=== PATIENT | female | born 1965 | race African-American/Black ===

== ENCOUNTER 2016-09-02 12:38 | Emergency (ER) | payer OTHER ==
--- NOTE | 2016-09-02 13:01 | PDOC ---
History of Present Illness - General Chief Complaint: Pain, Acute Stated Complaint: DIFFICULTY BREATHING Time Seen by Provider: 09/02/16 12:50 History Source: Patient Exam Limitations: No Limitations - History of Present Illness Initial Comments: 09/02/16 13:56 51y F hx of pulmonary fibrosis (on 4L of NC at rest and 6L when moving), lupus, PE on eliquis, kidney stones, presents with complaint of back pain. Pt states thtat she has been having intermittent episodes of hematuria and R sided flank pain. Pt states the pain feels like contractions, and occasionally radiates to her groin. Pt denies any fever, vomiting, cp. Pt reports seen bloody urine during her last hospitalization as well as during her rehab. She has been having worsening R flank pain so came today for evalution. THe pt also endorses feeling slightly increased sob, coughing whitish sputum, nasal congestion w/o fevers, increase leg swelling. Pt is complianet with her meds. pt endorses having diarrhea a few days ago but that has since resolved. Past History - Past Medical History Allergies/Adverse Reactions: Allergies Allergy/AdvReac Type Severity Reaction Status Date / Time No Known Allergies Allergy Verified 09/02/16 12:58 Home Medications: Ambulatory Orders Valsartan [Diovan] 240 mg PO DAILY 10/03/15 Acetaminophen [Tylenol .Regular Strength -] 650 mg PO Q4H PRN #0 tablet Albuterol 2.5/Ipratropium 0.5 [Duoneb -] 1 amp NEB QIDR amp 10/11/15 Ergocalciferol (Vitamin D2) [Vitamin D] 50,000 unit PO WEEKLY #8 10/11/15 Guaifenesin Dm [Mucinex Dm -] 1 tablet PO BID tab.er.12h 10/11/15 Loratadine [Claritin -] 10 mg PO DAILY tablet 10/11/15 Mag Hydrox/Al Hydrox/Simeth [Mylanta Oral Suspension -] 30 ml PO Q8H PRN #0 cup 10/11/15 Simethicone [Mylicon -] 80 mg PO Q4H PRN #0 tab.chew 10/11/15 Sodium Chloride Nasal [place] [[place] Nasal [place] -] 2 spray NS BID PRN #0 bottle 10/11/15 Sulfamethoxazole/Trimethoprim [Bactrim DS -] 1 each PO MoWeFr@1000 tablet 10/10 Tramadol HCl [Ultram -] 50 mg PO Q6H PRN #0 tablet 10/11/15 Acetaminophen W/ Codeine #3 [Tylenol # 3 -] 1 tab PO Q6H PRN #14 tablet MDD 4 Acetaminophen W/ Codeine #3 [Tylenol # 3] 1 combo PO Q4H PRN #14 tablet MDD 4 TABS 09/02/16 Apixaban [Eliquis] 5 mg PO BID 09/02/16 Ibuprofen 800 mg PO TID #15 tablet 09/02/16 Ibuprofen [Motrin -] 800 mg PO TID PRN #9 tablet 09/02/16 Pantoprazole Sodium [Protonix] 40 mg PO DAILY 09/02/16 Potassium Chloride [K-Dur -] 20 meq PO TID 09/02/16 Prednisone [Deltasone -] 40 mg PO DAILY 09/02/16 Torsemide [Demadex -] 20 mg PO DAILY 09/02/16 Cardiac Disorders: Yes (PULMONARY HYPERTENSION pulmonary fibrosis scarcodisos) HTN: Yes - Surgical History Cholecystectomy: Yes - Psycho/Social/Smoking Cessation Hx Anxiety: Yes Suicidal Ideation: No Smoking History: Former smoker Have you smoked in the past 12 months: No Hx Alcohol Use: No Drug/Substance Use Hx: No Substance Use Type: None Hx Substance Use Treatment: No Review of Systems - Review of Systems Able to Perform ROS?: Yes Comments:: 09/02/16 13:58 Constitutional - no reported Fever, Chills, weakness, HEENT: no reported vision changes, sore throat Respiratory: + cough, sob, no reported hemoptysis Cardiac: no reported chest pain, palpitations, light headedness, leg swelling Abd/GI: + abd pain, no reported nausea, vomiting, blood per rectum, melena, diarrhea : no reported dysuria, frequency, discharge Musculskelatal - no reported back pain, joint swelling skin - no reported bruising, erythema, rash neurological: no reported headache, numbness, focal weakness, tingling, ataxia, weakness hematologic: no reported anemia, easy bruising, easy bleeding *Physical Exam - Physical Exam Comments: 09/02/16 13:58 GENERAL: The patient is awake, alert, and fully oriented, Nontoxic - in no acute distress, morbidly obese HEAD: Normocephalic, atraumatic. EYES: extraocular movements intact, sclera anicteric, conjunctiva clear. ENT: Normal voice, Moist mucous membranes. NECK: Normal range of motion, supple LUNGS: Breath sounds equal, clear to auscultation bilaterally. No wheezes, no rhonchi, no rales. HEART: Regular rate and rhythm, normal S1 and S2 without murmur, rub or gallop. ABDOMEN: Soft, nontender, normoactive bowel sounds. No guarding, no rebound. + r CVA tenderness EXTREMITIES: Normal range of motion, no edema. No clubbing or cyanosis. No cords, erythema, or tenderness. NEUROLOGICAL: No facial assymetry, Normal speech, moving all 4 extremities spontaneously and symmetrically PSYCH: Normal mood, normal affect. SKIN: Warm, Dry, normal turgor, Heart Score/ECG Review - ECG Impressions Comment:: 09/02/16 15:57 Twelve-lead EKG was performed and reviewed by me. There is normal sinus rhythm with a normal rate. Rate of 93 The axis is normal. The intervals are normal. There are no ST or T wave abnormalities. Impression: Normal twelve-lead EKG ED Treatment Course - LABORATORY CBC & Chemistry Diagram: 09/02/16 14:10 09/02/16 14:10 Medical Decision Making - Medical Decision Making 09/02/16 13:59 will ck UA to r/o hematuria if + will obtain ct abdomen ?msk pain will ck labs to r/o anemia, metabolic dernagement will obtain xray to r/o pna, influenza will reassess A portion of this note was documented by scribe services under my direction. I have reviewed the details of the note, within reason, and agree with the documentation with the following case summary and management plan written by me 09/02/16 18:55 pts labs reviewed pain improved after morphine +hematuria awaiting CT results will sign out to dr. wills to fu with CT results and reassess the patient. *DC/Admit/Observation/Transfer Diagnosis at time of Disposition: Flank pain - Discharge Dispostion Disposition: HOME Condition at time of disposition: Improved - Prescriptions Prescriptions: Ibuprofen 800 mg PO TID #15 tablet Ibuprofen [Motrin -] 800 mg PO TID PRN #9 tablet PRN Reason: Pain Acetaminophen W/ Codeine #3 [Tylenol # 3] 1 combo PO Q4H PRN #14 tablet MDD 4 TABS PRN Reason: Pain Acetaminophen W/ Codeine #3 [Tylenol # 3 -] 1 tab PO Q6H PRN #14 tablet MDD 4 PRN Reason: Severe Pain - Referrals Referrals: Malcom Waddell MD [Primary Care Provider] - Call tomorrow - Patient Instructions Additional Instructions: PLENTY OF FLUIDS MOTRIN 800 MG 3 TIMES A DAY FOR 3 DAYS TYLENOL #3 AT FIRST SIGN OF PAIN RETURN IF FEVER, VOMITING, SEVERE PAIN SEE YOUR DOCTOR THIS WEEK
[2016-09-02 13:05] VITALS: BMI 47.0
[2016-09-02] MEDS ORDERED: morphine CARPU-JECT 4 MG/1 ML DISP.SYRIN IVPUSH ONE (14:01)
[2016-09-02 14:34] LABS: BASOPHIL 1.2 % (0-2.0); EOSINOPHIL 1.8 % (0-4.5); MCH 28.8 pg (25.7-33.7); MCHC 31.7 g/dl (32.0-36.0); MEAN CELL VOLUME 91.1 fl (80-96); MEAN PLT VOLUME 8.8 fl (7.5-11.1); NEUTROPHILS 61.2 % (42.8-82.8); PLATELET COUNT 207 K/MM3 (134-434); RDW 17.3 % (11.6-15.6); WHITE BLOOD COUNT 7.9 K/mm3 (4.0-10.0)
[2016-09-02 14:41] LABS: URINE APPEARANCE CLOUDY; URINE BILIRUBIN NEGATIVE (NEGATIVE); URINE COLOR DKYELLOW; URINE GLUCOSE (UA) NEGATIVE (NEGATIVE); URINE KETONE NEGATIVE (NEGATIVE); URINE NITRITE NEGATIVE (NEGATIVE); URINE UROBILINOGEN NEGATIVE E.U./dl (0.2-1.0)
[2016-09-02 14:42] LABS: URINE BLOOD 3+ (NEGATIVE); URINE LEUK ESTERASE TRACE (NEGATIVE); URINE PROTEIN 1+ (NEGATIVE)
[2016-09-02 14:46] LABS: URINE HYALINE CAST 14 /lpf; URINE MUCUS MANY; URINE RBC 167 /hpf (0-3); URINE WBC 11 /hpf (3-5)
[2016-09-02] MEDS ORDERED: morphine CARPU-JECT 4 MG/1 ML DISP.SYRIN ONE (14:49)
[2016-09-02 15:06] LABS: ALBUMIN 3.2 g/dl (3.4-5.0); ALK PHOS 58 U/L (45-117); ANION GAP 10 (8-16); BILIRUBIN,TOTAL 0.4 mg/dL (0.2-1.0); CALCIUM 9.5 mg/dL (8.5-10.1); CO2 27 mmol/L (21-32); CREATININE 0.9 mg/dL (0.55-1.02); GLUCOSE,RANDOM 77 mg/dL (74-106); SGOT/AST 17 U/L (15-37); SGPT/ALT 31 U/L (12-78); TOT PROT 6.7 g/dl (6.4-8.2)
--- NOTE | 2016-09-02 15:45 | EKG ---
Test Reason : Blood Pressure : / mmHG Vent. Rate : 093 BPM Atrial Rate : 093 BPM P-R Int : 140 ms QRS Dur : 102 ms QT Int : 356 ms P-R-T Axes : 056 015 049 degrees QTc Int : 442 ms NORMAL SINUS RHYTHM NORMAL ECG WHEN COMPARED WITH ECG OF 04-OCT-2015 08:34, NO SIGNIFICANT CHANGE WAS FOUND Confirmed by FAHAD ALEMAN MD ([id number]) on 09/02/2016 3:44:41 PM Referred By: Confirmed By:FAHAD ALEMAN MD
[2016-09-02 17:25] LABS: INR 1.28 (0.82-1.09); PROTHROMBIN TIME (PATIENT) 14.1 SEC (9.98-11.88)
[2016-09-02 19:44] VITALS: BP 128/76; PULSE 79; TEMP 98
[2016-09-02] MEDS ORDERED: KETOROLAC TROMETHAMINE 30 MG/1 ML VIAL IM ONE (20:19)
[2016-09-02] MEDS ORDERED: KETOROLAC TROMETHAMINE 30 MG/1 ML VIAL ONE (20:20)
--- NOTE | 2016-09-02 21:16 | PDOC ---
*Physical Exam - Vital Signs Last Vital Signs Temp Pulse Resp BP Pulse Ox 98.0 F 79 17 128/76 100 09/02/16 19:43 09/02/16 19:43 09/02/16 19:43 09/02/16 19:43 09/02/16 19:43 - Physical Exam Comments: 09/02/16 21:14 no obvious reason on ct forpain bit bif renal pelvic stone could be involved even though it is non obstructing and there's no hydro nsaid's f/u pmd ED Treatment Course - LABORATORY CBC & Chemistry Diagram: 09/02/16 14:10 09/02/16 14:10 - ADDITIONAL ORDERS Additional order review: Laboratory Results 09/02/16 09/02/16 09/02/16 14:10 14:10 14:10 INR 1.28 H Sodium 142 Potassium 4.3 D Chloride 105 Carbon Dioxide 27 Anion Gap 10 BUN 10 Creatinine 0.9 Creat Clearance w eGFR > 60 Random Glucose 77 Calcium 9.5 Total Bilirubin 0.4 AST 17 D ALT 31 D Alkaline Phosphatase 58 Total Protein 6.7 Albumin 3.2 L Urine Color Dkyellow Urine Appearance Cloudy Urine pH 5.0 Ur Specific [place] 1.026 Urine Protein 1+ H Urine Glucose (UA) Negative Urine Ketones Negative Urine Blood 3+ H Urine Nitrite Negative Urine Bilirubin Negative Urine Urobilinogen Negative Ur Leukocyte Esterase Trace H Urine RBC 167 Urine WBC 11 Ur Epithelial Cells Many Hyaline Casts 14 Urine Mucus Many 09/02/16 14:32 Influenza Types A,B Antigen (STAR) - Final Nasopharyngeal Swab - Final 09/02/16 14:10 RBC 4.70 MCV 91.1 MCHC 31.7 L RDW 17.3 H MPV 8.8 Neutrophils % 61.2 Lymphocytes % 28.1 Monocytes % 7.7 Eosinophils % 1.8 D Basophils % 1.2 - Medications Given in the ED: ED Medications Discontinued Medications Generic Name Dose Route Start Last Admin Trade Name Freq PRN Reason Stop Dose Admin Ketorolac Tromethamine 30 mg 09/02/16 20:19 09/02/16 20:26 Toradol Injection - IM 09/02/16 20:20 30 mg ONCE ONE Administration Morphine Sulfate 4 mg 09/02/16 14:01 09/02/16 14:53 Morphine Injection - IVPUSH 09/02/16 14:02 4 mg ONCE ONE Administration *DC/Admit/Observation/Transfer Diagnosis at time of Disposition: Flank pain - Discharge Dispostion Disposition: HOME Condition at time of disposition: Improved - Referrals Referrals: Malcom Waddell MD [Primary Care Provider] - Call tomorrow - Patient Instructions Additional Instructions: PLENTY OF FLUIDS MOTRIN 800 MG 3 TIMES A DAY FOR 3 DAYS TYLENOL #3 AT FIRST SIGN OF PAIN RETURN IF FEVER, VOMITING, SEVERE PAIN SEE YOUR DOCTOR THIS WEEK
--- NOTE | 2016-09-02 21:38 | PDOC ---
History of Present Illness - General Chief Complaint: Pain, Acute Stated Complaint: DIFFICULTY BREATHING Time Seen by Provider: 09/02/16 12:50 Past History - Past Medical History Allergies/Adverse Reactions: Allergies Allergy/AdvReac Type Severity Reaction Status Date / Time No Known Allergies Allergy Verified 09/02/16 12:58 Home Medications: Ambulatory Orders Valsartan [Diovan] 240 mg PO DAILY 10/03/15 Acetaminophen [Tylenol .Regular Strength -] 650 mg PO Q4H PRN #0 tablet Albuterol 2.5/Ipratropium 0.5 [Duoneb -] 1 amp NEB QIDR amp 10/11/15 Ergocalciferol (Vitamin D2) [Vitamin D] 50,000 unit PO WEEKLY #8 10/11/15 Guaifenesin Dm [Mucinex Dm -] 1 tablet PO BID tab.er.12h 10/11/15 Loratadine [Claritin -] 10 mg PO DAILY tablet 10/11/15 Mag Hydrox/Al Hydrox/Simeth [Mylanta Oral Suspension -] 30 ml PO Q8H PRN #0 cup 10/11/15 Simethicone [Mylicon -] 80 mg PO Q4H PRN #0 tab.chew 10/11/15 Sodium Chloride Nasal [place] [[place] Nasal [place] -] 2 spray NS BID PRN #0 bottle 10/11/15 Sulfamethoxazole/Trimethoprim [Bactrim DS -] 1 each PO MoWeFr@1000 tablet 10/10 Tramadol HCl [Ultram -] 50 mg PO Q6H PRN #0 tablet 10/11/15 Acetaminophen W/ Codeine #3 [Tylenol # 3] 1 combo PO Q4H PRN #14 tablet MDD 4 TABS 09/02/16 Apixaban [Eliquis] 5 mg PO BID 09/02/16 Ibuprofen 800 mg PO TID #15 tablet 09/02/16 Pantoprazole Sodium [Protonix] 40 mg PO DAILY 09/02/16 Potassium Chloride [K-Dur -] 20 meq PO TID 09/02/16 Prednisone [Deltasone -] 40 mg PO DAILY 09/02/16 Torsemide [Demadex -] 20 mg PO DAILY 09/02/16 Cardiac Disorders: Yes (PULMONARY HYPERTENSION pulmonary fibrosis scarcodisos) HTN: Yes Other medical history: LUPUS,P.EMBOLISM - Surgical History Cholecystectomy: Yes - Reproductive History Cervical CA: No Dysfunctional Uterine Bleeding: No Ectopic : No Endometrial CA: No Polycystic Ovaries: No - Psycho/Social/Smoking Cessation Hx Anxiety: Yes Suicidal Ideation: No Smoking History: Former smoker Have you smoked in the past 12 months: No Information on smoking cessation initiated: No Hx Alcohol Use: No Drug/Substance Use Hx: No Substance Use Type: None Hx Substance Use Treatment: No *Physical Exam - Vital Signs Last Vital Signs Temp Pulse Resp BP Pulse Ox 98.0 F 79 17 128/76 100 09/02/16 19:43 09/02/16 19:43 09/02/16 19:43 09/02/16 19:43 09/02/16 19:43 ED Treatment Course - LABORATORY CBC & Chemistry Diagram: 09/02/16 14:10 09/02/16 14:10 - ADDITIONAL ORDERS Additional order review: Laboratory Results 09/02/16 09/02/16 09/02/16 14:10 14:10 14:10 INR 1.28 H Sodium 142 Potassium 4.3 D Chloride 105 Carbon Dioxide 27 Anion Gap 10 BUN 10 Creatinine 0.9 Creat Clearance w eGFR > 60 Random Glucose 77 Calcium 9.5 Total Bilirubin 0.4 AST 17 D ALT 31 D Alkaline Phosphatase 58 Total Protein 6.7 Albumin 3.2 L Urine Color Dkyellow Urine Appearance Cloudy Urine pH 5.0 Ur Specific [place] 1.026 Urine Protein 1+ H Urine Glucose (UA) Negative Urine Ketones Negative Urine Blood 3+ H Urine Nitrite Negative Urine Bilirubin Negative Urine Urobilinogen Negative Ur Leukocyte Esterase Trace H Urine RBC 167 Urine WBC 11 Ur Epithelial Cells Many Hyaline Casts 14 Urine Mucus Many 09/02/16 14:32 Influenza Types A,B Antigen (STAR) - Final Nasopharyngeal Swab - Final 09/02/16 14:10 RBC 4.70 MCV 91.1 MCHC 31.7 L RDW 17.3 H MPV 8.8 Neutrophils % 61.2 Lymphocytes % 28.1 Monocytes % 7.7 Eosinophils % 1.8 D Basophils % 1.2 - Medications Given in the ED: ED Medications Discontinued Medications Generic Name Dose Route Start Last Admin Trade Name Freq PRN Reason Stop Dose Admin Ketorolac Tromethamine 30 mg 09/02/16 20:19 09/02/16 20:26 Toradol Injection - IM 09/02/16 20:20 30 mg ONCE ONE Administration Morphine Sulfate 4 mg 09/02/16 14:01 09/02/16 14:53 Morphine Injection - IVPUSH 09/02/16 14:02 4 mg ONCE ONE Administration *DC/Admit/Observation/Transfer Diagnosis at time of Disposition: Flank pain - Discharge Dispostion Disposition: HOME Condition at time of disposition: Improved - Prescriptions Prescriptions: Ibuprofen 800 mg PO TID #15 tablet Acetaminophen W/ Codeine #3 [Tylenol # 3] 1 combo PO Q4H PRN #14 tablet MDD 4 TABS PRN Reason: Pain - Referrals Referrals: Malcom Waddell MD [Primary Care Provider] - Call tomorrow - Patient Instructions Additional Instructions: PLENTY OF FLUIDS MOTRIN 800 MG 3 TIMES A DAY FOR 3 DAYS TYLENOL #3 AT FIRST SIGN OF PAIN RETURN IF FEVER, VOMITING, SEVERE PAIN SEE YOUR DOCTOR THIS WEEK - Post Discharge Activity
== END 2016-09-02 23:52 | disposition home or self-care (01) ==
LOC: JER 12:38
PROC: 3E0233Z Introduction of Anti-inflammatory into Muscle, Percutaneous Approach (ICD-10-PCS; principal; 2016-09-02)
PROC: 3E033NZ Introduction of Analgesics, Hypnotics, Sedatives into Peripheral Vein, Percutaneous Approach (ICD-10-PCS; 2016-09-02)
DX: R10.31 Right lower quadrant pain (principal); I27.2 Other secondary pulmonary hypertension; I10 Essential (primary) hypertension; J84.10 Pulmonary fibrosis, unspecified; Z87.891 Personal history of nicotine dependence; Z86.711 Personal history of pulmonary embolism; Z79.01 Long term (current) use of anticoagulants; Z99.81 Dependence on supplemental oxygen
CPT/HCPCS: 36415; 71010-TC; 74176-TC; 80053; 81003; 81015; 85025; 85610; 87804; 93005; 93010; 96372; 96374; 99285-25

== ENCOUNTER 2016-12-15 21:16 | Inpatient (IN) | payer OTHER ==
--- NOTE | 2016-12-15 21:31 | PDOC ---
History of Present Illness - General History Source: Patient Exam Limitations: No Limitations - History of Present Illness Initial Comments: 12/15/16 21:51 Patient is a 51 year old female with a significant past medical history of pulmonary fibrosis (patient requires lung transplant), lupus, hypertension, kidney stones, who presents to the ED with complaint of abdominal pain, SOB and vomiting. Patient reports 1 episode of vomiting at home and 1 episode while in the ED. Patient denies any diarrhea or constipation. Patient reports bilateral feet swelling with left foot bruising. Social History: Former Smoker (quit in 1997) PCP: Dr. Malcom Waddell Pulmonary: Dr. Richard Hopkins Cardiac: Dr. Pradip Rebollar <Mayuri Suarez - Last Filed: 12/16/16 00:26> <Rachel Naqvi - Last Filed: 12/16/16 04:28> - General Stated Complaint: ABDOMINAL PAIN Time Seen by Provider: 12/15/16 21:24 Past History <Mayuri Suarez - Last Filed: 12/16/16 00:26> - Past Medical History Cardiac Disorders: Yes (PULMONARY HYPERTENSION pulmonary fibrosis scarcodisos) HTN: Yes - Surgical History Cholecystectomy: Yes - Reproductive History Cervical CA: No Dysfunctional Uterine Bleeding: No Ectopic : No Endometrial CA: No Polycystic Ovaries: No - Psycho/Social/Smoking Cessation Hx Anxiety: Yes Suicidal Ideation: No Smoking History: Former smoker Have you smoked in the past 12 months: No Hx Alcohol Use: No Drug/Substance Use Hx: No Substance Use Type: None Hx Substance Use Treatment: No <Rachel Naqvi - Last Filed: 12/16/16 04:28> - Past Medical History Allergies/Adverse Reactions: Allergies Allergy/AdvReac Type Severity Reaction Status Date / Time No Known Allergies Allergy Verified 12/15/16 21:49 Home Medications: Ambulatory Orders Valsartan [Diovan] 240 mg PO DAILY 10/03/15 Acetaminophen [Tylenol .Regular Strength -] 650 mg PO Q4H PRN #0 tablet Albuterol 2.5/Ipratropium 0.5 [Duoneb -] 1 amp NEB QIDR amp 10/11/15 Ergocalciferol (Vitamin D2) [Vitamin D] 50,000 unit PO WEEKLY #8 10/11/15 Guaifenesin Dm [Mucinex Dm -] 1 tablet PO BID tab.er.12h 10/11/15 Loratadine [Claritin -] 10 mg PO DAILY tablet 10/11/15 Mag Hydrox/Al Hydrox/Simeth [Mylanta Oral Suspension -] 30 ml PO Q8H PRN #0 cup 10/11/15 Simethicone [Mylicon -] 80 mg PO Q4H PRN #0 tab.chew 10/11/15 Sodium Chloride Nasal [place] [[place] Nasal [place] -] 2 spray NS BID PRN #0 bottle 10/11/15 Sulfamethoxazole/Trimethoprim [Bactrim DS -] 1 each PO MoWeFr@1000 tablet 10/10 Tramadol HCl [Ultram -] 50 mg PO Q6H PRN #0 tablet 10/11/15 Apixaban [Eliquis] 5 mg PO BID 09/02/16 Pantoprazole Sodium [Protonix] 40 mg PO DAILY 09/02/16 Potassium Chloride [K-Dur -] 20 meq PO TID 09/02/16 Prednisone [Deltasone -] 40 mg PO DAILY 09/02/16 Torsemide [Demadex -] 20 mg PO DAILY 09/02/16 Review of Systems - Review of Systems Able to Perform ROS?: Yes Comments:: 12/15/16 21:50 GENERAL/CONSTITUTIONAL: No fever or chills. No weakness. HEAD, EYES, EARS, NOSE AND THROAT: No change in vision. No ear pain or discharge. No sore throat. CARDIOVASCULAR: (+) SOB. No chest pain. RESPIRATORY: (+) on NC. No cough, wheezing, or hemoptysis. GASTROINTESTINAL: (+)nausea, vomiting. No diarrhea or constipation. GENITOURINARY: No dysuria, frequency, or change in urination. MUSCULOSKELETAL: No joint or muscle swelling or pain. No neck or back pain. SKIN: No rash NEUROLOGIC: No headache, vertigo, loss of consciousness, or change in strength/ sensation. ENDOCRINE: No increased thirst. No abnormal weight change. HEMATOLOGIC/LYMPHATIC: No anemia, easy bleeding, or history of blood clots. ALLERGIC/IMMUNOLOGIC: No hives or skin allergy. <Mayuri Suarez - Last Filed: 12/16/16 00:26> *Physical Exam - Physical Exam Comments: 12/15/16 21:50 GENERAL: (+) vomiting while in the ED, non bilious non bloody. Awake, alert, and fully oriented, in no acute distress HEAD: No signs of trauma EYES: PERRLA, EOMI, sclera anicteric, conjunctiva clear ENT: Auricles normal inspection, hearing grossly normal, nares patent, oropharynx clear without exudates. Moist mucosa NECK: Normal ROM, supple, no lymphadenopathy, JVD, or masses LUNGS: Breath sounds equal, clear to auscultation bilaterally. No wheezes, and no crackles HEART: (+)Tachycardia. Normal S1 and S2, no murmurs, rubs or gallops ABDOMEN: (+)Obese. Soft, nontender, normoactive bowel sounds. No guarding, no rebound. No masses EXTREMITIES: (+) pitting edema bilaterally. Normal range of motion. No clubbing or cyanosis. No cords, erythema. NEUROLOGICAL: Cranial nerves II through XII grossly intact. Normal speech. SKIN: (+)left foot ecchymosis. Warm, Dry, normal turgor, no rashes or lesions noted. <Mayuri Suarez - Last Filed: 12/16/16 00:26> ED Treatment Course - LABORATORY CBC & Chemistry Diagram: 12/15/16 21:50 12/15/16 23:04 <Mayuri Suarez - Last Filed: 12/16/16 00:26> - LABORATORY CBC & Chemistry Diagram: 12/15/16 21:50 12/15/16 23:04 <Rachel Naqvi - Last Filed: 12/16/16 04:28> Medical Decision Making - Medical Decision Making 12/16/16 00:26 A call was placed to Dr Waddell at his [facility]. Awaiting a call back. <Mayuri Suarez - Last Filed: 12/16/16 00:26> - Medical Decision Making 12/16/16 03:18 Patient Name: Rowan Mason THIS IS A PRELIMINARY REPORT FROM [facility] [employer] [facility] IMAGES: [id number] EXAM DATE AND TIME: 2016-12-16 02:13:41.0 EXAM: CT ABDOMEN AND PELVIS WITHOUT CONTRAST 10 x 9 x 8 mm stone proximal right ureter versus large phlebolith abutting ureter. No hydronephrosis bilaterally. Small stone right kidney. Unremarkable pancreas. Cholecystectomy. No bowel obstruction, colitis, free fluid or free air. Appendix not seen. Fluid in colon. Diverticulosis colon without acute diverticulitis. Diastasis recti and small superimposed umbilical hernia containing fat. Hysterectomy. Coronary artery disease. Emphysematous changes and scattered interstitial thickening and ground glass densities mid and lower lungs. Thickened lateral portion right major fissure. THIS DOCUMENT HAS BEEN ELECTRONICALLY SIGNED 12/16/16 04:25 Pt comes with abdominal pain and vomiting. She has multiple comorbidities. She has an elevated WBC count with left shift 91%. She will be admitted to her PMD [facility]. Ct demonstrates a Right ureteral stone that is chronic and pt is supposed to have a procedure with Dr. Servin. 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 Dr. Waddell is aware of the patient <Rachel Naqvi - Last Filed: 12/16/16 04:28> *DC/Admit/Observation/Transfer - Attestations Scribe Attestion: 12/15/16 21:51 Documentation prepared by SUYAPA Park, acting as medical record retrieval specialist for Rachel Naqvi MD. <Mayrui Suarez - Last Filed: 12/16/16 00:26> - Discharge Dispostion Admit: Yes <Rachel Naqvi - Last Filed: 12/16/16 04:28> Diagnosis at time of Disposition: Lupus (systemic lupus erythematosus), Morbid obesity, Sarcoidosis, Vomiting, Gastroenteritis - Discharge Dispostion Condition at time of disposition: Guarded - Referrals
[2016-12-15] MEDS ORDERED: FAMOTIDINE 20 MG/50 ML IVPB 50 ML IVPB ONE ×2 (21:33→21:55)
[2016-12-15] MEDS ORDERED: ONDANSETRON 4 MG/2 ML VIAL IVPB ONE (21:33)
[2016-12-15] MEDS ORDERED: SODIUM CHLORIDE 0.9% 500 ML INFUS.BAG IV ONE (21:33)
[2016-12-15 21:50] VITALS: BMI 48.4
[2016-12-15] MEDS ORDERED: morphine CARPU-JECT 2 MG/1 ML DISP.SYRIN IVPUSH ONE (21:54)
[2016-12-15] MEDS ORDERED: ONDANSETRON 4 MG/2 ML VIAL ONE (21:55)
[2016-12-15] MEDS ORDERED: morphine CARPU-JECT 2 MG/1 ML DISP.SYRIN ONE (21:55)
[2016-12-15 22:02] LABS: BASOPHIL 0.6 % (0-2.0); MCH 28.5 pg (25.7-33.7); MCHC 32.1 g/dl (32.0-36.0); MEAN CELL VOLUME 88.5 fl (80-96); MEAN PLT VOLUME 8.2 fl (7.5-11.1); NEUTROPHILS 91.8 % (42.8-82.8); PLATELET COUNT 186 K/MM3 (134-434); RDW 20.5 % (11.6-15.6); WHITE BLOOD COUNT 14.1 K/mm3 (4.0-10.0)
[2016-12-15] MEDS ORDERED: HYDROmorphone HCL CARPU-JECT 2 MG/1 ML DISP.SYRIN IVPUSH ONE (23:49)
[2016-12-16 00:01] LABS: ALBUMIN 3.5 g/dl (3.4-5.0); BILIRUBIN,TOTAL 0.4 mg/dL (0.2-1.0); CALCIUM 8.8 mg/dL (8.5-10.1); COCKROFT - GAULT 102.119; CREATININE 1.4 mg/dL (0.55-1.02); TOT PROT 6.7 g/dl (6.4-8.2)
[2016-12-16] MEDS ORDERED: HYDROmorphone HCL CARPU-JECT 2 MG/1 ML DISP.SYRIN ONE (00:12)
[2016-12-16] MEDS ORDERED: METOCLOPRAMIDE HCL INJECTION 10 MG/2 ML VIAL IVPB ONE (00:16)
[2016-12-16] MEDS ORDERED: METOCLOPRAMIDE HCL INJECTION 10 MG/2 ML VIAL ONE (00:16)
[2016-12-16] MEDS ORDERED: traMADol HCL 50 MG TABLET PO PRN (00:44)
[2016-12-16] MEDS ORDERED: ALBUTEROL SO4 2.5/IPRATROPIUM 0.5 INH SOL 3 ML VIAL.NEB. NEB PRN ×2 (00:44→15:34)
[2016-12-16] MEDS ORDERED: ACETAMINOPHEN 325 MG TABLET (FP) PO PRN (00:44)
[2016-12-16] MEDS ORDERED: methylPREDNISolone NA SUCC 40 MG/1 ML VIAL ONE ×2 (02:21→12:55)
[2016-12-16] MEDS: methylPREDNISolone NA SUCC 40 MG/1 ML VIAL IVPB SCH ×3 (02:41→18:21)
[2016-12-16] MEDS ORDERED: HYDROmorphone HCL CARPU-JECT 2 MG/1 ML DISP.SYRIN IVPUSH ONE (06:14)
[2016-12-16] MEDS ORDERED: HYDROmorphone HCL CARPU-JECT 1 MG/1 ML DISP.SYRIN ONE (06:16)
[2016-12-16] MEDS: POTASSIUM CHLORIDE TABS 20 MEQ TABLET.ER (FP) PO SCH ×3 (06:27→23:37)
[2016-12-16 06:32] LABS: MCH 28.7 pg (25.7-33.7); MEAN CELL VOLUME 89.6 fl (80-96); MEAN PLT VOLUME 8.3 fl (7.5-11.1); PLATELET COUNT 180 K/MM3 (134-434); RDW 20.5 % (11.6-15.6); WHITE BLOOD COUNT 15.3 K/mm3 (4.0-10.0)
[2016-12-16] MEDS ORDERED: POTASSIUM CHLORIDE TABS 20 MEQ TABLET.ER (FP) PO ONE (06:46)
[2016-12-16 06:47] LABS: URINE APPEARANCE CLEAR; URINE BILIRUBIN NEGATIVE (NEGATIVE); URINE COLOR LTYELLOW; URINE GLUCOSE (UA) NEGATIVE (NEGATIVE); URINE KETONE NEGATIVE (NEGATIVE); URINE LEUK ESTERASE NEGATIVE (NEGATIVE); URINE NITRITE NEGATIVE (NEGATIVE); URINE PROTEIN NEGATIVE (NEGATIVE); URINE UROBILINOGEN NEGATIVE E.U./dl (0.2-1.0)
[2016-12-16 06:50] LABS: URINE BLOOD 1+ (NEGATIVE)
[2016-12-16 06:52] LABS: URINE BACTERIA RARE /hpf (NONE SEEN); URINE HYALINE CAST 11 /lpf; URINE MUCUS RARE; URINE RBC 1 /hpf (0-3); URINE WBC 1 /hpf (3-5)
[2016-12-16 07:26] LABS: ALBUMIN 3.6 g/dl (3.4-5.0); BILIRUBIN,TOTAL 0.5 mg/dL (0.2-1.0); CREATININE 2.1 mg/dL (0.55-1.02); TOT PROT 6.7 g/dl (6.4-8.2)
[2016-12-16 07:32] LABS: CHOLESTEROL 210 mg/dL (50-200); LDL CHOLESTEROL (ONLY SJRH) 111 mg/dL (5-100)
--- NOTE | 2016-12-16 09:56 | CON.CARD ---
Consult Consult Specialty:: cardio Referred by:: evelin Reason for Consultation:: chf - History of Present Illness Chief Complaint: abd pain/vomiting History of Present Illness: 51 yo female with complicated history of interstitial lung dz. previously dx's ILD ? etiology (? rheum dz process) when living in [place]. moved to [place] and transferred care to dr vines in 2015. here with ILDz exacerbation 10/17 with component of acute diast chf at that time , responded to diuresis. saw me 08/20 in office after long hiatus, having had interval hospital stays at multiple outside facilities: approx 7 interim admits at [facility] and [facility]--treated with cellcept for ILDz at one point, continued on snf steroids. also dx'd multiple PEs on 06/19 at [facility] and Rx'd eliquis at that time. treated with IV lasix as well during that stay, per pt report. has not seen me again since 08/20, called recently to report her leg swelling had significantly worsened despite torsemide 20 qd, so she increased it to 100mg qd. had good response as far as the swelling, and home labs i sent on her were stable (lytes/creat), though creat trending up to 1.3 at that time (last week). wt was 300 lbs at 08/20 visit, no wt info since. she says she recently developed abp pain and vomiting at home on DOA. she says her sob had worsened recently but improved, along with the improved pedal edema, when torsemide incr'd to 100 qd. she states she recently f/u'd with dr vines and claudio (rheum) and decision was made to put her back on methotrexate to try to get her off prednisone. she recently banged her foot and mmebreno (L leg) into walker and sustained bruises no cp, palpit PMH: ILDz COPD morbid obesity diast chf HTN venous ins'y MGUS - Past Medical History Cardio/Vascular: Yes: HTN Pulmonary: Yes: COPD, O2 Dependent, Pulmonary Fibrosis Gastrointestinal: Yes: GERD ...: No Rheumatology: Yes: Lupus - Alcohol/Substance Use Hx Alcohol Use: No - Smoking History Smoking history: Former smoker Have you smoked in the past 12 months: No Home Medications - Allergies Allergies/Adverse Reactions: Allergies Allergy/AdvReac Type Severity Reaction Status Date / Time No Known Allergies Allergy Verified 05/14/17 21:49 - Home Medications Home Medications: Ambulatory Orders Valsartan [Diovan] 240 mg PO DAILY 10/03/15 Acetaminophen [Tylenol .Regular Strength -] 650 mg PO Q4H PRN #0 tablet Albuterol 2.5/Ipratropium 0.5 [Duoneb -] 1 amp NEB QIDR amp 10/11/15 Ergocalciferol (Vitamin D2) [Vitamin D] 50,000 unit PO WEEKLY #8 10/11/15 Guaifenesin Dm [Mucinex Dm -] 1 tablet PO BID tab.er.12h 10/11/15 Loratadine [Claritin -] 10 mg PO DAILY tablet 10/11/15 Mag Hydrox/Al Hydrox/Simeth [Mylanta Oral Suspension -] 30 ml PO Q8H PRN #0 cup 10/11/15 Simethicone [Mylicon -] 80 mg PO Q4H PRN #0 tab.chew 10/11/15 Sodium Chloride Nasal [place] [[place] Holden Nasal Holden -] 2 spray NS BID PRN #0 bottle 10/11/15 Sulfamethoxazole/Trimethoprim [Bactrim DS -] 1 each PO MoWeFr@1000 tablet 10/10 Tramadol HCl [Ultram -] 50 mg PO Q6H PRN #0 tablet 10/11/15 Apixaban [Eliquis] 5 mg PO BID 09/02/16 Pantoprazole Sodium [Protonix] 40 mg PO DAILY 09/02/16 Potassium Chloride [K-Dur -] 20 meq PO TID 09/02/16 Prednisone [Deltasone -] 40 mg PO DAILY 09/02/16 Torsemide [Demadex -] 20 mg PO DAILY 09/02/16 Family Disease History - Family Disease History Family History: Denies (no known CMP) Review of Systems - Review of Systems Constitutional: denies: Chills, Fever Eyes: denies: Eye Pain HENT: denies: Nasal Congestion Neck: denies: Stiffness Cardiovascular: denies: Palpitations Respiratory: denies: Orthopnea, PND Gastrointestinal: denies: Diarrhea, Rectal Bleeding Genitourinary: denies: Burning, Hematuria Musculoskeletal: denies: Muscle Pain Integumentary: denies: Rash Neurological: denies: Numbness, Seizure, Syncope Endocrine: denies: Excessive Sweating Hematology/Lymphatic: denies: Excessive Bleeding Vital Signs: Vital Signs Temperature 98.2 F 12/15/16 21:49 Pulse Rate 97 H 12/15/16 21:49 Respiratory Rate 24 12/15/16 21:49 Blood Pressure 153/107 12/15/16 21:49 O2 Sat by Pulse Oximetry (%) 97 12/15/16 21:49 Constitutional: Yes: No Distress, Obese Eyes: No: Sclera Icterus HENT: No: Nasal Congestion Neck: No: Decreased ROM Respiratory: Yes: CTA Bilaterally, Rales (fine rales bases). No: Accessory Muscle Use, Wheezes Gastrointestinal: Yes: Normal Bowel Sounds. No: Distention, Hepatomegaly, Palpable Mass (tds habitus), Tenderness Cardiovascular: Yes: Regular Rate and Rhythm JVD: No Carotid Bruit: No PMI: Non-Displaced Heart Sounds: Yes: S1, S2. No: Gallop Murmur: No: Systolic Murmur, Diastolic Murmur Musculoskeletal: Yes: Other (No kyphosis) Extremities: No: Cold, Cyanosis Edema: No Peripheral Pulses: 2+ Left Carotid, 2+ Right Carotid, 2+ Left Doralis Pedis, 2+ Right Dorsalis Pedis Integumentary: No: Jaundice Neurological: Yes: Alert, Oriented (x3) Psychiatric: No: Agitated - Other Data Labs, Other Data: CBC, BMP 12/16/16 06:20 12/16/16 06:20 Laboratory Tests 12/15/16 12/16/16 12/16/16 23:04 06:20 06:20 WBC 15.3 H Hgb 12.4 Plt Count 180 Sodium 143 Potassium 4.5 Carbon Dioxide 34 H BUN 27 H D 41 H D Creatinine 1.4 H D 2.1 H D Hemoglobin A1c % AST 31 ALT 32 Triglycerides Cholesterol Total LDL Cholesterol HDL Cholesterol 12/16/16 12/16/16 06:20 06:20 WBC Hgb Plt Count Sodium Potassium Carbon Dioxide BUN Creatinine Hemoglobin A1c % 6.6 H AST ALT Triglycerides 87 Cholesterol 210 H Total LDL Cholesterol 111 H HDL Cholesterol 96 H ekg 12/15: NSR, normal axis/intervals; no path q's; nonsp TWA (flat) avf; no ST segment shift Imaging - Results Chest X-ray: Report Reviewed Assessment/Plan L/RHC 07/18: wedge 20-->down to 10 with nitroprusside; PA 48/22-->34/8; CI 2.1; normal cors echo 06/2015: tds, nl lvef, mild/mod dec rv fcn, mild/mod dilated rv, no sig valve path, mild phtn echo 10/2015: nl lv/rv, mild tr, rvsp 50-60 ecg 10/04/15: sr, nl intervals, no ischemic changes CXR: no effusion seen, chronic interstitial lung dz findings sob, diast CHF, ILD, pulm HTN: -mult admits with acute exacerbation of ILDz (incl outside hospitals) treated with steroids plus other immunosuppresant trials -prior RHC documenting that she has WHO 2 pulm HTN (all proportional to her elevated wedge, not likely a component from CTEPH or ILDz) -Echo 06/2015: tds, nl lvef, mild/mod dec rv fcn, mild/mod dilated rv, no sig valve path, mild phtn--at risk for cor pulmonale, will rpt echo here -previously treated with lasix 80 iv bid here as inpatient (10/17) with wt down 338 to 331, subsequently on torsemide 20-100mg qd (tolerated the higher dose at times, at least temporarily) -wt 300 lbs in office 08/20, off torsemide since prior hosp discharge--started 20mg qd then and this was incr'd to 100mg qd about 2-3 wks ago due to signif incr leg swelling -sob and leg swelling improved with incr diuretic at home -hold diuretics and hydrate gently given CONCEPCION today -cont nitrates (given marked response of wedge and right heart pressures 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 due to R kidney stone--per -? due to decr po (admitted with abd pain, naus and vomiting) plus diuretics -hold torsemide for now, gentle fluids (NS at 75 cc/hr--note: pt never with signif pulm edema or severe resp dysfunction due to chf, tolerates fluid reaccumulation well) h/o PEs: -dx'd in outside hosp ([facility]) 06/19--on Eliquis since atyp cp syndrome (chronic): -pleuritic cp, likely related to lung dz, coughing in past -cath 07/2015 showed normal cors HTN -cont home meds, observe bp ternd morbid obesity: -stable preop CV eval: -RCRI = 1, decr'd functional status -chf currently well-compensated -if pt needs cysto or lithotripsy to manage renal stone, she is at acceptable risk of periop CV complications -defer mgmt of AC periop to pulm and/or heme (PE dx'd at outside hosp 06/19, ? provoked (very sedentary pt with mult admits around that time))--? need bridging UFH
[2016-12-16] MEDS ORDERED: PANTOPRAZOLE 40 MG TABLET (FP) PO SCH (10:00)
[2016-12-16] MEDS ORDERED: TORSEMIDE 20 MG TABLET (FP) PO SCH (10:00)
[2016-12-16] MEDS ORDERED: HEPARIN NA (PORCINE) 5,000 UNITS/ML 1ML VIAL SQ SCH (10:00)
--- NOTE | 2016-12-16 10:30 | EKG ---
Test Reason : Blood Pressure : / mmHG Vent. Rate : 095 BPM Atrial Rate : 095 BPM P-R Int : 142 ms QRS Dur : 100 ms QT Int : 340 ms P-R-T Axes : 060 023 029 degrees QTc Int : 427 ms NORMAL SINUS RHYTHM NORMAL ECG WHEN COMPARED WITH ECG OF 02-SEP-2016 14:02, NO SIGNIFICANT CHANGE WAS FOUND Confirmed by FAHAD ALEMAN MD ([id number]) on 12/16/2016 10:29:39 AM Referred By: Confirmed By:FAHAD ALEMAN MD
--- NOTE | 2016-12-16 10:31 | CONSULT ---
Consultation: REQUESTING PROVIDER: CONSULT REQUEST: We have been asked to medically evaluate this patient for ( pulmonology ). HISTORY OF PRESENT ILLNESS: Patient is a 51 year old female with a significant past medical history of pulmonary fibrosis, lupus, hypertension, kidney stones, who presents to the ED with complaint of abdominal pain, SOB and vomiting. Patient states that she started feeling nauseated on and at same time she felt her breathing is little below base level. Her nausea kept on increasing and yesterday she had pain in her abdomen in epigastric area, right flank, 10/10 in intensity, radiating to groin, intermittent, burning and sharp in quality, pain didn't decreased with po meds. Patient reports 1 episode of vomiting at home and 1 episode while in the ED. Patient denies any diarrhea or constipation. Patient passes flatus and stool, last bowel movement yesterday. Patient states that she has chronic sob and is little below her base line since , she uses 4-6 L of oxygen in home while resting and 6-8 L while walking , denies cough, chest pain, fever, orthopnea. Patient also states that she has b /l swelling in legs she called her cardiology office and they had increased her torsemide from 20 to 100 qd. at that time cr was 1.3. Patient states that she hit her foot with walker and developed a bruse Patient is on prednisone 50 mg daily. PMH: ILDz COPD morbid obesity diast chf HTN PE stopped smoking in 1997, smoked for 13 years, 1/2 pack a day, REVIEW OF SYSTEMS: CONSTITUTIONAL: Absent: fever, chills, diaphoresis, generalized weakness, HEENT: Absent: rhinorrhea, nasal congestion, CARDIOVASCULAR: Absent: chest pain, , palpitations, lightheadedness, peripharal edema RESPIRATORY: Absent: cough, shortness of breath, dyspnea with exertion, orthopnea, wheezing, stridor, hemoptysis GASTROINTESTINAL: Absent: abdominal pain, abdominal distension, nausea, vomiting, diarrhea, constipation, melena, hematochezia GENITOURINARY: Absent: dysuria, frequency, urgency, hesitancy, hematuria, flank pain, genital pain MUSCULOSKELETAL: Absent: myalgia, arthralgia, back pain, neck pain SKIN: Absent: rash, itching, pallor, bruse PHYSICAL EXAMINATION GENERAL: Awake, alert, and fully oriented, HEAD: Normal with no signs of trauma. EYES: Pupils equal, round and reactive to light, EARS, NOSE, THROAT: , oropharynx clear without exudates. Moist mucous membranes. NECK: no lymphadenopathy, JVD, LUNGS: Breath sounds equal, b/l diffuse ronchi. HEART:s1s2 normal ABDOMEN: Soft, tender, bs + UPPER EXTREMITIES: 2+ pulses, warm, well-perfused. No peripheral edema. LOWER EXTREMITIES: 2+ pulses, warm, well-perfused. No calf tenderness. No peripheral edema. SKIN: Warm, dry, ecchymosis on left foot Laboratory Results - last 24 hr 12/16/16 12/16/16 12/16/16 05: 06:20 06:20 WBC 15.3 H RBC 4.32 Hgb 12.4 Hct 38.7 MCV 89.6 MCHC 32.0 RDW 20.5 H Plt Count 180 MPV 8.3 Sodium 143 Potassium 4.5 Chloride 101 Carbon Dioxide 34 H Anion Gap 8 BUN 41 H D Creatinine 2.1 H D Creat Clearance w eGFR 24.83 Random Glucose 174 H D Hemoglobin A1c % Calcium 9.0 Total Bilirubin 0.5 D AST 31 ALT 32 Alkaline Phosphatase 83 Total Protein 6.7 Albumin 3.6 Triglycerides Cholesterol Total LDL Cholesterol HDL Cholesterol Urine Color Ltyellow Urine Appearance Clear Urine pH 5.0 Urine Protein Negative Urine Glucose (UA) Negative Urine Ketones Negative Urine Blood 1+ H Urine Nitrite Negative Urine Bilirubin Negative Urine Urobilinogen Negative Ur Leukocyte Esterase Negative Urine RBC 1 Urine WBC 1 Ur Epithelial Cells Rare Urine Bacteria Rare Hyaline Casts 11 Urine Mucus Rare 12/16/16 12/16/16 06:20 06:20 WBC RBC Hgb Hct MCV MCHC RDW Plt Count MPV Sodium Potassium Chloride Carbon Dioxide Anion Gap BUN Creatinine Creat Clearance w eGFR Random Glucose Hemoglobin A1c % 6.6 H Calcium Total Bilirubin AST ALT Alkaline Phosphatase Total Protein Albumin Triglycerides 87 Cholesterol 210 H Total LDL Cholesterol 111 H HDL Cholesterol 96 H Urine Color Urine Appearance Urine pH Urine Protein Urine Glucose (UA) Urine Ketones Urine Blood Urine Nitrite Urine Bilirubin Urine Urobilinogen Ur Leukocyte Esterase Urine RBC Urine WBC Ur Epithelial Cells Urine Bacteria Hyaline Casts Urine Mucus Active Medications Generic Name Dose Route Start Last Admin Trade Name Freq PRN Reason Stop Dose Admin Acetaminophen 650 mg 12/16/16 00:44 Tylenol - PO Q6H PRN FEVER OR PAIN Albuterol/Ipratropium 1 amp 12/16/16 00:44 Duoneb - NEB Q6H PRN SHORTNESS OF BREATH Apixaban 5 mg 12/16/16 10:00 Eliquis - PO BID IKER Guaifenesin 2 tablet 12/16/16 10:00 Mucinex Dm - PO BID IKER Methylprednisolone Sodium Succinate 40 mg 12/16/16 02:00 12/16/16 02:41 Solu-Medrol - IVPB 40 mg Q8H-IV IKER Administration Pantoprazole Sodium 40 mg 12/16/16 10:00 Protonix - PO DAILY IKER Potassium Chloride 20 meq 12/16/16 06:00 12/16/16 06:27 K-Dur - PO 20 meq TID IKER Administration Torsemide 20 mg 12/16/16 10:00 Demadex - PO DAILY IKER Tramadol HCl 50 mg 12/16/16 00:44 Ultram - PO Q8H PRN PAIN Valsartan 160 mg 12/16/16 10:00 Diovan - PO DAILY IKER ASSESSMENT/PLAN: A/ acute or chronic hypoxic respiratory failure ILDz/ pulmonary fibrosis/ sarcoidosis COPD morbid obesity diast chf HTN h/o PE, dvt Lupus ramon could be from pre renal, decrease po intake, vs stone, hyperlipidemia renal stone with renal colic Plan on Iv solumedrol 40 q8h oxygen, keep spo2> 90, continue with nebulizer continue with anti coagulent eliquis monitor vitals monitor intake/ output daily weight. weight reduction Dispo: We will continue to follow the patient. Thank you for this consultative opportunity. Visit type - Emergency Visit Emergency Visit: Yes ED Registration Date: 12/16/16 Care time: The patient presented to the Emergency Department on the above date and was hospitalized for further evaluation of their emergent condition. - New Patient This patient is new to me today: Yes Date on this admission: 12/16/16 - Critical Care Critical Care patient: No
--- NOTE | 2016-12-16 12:13 | PN ---
Progress Note, Physician Chief Complaint: ID Full note dictated Admitted with abd pain and vomiting no diarrhea fever. - Current Medication List Current Medications: Active Medications Acetaminophen (Tylenol -) 650 mg PO Q6H PRN PRN Reason: FEVER OR PAIN Albuterol/Ipratropium (Duoneb -) 1 amp NEB Q6H PRN PRN Reason: SHORTNESS OF BREATH Apixaban (Eliquis -) 5 mg PO BID [facility] Guaifenesin (Mucinex Dm -) 2 tablet PO BID [facility] Sodium Chloride (Normal Saline -) 1,000 mls @ 75 mls/hr IV ASDIR IKER Methylprednisolone Sodium Succinate (Solu-Medrol -) 40 mg IVPB Q8H-IV IKER Last Admin: 12/16/16 02:41 Dose: 40 mg Nitroglycerin (Nitro-Dur Patch -) 0.3 mg TD DAILY IKER Pantoprazole Sodium (Protonix -) 40 mg PO DAILY IKER Potassium Chloride (K-Dur -) 20 meq PO TID IKER Last Admin: 12/16/16 06:27 Dose: 20 meq Tramadol HCl (Ultram -) 50 mg PO Q8H PRN PRN Reason: PAIN Valsartan (Diovan -) 160 mg PO DAILY [facility] - Objective Vital Signs: Vital Signs Temperature 98.2 F 12/15/16 21:49 Pulse Rate 97 H 12/15/16 21:49 Respiratory Rate 24 12/15/16 21:49 Blood Pressure 153/107 12/15/16 21:49 O2 Sat by Pulse Oximetry (%) 97 12/15/16 21:49 Neck: Yes: WNL, Supple Cardiovascular: Yes: Regular Rate and Rhythm, S1, S2 Respiratory: Yes: WNL, Regular, CTA Bilaterally, Diminished Gastrointestinal: Yes: WNL, Normal Bowel Sounds, Soft, Tenderness (Tenderness right sided) Labs: CBC, BMP 12/16/16 06:20 12/16/16 06:20 Problem List - Problems (1) Morbid obesity Code(s): E66.01 - MORBID (SEVERE) OBESITY DUE TO EXCESS CALORIES (2) Pulmonary fibrosis Code(s): J84.10 - PULMONARY FIBROSIS, UNSPECIFIED (3) Abdominal pain Code(s): R10.9 - UNSPECIFIED ABDOMINAL PAIN Assessment/Plan Laboratory Tests 12/16/16 12/16/16 06:20 06:20 WBC 15.3 H Hgb 12.4 Plt Count 180 BUN 41 H D Creat Clearance w eGFR 24.83 Total Bilirubin 0.5 D AST 31 ALT 32 Alkaline Phosphatase 83 Abdominal pain of unclear etiology CT with kidney stones and distended loops bowel air fluid level Elevated WBC but on steroids 50mg. ? steroids masking symptoms signs Plan NO antibiotics at this time Would get GI to see her ON Bactrim tiw I assume PCP prophylaxis Urine and blood cultures Jennifer DUMONT
[2016-12-16] MEDS: VALSARTAN 160 MG TABLET (UD) PO SCH (12:40)
[2016-12-16] MEDS: APIXABAN 5 MG TABLET PO SCH ×3 (12:40→23:52)
[2016-12-16] MEDS ORDERED: PANTOPRAZOLE 40 MG TABLET (FP) ONE (12:55)
[2016-12-16] MEDS ORDERED: VALSARTAN 80 MG TABLET (UD) ONE (12:55)
--- NOTE | 2016-12-16 13:01 | CONS ---
DATE OF CONSULTATION: HISTORY: This is a 51-year-old female who presents to the emergency room with chief complaint of abdominal pain, vomiting with some chills for approximately 3-4 days. She denies any diarrhea, blood per rectum, or hematemesis. The abdominal pain is predominantly in the epigastric area, and she states that she has had chronic pain in the abdomen, which she relates to known history of recurrent kidney stones. She denied any fever, chills, or hematuria. A CAT scan of the abdomen was obtained, which showed distended loops of colon with an air-fluid level. She has never had her appendix out but has had a prior cholecystectomy. Her other comorbid conditions include interstitial lung disease, obesity, COPD, diastolic congestive heart failure, hypertension, and pulmonary embolus. She was a former smoker who gave this up several years ago. FAMILY HISTORY: Noncontributory. SOCIAL HISTORY: Former smoker. No history of alcohol use. 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 Single. HIV status is negative. REVIEW OF SYSTEMS: Respiratory: Chronic shortness of breath, dyspnea with exertion. Cardiac: No chest pain, palpitations, syncope. Gastrointestinal: Abdominal pain. Positive nausea, positive vomiting. Genitourinary: No dysuria, hematuria, frequency. PHYSICAL EXAMINATION: General: She is an alert, pleasant female in no acute distress. Vital Signs: Her temperature is 98.2, pulse 97, blood pressure 153/107, respirations 24, weight 300 pounds. Neck: Supple. Lungs: Clear to percussion with diminished breath sounds. Heart: S1, S2. Regular rhythm without audible murmur. Abdomen: Positive bowel sounds. No distention. Tenderness noted in the epigastric, right upper and right lower quadrant without rebound or guarding. Extremities: Without edema. LABORATORY DATA: White count 14.1, hemoglobin 12.5, platelets 186, BUN 41, creatinine 2.1. Liver enzymes within normal limits. Chest x-ray reviewed shows chronic interstitial lung disease. ASSESSMENT: A 61-year-old female with a history of interstitial lung disease on high doses of prednisone 50 mg daily along with prophylactic Bactrim. The patient presents now with a 3- to 4-day history of abdominal pain with episodes of vomiting, and a CAT scan showing distended loops of large bowel with air-fluid level. The will be reviewed. She has a history of chronic constipation. Clinically she does not appear toxic in the sense of "sepsis"; however, given 50 mg of prednisone, her symptomatology may be potentially masked by the steroids. For right now, I would get blood and urine cultures on her but elect not to treat her with any antibiotics as the etiology of the abdominal pain remains unclear. I would suggest getting GI to further evaluate her abdominal pain as the next step in her management.. AKASH ZAVALA M.D. [id number] MTDD
[2016-12-16] MEDS: SODIUM CHLORIDE 1,000 ML IV SCH ×2 (13:03→23:52)
--- NOTE | 2016-12-16 15:36 | PN ---
Teaching Attending Note Name of Resident: Ralph August ATTENDING PHYSICIAN STATEMENT I saw and evaluated the patient. I reviewed the resident's note and discussed the case with the resident. I agree with the resident's findings and plan as documented. PULMONARY IMP ACUTE ON CHRONIC HYPOXEMIC RESPIRATORY FAILURE ADVANCED SARCOIDOSIS WITH PULMONARY FIBROSIS SLE H/O DVT/PE MORBID OBESITY RENAL COLIC ACUTE RENAL FAILURE LIKELY OSAS PLAN IVF ANALGESICS STEROIDS INHALED BRONCHODILATORS SUPPLEMENTAL O2 MONITOR LYTES/RENAL FUNCTION WT REDUCTION SLEEP STUDIES OUTPATIENT DR MEDINA Problem List - Problems (1) Abdominal pain Code(s): R10.9 - UNSPECIFIED ABDOMINAL PAIN (2) Dyspnea Code(s): R06.00 - DYSPNEA, UNSPECIFIED Qualifiers: Dyspnea type: shortness of breath Qualified Code(s): R06.02 - Shortness of breath (3) Hypertension Code(s): I10 - ESSENTIAL (PRIMARY) HYPERTENSION Qualifiers: Hypertension type: essential hypertension Qualified Code(s): I10 - Essential (primary) hypertension (4) Lupus (systemic lupus erythematosus) Code(s): M32.9 - SYSTEMIC LUPUS ERYTHEMATOSUS, UNSPECIFIED (5) Morbid obesity Code(s): E66.01 - MORBID (SEVERE) OBESITY DUE TO EXCESS CALORIES (6) Pulmonary fibrosis Code(s): J84.10 - PULMONARY FIBROSIS, UNSPECIFIED (7) Sarcoidosis Code(s): D86.9 - SARCOIDOSIS, UNSPECIFIED (8) Vomiting Code(s): R11.10 - VOMITING, UNSPECIFIED (9) Flank pain Code(s): R10.9 - UNSPECIFIED ABDOMINAL PAIN (10) Renal colic Code(s): N23 - UNSPECIFIED RENAL COLIC (11) Acute renal failure Code(s): N17.9 - ACUTE KIDNEY FAILURE, UNSPECIFIED (12) Acute and chronic respiratory failure with hypoxia Code(s): J96.21 - ACUTE AND CHRONIC RESPIRATORY FAILURE WITH HYPOXIA
[2016-12-16] MEDS: guaiFENesin/D-METHORPHAN HB 1 EACH TAB.ER.12H PO SCH ×2 (15:58→23:51)
[2016-12-16] MEDS: HYDROmorphone HCL CARPU-JECT 2 MG/1 ML DISP.SYRIN IVPB PRN ×2 (16:00→23:33)
[2016-12-16] MEDS ORDERED: SODIUM CHLORIDE NASAL SPRAY 44 ML BOTTLE NS PRN (16:46)
[2016-12-16] MEDS: METOCLOPRAMIDE HCL INJECTION 10 MG/2 ML VIAL IVPB PRN (16:52)
--- NOTE | 2016-12-16 16:52 | HP ---
Admitting History and Physical - Primary Care Physician PCP: Malcom Waddell - Admission Chief Complaint: ABD PAIN/DYSPNEA/PAIN History of Present Illness: 51 Y/O FEMALE WELL KNOWN TO MY SERVICE WITH HISTORY OF SEVERE PULMONARY FIBROSIS , HTN, DM, OBESITY, FORMER [employer] HERE WITH ABD PAIN LEFT SIDE WITH DYSPNEA AND CHRONIC PAIN History Source: Patient - Past Medical History Cardiovascular: Yes: HTN Pulmonary: Yes: COPD, O2 Dependent, Pulmonary Fibrosis Gastrointestinal: Yes: GERD ...: No Rheumatology: Yes: Lupus - Smoking History Smoking history: Former smoker Have you smoked in the past 12 months: No - Alcohol/Substance Use Hx Alcohol Use: No Home Medications - Allergies Allergies/Adverse Reactions: Allergies Allergy/AdvReac Type Severity Reaction Status Date / Time No Known Allergies Allergy Verified 12/15/16 21:49 - Home Medications Home Medications: Ambulatory Orders Albuterol 2.5/Ipratropium 0.5 [Duoneb -] 1 neb IH QID 12/16/16 Apixaban [Eliquis -] 10 mg PO DAILY 12/16/16 Fluconazole 200 mg PO DAILY 12/16/16 Hydroxychloroquine So4 [Plaquenil -] 400 mg PO DAILY 12/16/16 Pantoprazole Sodium [Protonix] 40 mg PO DAILY 12/16/16 Potassium Chloride [K-Dur -] 60 meq PO DAILY 12/16/16 Prednisone [Deltasone -] 50 mg PO DAILY 12/16/16 Sulfamethoxazole/Trimethoprim [Bactrim Ds -] 1 tab PO DAILY 12/16/16 Torsemide [Demadex] 100 mg PO DAILY 12/16/16 Tramadol HCl [Ultram] 100 mg PO PRN 12/16/16 Valsartan [Diovan] 240 mg PO DAILY 12/16/16 Review of Systems - Review of Systems Constitutional: reports: Weakness Eyes: reports: No Symptoms HENT: reports: No Symptoms Neck: reports: No Symptoms Cardiovascular: reports: Shortness of Breath Respiratory: reports: Cough, SOB Gastrointestinal: reports: No Symptoms Genitourinary: reports: No Symptoms Musculoskeletal: reports: Back Pain, Joint Pain, Muscle Cramps, Muscle Weakness Integumentary: reports: Other Neurological: reports: Pre-Existing Deficit, Weakness, Other Endocrine: reports: No Symptoms Hematology/Lymphatic: reports: No Symptoms Physical Examination Vital Signs: Vital Signs Temperature 98.2 F 12/16/16 14:27 Pulse Rate 105 H 12/16/16 14:27 Respiratory Rate 20 12/16/16 14:27 Blood Pressure 142/88 12/16/16 14:27 O2 Sat by Pulse Oximetry (%) 96 12/16/16 14:27 Constitutional: Yes: Moderate Distress Eyes: Yes: WNL HENT: Yes: WNL Neck: Yes: WNL Cardiovascular: Yes: WNL Respiratory: Yes: Diminished, On Nasal O2, Poor Air Entry Gastrointestinal: Yes: WNL Renal/: Yes: Other Musculoskeletal: Yes: Back Pain, Muscle Weakness Edema: Yes Peripheral Pulses WNL: Yes Integumentary: Yes: WNL Wound/Incision: Yes: Clean/Dry Neurological: Yes: Other ...Motor Strength: LLE, RLE Psychiatric: Yes: Other Labs: CBC, BMP 12/16/16 06:20 12/16/16 06:20 Problem List - Problems (1) Abdominal pain Code(s): R10.9 - UNSPECIFIED ABDOMINAL PAIN Qualifiers: Abdominal location: left lower quadrant Qualified Code(s): R10.32 - Left lower quadrant pain (2) Acute and chronic respiratory failure with hypoxia Code(s): J96.21 - ACUTE AND CHRONIC RESPIRATORY FAILURE WITH HYPOXIA (3) Acute renal failure Code(s): N17.9 - ACUTE KIDNEY FAILURE, UNSPECIFIED Qualifiers: Acute renal failure type: unspecified Qualified Code(s): N17.9 - Acute kidney failure, unspecified (4) Dyspnea Code(s): R06.00 - DYSPNEA, UNSPECIFIED Qualifiers: Dyspnea type: shortness of breath Qualified Code(s): R06.02 - Shortness of breath (5) Gastroenteritis Code(s): K52.9 - NONINFECTIVE GASTROENTERITIS AND COLITIS, UNSPECIFIED (6) Hypertension Code(s): I10 - ESSENTIAL (PRIMARY) HYPERTENSION Qualifiers: Hypertension type: essential hypertension Qualified Code(s): I10 - Essential (primary) hypertension (7) Lupus (systemic lupus erythematosus) Code(s): M32.9 - SYSTEMIC LUPUS ERYTHEMATOSUS, UNSPECIFIED (8) Morbid obesity Code(s): E66.01 - MORBID (SEVERE) OBESITY DUE TO EXCESS CALORIES Qualifiers: Obesity type: due to excess calories Qualified Code(s): E66.01 - Morbid (severe) obesity due to excess calories (9) Pulmonary fibrosis Code(s): J84.10 - PULMONARY FIBROSIS, UNSPECIFIED (10) Sarcoidosis Code(s): D86.9 - SARCOIDOSIS, UNSPECIFIED Assessment/Plan SOLUMEDROL IV GI EVAL PAIN CONTROL PULM EVAL RENAL EVAL SNF
[2016-12-16] MEDS ORDERED: METHOTREXATE 2.5 MG TABLET PO SCH (17:00)
--- NOTE | 2016-12-16 17:03 | CONSULT ---
Consult Consult Specialty:: Nephrology Reason for Consultation:: CONCEPCION - History of Present Illness Chief Complaint: shortness of breath and vomiting History of Present Illness: Pt is a 51 year old female with pmhx of SLE, pulmonary fibrosis, HTN, nephrolithiasis and obesity who presents to the ER with shortness of breath. She also complains of abdominal pain and vomiting. She did vomit at home and then again in the ER. I was called to evaluate her for acute renal failure. She denies history of CKD. She says she has had kidney stones in the past. She denies kidney involvement from the SLE. She does complain of lower extremity edema however she does not feel that is it much worse. She is on diuretics at home. - History Source History Provided By: Patient, Medical Record - Past Medical History Cardio/Vascular: Yes: HTN Pulmonary: Yes: COPD, O2 Dependent, Pulmonary Fibrosis Gastrointestinal: Yes: GERD Renal/: Yes: Renal Calculi ...: No Rheumatology: Yes: Lupus - Past Surgical History Past Surgical History: Yes: Cholecystectomy, Hysterectomy - Alcohol/Substance Use Hx Alcohol Use: No - Smoking History Smoking history: Former smoker Have you smoked in the past 12 months: No Home Medications - Allergies Allergies/Adverse Reactions: Allergies Allergy/AdvReac Type Severity Reaction Status Date / Time No Known Allergies Allergy Verified 12/15/16 21:49 - Home Medications Home Medications: Ambulatory Orders Albuterol 2.5/Ipratropium 0.5 [Duoneb -] 1 neb IH QID 12/16/16 Apixaban [Eliquis -] 10 mg PO DAILY 12/16/16 Fluconazole 200 mg PO DAILY 12/16/16 Hydroxychloroquine So4 [Plaquenil -] 400 mg PO DAILY 12/16/16 Pantoprazole Sodium [Protonix] 40 mg PO DAILY 12/16/16 Potassium Chloride [K-Dur -] 60 meq PO DAILY 12/16/16 Prednisone [Deltasone -] 50 mg PO DAILY 12/16/16 Sulfamethoxazole/Trimethoprim [Bactrim Ds -] 1 tab PO DAILY 12/16/16 Torsemide [Demadex] 100 mg PO DAILY 12/16/16 Tramadol HCl [Ultram] 100 mg PO PRN 12/16/16 Valsartan [Diovan] 240 mg PO DAILY 12/16/16 Family Disease History - Family Disease History Family History: Denies Review of Systems - Review of Systems Constitutional: reports: Malaise Eyes: reports: No Symptoms HENT: reports: No Symptoms Neck: reports: No Symptoms Cardiovascular: reports: Edema, Shortness of Breath Respiratory: reports: Cough, SOB, SOB on Exertion Gastrointestinal: reports: Abdominal Pain, Vomiting Genitourinary: reports: No Symptoms Musculoskeletal: reports: No Symptoms Integumentary: reports: No Symptoms Neurological: reports: No Symptoms Endocrine: reports: No Symptoms Hematology/Lymphatic: reports: No Symptoms Psychiatric: reports: No Symptoms Physical Exam Vital Signs: Vital Signs Temperature 98.2 F 12/16/16 14:27 Pulse Rate 105 H 12/16/16 14:27 Respiratory Rate 20 12/16/16 14:27 Blood Pressure 142/88 12/16/16 14:27 O2 Sat by Pulse Oximetry (%) 96 12/16/16 14:27 Constitutional: Yes: Calm Eyes: Yes: Conjunctiva Clear HENT: Yes: Atraumatic Cardiovascular: Yes: S1, S2 Respiratory: Yes: Diminished, On Nasal O2 Gastrointestinal: Yes: Soft, Abdomen, Obese Renal/: Yes: WNL Edema: Yes Edema: LLE: 1+, RLE: 1+ Neurological: Yes: Oriented Psychiatric: Yes: Oriented Labs: CBC, BMP 12/16/16 06:20 12/16/16 06:20 Laboratory Tests 10/09/15 10/10/15 08/14/16 07:15 07:30 11:24 WBC Hgb Plt Count Sodium Potassium Chloride Carbon Dioxide Anion Gap BUN Creatinine 1.0 1.2 H 1.1 H Urine Color Urine Appearance Urine pH Ur Specific [place] Urine Protein Urine Glucose (UA) Urine Ketones Urine Blood Urine Nitrite Urine Bilirubin Urine Urobilinogen Ur Leukocyte Esterase 09/27/16 12/15/16 12/15/16 11:00 21:50 23:04 WBC 14.1 H D Hgb 12.5 Plt Count 186 Sodium 145 Potassium 3.9 Chloride 100 Carbon Dioxide 32 Anion Gap 13 BUN 27 H D Creatinine 1.0 1.4 H D Urine Color Urine Appearance Urine pH Ur Specific [place] Urine Protein Urine Glucose (UA) Urine Ketones Urine Blood Urine Nitrite Urine Bilirubin Urine Urobilinogen Ur Leukocyte Esterase 12/16/16 12/16/16 12/16/16 05: 06:20 06:20 WBC 15.3 H Hgb 12.4 Plt Count 180 Sodium 143 Potassium 4.5 Chloride 101 Carbon Dioxide 34 H Anion Gap 8 BUN 41 H D Creatinine 2.1 H D Urine Color Ltyellow Urine Appearance Clear Urine pH 5.0 Ur Specific [place] 1.010 Urine Protein Negative Urine Glucose (UA) Negative Urine Ketones Negative Urine Blood 1+ H Urine Nitrite Negative Urine Bilirubin Negative Urine Urobilinogen Negative Ur Leukocyte Esterase Negative Imaging - Results Chest X-ray: Report Reviewed Cat Scan: Report Reviewed Problem List - Problems (1) Abdominal pain Code(s): R10.9 - UNSPECIFIED ABDOMINAL PAIN Qualifiers: Abdominal location: left lower quadrant Qualified Code(s): R10.32 - Left lower quadrant pain (2) Acute renal failure Code(s): N17.9 - ACUTE KIDNEY FAILURE, UNSPECIFIED Qualifiers: Acute renal failure type: unspecified Qualified Code(s): N17.9 - Acute kidney failure, unspecified (3) Dyspnea Code(s): R06.00 - DYSPNEA, UNSPECIFIED Qualifiers: Dyspnea type: shortness of breath Qualified Code(s): R06.02 - Shortness of breath (4) Hypertension Code(s): I10 - ESSENTIAL (PRIMARY) HYPERTENSION Qualifiers: Hypertension type: essential hypertension Qualified Code(s): I10 - Essential (primary) hypertension (5) Lupus (systemic lupus erythematosus) Code(s): M32.9 - SYSTEMIC LUPUS ERYTHEMATOSUS, UNSPECIFIED (6) Morbid obesity Code(s): E66.01 - MORBID (SEVERE) OBESITY DUE TO EXCESS CALORIES Qualifiers: Obesity type: due to excess calories Qualified Code(s): E66.01 - Morbid (severe) obesity due to excess calories (7) Pulmonary fibrosis Code(s): J84.10 - PULMONARY FIBROSIS, UNSPECIFIED (8) Sarcoidosis Code(s): D86.9 - SARCOIDOSIS, UNSPECIFIED Assessment/Plan Current Medications Generic Name Dose Route Start Last Admin Trade Name Freq PRN Reason Stop Dose Admin Acetaminophen 650 mg 12/16/16 00:44 Tylenol - PO Q6H PRN FEVER OR PAIN Albuterol/Ipratropium 1 amp 12/16/16 18:00 Duoneb - NEB QIDR IKER Apixaban 5 mg 12/16/16 10:00 12/16/16 13:21 Eliquis - PO Not Given BID IKER Bacitracin 1 applic 05/15/17 22:00 Bacitracin - TP BID IKER Guaifenesin 2 tablet 12/16/16 10:00 12/16/16 15:58 Mucinex Dm - PO Not Given BID IKER Hydromorphone HCl 2 mg 12/16/16 15:41 12/16/16 16:00 Dilaudid Injection - IVPB 2 mg Q6H PRN Administration PAIN Sodium Chloride 1,000 mls @ 75 mls/hr 12/16/16 11:00 12/16/16 13:03 Normal Saline - IV 75 mls/hr ASDIR IKER Administration Methotrexate 7.5 mg 12/16/16 17:00 Mexate - PO Q7D IKER Methylprednisolone Sodium Succinate 40 mg 12/16/16 02:00 12/16/16 12:50 Solu-Medrol - IVPB 40 mg Q8H-IV IKER Administration Metoclopramide HCl 10 mg 12/16/16 15:40 12/16/16 16:52 Reglan Injection - IVPB 10 mg Q8H PRN Administration NAUSEA Nitroglycerin 0.3 mg 12/17/16 10:00 Nitro-Dur Patch - TD DAILY IKER Pantoprazole Sodium 40 mg 12/16/16 10:00 12/16/16 12:40 Protonix - PO 40 mg DAILY IKER Administration Potassium Chloride 20 meq 12/16/16 06:00 12/16/16 16:01 K-Dur - PO 20 meq TID IKER Administration Sodium Chloride 2 spray 12/16/16 16:46 [place] Nasal [place] - NS Q2H PRN NASAL CONGESTION Tramadol HCl 50 mg 12/16/16 00:44 Ultram - PO Q8H PRN PAIN Valsartan 160 mg 12/16/16 10:00 12/16/16 12:40 Diovan - PO 160 mg DAILY IKER Administration Impression 1. CONCEPCION 2. SLE 3. pulmonary fibrosis 4. sarcoidosis 5. obesity 6. HTN 7. COPD 8. gerd 9. nephrolithiasis Plan - hold diuretics - gently hydration - repeat labs in am - will send urine lytes - repeat ua - check renal ultrasound - kidney stones can explaine the microscopic hematuria - follow UAs closely as she has SLE - will stop valsartan if renal function worsens - cardiology input appreciated - will follow Dr Sharpe
[2016-12-16] MEDS: ALBUTEROL SO4 2.5/IPRATROPIUM 0.5 INH SOL 3 ML VIAL.NEB. NEB SCH (17:45)
[2016-12-16] MEDS: ARTIFICIAL TEARS (POLYVINYL ALCOHOL 1.4%) OPTH DROPS OU SCH ×2 (18:21→23:38)
[2016-12-16] MEDS: BACITRACIN 15 GM TUBE TOPICAL OINTMENT TP SCH (23:38)
[2016-12-17] MEDS: METOCLOPRAMIDE HCL INJECTION 10 MG/2 ML VIAL IVPB PRN (01:49)
[2016-12-17] MEDS: methylPREDNISolone NA SUCC 40 MG/1 ML VIAL IVPB SCH ×3 (01:49→22:06)
[2016-12-17] MEDS: POTASSIUM CHLORIDE TABS 20 MEQ TABLET.ER (FP) PO SCH ×3 (05:54→22:10)
[2016-12-17] MEDS: HYDROmorphone HCL CARPU-JECT 2 MG/1 ML DISP.SYRIN IVPB PRN ×3 (06:21→22:30)
[2016-12-17] MEDS: ALBUTEROL SO4 2.5/IPRATROPIUM 0.5 INH SOL 3 ML VIAL.NEB. NEB SCH ×4 (06:40→16:05)
[2016-12-17] MEDS: PANTOPRAZOLE 40 MG TABLET (FP) PO SCH (06:46)
[2016-12-17 07:52] LABS: ALBUMIN 2.8 g/dl (3.4-5.0); CALCIUM 9.2 mg/dL (8.5-10.1)
[2016-12-17 07:56] LABS: BILIRUBIN,TOTAL 0.8 mg/dL (0.2-1.0); COCKROFT - GAULT 82.484; CREATININE 1.8 mg/dL (0.55-1.02)
[2016-12-17] MEDS ORDERED: FLUCONAZOLE 100 MG TABLET (UD) PO SCH (10:00)
[2016-12-17 10:08] LABS: URINE APPEARANCE CLEAR; URINE BILIRUBIN NEGATIVE (NEGATIVE); URINE BLOOD NEGATIVE (NEGATIVE); URINE COLOR YELLOW; URINE GLUCOSE (UA) NEGATIVE (NEGATIVE); URINE KETONE NEGATIVE (NEGATIVE); URINE LEUK ESTERASE NEGATIVE (NEGATIVE); URINE NITRITE NEGATIVE (NEGATIVE); URINE PROTEIN NEGATIVE (NEGATIVE); URINE UROBILINOGEN NEGATIVE E.U./dl (0.2-1.0)
--- NOTE | 2016-12-17 10:14 | PN ---
Physical Exam: SUBJECTIVE: Patient seen and examined Patient feels better. states pain has improved but still their, pointed towards epigastric area. Patient has h/o heart burn. Patient Ct scan shows diverticula and moderate stool. avoid constipation. States breathing has improved. rales has improved. denies chest pain, cough, palpitations. on 5L nasal canula OBJECTIVE: Vital Signs Period Temp Pulse Resp BP Sys/Steen Pulse Ox Last 24 Hr 98.2 F-98.4 F 98-109 20-20 123-142/75-88 96-96 GENERAL: Awake, alert, and fully oriented, HEAD: Normal with no signs of trauma. EYES: Pupils equal, round and reactive to light, EARS, NOSE, THROAT: , oropharynx clear without exudates. Moist mucous membranes. NECK: no lymphadenopathy, JVD, LUNGS: Breath sounds equal, b/l no rales, no ronhci HEART:s1s2 normal ABDOMEN: Soft, tender, bs + UPPER EXTREMITIES: 2+ pulses, warm, well-perfused. No peripheral edema. LOWER EXTREMITIES: 2+ pulses, warm, well-perfused. No calf tenderness. No peripheral edema. SKIN: Warm, dry, ecchymosis on left foot Laboratory Results - last 24 hr 12/16/16 12/17/16 05:17 06:25 Sodium 145 Potassium 5.1 Chloride 104 Carbon Dioxide 30 Anion Gap 11 BUN 49 H Creatinine 1.8 H Creat Clearance w eGFR 29.66 Random Glucose 131 H D Calcium 9.2 Total Bilirubin 0.8 D AST 21 D ALT 27 Alkaline Phosphatase 77 Total Protein 6.0 L Albumin 2.8 L D Ur Specific [place] 1.010 Active Medications Generic Name Dose Route Start Last Admin Trade Name Freq PRN Reason Stop Dose Admin Acetaminophen 650 mg 12/16/16 00:44 Tylenol - PO Q6H PRN FEVER OR PAIN Albuterol/Ipratropium 1 amp 12/16/16 18:00 12/17/16 06:40 Duoneb - NEB 1 amp QIDR IKER Administration Apixaban 5 mg 12/16/16 10:00 12/16/16 23:52 Eliquis - PO 5 mg BID IKER Administration Artificial Tears 1 drop 12/16/16 18:00 12/16/16 23:38 Artificial Tears OU 1 drop QID IKER Administration Bacitracin 1 applic 12/16/16 22:00 12/16/16 23:38 Bacitracin - TP 1 applic BID IKER Administration Docusate Sodium 100 mg 12/17/16 10:15 Colace - PO BID IKER Guaifenesin 2 tablet 12/16/16 10:00 12/16/16 23:51 Mucinex Dm - PO 2 tablet BID IKER Administration Hydromorphone HCl 2 mg 12/16/16 15:41 12/17/16 06:21 Dilaudid Injection - IVPB 2 mg Q6H PRN Administration PAIN Sodium Chloride 1,000 mls @ 75 mls/hr 12/16/16 11:00 12/16/16 23:52 Normal Saline - IV 75 mls/hr ASDIR IKER Administration Methotrexate 7.5 mg 12/16/16 17:00 12/16/16 18:23 Mexate - PO 7.5 mg Q7D@1000 IKER Administration Methylprednisolone Sodium Succinate 40 mg 12/16/16 02:00 12/17/16 01:49 Solu-Medrol - IVPB 40 mg Q8H-IV IKER Administration Metoclopramide HCl 10 mg 12/16/16 15:40 12/17/16 01:49 Reglan Injection - IVPB 10 mg Q8H PRN Administration NAUSEA Nitroglycerin 0.3 mg 12/17/16 10:00 Nitro-Dur Patch - TD DAILY IKER Pantoprazole Sodium 40 mg 12/17/16 07:00 12/17/16 06:46 Protonix - PO 40 mg DAILY@0700 IKER Administration Polyethylene Glycol 17 gm 12/18/16 10:00 Miralax (For Daily Use) - PO DAILY IKER Potassium Chloride 20 meq 12/16/16 06:00 12/17/16 05:54 K-Dur - PO 20 meq TID IKER Administration Sodium Chloride 2 spray 12/16/16 16:46 12/16/16 23:38 [place] Nasal [place] - NS 2 spray Q2H PRN Administration NASAL CONGESTION Tramadol HCl 50 mg 12/16/16 00:44 Ultram - PO Q8H PRN PAIN Valsartan 160 mg 12/16/16 10:00 12/16/16 12:40 Diovan - PO 160 mg DAILY IKER Administration ASSESSMENT/PLAN: acute or chronic hypoxic respiratory failure ILDz/ pulmonary fibrosis/ sarcoidosis COPD morbid obesity diast chf HTN h/o PE, dvt Lupus ramon could be from pre renal, decrease po intake, vs stone, hyperlipidemia renal stone with renal colic constipation Plan taper steroid Iv solumedrol 40 bid oxygen, keep spo2> 90, on 5L [place] continue with nebulizer duoneb qidr continue with anti coagulent on methotrexate monitor electrolyte/ renal function. monitor vitals monitor intake/ output daily weight. weight reduction pain control avoid constipation, on ,miralex and colace Visit type - Emergency Visit Emergency Visit: Yes ED Registration Date: 12/16/16 Care time: The patient presented to the Emergency Department on the above date and was hospitalized for further evaluation of their emergent condition. - New Patient This patient is new to me today: No - Critical Care Critical Care patient: No
[2016-12-17] MEDS ORDERED: PT OWN MED DRAWER 7, Y5N ONE ×2 (10:26→22:01)
[2016-12-17] MEDS: ARTIFICIAL TEARS (POLYVINYL ALCOHOL 1.4%) OPTH DROPS OU SCH ×4 (10:31→22:07)
[2016-12-17] MEDS: guaiFENesin/D-METHORPHAN HB 1 EACH TAB.ER.12H PO SCH ×2 (10:32→22:05)
[2016-12-17] MEDS: APIXABAN 5 MG TABLET PO SCH ×2 (10:32→22:04)
[2016-12-17] MEDS: VALSARTAN 160 MG TABLET (UD) PO SCH (10:32)
[2016-12-17] MEDS: BACITRACIN 15 GM TUBE TOPICAL OINTMENT TP SCH ×2 (10:32→22:12)
[2016-12-17] MEDS: DOCUSATE SODIUM 100 MG CAPSULE (FP) PO SCH ×2 (10:33→22:04)
[2016-12-17] MEDS: SODIUM CHLORIDE 1,000 ML IV SCH (10:33)
[2016-12-17] MEDS: NITROGLYCERIN 0.3 MG/HOUR TD PATCH TD SCH (11:03)
[2016-12-17 11:37] LABS: SODIUM,RANDOM URINE 36 MMOL/L
--- NOTE | 2016-12-17 11:39 | PN ---
Progress Note (short form) - Note Progress Note: some lessening of abdominal pain awake and alert Vital Signs Period Temp Pulse Resp BP Sys/Steen Pulse Ox Last 24 Hr 98.2 F-98.4 F 98-109 20-20 123-142/75-88 96-96 cor-rrr lungs decreased bs at bases abd soft, +midepigastric tenderness to palpation, no rebound, no guarding, no distention ext no edema CBC, BMP 12/16/16 06:20 12/17/16 06:25 cultures pending ua negative a/p abdominal pain improved pulmonary fibrosis on steroids CONCEPCION/nephrolithiasis- urology consult pending leukocytosis felt secondary to steroids- f/u cultures
--- NOTE | 2016-12-17 12:30 | PN ---
Teaching Attending Note Name of Resident: Ralph August ATTENDING PHYSICIAN STATEMENT I saw and evaluated the patient. I reviewed the resident's note and discussed the case with the resident. I agree with the resident's findings and plan as documented. SUBJECTIVE: Feels that breathing is better today. Less SOB and cough. Some oral discomfort due to thrush. Intake & Output 12/14/16 12/15/16 12/16/16 12/17/16 23:59 23:59 23:59 23:59 Intake Total 400 850 Output Total 400 Balance 0 850 Weight 300 lb 300 lb 311 lb 9 oz Last Vital Signs Temp Pulse Resp BP Pulse Ox 98.1 F 108 H 20 153/83 98 12/17/16 08:00 12/17/16 10:40 12/17/16 08:00 12/17/16 08:00 12/17/16 10:40 Active Medications Acetaminophen (Tylenol -) 650 mg PO Q6H PRN PRN Reason: FEVER OR PAIN Albuterol/Ipratropium (Duoneb -) 1 amp NEB QIDR [facility] Last Admin: 12/17/16 10:50 Dose: 1 amp Apixaban (Eliquis -) 5 mg PO BID [facility] Last Admin: 12/17/16 10:32 Dose: 5 mg Artificial Tears (Artificial Tears) 1 drop OU QID [facility] Last Admin: 12/17/16 10:31 Dose: 1 drop Bacitracin (Bacitracin -) 1 applic TP BID [facility] Last Admin: 12/17/16 10:32 Dose: 1 applic Docusate Sodium (Colace -) 100 mg PO BID [facility] Last Admin: 12/17/16 10:33 Dose: 100 mg Guaifenesin (Mucinex Dm -) 2 tablet PO BID [facility] Last Admin: 12/17/16 10:32 Dose: 2 tablet Hydromorphone HCl (Dilaudid Injection -) 2 mg IVPB Q6H PRN PRN Reason: PAIN Last Admin: 12/17/16 06:21 Dose: 2 mg Sodium Chloride (Normal Saline -) 1,000 mls @ 75 mls/hr IV ASDIR [facility] Last Admin: 12/17/16 10:33 Dose: Not Given Methotrexate (Mexate -) 7.5 mg PO Q7D@1000 [facility] Last Admin: 12/16/16 18:23 Dose: 7.5 mg Methylprednisolone Sodium Succinate (Solu-Medrol -) 40 mg IVPB Q8H-IV [facility] Last Admin: 12/17/16 10:33 Dose: 40 mg Metoclopramide HCl (Reglan Injection -) 10 mg IVPB Q8H PRN PRN Reason: NAUSEA Last Admin: 12/17/16 01:49 Dose: 10 mg Nitroglycerin (Nitro-Dur Patch -) 0.3 mg TD DAILY [facility] Last Admin: 12/17/16 11:03 Dose: 0.3 mg Pantoprazole Sodium (Protonix -) 40 mg PO DAILY@0700 [facility] Last Admin: 12/17/16 06:46 Dose: 40 mg Polyethylene Glycol (Miralax (For Daily Use) -) 17 gm PO DAILY [facility] Last Admin: 12/17/16 10:38 Dose: 17 gm Potassium Chloride (K-Dur -) 20 meq PO TID [facility] Last Admin: 12/17/16 05:54 Dose: 20 meq Sodium Chloride ([place] Nasal [place] -) 2 spray NS Q2H PRN PRN Reason: NASAL CONGESTION Last Admin: 12/16/16 23:38 Dose: 2 spray Tramadol HCl (Ultram -) 50 mg PO Q8H PRN PRN Reason: PAIN Valsartan (Diovan -) 160 mg PO DAILY [facility] Last Admin: 12/17/16 10:32 Dose: 160 mg GENERAL: Awake, alert, oriented, NAD HEAD: Normal with no signs of trauma. EYES: Pupils equal, round and reactive to light, EARS, NOSE, THROAT: , oropharynx clear without exudates. Moist mucous membranes. NECK: no lymphadenopathy, JVD, LUNGS: Few scattered rhonchi, no wheeze HEART:s1s2 normal ABDOMEN: Soft, tender, bs + UPPER EXTREMITIES: 2+ pulses, warm, well-perfused. No peripheral edema. LOWER EXTREMITIES: 2+ pulses, warm, well-perfused. No calf tenderness. No peripheral edema. SKIN: Warm, dry, ecchymosis on left foot Laboratory Results - last 24 hr 12/16/16 12/17/16 12/17/16 05: 06:10 06:10 Sodium Potassium Chloride Carbon Dioxide Anion Gap BUN Creatinine Creat Clearance w eGFR Random Glucose Calcium Total Bilirubin AST ALT Alkaline Phosphatase Total Protein Albumin Urine Color Yellow Urine Appearance Clear Urine pH 5.0 Ur Specific [place] 1.010 Urine Protein Negative Urine Glucose (UA) Negative Urine Ketones Negative Urine Blood Negative Urine Nitrite Negative Urine Bilirubin Negative Urine Urobilinogen Negative Ur Leukocyte Esterase Negative Ur Random Sodium 36 Ur Random Potassium 53.4 Ur Random Chloride < 10 12/17/16 06:25 Sodium 145 Potassium 5.1 Chloride 104 Carbon Dioxide 30 Anion Gap 11 BUN 49 H Creatinine 1.8 H Creat Clearance w eGFR 29.66 Random Glucose 131 H D Calcium 9.2 Total Bilirubin 0.8 D AST 21 D ALT 27 Alkaline Phosphatase 77 Total Protein 6.0 L Albumin 2.8 L D Urine Color Urine Appearance Urine pH Ur Specific [place] Urine Protein Urine Glucose (UA) Urine Ketones Urine Blood Urine Nitrite Urine Bilirubin Urine Urobilinogen Ur Leukocyte Esterase Ur Random Sodium Ur Random Potassium Ur Random Chloride ASSESSMENT/PLAN: Acute on chronic hypoxic respiratory failure ILD/ pulmonary fibrosis/ sarcoidosis COPD morbid obesity diast chf HTN h/o PE, dvt Lupus ramon could be from pre renal, decrease po intake, vs stone, hyperlipidemia renal stone with renal colic constipation Plan Decrease Medrol to BID oxygen, keep spo2> 90, on 5L [place] continue with nebulizer duoneb qid AC on methotrexate monitor electrolyte/ renal function. Diflucan Add miralax/colace Dr Gunn
--- NOTE | 2016-12-17 15:23 | PN ---
Progress Note, Physician Chief Complaint: AWAKE ALERT STILL SOB ORAL THRUSH - Current Medication List Current Medications: Active Medications Acetaminophen (Tylenol -) 650 mg PO Q6H PRN PRN Reason: FEVER OR PAIN Albuterol/Ipratropium (Duoneb -) [address] [facility] Last Admin: 12/17/16 10:50 Dose: 1 amp Apixaban (Eliquis -) [address] [facility] Last Admin: 12/17/16 10:32 Dose: 5 mg Artificial Tears (Artificial Tears) [address] [facility] Last Admin: 12/17/16 10:31 Dose: 1 drop Bacitracin (Bacitracin -) [address] [facility] Last Admin: 12/17/16 10:32 Dose: 1 applic Docusate Sodium (Colace -) [address] [facility] Last Admin: 12/17/16 10:33 Dose: 100 mg Fluconazole (Diflucan -) [address] [facility] Guaifenesin (Mucinex Dm -) [address] [facility] Last Admin: 12/17/16 10:32 Dose: 2 tablet Hydromorphone HCl (Dilaudid Injection -) 2 mg IVPB Q6H PRN PRN Reason: PAIN Last Admin: 12/17/16 06:21 Dose: 2 mg Sodium Chloride (Normal Saline -) 1,000 mls @ 75 mls/hr IV ASDIR [facility] Last Admin: 12/17/16 10:33 Dose: Not Given Lactobacillus Acidophilus (Bacid -) [address] [facility] Methotrexate (Mexate -) 7.5 mg PO Q7D@1000 [facility] Last Admin: 12/16/16 18:23 Dose: 7.5 mg Methylprednisolone Sodium Succinate (Solu-Medrol -) [address] [facility] Metoclopramide HCl (Reglan Injection -) 10 mg IVPB Q8H PRN PRN Reason: NAUSEA Last Admin: 12/17/16 01:49 Dose: 10 mg Nitroglycerin (Nitro-Dur Patch -) 0.[address] [facility] Last Admin: 12/17/16 11:03 Dose: 0.3 mg Pantoprazole Sodium (Protonix -) 40 mg PO DAILY@0700 [facility] Last Admin: 12/17/16 06:46 Dose: 40 mg Polyethylene Glycol (Miralax (For Daily Use) -) [address] [facility] Last Admin: 12/17/16 10:38 Dose: 17 gm Polyethylene Glycol (Miralax (For Daily Use) -) [address] [facility] Potassium Chloride (K-Dur -) [address] [facility] Last Admin: 12/17/16 05:54 Dose: 20 meq Sodium Chloride ([place]al [place] -) 2 spray NS Q2H PRN PRN Reason: NASAL CONGESTION Last Admin: 12/16/16 23:38 Dose: 2 spray Tramadol HCl (Ultram -) 50 mg PO Q8H PRN PRN Reason: PAIN Valsartan (Diovan -) [address] [facility] Last Admin: 12/17/16 10:32 Dose: 160 mg - Objective Vital Signs: Vital Signs Temperature 98.2 F 12/17/16 15:14 Pulse Rate 91 H 12/17/16 15:14 Respiratory Rate 20 12/17/16 08:00 Blood Pressure 154/86 12/17/16 15:14 O2 Sat by Pulse Oximetry (%) 98 12/17/16 10:40 Constitutional: Yes: Mild Distress Eyes: Yes: WNL HENT: Yes: WNL Neck: Yes: WNL Cardiovascular: Yes: WNL Respiratory: Yes: On Nasal O2, Poor Air Entry, Rhonchi, SOB Gastrointestinal: Yes: WNL Musculoskeletal: Yes: Muscle Weakness Extremities: Yes: Other Edema: Yes Peripheral Pulses WNL: Yes Integumentary: Yes: WNL Wound/Incision: Yes: Clean/Dry Neurological: Yes: Pre-Existing Deficit, Unsteady Gait, Weakness ...Motor Strength: LLE, RLE Psychiatric: Yes: Other Labs: CBC, BMP 12/16/16 06:20 12/17/16 06:25 Problem List - Problems (1) Abdominal pain Code(s): R10.9 - UNSPECIFIED ABDOMINAL PAIN Qualifiers: Abdominal location: left lower quadrant Qualified Code(s): R10.32 - Left lower quadrant pain (2) Acute and chronic respiratory failure with hypoxia Code(s): J96.21 - ACUTE AND CHRONIC RESPIRATORY FAILURE WITH HYPOXIA (3) Acute renal failure Code(s): N17.9 - ACUTE KIDNEY FAILURE, UNSPECIFIED Qualifiers: Acute renal failure type: unspecified Qualified Code(s): N17.9 - Acute kidney failure, unspecified (4) Dyspnea Code(s): R06.00 - DYSPNEA, UNSPECIFIED Qualifiers: Dyspnea type: shortness of breath Qualified Code(s): R06.02 - Shortness of breath (5) Gastroenteritis Code(s): K52.9 - NONINFECTIVE GASTROENTERITIS AND COLITIS, UNSPECIFIED (6) Hypertension Code(s): I10 - ESSENTIAL (PRIMARY) HYPERTENSION Qualifiers: Hypertension type: essential hypertension Qualified Code(s): I10 - Essential (primary) hypertension (7) Lupus (systemic lupus erythematosus) Code(s): M32.9 - SYSTEMIC LUPUS ERYTHEMATOSUS, UNSPECIFIED (8) Morbid obesity Code(s): E66.01 - MORBID (SEVERE) OBESITY DUE TO EXCESS CALORIES Qualifiers: Obesity type: due to excess calories Qualified Code(s): E66.01 - Morbid (severe) obesity due to excess calories (9) Pulmonary fibrosis Code(s): J84.10 - PULMONARY FIBROSIS, UNSPECIFIED (10) Sarcoidosis Code(s): D86.9 - SARCOIDOSIS, UNSPECIFIED Assessment/Plan SOLUMEDROL IV GI EVAL PAIN CONTROL MIRALAX BID [facility] SWISH/SWALLOW PULM EVAL RENAL EVAL SNF
--- NOTE | 2016-12-17 16:44 | PN ---
Progress Note, Physician History of Present Illness: Pt seen and examined at bedside. She is awake and alert. She denies any worsening of her shortness of breath. - Current Medication List Current Medications: Active Medications Acetaminophen (Tylenol -) 650 mg PO Q6H PRN PRN Reason: FEVER OR PAIN Albuterol/Ipratropium (Duoneb -) 1 amp NEB QIDR [facility] Last Admin: 12/17/16 10:50 Dose: 1 amp Apixaban (Eliquis -) 5 mg PO BID [facility] Last Admin: 12/17/16 10:32 Dose: 5 mg Artificial Tears (Artificial Tears) 1 drop OU QID [facility] Last Admin: 12/17/16 15:50 Dose: 1 drop Bacitracin (Bacitracin -) 1 applic TP BID [facility] Last Admin: 12/17/16 10:32 Dose: 1 applic Docusate Sodium (Colace -) 100 mg PO BID [facility] Last Admin: 12/17/16 10:33 Dose: 100 mg Fluconazole (Diflucan -) 100 mg PO DAILY [facility] Guaifenesin (Mucinex Dm -) 2 tablet PO BID [facility] Last Admin: 12/17/16 10:32 Dose: 2 tablet Hydromorphone HCl (Dilaudid Injection -) 2 mg IVPB Q6H PRN PRN Reason: PAIN Last Admin: 12/17/16 16:32 Dose: 2 mg Sodium Chloride (Normal Saline -) 1,000 mls @ 75 mls/hr IV ASDIR [facility] Last Admin: 12/17/16 10:33 Dose: Not Given Lactobacillus Acidophilus (Bacid -) 1 tab PO DAILY [facility] Methotrexate (Mexate -) 7.5 mg PO Q7D@1000 [facility] Last Admin: 12/16/16 18:23 Dose: 7.5 mg Methylprednisolone Sodium Succinate (Solu-Medrol -) 40 mg IVPB BID [facility] Metoclopramide HCl (Reglan Injection -) 10 mg IVPB Q8H PRN PRN Reason: NAUSEA Last Admin: 12/17/16 01:49 Dose: 10 mg Nitroglycerin (Nitro-Dur Patch -) 0.3 mg TD DAILY [facility] Last Admin: 12/17/16 11:03 Dose: 0.3 mg Nystatin (Nystatin Oral Suspension -) 500,000 units PO Q6HPO [facility] Pantoprazole Sodium (Protonix -) 40 mg PO DAILY@0700 [facility] Last Admin: 12/17/16 06:46 Dose: 40 mg Polyethylene Glycol (Miralax (For Daily Use) -) 17 gm PO BID [facility] Potassium Chloride (K-Dur -) 20 meq PO TID [facility] Last Admin: 12/17/16 15:50 Dose: 20 meq Sodium Chloride ([place]al [place] -) 2 spray NS Q2H PRN PRN Reason: NASAL CONGESTION Last Admin: 12/16/16 23:38 Dose: 2 spray Tramadol HCl (Ultram -) 50 mg PO Q8H PRN PRN Reason: PAIN Valsartan (Diovan -) 160 mg PO DAILY [facility] Last Admin: 12/17/16 10:32 Dose: 160 mg - Objective Vital Signs: Vital Signs Temperature 98.2 F 12/17/16 15:14 Pulse Rate 91 H 12/17/16 15:14 Respiratory Rate 20 12/17/16 08:00 Blood Pressure 154/86 12/17/16 15:14 O2 Sat by Pulse Oximetry (%) 98 12/17/16 10:40 Constitutional: Yes: Calm Eyes: Yes: Conjunctiva Clear HENT: Yes: Atraumatic Neck: Yes: Supple Cardiovascular: Yes: S1, S2 Respiratory: Yes: On Nasal O2 Gastrointestinal: Yes: Soft, Abdomen, Obese Genitourinary: Yes: WNL Musculoskeletal: Yes: WNL Edema: Yes Edema: LLE: 1+, RLE: 1+ Neurological: Yes: Oriented Psychiatric: Yes: Oriented Labs: CBC, BMP 12/16/16 06:20 12/17/16 06:25 Problem List - Problems (1) Abdominal pain Code(s): R10.9 - UNSPECIFIED ABDOMINAL PAIN Qualifiers: Abdominal location: left lower quadrant Qualified Code(s): R10.32 - Left lower quadrant pain (2) Acute renal failure Code(s): N17.9 - ACUTE KIDNEY FAILURE, UNSPECIFIED Qualifiers: Acute renal failure type: unspecified Qualified Code(s): N17.9 - Acute kidney failure, unspecified (3) Dyspnea Code(s): R06.00 - DYSPNEA, UNSPECIFIED Qualifiers: Dyspnea type: shortness of breath Qualified Code(s): R06.02 - Shortness of breath (4) Hypertension Code(s): I10 - ESSENTIAL (PRIMARY) HYPERTENSION Qualifiers: Hypertension type: essential hypertension Qualified Code(s): I10 - Essential (primary) hypertension (5) Lupus (systemic lupus erythematosus) Code(s): M32.9 - SYSTEMIC LUPUS ERYTHEMATOSUS, UNSPECIFIED (6) Morbid obesity Code(s): E66.01 - MORBID (SEVERE) OBESITY DUE TO EXCESS CALORIES Qualifiers: Obesity type: due to excess calories Qualified Code(s): E66.01 - Morbid (severe) obesity due to excess calories (7) Pulmonary fibrosis Code(s): J84.10 - PULMONARY FIBROSIS, UNSPECIFIED (8) Sarcoidosis Code(s): D86.9 - SARCOIDOSIS, UNSPECIFIED Assessment/Plan Current Medications Generic Name Dose Route Start Last Admin Trade Name Freq PRN Reason Stop Dose Admin Acetaminophen 650 mg 12/16/16 00:44 Tylenol - PO Q6H PRN FEVER OR PAIN Albuterol/Ipratropium 1 amp 12/16/16 18:00 12/17/16 10:50 Duoneb - NEB 1 amp QIDR [facility] Administration Apixaban 5 mg 12/16/16 10:00 12/17/16 10:32 Eliquis - PO 5 mg BID [facility] Administration Artificial Tears 1 drop 12/16/16 18:00 12/17/16 15:50 Artificial Tears OU 1 drop QID [facility] Administration Bacitracin 1 applic 12/16/16 22:00 12/17/16 10:32 Bacitracin - TP 1 applic BID [facility] Administration Docusate Sodium 100 mg 12/17/16 10:15 12/17/16 10:33 Colace - PO 100 mg BID [facility] Administration Fluconazole 100 mg 12/18/16 10:00 Diflucan - PO DAILY [facility] Guaifenesin 2 tablet 12/16/16 10:00 12/17/16 10:32 Mucinex Dm - PO 2 tablet BID [facility] Administration Hydromorphone HCl 2 mg 12/16/16 15:41 12/17/16 16:32 Dilaudid Injection - IVPB 2 mg Q6H PRN Administration PAIN Sodium Chloride 1,000 mls @ 75 mls/hr 12/16/16 11:00 12/17/16 10:33 Normal Saline - IV Not Given ASDIR [facility] Lactobacillus Acidophilus 1 tab 12/18/16 10:00 Bacid - PO DAILY [facility] Methotrexate 7.5 mg 12/16/16 17:00 12/16/16 18:23 Mexate - PO 7.5 mg Q7D@1000 [facility] Administration Methylprednisolone Sodium Succinate 40 mg 12/17/16 22:00 Solu-Medrol - IVPB BID [facility] Metoclopramide HCl 10 mg 12/16/16 15:40 12/17/16 01:49 Reglan Injection - IVPB 10 mg Q8H PRN Administration NAUSEA Nitroglycerin 0.3 mg 12/17/16 10:00 12/17/16 11:03 Nitro-Dur Patch - TD 0.3 mg DAILY [facility] Administration Nystatin 500,000 units 12/17/16 18:00 Nystatin Oral Suspension - PO Q6HPO [facility] Pantoprazole Sodium 40 mg 12/17/16 07:00 12/17/16 06:46 Protonix - PO 40 mg DAILY@0700 [facility] Administration Polyethylene Glycol 17 gm 12/17/16 22:00 Miralax (For Daily Use) - PO BID [facility] Potassium Chloride 20 meq 12/16/16 06:00 12/17/16 15:50 K-Dur - PO 20 meq TID [facility] Administration Sodium Chloride 2 spray 12/16/16 16:46 12/16/16 23:38 [place] Nasal [place] - NS 2 spray Q2H PRN Administration NASAL CONGESTION Tramadol HCl 50 mg 12/16/16 00:44 Ultram - PO Q8H PRN PAIN Valsartan 160 mg 12/16/16 10:00 12/17/16 10:32 Diovan - PO 160 mg DAILY [facility] Administration Laboratory Tests 12/17/16 06:10 Urine Color Yellow Urine Appearance Clear Urine pH 5.0 Ur Specific [place] 1.020 Urine Protein Negative Urine Glucose (UA) Negative Urine Ketones Negative Urine Blood Negative Urine Nitrite Negative Urine Bilirubin Negative Urine Urobilinogen Negative Ur Leukocyte Esterase Negative Impression 1. CONCEPCION 2. SLE 3. pulmonary fibrosis 4. sarcoidosis 5. obesity 6. HTN 7. COPD 8. gerd 9. nephrolithiasis Plan - cont with fluids for now - repeat labs in am - repeat ua is negative for blood or protein - renal function is improving - check renal ultrasound - kidney stones can explaine the microscopic hematuria - will follow Dr Sharpe
[2016-12-17] MEDS: NYSTATIN 500,000 UNITS/5 ML SUSPENSION PO SCH ×2 (18:01→23:22)
[2016-12-17] MEDS: SIMETHICONE 80 MG TAB.CHEW (FP) PO SCH ×2 (18:01→22:06)
--- NOTE | 2016-12-17 19:02 | CON.GI ---
Consult Consult Specialty:: GASTROENTEROLOGY Referred by:: REZA BROWNE MD - History of Present Illness Chief Complaint: ABDOMINAL PAIN History of Present Illness: 51 YEAR OLD FEMALE WITH SLE, RA AND ILD WHO I SAW IN OFFICE IN OCTOBER FOR ABDOMINAL PAIN AND REFLX. AN UPPER GI SERIES AND ESOPHAGRAM WERE NORMAL. CT SCAN SHOWED A OBSTRUCTING KIDNEY STONE. SHE NOW IS IN THE HOSPITAL WITH ABDOMINAL PAIN. SHE DESCRIBES THE PAIN LOCATED IN THE EPIGASTRIC AREA AND TRAVELS DOWN TO THE LLQ PAIN. HER BOWEL PATTERN IS IRREGULAR AND SHE IS USUALLY CONSTIPATED. SHE VOMITED AT HOME AND IN THE ED. THE CT SCAN ON ADMISSION SHOWS NON OBSTRUCTION KIDNEY STONES AND A DILATED COLON WITH AIR FLUID LEVELS AND STOOL. SHE IS STILL ON STEROIDS - History Source History Provided By: Patient Limitations to Obtaining History: No Limitations - Past Medical History Cardio/Vascular: Yes: HTN Pulmonary: Yes: COPD, O2 Dependent, Pulmonary Fibrosis Gastrointestinal: Yes: Constipation, GERD Renal/: Yes: Renal Calculi ...: No Rheumatology: Yes: Lupus - Past Surgical History Past Surgical History: Yes: Cholecystectomy, Hysterectomy - Alcohol/Substance Use Hx Alcohol Use: No - Smoking History Smoking history: Former smoker Have you smoked in the past 12 months: No Home Medications - Allergies Allergies/Adverse Reactions: Allergies Allergy/AdvReac Type Severity Reaction Status Date / Time No Known Allergies Allergy Verified 12/15/16 21:49 - Home Medications Home Medications: Ambulatory Orders Albuterol 2.5/Ipratropium 0.5 [Duoneb -] 1 neb [facility] QID 12/16/16 Apixaban [Eliquis -] 10 mg PO DAILY 12/16/16 Fluconazole 200 mg PO DAILY 12/16/16 Hydroxychloroquine So4 [Plaquenil -] 400 mg PO DAILY 12/16/16 Pantoprazole Sodium [Protonix] 40 mg PO DAILY 12/16/16 Potassium Chloride [K-Dur -] 60 meq PO DAILY 12/16/16 Prednisone [Deltasone -] 50 mg PO DAILY 12/16/16 Sulfamethoxazole/Trimethoprim [Bactrim Ds -] 1 tab PO DAILY 12/16/16 Torsemide [Demadex] 100 mg PO DAILY 12/16/16 Tramadol HCl [Ultram] 100 mg PO PRN 12/16/16 Valsartan [Diovan] 240 mg PO DAILY 12/16/16 Family Disease History - Family Disease History Family History: Unremarkable Review of Systems - Review of Systems Eyes: reports: No Symptoms HENT: reports: No Symptoms Neck: reports: No Symptoms Cardiovascular: reports: No Symptoms Respiratory: reports: Cough, SOB, SOB on Exertion Gastrointestinal: reports: Abdominal Pain, Constipation Genitourinary: reports: No Symptoms Neurological: reports: No Symptoms Hematology/Lymphatic: reports: No Symptoms Psychiatric: reports: No Symptoms Physical Exam-GI Vital Signs: Vital Signs Temperature 98.2 F 12/17/16 15:14 Pulse Rate 91 H 12/17/16 15:14 Respiratory Rate 12/17/16 08:00 Blood Pressure 154/86 12/17/16 15:14 O2 Sat by Pulse Oximetry (%) 98 12/17/16 10:40 Constitutional: Yes: Obese Eyes: Yes: Conjunctiva Clear HENT: Yes: Normocephalic Neck: Yes: Supple Cardiovascular: Yes: Regular Rate and Rhythm Respiratory: Yes: Rhonchi Gastrointestinal Inspection: Yes: Hernia ...Auscultate: Yes: Normoactive Bowel Sounds ...Palpate: Yes: Soft, Other (TENDERNESS IN THE SITTED POSITION WITH MIDLINE HERNIA , NO TENDERNESS WHEN LAYING FLAT) Extremities: Yes: WNL Edema: Yes Edema: LLE: 4+, RLE: 4+ Labs: CBC, BMP 12/16/16 06:20 12/17/16 06:25 Imaging - Results Cat Scan: Image Reviewed Problem List - Problems (1) Abdominal pain Assessment/Plan: CHRONIC PAIN FROM BOWEL DYSFUNCTION, STARTED ON MIRALAX AND i WOULD CONTINUENTHIS AND ADD METAMUCIL Code(s): R10.9 - UNSPECIFIED ABDOMINAL PAIN Qualifiers: Abdominal location: left lower quadrant Qualified Code(s): R10.32 - Left lower quadrant pain (2) Ileus Assessment/Plan: CK FALT AND UPRIGHT OF THE ABDOMEN TOMORROW Code(s): K56.7 - ILEUS, UNSPECIFIED (3) Acute and chronic respiratory failure with hypoxia Code(s): J96.21 - ACUTE AND CHRONIC RESPIRATORY FAILURE WITH HYPOXIA (4) Acute renal failure Code(s): N17.9 - ACUTE KIDNEY FAILURE, UNSPECIFIED Qualifiers: Acute renal failure type: unspecified Qualified Code(s): N17.9 - Acute kidney failure, unspecified (5) Lupus (systemic lupus erythematosus) Code(s): M32.9 - SYSTEMIC LUPUS ERYTHEMATOSUS, UNSPECIFIED (6) Morbid obesity Code(s): E66.01 - MORBID (SEVERE) OBESITY DUE TO EXCESS CALORIES Qualifiers: Obesity type: due to excess calories Qualified Code(s): E66.01 - Morbid (severe) obesity due to excess calories (7) Pulmonary fibrosis Code(s): J84.10 - PULMONARY FIBROSIS, UNSPECIFIED (8) ILD (interstitial lung disease) Code(s): J84.9 - INTERSTITIAL PULMONARY DISEASE, UNSPECIFIED
[2016-12-17] MEDS: PSYLLIUM 5.85 GM PACKET PO SCH (22:05)
[2016-12-17] MEDS: POLYETHYLENE GLYCOL 3350 119 GM BTL PO SCH (22:05)
[2016-12-18] MEDS: NYSTATIN 500,000 UNITS/5 ML SUSPENSION PO SCH ×4 (05:57→23:05)
[2016-12-18] MEDS: SIMETHICONE 80 MG TAB.CHEW (FP) PO SCH ×3 (05:57→21:21)
[2016-12-18] MEDS: POTASSIUM CHLORIDE TABS 20 MEQ TABLET.ER (FP) PO SCH (05:57)
[2016-12-18] MEDS: SODIUM CHLORIDE 1,000 ML IV SCH (06:24)
[2016-12-18] MEDS: PANTOPRAZOLE 40 MG TABLET (FP) PO SCH (06:24)
[2016-12-18] MEDS: METOCLOPRAMIDE HCL INJECTION 10 MG/2 ML VIAL IVPB PRN (06:31)
[2016-12-18] MEDS: ALBUTEROL SO4 2.5/IPRATROPIUM 0.5 INH SOL 3 ML VIAL.NEB. NEB SCH ×4 (06:40→17:25)
[2016-12-18 08:44] LABS: CALCIUM 8.2 mg/dL (8.5-10.1)
[2016-12-18 08:45] LABS: COCKROFT - GAULT 124.457; CREATININE 1.2 mg/dL (0.55-1.02)
[2016-12-18] MEDS: ARTIFICIAL TEARS (POLYVINYL ALCOHOL 1.4%) OPTH DROPS OU SCH ×4 (10:00→21:25)
[2016-12-18] MEDS ORDERED: FLUCONAZOLE 100 MG TABLET (UD) PO SCH (10:00)
[2016-12-18] MEDS ORDERED: LACTOBACILLUS ACIDOPHILUS 1 EACH TAB (FP) PO SCH (10:00)
[2016-12-18] MEDS ORDERED: POLYETHYLENE GLYCOL 3350 119 GM BTL PO SCH (10:00)
[2016-12-18] MEDS ORDERED: PT OWN MED DRAWER 7, Y5N ONE ×4 (10:58→20:35)
[2016-12-18] MEDS: methylPREDNISolone NA SUCC 40 MG/1 ML VIAL IVPB SCH (11:03)
[2016-12-18] MEDS: DOCUSATE SODIUM 100 MG CAPSULE (FP) PO SCH ×2 (11:05→21:21)
[2016-12-18] MEDS: FLUCONAZOLE 100 MG TABLET (UD) PO SCH ×2 (11:05→11:21)
[2016-12-18] MEDS: LACTOBACILLUS ACIDOPHILUS 1 EACH TAB (FP) PO SCH ×2 (11:06→11:31)
[2016-12-18] MEDS: APIXABAN 5 MG TABLET PO SCH ×2 (11:06→21:21)
[2016-12-18] MEDS: guaiFENesin/D-METHORPHAN HB 1 EACH TAB.ER.12H PO SCH ×2 (11:09→22:55)
[2016-12-18] MEDS: POLYETHYLENE GLYCOL 3350 119 GM BTL PO SCH ×2 (11:10→21:31)
[2016-12-18] MEDS: VALSARTAN 160 MG TABLET (UD) PO SCH (11:21)
[2016-12-18] MEDS: PSYLLIUM 5.85 GM PACKET PO SCH ×2 (11:22→21:25)
[2016-12-18] MEDS: NITROGLYCERIN 0.3 MG/HOUR TD PATCH TD SCH (11:28)
--- NOTE | 2016-12-18 11:38 | PN ---
Physical Exam: SUBJECTIVE: Patient seen and examined complaining of sob and chest congestion. on 5 L NC with spo2 85, Patient also states that she is coughing and has started producing yellow color sputum Patient is afebrile OBJECTIVE: Vital Signs Period Temp Pulse Resp BP Sys/Steen Pulse Ox Last 24 Hr 98.2 F-98.6 F 91-116 20-20 107-154/61-86 98 GENERAL: Awake, alert, and fully oriented, HEAD: Normal with no signs of trauma. EYES: Pupils equal, round and reactive to light, EARS, NOSE, THROAT: , oropharynx clear without exudates. Moist mucous membranes. NECK: no lymphadenopathy, JVD, LUNGS: Breath sounds equal, good air entry, b/l wheez present in expiration. HEART:s1s2 normal ABDOMEN: Soft, non tender, bs + UPPER EXTREMITIES: 2+ pulses, warm, well-perfused. No peripheral edema. LOWER EXTREMITIES: , warm, well-perfused. No calf tenderness. No peripheral edema. SKIN: Warm, dry, ecchymosis on left foot Laboratory Results - last 24 hr 12/17/16 12/17/16 12/17/16 06:10 06:10 06:10 Sodium Potassium Chloride Carbon Dioxide Anion Gap BUN Creatinine Random Glucose Calcium Ur Specific [place] 1.020 Ur Random Sodium 36 Ur Random Potassium 53.4 Ur Random Chloride < 10 Ur Random Urea Nitrogn 1062 Urine Creatinine 12/17/16 12/18/16 06:10 06:30 Sodium 145 Potassium 5.6 H Chloride 109 H Carbon Dioxide 26 Anion Gap 10 BUN 40 H Creatinine 1.2 H D Random Glucose 123 H Calcium 8.2 L Ur Specific [place] Ur Random Sodium Ur Random Potassium Ur Random Chloride Ur Random Urea Nitrogn Urine Creatinine 118.0 Active Medications Generic Name Dose Route Start Last Admin Trade Name Freq PRN Reason Stop Dose Admin Acetaminophen 650 mg 12/16/16 00:44 Tylenol - PO Q6H PRN FEVER OR PAIN Albuterol/Ipratropium 1 amp 12/16/16 18:00 12/18/16 06:40 Duoneb - NEB 1 amp QIDR [facility] Administration Apixaban 5 mg 12/16/16 10:00 12/18/16 11:06 Eliquis - PO 5 mg BID [facility] Administration Artificial Tears 1 drop 12/16/16 18:00 12/17/16 22:07 Artificial Tears OU 1 drop QID [facility] Administration Bacitracin 1 applic 12/16/16 22:00 12/17/16 22:12 Bacitracin - TP 1 applic BID [facility] Administration Docusate Sodium 100 mg 12/17/16 10:15 12/18/16 11:05 Colace - PO 100 mg BID [facility] Administration Fluconazole 100 mg 12/17/16 18:00 12/18/16 11:21 Diflucan - PO 100 mg DAILY [facility] Administration Guaifenesin 2 tablet 12/16/16 10:00 12/18/16 11:09 Mucinex Dm - PO 2 tablet BID [facility] Administration Hydromorphone HCl 4 mg 12/18/16 11:35 Dilaudid - PO Q6H PRN PAIN Lactobacillus Acidophilus 1 tab 12/17/16 18:00 12/18/16 11:31 Bacid - PO 1 tab DAILY [facility] Administration Methotrexate 7.5 mg 12/16/16 17:00 12/16/16 18:23 Mexate - PO 7.5 mg Q7D@1000 [facility] Administration Nitroglycerin 0.3 mg 12/17/16 10:00 12/18/16 11:28 Nitro-Dur Patch - TD 0.3 mg DAILY [facility] Administration Nystatin 500,000 units 12/17/16 18:00 12/18/16 05:57 Nystatin Oral Suspension - PO 500,000 units Q6HPO [facility] Administration Ondansetron HCl 8 mg 12/18/16 11:34 Zofran Odt - SL Q6H PRN NAUSEA AND/OR VOMITING Pantoprazole Sodium 40 mg 12/17/16 07:00 12/18/16 06:24 Protonix - PO 40 mg DAILY@0700 [facility] Administration Polyethylene Glycol 17 gm 12/17/16 22:00 12/18/16 11:10 Miralax (For Daily Use) - PO 17 gm BID [facility] Administration Potassium Chloride 20 meq 12/16/16 06:00 12/18/16 05:57 K-Dur - PO 20 meq TID [facility] Administration Prednisone 40 mg 12/18/16 11:45 Deltasone - PO BID [facility] Psyllium Hydrophilic Mucilloid 5.85 gm 12/17/16 22:00 12/18/16 11:22 Metamucil (Sugar-Free) - PO 5.85 gm BID [facility] Administration Simethicone 80 mg 12/17/16 17:30 12/18/16 05:57 Mylicon - PO 80 mg TID [facility] Administration Sodium Chloride 2 spray 12/16/16 16:46 12/16/16 23:38 [place] Nasal [place] - NS 2 spray Q2H PRN Administration NASAL CONGESTION Tramadol HCl 50 mg 12/16/16 00:44 Ultram - PO Q8H PRN PAIN Valsartan 160 mg 12/16/16 10:00 12/18/16 11:21 Diovan - PO 160 mg DAILY [facility] Administration ASSESSMENT/PLAN: acute or chronic hypoxic respiratory failure ILDz/ pulmonary fibrosis/ sarcoidosis COPD morbid obesity diast chf HTN h/o PE, dvt Lupus ramon could be from pre renal, decrease po intake, vs stone, hyperlipidemia renal stone with renal colic constipation Plan taper steroid oxygen, keep spo2> 90, on 5L NC continue with nebulizer continue with anti coagulent on methotrexate monitor electrolyte/ renal function. monitor vitals monitor intake/ output daily weight. weight reduction pain control avoid constipation, Visit type - Emergency Visit Emergency Visit: Yes ED Registration Date: 12/16/16 Care time: The patient presented to the Emergency Department on the above date and was hospitalized for further evaluation of their emergent condition. - New Patient This patient is new to me today: No - Critical Care Critical Care patient: No
[2016-12-18] MEDS ORDERED: HYDROmorphone HCL 2 MG TABLET ONE ×2 (11:57→19:39)
[2016-12-18] MEDS: predniSONE 20 MG TABLET (UD) PO SCH ×2 (12:01→21:21)
--- NOTE | 2016-12-18 12:21 | PN ---
Progress Note (short form) - Note Progress Note: patient is known to me as an outpatient. She has bilateral nephrolithiasis but no evidence of hydronephrosis or specific symptoms related. She has serious comorbidities which make anesthesia dangerous Recommend observation at this time.
--- NOTE | 2016-12-18 13:07 | PN ---
Progress Note, Physician History of Present Illness: Pt seen and examined at bedside. She is awake and alert. - Current Medication List Current Medications: Active Medications Acetaminophen (Tylenol -) 650 mg PO Q6H PRN PRN Reason: FEVER OR PAIN Albuterol/Ipratropium (Duoneb -) 1 amp NEB QIDR [facility] Last Admin: 12/18/16 06:40 Dose: 1 amp Apixaban (Eliquis -) 5 mg PO BID [facility] Last Admin: 12/18/16 11:06 Dose: 5 mg Artificial Tears (Artificial Tears) 1 drop OU QID [facility] Last Admin: 12/17/16 22:07 Dose: 1 drop Bacitracin (Bacitracin -) 1 applic TP BID [facility] Last Admin: 12/17/16 22:12 Dose: 1 applic Docusate Sodium (Colace -) 100 mg PO BID [facility] Last Admin: 12/18/16 11:05 Dose: 100 mg Fluconazole (Diflucan -) 100 mg PO DAILY [facility] Guaifenesin (Mucinex Dm -) 2 tablet PO BID [facility] Last Admin: 12/18/16 11:09 Dose: 2 tablet Hydromorphone HCl (Dilaudid -) 4 mg PO Q6H PRN PRN Reason: PAIN Last Admin: 12/18/16 12:03 Dose: 4 mg Lactobacillus Acidophilus (Bacid -) 1 tab PO DAILY [facility] Last Admin: 12/18/16 11:31 Dose: 1 tab Methotrexate (Mexate -) 7.5 mg PO Q7D@1000 [facility] Last Admin: 12/16/16 18:23 Dose: 7.5 mg Nitroglycerin (Nitro-Dur Patch -) 0.3 mg TD DAILY [facility] Last Admin: 12/18/16 11:28 Dose: 0.3 mg Nystatin (Nystatin Oral Suspension -) 500,000 units PO Q6HPO [facility] Last Admin: 12/18/16 12:02 Dose: 500,000 units Ondansetron HCl (Zofran Odt -) 8 mg SL Q6H PRN PRN Reason: NAUSEA AND/OR VOMITING Pantoprazole Sodium (Protonix -) 40 mg PO DAILY@0700 [facility] Last Admin: 12/18/16 06:24 Dose: 40 mg Polyethylene Glycol (Miralax (For Daily Use) -) 17 gm PO BID [facility] Last Admin: 12/18/16 11:10 Dose: 17 gm Potassium Chloride (K-Dur -) 20 meq PO TID [facility] Last Admin: 12/18/16 05:57 Dose: 20 meq Prednisone (Deltasone -) 40 mg PO BID [facility] Last Admin: 12/18/16 12:01 Dose: 40 mg Psyllium Hydrophilic Mucilloid (Metamucil (Sugar-Free) -) 5.85 gm PO BID [facility] Last Admin: 12/18/16 11:22 Dose: 5.85 gm Simethicone (Mylicon -) 80 mg PO TID [facility] Last Admin: 12/18/16 05:57 Dose: 80 mg Sodium Chloride ([place] Nasal [place] -) 2 spray NS Q2H PRN PRN Reason: NASAL CONGESTION Last Admin: 12/16/16 23:38 Dose: 2 spray Tramadol HCl (Ultram -) 50 mg PO Q8H PRN PRN Reason: PAIN Valsartan (Diovan -) 160 mg PO DAILY [facility] Last Admin: 12/18/16 11:21 Dose: 160 mg - Objective Vital Signs: Vital Signs Temperature 98.2 F 12/18/16 06:00 Pulse Rate 101 H 12/18/16 06:00 Respiratory Rate 20 12/18/16 06:00 Blood Pressure 107/61 12/18/16 06:00 O2 Sat by Pulse Oximetry (%) 98 12/17/16 21:00 Constitutional: Yes: Calm Eyes: Yes: Conjunctiva Clear HENT: Yes: Atraumatic Neck: Yes: Supple Cardiovascular: Yes: S1, S2 Respiratory: Yes: On Nasal O2, Wheezes Gastrointestinal: Yes: Soft, Abdomen, Obese Genitourinary: Yes: WNL Musculoskeletal: Yes: WNL Edema: Yes Edema: LLE: 1+, RLE: 1+ Neurological: Yes: Oriented Psychiatric: Yes: Oriented Labs: CBC, BMP 12/16/16 06:20 12/18/16 06:30 - ....Imaging Ultrasound: Report Reviewed Problem List - Problems (1) Abdominal pain Code(s): R10.9 - UNSPECIFIED ABDOMINAL PAIN Qualifiers: Abdominal location: left lower quadrant Qualified Code(s): R10.32 - Left lower quadrant pain (2) Acute renal failure Code(s): N17.9 - ACUTE KIDNEY FAILURE, UNSPECIFIED Qualifiers: Acute renal failure type: unspecified Qualified Code(s): N17.9 - Acute kidney failure, unspecified (3) Dyspnea Code(s): R06.00 - DYSPNEA, UNSPECIFIED Qualifiers: Dyspnea type: shortness of breath Qualified Code(s): R06.02 - Shortness of breath (4) Hypertension Code(s): I10 - ESSENTIAL (PRIMARY) HYPERTENSION Qualifiers: Hypertension type: essential hypertension Qualified Code(s): I10 - Essential (primary) hypertension (5) Lupus (systemic lupus erythematosus) Code(s): M32.9 - SYSTEMIC LUPUS ERYTHEMATOSUS, UNSPECIFIED (6) Morbid obesity Code(s): E66.01 - MORBID (SEVERE) OBESITY DUE TO EXCESS CALORIES Qualifiers: Obesity type: due to excess calories Qualified Code(s): E66.01 - Morbid (severe) obesity due to excess calories (7) Pulmonary fibrosis Code(s): J84.10 - PULMONARY FIBROSIS, UNSPECIFIED (8) Sarcoidosis Code(s): D86.9 - SARCOIDOSIS, UNSPECIFIED Assessment/Plan Current Medications Generic Name Dose Route Start Last Admin Trade Name Freq PRN Reason Stop Dose Admin Acetaminophen 650 mg 12/16/16 00:44 Tylenol - PO Q6H PRN FEVER OR PAIN Albuterol/Ipratropium 1 amp 12/16/16 18:00 12/18/16 06:40 Duoneb - NEB 1 amp QIDR [facility] Administration Apixaban 5 mg 12/16/16 10:00 12/18/16 11:06 Eliquis - PO 5 mg BID [facility] Administration Artificial Tears 1 drop 12/16/16 18:00 12/17/16 22:07 Artificial Tears OU 1 drop QID [facility] Administration Bacitracin 1 applic 12/16/16 22:00 12/17/16 22:12 Bacitracin - TP 1 applic BID [facility] Administration Docusate Sodium 100 mg 12/17/16 10:15 12/18/16 11:05 Colace - PO 100 mg BID [facility] Administration Fluconazole 100 mg 12/19/16 10:00 Diflucan - PO DAILY [facility] Guaifenesin 2 tablet 12/16/16 10:00 12/18/16 11:09 Mucinex Dm - PO 2 tablet BID [facility] Administration Hydromorphone HCl 4 mg 12/18/16 11:35 12/18/16 12:03 Dilaudid - PO 4 mg Q6H PRN Administration PAIN Lactobacillus Acidophilus 1 tab 12/17/16 18:00 12/18/16 11:31 Bacid - PO 1 tab DAILY [facility] Administration Methotrexate 7.5 mg 12/16/16 17:00 12/16/16 18:23 Mexate - PO 7.5 mg Q7D@1000 [facility] Administration Nitroglycerin 0.3 mg 12/17/16 10:00 12/18/16 11:28 Nitro-Dur Patch - TD 0.3 mg DAILY [facility] Administration Nystatin 500,000 units 12/17/16 18:00 12/18/16 12:02 Nystatin Oral Suspension - PO 500,000 units Q6HPO [facility] Administration Ondansetron HCl 8 mg 12/18/16 11:34 Zofran Odt - SL Q6H PRN NAUSEA AND/OR VOMITING Pantoprazole Sodium 40 mg 12/17/16 07:00 12/18/16 06:24 Protonix - PO 40 mg DAILY@0700 [facility] Administration Polyethylene Glycol 17 gm 12/17/16 22:00 12/18/16 11:10 Miralax (For Daily Use) - PO 17 gm BID [facility] Administration Potassium Chloride 20 meq 12/16/16 06:00 12/18/16 05:57 K-Dur - PO 20 meq TID [facility] Administration Prednisone 40 mg 12/18/16 11:45 12/18/16 12:01 Deltasone - PO 40 mg BID [facility] Administration Psyllium Hydrophilic Mucilloid 5.85 gm 12/17/16 22:00 12/18/16 11:22 Metamucil (Sugar-Free) - PO 5.85 gm BID [facility] Administration Simethicone 80 mg 12/17/16 17:30 12/18/16 05:57 Mylicon - PO 80 mg TID [facility] Administration Sodium Chloride 2 spray 12/16/16 16:46 12/16/16 23:38 [place] Nasal [place] - NS 2 spray Q2H PRN Administration NASAL CONGESTION Tramadol HCl 50 mg 12/16/16 00:44 Ultram - PO Q8H PRN PAIN Valsartan 160 mg 12/16/16 10:00 12/18/16 11:21 Diovan - PO 160 mg DAILY [facility] Administration Impression 1. CONCEPCION 2. SLE 3. pulmonary fibrosis 4. sarcoidosis 5. obesity 6. HTN 7. COPD 8. gerd 9. nephrolithiasis 10/ hyperkalemia Plan - stop potassium supplements - will keep on fluids for hyperkalemia - repeat labs in am - will ask to hold diovan tomorrow until labs are reviewed - urology input appreciated - repeat ua is negative for blood or protein - low potassium diet - will follow Dr Sharpe
[2016-12-18] MEDS ORDERED: SODIUM CHLORIDE 0.45% 1,000 ML IV SCH (13:15)
[2016-12-18] MEDS: ONDANSETRON *ODT* 4 MG TABLET SL PRN (13:44)
[2016-12-18] MEDS: BACITRACIN 15 GM TUBE TOPICAL OINTMENT TP SCH ×2 (13:46→21:25)
--- NOTE | 2016-12-18 14:54 | PN ---
Progress Note (short form) - Note Progress Note: Chief Complaint: abd pain/vomiting History of Present Illness: Breathing unchanged today. LE edema persists but not worsened. no cp, palps, dizziness. Current Medications Acetaminophen (Tylenol -) 650 mg PO Q6H PRN PRN Reason: FEVER OR PAIN Albuterol/Ipratropium (Duoneb -) 1 amp NEB QIDR [facility] Last Admin: 12/18/16 12:20 Dose: 1 amp Apixaban (Eliquis -) 5 mg PO BID [facility] Last Admin: 12/18/16 11:06 Dose: 5 mg Artificial Tears (Artificial Tears) 1 drop OU QID [facility] Last Admin: 12/18/16 13:45 Dose: 1 drop Bacitracin (Bacitracin -) 1 applic TP BID [facility] Last Admin: 12/18/16 13:46 Dose: 1 applic Docusate Sodium (Colace -) 100 mg PO BID [facility] Last Admin: 12/18/16 11:05 Dose: 100 mg Fluconazole (Diflucan -) 100 mg PO DAILY [facility] Guaifenesin (Mucinex Dm -) 2 tablet PO BID [facility] Last Admin: 12/18/16 11:09 Dose: 2 tablet Hydromorphone HCl (Dilaudid -) 4 mg PO Q6H PRN PRN Reason: PAIN Last Admin: 12/18/16 12:03 Dose: 4 mg Sodium Chloride (1/2 Normal Saline) 1,000 mls @ 40 mls/hr IV ASDIR [facility] Stop: 12/19/16 13:14 Last Admin: 12/18/16 13:51 Dose: 40 mls/hr Lactobacillus Acidophilus (Bacid -) 1 tab PO DAILY [facility] Last Admin: 12/18/16 11:31 Dose: 1 tab Methotrexate (Mexate -) 7.5 mg PO Q7D@1000 [facility] Last Admin: 12/16/16 18:23 Dose: 7.5 mg Nitroglycerin (Nitro-Dur Patch -) 0.3 mg TD DAILY [facility] Last Admin: 12/18/16 11:28 Dose: 0.3 mg Nystatin (Nystatin Oral Suspension -) 500,000 units PO Q6HPO [facility] Last Admin: 12/18/16 12:02 Dose: 500,000 units Ondansetron HCl (Zofran Odt -) 8 mg SL Q6H PRN PRN Reason: NAUSEA AND/OR VOMITING Last Admin: 12/18/16 13:44 Dose: 8 mg Pantoprazole Sodium (Protonix -) 40 mg PO DAILY@0700 [facility] Last Admin: 12/18/16 06:24 Dose: 40 mg Polyethylene Glycol (Miralax (For Daily Use) -) 17 gm PO BID [facility] Last Admin: 12/18/16 11:10 Dose: 17 gm Prednisone (Deltasone -) 40 mg PO BID [facility] Last Admin: 12/18/16 12:01 Dose: 40 mg Psyllium Hydrophilic Mucilloid (Metamucil (Sugar-Free) -) 5.85 gm PO BID [facility] Last Admin: 12/18/16 11:22 Dose: 5.85 gm Simethicone (Mylicon -) 80 mg PO TID [facility] Last Admin: 12/18/16 13:43 Dose: 80 mg Sodium Chloride ([place] Nasal [place] -) 2 spray NS Q2H PRN PRN Reason: NASAL CONGESTION Last Admin: 12/16/16 23:38 Dose: 2 spray Tramadol HCl (Ultram -) 50 mg PO Q8H PRN PRN Reason: PAIN Valsartan (Diovan -) 160 mg PO DAILY [facility] Last Admin: 12/18/16 11:21 Dose: 160 mg Vital Signs - 24 hr 12/17/16 12/17/16 12/17/16 15:14 18:00 21:00 Temperature 98.2 F 98.6 F Pulse Rate 91 H 116 H Respiratory 20 20 Rate Blood Pressure 154/86 127/75 O2 Sat by Pulse 98 Oximetry (%) 12/18/16 12/18/16 06:00 12:20 Temperature 98.2 F Pulse Rate 101 H 98 H Respiratory 20 Rate Blood Pressure 107/61 O2 Sat by Pulse 93 L Oximetry (%) Intake & Output 12/16/16 12/17/16 12/18/16 12/19/16 07:59 07:59 07:59 07:59 Intake Total 1250 2125 600 Output Total 400 Balance 850 2125 600 Weight 300 lb 311 lb 9 oz 313 lb 6 oz Constitutional: Yes: No Distress, Obese Eyes: No: Sclera Icterus HENT: No: Nasal Congestion Neck: No: Decreased ROM Respiratory: Yes: Rales (fine rales ). No: Accessory Muscle Use, Wheezes Gastrointestinal: Yes: Normal Bowel Sounds. No: Distention, Hepatomegaly, Palpable Mass (tds habitus), Tenderness Cardiovascular: Yes: Regular Rate and Rhythm JVD: No Carotid Bruit: No PMI: Non-Displaced Heart Sounds: Yes: S1, S2. No: Gallop Murmur: No: Systolic Murmur, Diastolic Murmur Musculoskeletal: Yes: Other (No kyphosis) Extremities: No: Cold, Cyanosis Edema: No Peripheral Pulses: 2+ Left Carotid, 2+ Right Carotid, 2+ Left Doralis Pedis, 2+ Right Dorsalis Pedis Integumentary: No: Jaundice Neurological: Yes: Alert, Oriented (x3) Psychiatric: No: Agitated - Other Data Labs, Other Data: BMP 12/18/16 06:30 ekg 12/15: NSR, normal axis/intervals; no path q's; nonsp TWA (flat) avf; no ST segment shift Imaging - Results Chest X-ray: Report Reviewed abd ct report and images reviewed. Extensive copd/bulla, interstitial changes, ground glass opacities. Assessment/Plan L/RHC 07/18: wedge 20-->down to 10 with nitroprusside; PA 48/22-->34/8; CI 2.1; normal cors echo 06/2015: tds, nl lvef, mild/mod dec rv fcn, mild/mod dilated rv, no sig valve path, mild phtn echo 10/2015: nl lv/rv, mild tr, rvsp 50-60 ecg 10/04/15: sr, nl intervals, no ischemic changes CXR: no effusion seen, chronic interstitial lung dz findings 51 yo with h/o diast CHF, ILD, COPD, O2 dependent, pulm HTN, morbid obesity, HTN, MGUS, Lupus, venous insufficiency, GERD, PE's on eliquis, non-obstructing kidney stones, here with abd pain/vomiting and noted to have CONCEPCION. sob, diast CHF, ILD, pulm HTN: -mult admits with acute exacerbation of ILDz (incl outside hospitals) treated with steroids plus other immunosuppresant trials -prior RHC documenting that she has WHO 2 pulm HTN (all proportional to her elevated wedge, not likely a component from CTEPH or ILDz) -Echo 06/2015: tds, nl lvef, mild/mod dec rv fcn, mild/mod dilated rv, no sig valve path, mild phtn--at risk for cor pulmonale, will rpt echo here -previously treated with lasix 80 iv bid here as inpatient (10/17) with wt down 338 to 331, subsequently on torsemide 20-100mg qd (tolerated the higher dose at times, at least temporarily) -wt 300 lbs in office 08/20, off torsemide since prior hosp discharge--started 20mg qd then and this was incr'd to 100mg qd about 2-3 wks ago due to signif incr leg swelling -sob and leg swelling improved with incr diuretic at home -hold diuretics and hydrate gently given CONCEPCION -cont nitrates (given marked response of wedge and right heart pressures to 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 due to R kidney stone--per -? due to decr po (admitted with abd pain, naus and vomiting) plus diuretics -holding torsemide for now, gentle fluids (NS at 75 cc/hr and now 1/2 NS at 40 cc/hr--note: pt never with signif pulm edema or severe resp dysfunction due to chf, tolerates fluid reaccumulation well) - Cr improving with IVF. Renal following. h/o PEs: -dx'd in outside hosp ([facility]) 06/19--on Eliquis since atyp cp syndrome (chronic): -pleuritic cp, likely related to lung dz, coughing in past -cath 07/2015 showed normal cors HTN -cont home meds, added NTG patch here. - bp running low today, may need to decrease valsartan dose. morbid obesity: -stable preop CV eval: -RCRI = 1, decr'd functional status -chf currently well-compensated -if pt needs cysto or lithotripsy to manage renal stone, she is at acceptable risk of periop CV complications -defer mgmt of AC periop to pulm and/or heme (PE dx'd at outside hosp 06/19, ? provoked (very sedentary pt with mult admits around that time))--? need bridging UFH - 12/18: currently no plans for interventions.
--- NOTE | 2016-12-18 15:11 | PN ---
Teaching Attending Note Name of Resident: Ralph August ATTENDING PHYSICIAN STATEMENT I saw and evaluated the patient. I reviewed the resident's note and discussed the case with the resident. I agree with the resident's findings and plan as documented. PULMONARY PT FEELING BETTER,LESS DYSPNEIC,-CP,MIN COUGH IMP ACUTE ON CHRONIC HYPOXEMIC RESPIRATORY FAILURE IMPROVING ADVANCED SARCOIDOSIS WITH PULMONARY FIBROSIS SLE H/O DVT/PE MORBID OBESITY RENAL COLIC ACUTE RENAL FAILURE IMPROVING LIKELY OSAS PLAN IVF ANALGESICS STEROID TAPER INHALED BRONCHODILATORS SUPPLEMENTAL O2 MONITOR LYTES/RENAL FUNCTION WT REDUCTION SLEEP STUDIES OUTPATIENT DR MEDINA Problem List - Problems (1) Abdominal pain Code(s): R10.9 - UNSPECIFIED ABDOMINAL PAIN (2) Dyspnea Code(s): R06.00 - DYSPNEA, UNSPECIFIED Qualifiers: Dyspnea type: shortness of breath Qualified Code(s): R06.02 - Shortness of breath (3) Hypertension Code(s): I10 - ESSENTIAL (PRIMARY) HYPERTENSION Qualifiers: Hypertension type: essential hypertension Qualified Code(s): I10 - Essential (primary) hypertension (4) Lupus (systemic lupus erythematosus) Code(s): M32.9 - SYSTEMIC LUPUS ERYTHEMATOSUS, UNSPECIFIED (5) Morbid obesity Code(s): E66.01 - MORBID (SEVERE) OBESITY DUE TO EXCESS CALORIES (6) Pulmonary fibrosis Code(s): J84.10 - PULMONARY FIBROSIS, UNSPECIFIED (7) Sarcoidosis Code(s): D86.9 - SARCOIDOSIS, UNSPECIFIED (8) Vomiting Code(s): R11.10 - VOMITING, UNSPECIFIED (9) Flank pain Code(s): R10.9 - UNSPECIFIED ABDOMINAL PAIN (10) Renal colic Code(s): N23 - UNSPECIFIED RENAL COLIC (11) Acute renal failure Code(s): N17.9 - ACUTE KIDNEY FAILURE, UNSPECIFIED (12) Acute and chronic respiratory failure with hypoxia Code(s): J96.21 - ACUTE AND CHRONIC RESPIRATORY FAILURE WITH HYPOXIA Problem List - Problems (1) Abdominal pain Code(s): R10.9 - UNSPECIFIED ABDOMINAL PAIN Qualifiers: Abdominal location: left lower quadrant Qualified Code(s): R10.32 - Left lower quadrant pain (2) Dyspnea Code(s): R06.00 - DYSPNEA, UNSPECIFIED Qualifiers: Dyspnea type: shortness of breath Qualified Code(s): R06.02 - Shortness of breath (3) Hypertension Code(s): I10 - ESSENTIAL (PRIMARY) HYPERTENSION Qualifiers: Hypertension type: essential hypertension Qualified Code(s): I10 - Essential (primary) hypertension (4) Lupus (systemic lupus erythematosus) Code(s): M32.9 - SYSTEMIC LUPUS ERYTHEMATOSUS, UNSPECIFIED (5) Morbid obesity Code(s): E66.01 - MORBID (SEVERE) OBESITY DUE TO EXCESS CALORIES Qualifiers: Obesity type: due to excess calories Qualified Code(s): E66.01 - Morbid (severe) obesity due to excess calories (6) Pulmonary fibrosis Code(s): J84.10 - PULMONARY FIBROSIS, UNSPECIFIED (7) Sarcoidosis Code(s): D86.9 - SARCOIDOSIS, UNSPECIFIED (8) Vomiting Code(s): R11.10 - VOMITING, UNSPECIFIED (9) Flank pain Code(s): R10.9 - UNSPECIFIED ABDOMINAL PAIN (10) Renal colic Code(s): N23 - UNSPECIFIED RENAL COLIC (11) Acute renal failure Code(s): N17.9 - ACUTE KIDNEY FAILURE, UNSPECIFIED Qualifiers: Acute renal failure type: unspecified Qualified Code(s): N17.9 - Acute kidney failure, unspecified (12) Acute and chronic respiratory failure with hypoxia Code(s): J96.21 - ACUTE AND CHRONIC RESPIRATORY FAILURE WITH HYPOXIA
--- NOTE | 2016-12-18 19:21 | PN ---
Progress Note, Physician Chief Complaint: AWAKE ALERT FEELING BETTER - Current Medication List Current Medications: Active Medications Acetaminophen (Tylenol -) 650 mg PO Q6H PRN PRN Reason: FEVER OR PAIN Albuterol/Ipratropium (Duoneb -) 1 amp NEB QIDR [facility] Last Admin: 12/18/16 17:25 Dose: 1 amp Apixaban (Eliquis -) 5 mg PO BID [facility] Last Admin: 12/18/16 11:06 Dose: 5 mg Artificial Tears (Artificial Tears) 1 drop OU QID [facility] Last Admin: 12/18/16 17:50 Dose: 1 drop Bacitracin (Bacitracin -) 1 applic TP BID [facility] Last Admin: 12/18/16 13:46 Dose: 1 applic Docusate Sodium (Colace -) 100 mg PO BID [facility] Last Admin: 12/18/16 11:05 Dose: 100 mg Fluconazole (Diflucan -) 100 mg PO DAILY [facility] Guaifenesin (Mucinex Dm -) 2 tablet PO BID [facility] Last Admin: 12/18/16 11:09 Dose: 2 tablet Hydromorphone HCl (Dilaudid -) 4 mg PO Q6H PRN PRN Reason: PAIN Last Admin: 12/18/16 12:03 Dose: 4 mg Sodium Chloride (1/2 Normal Saline) 1,000 mls @ 40 mls/hr IV ASDIR [facility] Stop: 12/19/16 13:14 Last Admin: 12/18/16 13:51 Dose: 40 mls/hr Lactobacillus Acidophilus (Bacid -) 1 tab PO DAILY [facility] Last Admin: 12/18/16 11:31 Dose: 1 tab Methotrexate (Mexate -) 7.5 mg PO Q7D@1000 [facility] Last Admin: 12/16/16 18:23 Dose: 7.5 mg Nitroglycerin (Nitro-Dur Patch -) 0.3 mg TD DAILY [facility] Last Admin: 12/18/16 11:28 Dose: 0.3 mg Nystatin (Nystatin Oral Suspension -) 500,000 units PO Q6HPO [facility] Last Admin: 12/18/16 17:50 Dose: 500,000 units Ondansetron HCl (Zofran Odt -) 8 mg SL Q6H PRN PRN Reason: NAUSEA AND/OR VOMITING Last Admin: 12/18/16 13:44 Dose: 8 mg Pantoprazole Sodium (Protonix -) 40 mg PO DAILY@0700 [facility] Last Admin: 12/18/16 06:24 Dose: 40 mg Polyethylene Glycol (Miralax (For Daily Use) -) 17 gm PO BID [facility] Last Admin: 12/18/16 11:10 Dose: 17 gm Prednisone (Deltasone -) 40 mg PO BID [facility] Last Admin: 12/18/16 12:01 Dose: 40 mg Psyllium Hydrophilic Mucilloid (Metamucil (Sugar-Free) -) 5.85 gm PO BID [facility] Last Admin: 12/18/16 11:22 Dose: 5.85 gm Simethicone (Mylicon -) 80 mg PO TID [facility] Last Admin: 12/18/16 13:43 Dose: 80 mg Sodium Chloride ([place] Nasal [place] -) 2 spray NS Q2H PRN PRN Reason: NASAL CONGESTION Last Admin: 12/16/16 23:38 Dose: 2 spray Tramadol HCl (Ultram -) 50 mg PO Q8H PRN PRN Reason: PAIN Valsartan (Diovan -) 160 mg PO DAILY [facility] Last Admin: 12/18/16 11:21 Dose: 160 mg - Objective Vital Signs: Vital Signs Temperature 98.3 F 12/18/16 15:14 Pulse Rate 108 H 12/18/16 15:14 Respiratory Rate 20 12/18/16 06:00 Blood Pressure 132/71 12/18/16 15:14 O2 Sat by Pulse Oximetry (%) 93 L 12/18/16 12:20 Constitutional: Yes: Mild Distress Eyes: Yes: WNL HENT: Yes: WNL Neck: Yes: WNL Cardiovascular: Yes: WNL Respiratory: Yes: On Nasal O2, SOB Gastrointestinal: Yes: WNL Genitourinary: Yes: WNL Musculoskeletal: Yes: Muscle Weakness Extremities: Yes: WNL Edema: Yes Peripheral Pulses WNL: Yes Integumentary: Yes: WNL Wound/Incision: Yes: Clean/Dry Neurological: Yes: Unsteady Gait ...Motor Strength: LLE, RLE Psychiatric: Yes: Agitated Labs: CBC, BMP 12/16/16 06:20 12/18/16 06:30 Problem List - Problems (1) Abdominal pain Code(s): R10.9 - UNSPECIFIED ABDOMINAL PAIN Qualifiers: Abdominal location: left lower quadrant Qualified Code(s): R10.32 - Left lower quadrant pain (2) Acute and chronic respiratory failure with hypoxia Code(s): J96.21 - ACUTE AND CHRONIC RESPIRATORY FAILURE WITH HYPOXIA (3) Acute renal failure Code(s): N17.9 - ACUTE KIDNEY FAILURE, UNSPECIFIED Qualifiers: Acute renal failure type: unspecified Qualified Code(s): N17.9 - Acute kidney failure, unspecified (4) Dyspnea Code(s): R06.00 - DYSPNEA, UNSPECIFIED Qualifiers: Dyspnea type: shortness of breath Qualified Code(s): R06.02 - Shortness of breath (5) Gastroenteritis Code(s): K52.9 - NONINFECTIVE GASTROENTERITIS AND COLITIS, UNSPECIFIED (6) Hypertension Code(s): I10 - ESSENTIAL (PRIMARY) HYPERTENSION Qualifiers: Hypertension type: essential hypertension Qualified Code(s): I10 - Essential (primary) hypertension (7) Lupus (systemic lupus erythematosus) Code(s): M32.9 - SYSTEMIC LUPUS ERYTHEMATOSUS, UNSPECIFIED (8) Morbid obesity Code(s): E66.01 - MORBID (SEVERE) OBESITY DUE TO EXCESS CALORIES Qualifiers: Obesity type: due to excess calories Qualified Code(s): E66.01 - Morbid (severe) obesity due to excess calories (9) Pulmonary fibrosis Code(s): J84.10 - PULMONARY FIBROSIS, UNSPECIFIED (10) Sarcoidosis Code(s): D86.9 - SARCOIDOSIS, UNSPECIFIED Assessment/Plan SOLUMEDROL IV STOPPED PREDNISONE STARTED GI EVAL APPRECIATED PAIN CONTROL MIRALAX BID NYSTATIN SWISH/SWALLOW PULM EVAL RENAL EVAL [facility]
[2016-12-18] MEDS: HYDROmorphone HCL 2 MG TABLET PO PRN (19:42)
[2016-12-19] MEDS: NYSTATIN 500,000 UNITS/5 ML SUSPENSION PO SCH ×2 (06:05→14:34)
[2016-12-19] MEDS: SIMETHICONE 80 MG TAB.CHEW (FP) PO SCH ×2 (06:05→14:41)
[2016-12-19] MEDS: PANTOPRAZOLE 40 MG TABLET (FP) PO SCH (06:05)
[2016-12-19] MEDS: HYDROmorphone HCL 2 MG TABLET PO PRN ×2 (06:09→14:37)
[2016-12-19] MEDS: ALBUTEROL SO4 2.5/IPRATROPIUM 0.5 INH SOL 3 ML VIAL.NEB. NEB SCH ×3 (06:28→11:48)
[2016-12-19 08:14] LABS: CALCIUM 9.7 mg/dL (8.5-10.1); COCKROFT - GAULT 166.4045; CREATININE 0.9 mg/dL (0.55-1.02)
[2016-12-19] MEDS ORDERED: FLUCONAZOLE 100 MG TABLET (UD) PO SCH (10:00)
[2016-12-19] MEDS: ARTIFICIAL TEARS (POLYVINYL ALCOHOL 1.4%) OPTH DROPS OU SCH ×3 (11:00→17:53)
--- NOTE | 2016-12-19 11:05 | PN ---
Progress Note (short form) - Note Progress Note: Feels that breathing is better today. Less SOB and cough. Some oral discomfort due to thrush. Intake & Output 12/16/16 12/17/16 12/18/16 12/19/16 23:59 23:59 23:59 23:59 Intake Total 400 2125 2650 480 Output Total 400 Balance 0 2125 2650 480 Weight 300 lb 311 lb 9 oz 313 lb 6 oz 314 lb 4 oz Last Vital Signs Temp Pulse Resp BP Pulse Ox 98.2 F 110 H 20 120/99 97 12/19/16 08:00 12/19/16 08:00 12/19/16 08:00 12/19/16 08:00 12/19/16 09:00 Active Medications Acetaminophen (Tylenol -) 650 mg PO Q6H PRN PRN Reason: FEVER OR PAIN Albuterol/Ipratropium (Duoneb -) 1 amp NEB QIDR [facility] Last Admin: 12/19/16 06:28 Dose: 1 amp Apixaban (Eliquis -) 5 mg PO BID [facility] Last Admin: 12/18/16 21:21 Dose: 5 mg Artificial Tears (Artificial Tears) 1 drop OU QID [facility] Last Admin: 12/18/16 21:25 Dose: 1 drop Bacitracin (Bacitracin -) 1 applic TP BID [facility] Last Admin: 12/18/16 21:25 Dose: 1 applic Docusate Sodium (Colace -) 100 mg PO BID [facility] Last Admin: 12/18/16 21:21 Dose: 100 mg Fluconazole (Diflucan -) 100 mg PO DAILY [facility] Guaifenesin (Mucinex Dm -) 2 tablet PO BID [facility] Last Admin: 12/18/16 22:55 Dose: Not Given Hydromorphone HCl (Dilaudid -) 4 mg PO Q6H PRN PRN Reason: PAIN Last Admin: 12/19/16 06:09 Dose: 4 mg Sodium Chloride (1/2 Normal Saline) 1,000 mls @ 40 mls/hr IV ASDIR [facility] Stop: 12/19/16 13:14 Last Admin: 12/18/16 13:51 Dose: 40 mls/hr Lactobacillus Acidophilus (Bacid -) 1 tab PO DAILY [facility] Last Admin: 12/18/16 11:31 Dose: 1 tab Methotrexate (Mexate -) 7.5 mg PO Q7D@1000 [facility] Last Admin: 12/16/16 18:23 Dose: 7.5 mg Nitroglycerin (Nitro-Dur Patch -) 0.3 mg TD DAILY [facility] Last Admin: 12/18/16 11:28 Dose: 0.3 mg Nystatin (Nystatin Oral Suspension -) 500,000 units PO Q6HPO [facility] Last Admin: 12/19/16 06:05 Dose: 500,000 units Ondansetron HCl (Zofran Odt -) 8 mg SL Q6H PRN PRN Reason: NAUSEA AND/OR VOMITING Last Admin: 12/18/16 13:44 Dose: 8 mg Pantoprazole Sodium (Protonix -) 40 mg PO DAILY@0700 [facility] Last Admin: 12/19/16 06:05 Dose: 40 mg Polyethylene Glycol (Miralax (For Daily Use) -) 17 gm PO BID [facility] Last Admin: 12/18/16 21:31 Dose: 17 gm Prednisone (Deltasone -) 40 mg PO BID [facility] Last Admin: 12/18/16 21:21 Dose: 40 mg Psyllium Hydrophilic Mucilloid (Metamucil (Sugar-Free) -) 5.85 gm PO BID [facility] Last Admin: 12/18/16 21:25 Dose: 5.85 gm Simethicone (Mylicon -) 80 mg PO TID [facility] Last Admin: 12/19/16 06:05 Dose: 80 mg Sodium Chloride ([place] Nasal [place] -) 2 spray NS Q2H PRN PRN Reason: NASAL CONGESTION Last Admin: 12/16/16 23:38 Dose: 2 spray Tramadol HCl (Ultram -) 50 mg PO Q8H PRN PRN Reason: PAIN Valsartan (Diovan -) 160 mg PO DAILY [facility] Last Admin: 12/18/16 11:21 Dose: 160 mg GENERAL: Awake, alert, oriented, NAD HEAD: Normal with no signs of trauma. EYES: Pupils equal, round and reactive to light, EARS, NOSE, THROAT: , oropharynx clear without exudates. Moist mucous membranes. NECK: no lymphadenopathy, JVD, LUNGS: Few scattered rhonchi, no wheeze HEART:s1s2 normal ABDOMEN: Soft, tender, bs + UPPER EXTREMITIES: 2+ pulses, warm, well-perfused. No peripheral edema. LOWER EXTREMITIES: 2+ pulses, warm, well-perfused. No calf tenderness. (+) peripheral edema. SKIN: Warm, dry, ecchymosis on left foot Laboratory Results - last 24 hr 12/19/16 06:10 Sodium 135 L Potassium 5.5 H Chloride 98 D Carbon Dioxide 29 Anion Gap 8 BUN 33 H Creatinine 0.9 D Random Glucose 118 H Calcium 9.7 ASSESSMENT/PLAN: Acute on chronic hypoxic respiratory failure ILD/ pulmonary fibrosis/ sarcoidosis COPD morbid obesity diast chf HTN h/o PE, dvt Lupus ramon could be from pre renal, decrease po intake, vs stone, hyperlipidemia renal stone with renal colic constipation Plan Change to Prednisone oxygen, keep spo2 88% to 92% continue with nebulizer duoneb qid AC on methotrexate monitor electrolyte/ renal function. Diflucan Add miralax/colace No Pulmonary contraindication for D/C to Rehab Dr Gunn
[2016-12-19] MEDS: ONDANSETRON *ODT* 4 MG TABLET SL PRN (11:32)
[2016-12-19] MEDS: PSYLLIUM 5.85 GM PACKET PO SCH (11:32)
[2016-12-19] MEDS: LACTOBACILLUS ACIDOPHILUS 1 EACH TAB (FP) PO SCH (11:34)
[2016-12-19] MEDS: DOCUSATE SODIUM 100 MG CAPSULE (FP) PO SCH (11:34)
[2016-12-19] MEDS: predniSONE 20 MG TABLET (UD) PO SCH (11:34)
[2016-12-19] MEDS: APIXABAN 5 MG TABLET PO SCH (11:35)
[2016-12-19] MEDS: NITROGLYCERIN 0.3 MG/HOUR TD PATCH TD SCH (11:35)
--- NOTE | 2016-12-19 12:49 | DS ---
Physical Examination Vital Signs: Vital Signs Temperature 98.2 F 12/19/16 08:00 Pulse Rate 110 H 12/19/16 08:00 Respiratory Rate 20 12/19/16 08:00 Blood Pressure 120/99 12/19/16 08:00 O2 Sat by Pulse Oximetry (%) 97 12/19/16 09:00 Findings/Remarks: ALERT/ANXIOUS Constitutional: Yes: Mild Distress Eyes: Yes: WNL Neck: Yes: WNL Cardiovascular: Yes: WNL Respiratory: Yes: On Nasal O2, SOB Gastrointestinal: Yes: WNL Musculoskeletal: Yes: Muscle Weakness Extremities: Yes: WNL Edema: Yes Edema: LLE: 2+, RLE: 2+ Peripheral Pulses WNL: Yes Integumentary: Yes: Bruising Wound/Incision: Yes: Clean/Dry Neurological: Yes: Weakness ...Motor Strength: LLE, RLE Psychiatric: Yes: Other Labs: CBC, BMP 12/16/16 06:20 12/19/16 06:10 Discharge Summary Reason For Visit: SYSTEMIC LUPUS ERYTHEMATOSUS,MORBID OBESITY, Current Active Problems Abdominal pain (Acute) Acute and chronic respiratory failure with hypoxia (Acute) Acute renal failure (Acute) Chest pain (Acute) Dyspnea (Acute) Gastroenteritis (Acute) Hypertension (Acute) ILD (interstitial lung disease) (Acute) Ileus (Acute) Lupus (systemic lupus erythematosus) (Acute) Morbid obesity (Acute) Pulmonary fibrosis (Acute) Renal colic (Acute) Sarcoidosis (Acute) Vomiting (Acute) Procedures: Principal: LABS/XRAYS Other Procedures: CULTURES Hospital Course: ADMITTED ACUTE RESP DISTRESS/WEAKNESS IV ABX AND IV STEROIDS GIVEN, RESP CARE, CHANGED TO PO MEDS NOW READY FOR CARDIOPULMONARY REHAB. Condition: Guarded - Instructions Diet, Activity, Other Instructions: LOW FAT/SODIUM ADA Referrals: Malcom Waddell MD [Primary Care Provider] - Disposition: [facility] - Home Medications Comprehensive Discharge Medication List: Ambulatory Orders Albuterol 2.5/Ipratropium 0.5 [Duoneb -] 1 neb IH QID 12/16/16 Apixaban [Eliquis -] 10 mg PO DAILY 12/16/16 Fluconazole 200 mg PO DAILY 12/16/16 Hydroxychloroquine So4 [Plaquenil -] 400 mg PO DAILY 12/16/16 Pantoprazole Sodium [Protonix] 40 mg PO DAILY 12/16/16 Potassium Chloride [K-Dur -] 60 meq PO DAILY 12/16/16 Torsemide [Demadex -] 100 mg PO DAILY 12/16/16 Tramadol HCl [Ultram] 100 mg PO PRN 12/16/16 Valsartan [Diovan] 240 mg PO DAILY 12/16/16 Acetaminophen [Tylenol .Regular Strength -] 650 mg PO Q6H PRN #0 tablet Albuterol 2.5/Ipratropium 0.5 [Duoneb -] 1 amp NEB QIDR amp 12/19/16 Apixaban [Eliquis -] 5 mg PO BID tablet 12/19/16 Bacitracin - [Bacitracin Topical Ointment -] 1 applic TP BID tube 12/19/16 Methotrexate [Mexate -] 7.5 mg PO Q7D@1000 tablet 12/19/16 Prednisone [Deltasone -] 40 mg PO BID tablet 12/19/16 Simethicone [Mylicon -] 80 mg PO TID tab.chew 12/19/16 Valsartan [Diovan] 160 mg PO DAILY tablet 12/19/16
[2016-12-19] MEDS: BACITRACIN 15 GM TUBE TOPICAL OINTMENT TP SCH (14:39)
[2016-12-19] MEDS: POLYETHYLENE GLYCOL 3350 119 GM BTL PO SCH (14:39)
[2016-12-19] MEDS: guaiFENesin/D-METHORPHAN HB 1 EACH TAB.ER.12H PO SCH ×2 (14:40→16:25)
[2016-12-19] MEDS ORDERED: LEVOFLOXACIN 500 MG TABLET (FP) PO SCH (16:45)
[2016-12-19 17:10] VITALS: BP 140/80; PULSE 109; TEMP 98.8
--- NOTE | 2016-12-19 17:23 | PN ---
Progress Note, Physician History of Present Illness: Pt seen and examined at bedside. She is awake and alert. She denies chest pain or palpitations. - Current Medication List Current Medications: Active Medications Acetaminophen (Tylenol -) 650 mg PO Q6H PRN PRN Reason: FEVER OR PAIN Albuterol/Ipratropium (Duoneb -) 1 amp NEB QIDR [facility] Last Admin: 12/19/16 11:48 Dose: 1 amp Apixaban (Eliquis -) 5 mg PO BID [facility] Last Admin: 12/19/16 11:35 Dose: 5 mg Artificial Tears (Artificial Tears) 1 drop OU QID [facility] Last Admin: 12/19/16 14:44 Dose: 1 drop Bacitracin (Bacitracin -) 1 applic TP BID [facility] Last Admin: 12/19/16 14:39 Dose: 1 applic Docusate Sodium (Colace -) 100 mg PO BID [facility] Last Admin: 12/19/16 11:34 Dose: 100 mg Fluconazole (Diflucan -) 100 mg PO DAILY [facility] Last Admin: 12/19/16 11:34 Dose: 100 mg Guaifenesin (Mucinex Dm -) 2 tablet PO BID [facility] Last Admin: 12/19/16 16:25 Dose: 2 tablet Hydromorphone HCl (Dilaudid -) 4 mg PO Q6H PRN PRN Reason: PAIN Last Admin: 12/19/16 14:37 Dose: 4 mg Lactobacillus Acidophilus (Bacid -) 1 tab PO DAILY [facility] Last Admin: 12/19/16 11:34 Dose: 1 tab Levofloxacin (Levaquin -) 500 mg PO DAILY@0600 [facility] Last Admin: 12/19/16 16:49 Dose: 500 mg Methotrexate (Mexate -) 7.5 mg PO Q7D@1000 [facility] Last Admin: 12/16/16 18:23 Dose: 7.5 mg Nitroglycerin (Nitro-Dur Patch -) 0.3 mg TD DAILY [facility] Last Admin: 12/19/16 11:35 Dose: 0.3 mg Nystatin (Nystatin Oral Suspension -) 500,000 units PO Q6HPO [facility] Last Admin: 12/19/16 14:34 Dose: 500,000 units Ondansetron HCl (Zofran Odt -) 8 mg SL Q6H PRN PRN Reason: NAUSEA AND/OR VOMITING Last Admin: 12/19/16 11:32 Dose: 8 mg Pantoprazole Sodium (Protonix -) 40 mg PO DAILY@0700 [facility] Last Admin: 12/19/16 06:05 Dose: 40 mg Polyethylene Glycol (Miralax (For Daily Use) -) 17 gm PO BID [facility] Last Admin: 12/19/16 14:39 Dose: 17 gm Prednisone (Deltasone -) 40 mg PO BID [facility] Last Admin: 12/19/16 11:34 Dose: 40 mg Psyllium Hydrophilic Mucilloid (Metamucil (Sugar-Free) -) 5.85 gm PO BID [facility] Last Admin: 12/19/16 11:32 Dose: 5.85 gm Simethicone (Mylicon -) 80 mg PO TID [facility] Last Admin: 12/19/16 14:41 Dose: 80 mg Sodium Chloride ([place] Nasal [place] -) 2 spray NS Q2H PRN PRN Reason: NASAL CONGESTION Last Admin: 12/16/16 23:38 Dose: 2 spray Tramadol HCl (Ultram -) 50 mg PO Q8H PRN PRN Reason: PAIN Valsartan (Diovan -) 160 mg PO DAILY [facility] Last Admin: 12/18/16 11:21 Dose: 160 mg - Objective Vital Signs: Vital Signs Temperature 98.8 F 12/19/16 17:09 Pulse Rate 109 H 12/19/16 17:09 Respiratory Rate 18 12/19/16 17:09 Blood Pressure 140/80 12/19/16 17:09 O2 Sat by Pulse Oximetry (%) 97 12/19/16 09:00 Constitutional: Yes: Calm Eyes: Yes: Conjunctiva Clear HENT: Yes: Atraumatic Cardiovascular: Yes: S1, S2 Respiratory: Yes: On Nasal O2 Gastrointestinal: Yes: Soft, Abdomen, Obese Genitourinary: Yes: WNL Musculoskeletal: Yes: WNL Edema: Yes Edema: LLE: 1+, RLE: 1+ Neurological: Yes: Oriented Psychiatric: Yes: Oriented Labs: CBC, BMP 12/16/16 06:20 12/19/16 06:10 Problem List - Problems (1) Abdominal pain Code(s): R10.9 - UNSPECIFIED ABDOMINAL PAIN Qualifiers: Abdominal location: left lower quadrant Qualified Code(s): R10.32 - Left lower quadrant pain (2) Acute renal failure Code(s): N17.9 - ACUTE KIDNEY FAILURE, UNSPECIFIED Qualifiers: Acute renal failure type: unspecified Qualified Code(s): N17.9 - Acute kidney failure, unspecified (3) Dyspnea Code(s): R06.00 - DYSPNEA, UNSPECIFIED Qualifiers: Dyspnea type: shortness of breath Qualified Code(s): R06.02 - Shortness of breath (4) Hypertension Code(s): I10 - ESSENTIAL (PRIMARY) HYPERTENSION Qualifiers: Hypertension type: essential hypertension Qualified Code(s): I10 - Essential (primary) hypertension (5) Lupus (systemic lupus erythematosus) Code(s): M32.9 - SYSTEMIC LUPUS ERYTHEMATOSUS, UNSPECIFIED (6) Morbid obesity Code(s): E66.01 - MORBID (SEVERE) OBESITY DUE TO EXCESS CALORIES Qualifiers: Obesity type: due to excess calories Qualified Code(s): E66.01 - Morbid (severe) obesity due to excess calories (7) Pulmonary fibrosis Code(s): J84.10 - PULMONARY FIBROSIS, UNSPECIFIED (8) Sarcoidosis Code(s): D86.9 - SARCOIDOSIS, UNSPECIFIED Assessment/Plan Current Medications Generic Name Dose Route Start Last Admin Trade Name Freq PRN Reason Stop Dose Admin Acetaminophen 650 mg 12/16/16 00:44 Tylenol - PO Q6H PRN FEVER OR PAIN Albuterol/Ipratropium 1 amp 12/16/16 18:00 12/19/16 11:48 Duoneb - NEB 1 amp QIDR [facility] Administration Apixaban 5 mg 12/16/16 10:00 12/19/16 11:35 Eliquis - PO 5 mg BID [facility] Administration Artificial Tears 1 drop 12/16/16 18:00 12/19/16 14:44 Artificial Tears OU 1 drop QID [facility] Administration Bacitracin 1 applic 12/16/16 22:00 12/19/16 14:39 Bacitracin - TP 1 applic BID [facility] Administration Docusate Sodium 100 mg 12/17/16 10:15 12/19/16 11:34 Colace - PO 100 mg BID [facility] Administration Fluconazole 100 mg 12/19/16 10:00 12/19/16 11:34 Diflucan - PO 100 mg DAILY [facility] Administration Guaifenesin 2 tablet 12/16/16 10:00 12/19/16 16:25 Mucinex Dm - PO 2 tablet BID [facility] Administration Hydromorphone HCl 4 mg 12/18/16 19:41 12/19/16 14:37 Dilaudid - PO 4 mg Q6H PRN Administration PAIN Lactobacillus Acidophilus 1 tab 12/17/16 18:00 12/19/16 11:34 Bacid - PO 1 tab DAILY [facility] Administration Levofloxacin 500 mg 12/19/16 16:45 12/19/16 16:49 Levaquin - PO 500 mg DAILY@0600 [facility] Administration Methotrexate 7.5 mg 12/16/16 17:00 12/16/16 18:23 Mexate - PO 7.5 mg Q7D@1000 [facility] Administration Nitroglycerin 0.3 mg 12/17/16 10:00 12/19/16 11:35 Nitro-Dur Patch - TD 0.3 mg DAILY [facility] Administration Nystatin 500,000 units 12/19/16 00:00 12/19/16 14:34 Nystatin Oral Suspension - PO 500,000 units Q6HPO [facility] Administration Ondansetron HCl 8 mg 12/18/16 11:34 12/19/16 11:32 Zofran Odt - SL 8 mg Q6H PRN Administration NAUSEA AND/OR VOMITING Pantoprazole Sodium 40 mg 12/17/16 07:00 12/19/16 06:05 Protonix - PO 40 mg DAILY@0700 [facility] Administration Polyethylene Glycol 17 gm 12/17/16 22:00 12/19/16 14:39 Miralax (For Daily Use) - PO 17 gm BID [facility] Administration Prednisone 40 mg 12/18/16 11:45 12/19/16 11:34 Deltasone - PO 40 mg BID [facility] Administration Psyllium Hydrophilic Mucilloid 5.85 gm 12/17/16 22:00 12/19/16 11:32 Metamucil (Sugar-Free) - PO 5.85 gm BID [facility] Administration Simethicone 80 mg 12/17/16 17:30 12/19/16 14:41 Mylicon - PO 80 mg TID [facility] Administration Sodium Chloride 2 spray 12/16/16 16:46 12/16/16 23:38 [place] Nasal [place] - NS 2 spray Q2H PRN Administration NASAL CONGESTION Tramadol HCl 50 mg 12/16/16 00:44 Ultram - PO Q8H PRN PAIN Valsartan 160 mg 12/16/16 10:00 12/18/16 11:21 Diovan - PO 160 mg DAILY [facility] Administration Impression 1. CONCEPCION 2. SLE 3. pulmonary fibrosis 4. sarcoidosis 5. obesity 6. HTN 7. COPD 8. gerd 9. nephrolithiasis 10/ hyperkalemia Plan - hold diovan - monitor bp - change fluids to ns at 35 cc - repeat labs in am - renal function is improving - low potassium diet - potassium supplements stopped - urology input appreciated - repeat ua is negative for blood or protein - will restart diovan when potassium is controlled - will follow Dr Sharpe
[2016-12-19] MEDS ORDERED: SODIUM CHLORIDE 1,000 ML IV SCH (17:30)
== END 2016-12-18 19:00 | DRG 189 ==
LOC: JER 21:16 → JERBED 12-16 00:28 → J6S 12-16 13:37
PROVIDERS: ADMIT Family Medicine; ATTEND Family Medicine
PROC: 3E0F7GC Introduction of Other Therapeutic Substance into Respiratory Tract, Via Natural or Artificial Opening (ICD-10-PCS; principal; 2016-12-16)
DX: J96.21 Acute and chronic respiratory failure with hypoxia (principal); N20.1 Calculus of ureter; Z68.43 Body mass index [BMI] 50.0-59.9, adult; I50.30 Unspecified diastolic (congestive) heart failure; N17.9 Acute kidney failure, unspecified; B37.0 Candidal stomatitis; K52.9 Noninfective gastroenteritis and colitis, unspecified; M32.9 Systemic lupus erythematosus, unspecified; J84.10 Pulmonary fibrosis, unspecified; K59.00 Constipation, unspecified; I27.2 Other secondary pulmonary hypertension; E66.01 Morbid (severe) obesity due to excess calories; D47.2 Monoclonal gammopathy; I87.2 Venous insufficiency (chronic) (peripheral); I11.0 Hypertensive heart disease with heart failure; D86.9 Sarcoidosis, unspecified; J44.9 Chronic obstructive pulmonary disease, unspecified; Z99.81 Dependence on supplemental oxygen
CPT/HCPCS: 36415; 71010-TC; 74020-TC; 74176-TC; 76775-TC; 76856-TC; 80048; 80053; 80061; 81003; 81015; 82436; 82570; 83036; 83721; 84133; 84300; 84540; 85025; 85027; 87040; 87086; 93005; 93010; 94640; 99284-25; J8610

== ENCOUNTER 2017-02-12 15:41 | Inpatient (IN) | payer OTHER ==
[2017-02-12] MEDS ORDERED: morphine CARPU-JECT 4 MG/1 ML DISP.SYRIN IVPUSH ONE (17:13)
--- NOTE | 2017-02-12 17:15 | PDOC ---
History of Present Illness - History of Present Illness Initial Comments: 02/12/17 16:43 Patient is a 52-year-old female with past medical history of lupus, pulmonary sarcoidosis on high-dose steroids, hypertension, back pain, who presents to the emergency department today complaining of low back pain. Patient states that approximately 2 days ago she was moving in [facility] when she felt a large pop in her low back. She said it was the worst pain she ever experienced in her life. She states that now she can't move her leg well and she has numbness and tingling in her pelvic girdle and down her left leg. Her pain a 10 out of 10. She was also found to have a blood pressure of 170/103 in triage. Denies fevers, chills, urinary incontinence, bladder incontinence, chest pain, visual changes, shortness of breath, nausea, vomiting, diarrhea. <Felicia Jiang - Last Filed: 02/12/17 19:30> <Suma Tomlin - Last Filed: 02/12/17 22:26> - General Chief Complaint: Blood Pressure Problem Stated Complaint: Blood Pressure Problem Time Seen by Provider: 02/12/17 16:17 Past History - Travel Traveled outside of the country in the last 30 days: No Close contact w/someone who was outside of country & ill: No - Past Medical History Anemia: No Asthma: No (PULMONARY FIBROSIS/SARCODOSIS) Cancer: No Cardiac Disorders: Yes (PULMONARY HYPERTENSION pulmonary fibrosis scarcodisos) CVA: No COPD: No (PULMONARY FIBROSIS/sarcoidosis) CHF: Yes Dementia: No Diabetes: No GI Disorders: No Disorders: No HTN: Yes Hypercholesterolemia: No Liver Disease: No Seizures: No Thyroid Disease: No - Surgical History Abdominal Surgery: No Appendectomy: No Cardiac Surgery: No Cholecystectomy: Yes Lung Surgery: No Neurologic Surgery: No Orthopedic Surgery: No - Reproductive History Cervical CA: No Dysfunctional Uterine Bleeding: No Ectopic : No Endometrial CA: No Polycystic Ovaries: No - Psycho/Social/Smoking Cessation Hx Anxiety: No Suicidal Ideation: No Smoking History: Unknown if ever smoked Have you smoked in the past 12 months: No Information on smoking cessation initiated: No Hx Alcohol Use: No Drug/Substance Use Hx: No Substance Use Type: None Hx Substance Use Treatment: No <Felicia Jiang - Last Filed: 02/12/17 19:30> <SadaSuma - Last Filed: 02/12/17 22:26> - Past Medical History Allergies/Adverse Reactions: Allergies Allergy/AdvReac Type Severity Reaction Status Date / Time No Known Allergies Allergy Verified 12/15/16 21:49 Home Medications: Ambulatory Orders Fluconazole 200 mg PO DAILY 12/16/16 Hydroxychloroquine So4 [Plaquenil -] 400 mg PO DAILY 12/16/16 Pantoprazole Sodium [Protonix] 40 mg PO DAILY 12/16/16 Potassium Chloride [K-Dur -] 60 meq PO DAILY 12/16/16 Torsemide [Demadex -] 100 mg PO DAILY 12/16/16 Tramadol HCl [Ultram] 100 mg PO DAILY PRN 12/16/16 Methotrexate [Mexate -] 7.5 mg PO Q7D@1000 tablet 12/19/16 Prednisone [Deltasone -] 40 mg PO BID tablet 12/19/16 Simethicone [Mylicon -] 80 mg PO TID tab.chew 12/19/16 Valsartan [Diovan] 240 mg PO DAILY 02/12/17 Review of Systems - Review of Systems Able to Perform ROS?: Yes Is the patient limited Maltese proficient: No Constitutional: Yes: Malaise, Weakness (L leg). No: Chills, Fever Respiratory: Yes: Other (O2 dependent). No: Cough, Shortness of Breath, Wheezing Cardiac (ROS): No: Chest Pain, Lightheadedness, Palpitations ABD/GI: No: Diarrhea, Nausea, Vomiting, Other (Bowel incontenece ) : No: Burning, Dysuria, Frequency, Other (urinary incontence ) Musculoskeletal: Yes: Back Pain, Joint Stiffness (back stiffness) Neurological: Yes: Numbness (saddle ansethesia ), Paresthesia (L leg), Tingling (anesthesia ) All Other Systems: Reviewed and Negative <Felicia Jiang - Last Filed: 02/12/17 19:30> *Physical Exam - Vital Signs Last Vital Signs Temp Pulse Resp BP Pulse Ox 97.8 F 105 H 20 170/110 98 02/12/17 15:45 02/12/17 15:45 02/12/17 15:45 02/12/17 15:45 02/12/17 15:45 - Physical Exam General Appearance: Yes: Appropriately Dressed, Mild Distress (Pt appears uncomfortable in bed. On 02, AAOx3), Obese Neck: positive: Trachea midline, Supple. negative: Tender, Rigid, Decreased range of motion Respiratory/Chest: positive: Lungs Clear, Normal Breath Sounds. negative: Respiratory Distress, Accessory Muscle Use Cardiovascular: positive: Regular Rhythm, Regular Rate, S1, S2 (present). negative: Murmur Gastrointestinal/Abdominal: positive: Normal Bowel Sounds, Soft, Protuberent. negative: Tender, Guarding, Tenderness Extremity: positive: Normal Capillary Refill, Pedal Edema (1+ edema). negative : Normal Range of Motion (pt unable to elevate leg off bed past 10 degrees without pain, or flex quad), Swelling Integumentary: positive: Normal Color, Dry, Warm. negative: Bruising Neurologic: positive: speech language pathology assistant II-XII NML intact, Fully Oriented, Alert, Normal Mood/ Affect, Normal Response, Numbness (saddle anesthesia), Sensory Deficit (b/l pelvis, L leg), Other (gait not observed as pt is bed bound,). negative: Motor Strength 5/5 (R leg 4/5 strength with elevation, L leg 2/5 strength) <Felicia Jiang - Last Filed: 02/12/17 19:30> - Vital Signs Last Vital Signs Temp Pulse Resp BP Pulse Ox 97.8 F 105 H 20 170/110 98 02/12/17 15:45 02/12/17 15:45 02/12/17 15:45 02/12/17 15:45 02/12/17 15:45 <Suma Tomlin - Last Filed: 02/12/17 22:26> ED Treatment Course - LABORATORY CBC & Chemistry Diagram: 02/12/17 17:30 02/12/17 18:35 <Felicia Jiang - Last Filed: 02/12/17 19:30> - LABORATORY CBC & Chemistry Diagram: 02/12/17 17:30 02/12/17 18:35 - ADDITIONAL ORDERS Additional order review: Laboratory Results 02/12/17 02/12/17 02/12/17 18:35 17:30 17:30 INR 1.11 Sodium 140 Potassium 4.6 Chloride 99 Carbon Dioxide 36 H D Anion Gap 5 L BUN 14 D Creatinine 0.7 D Creat Clearance w eGFR > 60 Random Glucose 195 H D Calcium 9.6 Total Bilirubin 0.3 D AST 18 ALT 29 Alkaline Phosphatase 131 H D Creatine Kinase 33 Troponin I 0.03 Total Protein 5.7 L Albumin 2.8 L Urine Color Urine Appearance Urine pH Urine Protein Urine Glucose (UA) Urine Ketones Urine Blood Urine Nitrite Urine Bilirubin Urine Urobilinogen Ur Leukocyte Esterase Urine RBC Urine WBC Urine Mucus 02/12/17 16:20 INR Sodium Potassium Chloride Carbon Dioxide Anion Gap BUN Creatinine Creat Clearance w eGFR Random Glucose Calcium Total Bilirubin AST ALT Alkaline Phosphatase Creatine Kinase Troponin I Total Protein Albumin Urine Color Natalia Urine Appearance Clear Urine pH 7.0 D Urine Protein Negative Urine Glucose (UA) 1+ H Urine Ketones Negative Urine Blood Negative Urine Nitrite Positive Urine Bilirubin Negative Urine Urobilinogen 4.0 e.u/dl H Ur Leukocyte Esterase Negative Urine RBC <1 Urine WBC 1 Urine Mucus Rare 02/12/17 17:30 RBC 3.32 L D MCV 95.8 MCHC 31.5 L RDW 20.0 H MPV 8.0 Neutrophils % 82.0 Lymphocytes % 9.0 D Monocytes % 3.0 L - RADIOLOGY Radiology Studies Ordered: Category Date Time Status LUMBAR SPINE CT W/O CONTRAST [CT] Stat CT Scan 02/12/17 19:53 Completed - Medications Given in the ED: ED Medications Discontinued Medications Generic Name Dose Route Start Last Admin Trade Name Marcoq PRN Reason Stop Dose Admin Diazepam 10 mg 02/12/17 18:50 02/12/17 19:22 Valium - PO 02/12/17 18:51 10 mg ONCE ONE Administration Morphine Sulfate 4 mg 02/12/17 17:13 02/12/17 17:26 Morphine Injection - IVPUSH 02/12/17 17:14 4 mg ONCE ONE Administration <Suma Tomlin - Last Filed: 02/12/17 22:26> Medical Decision Making - Medical Decision Making 02/12/17 17:24 Patient is a 52-year-old female with past medical history of lupus, pulmonary sarcoidosis on high-dose steroids, hypertension, back pain, who presents to the emergency department today complaining of low back pain. Given physical exam patient's symptoms are concerning for cauda equina syndrome. We'll obtain stat MRI of the lumbar spine. Pt given 4 mg morphine with relief. Also order basic labs to rule out hypertensive emergency. 1. CBC, CMP, Cardiac profile, UA, UC 2. IV Morphine 3. EKG 4. Neuro consult 5.Re-evaluate 02/12/17 18:09 Lab work shows a mild anemia, but is otherwise unremarkable. Spoke with Dr. Anderson neurology. Agrees with treatment plan and will follow the patient. Recommend adding sedimentation rate. He states her pain is relatively well controlled. She is nervous about going in the MRI machine due to her large body habitus. We'll give the patient Valium to help with her anxiety. Explained the importance of this test and the ability to obtain it. If we cannot get the MRI we'll switch to CAT scan. 02/12/17 19:00 Sign out given to Wilda Tomlin nurse practitioner. She is aware about the patient' s condition and will follow up with the MRI. <Felicia Jiang - Last Filed: 02/12/17 19:30> *DC/Admit/Observation/Transfer <Felicia Jiang - Last Filed: 02/12/17 19:30> - Discharge Dispostion Admit: Yes <Suma Tomlin - Last Filed: 02/12/17 22:26> Diagnosis at time of Disposition: Sarcoidosis, Morbid obesity Lupus (systemic lupus erythematosus) Qualifiers: Systemic lupus erythematosus type: unspecified Systemic lupus erythematosus organ involvement: unspecified Qualified Code(s): M32.9 - Systemic lupus erythematosus, unspecified Back pain Qualifiers: Back pain location: low back pain Chronicity: chronic Back pain laterality: left Sciatica presence: with sciatica Sciatica laterality: sciatica of left side Qualified Code(s): M54.42 - Lumbago with sciatica, left side; G89.29 - Other chronic pain - Referrals Referrals: Malcom Waddell MD [Primary Care Provider] -
[2017-02-12] MEDS ORDERED: morphine CARPU-JECT 4 MG/1 ML DISP.SYRIN ONE ×2 (17:17→23:32)
[2017-02-12 17:46] LABS: MCH 30.2 pg (25.7-33.7); MCHC 31.5 g/dl (32.0-36.0); MEAN CELL VOLUME 95.8 fl (80-96); PLATELET COUNT 176 K/MM3 (134-434); WHITE BLOOD COUNT 9.5 K/mm3 (4.0-10.0)
[2017-02-12 18:04] LABS: INR 1.11 (0.82-1.09); PROTHROMBIN TIME (PATIENT) 12.2 SEC (9.98-11.88)
--- NOTE | 2017-02-12 18:21 | PDOC ---
*Physical Exam - Vital Signs Last Vital Signs Temp Pulse Resp BP Pulse Ox 97.8 F 105 H 20 170/110 98 02/12/17 15:45 02/12/17 15:45 02/12/17 15:45 02/12/17 15:45 02/12/17 15:45 <QuitanallelyIwld - Last Filed: 02/12/17 22:17> - Vital Signs Last Vital Signs Temp Pulse Resp BP Pulse Ox 97.8 F 105 H 20 170/110 98 02/12/17 15:45 02/12/17 15:45 02/12/17 15:45 02/12/17 15:45 02/12/17 15:45 - Physical Exam Comments: 02/12/17 18:21 The patient was examined by PEYMAN Avery under my direct supervision. I personally evaluated the patient. I concur with the above findings and the plan of care. <Juan J Campbell - Last Filed: 02/13/17 01:55> ED Treatment Course - LABORATORY CBC & Chemistry Diagram: 02/12/17 17:30 02/12/17 18:35 - ADDITIONAL ORDERS Additional order review: Laboratory Results 02/12/17 02/12/17 02/12/17 18:35 17:30 17:30 INR 1.11 Sodium 140 Potassium 4.6 Chloride 99 Carbon Dioxide 36 H D Anion Gap 5 L BUN 14 D Creatinine 0.7 D Creat Clearance w eGFR > 60 Random Glucose 195 H D Calcium 9.6 Total Bilirubin 0.3 D AST 18 ALT 29 Alkaline Phosphatase 131 H D Creatine Kinase 33 Troponin I 0.03 Total Protein 5.7 L Albumin 2.8 L Urine Color Urine Appearance Urine pH Urine Protein Urine Glucose (UA) Urine Ketones Urine Blood Urine Nitrite Urine Bilirubin Urine Urobilinogen Ur Leukocyte Esterase Urine RBC Urine WBC Urine Mucus 02/12/17 16:20 INR Sodium Potassium Chloride Carbon Dioxide Anion Gap BUN Creatinine Creat Clearance w eGFR Random Glucose Calcium Total Bilirubin AST ALT Alkaline Phosphatase Creatine Kinase Troponin I Total Protein Albumin Urine Color Natalia Urine Appearance Clear Urine pH 7.0 D Urine Protein Negative Urine Glucose (UA) 1+ H Urine Ketones Negative Urine Blood Negative Urine Nitrite Positive Urine Bilirubin Negative Urine Urobilinogen 4.0 e.u/dl H Ur Leukocyte Esterase Negative Urine RBC <1 Urine WBC 1 Urine Mucus Rare 02/12/17 17:30 RBC 3.32 L D MCV 95.8 MCHC 31.5 L RDW 20.0 H MPV 8.0 Neutrophils % 82.0 Lymphocytes % 9.0 D Monocytes % 3.0 L - Medications Given in the ED: ED Medications Discontinued Medications Generic Name Dose Route Start Last Admin Trade Name Freq PRN Reason Stop Dose Admin Diazepam 10 mg 02/12/17 18:50 02/12/17 19:22 Valium - PO 02/12/17 18:51 10 mg ONCE ONE Administration Morphine Sulfate 4 mg 02/12/17 17:13 02/12/17 17:26 Morphine Injection - IVPUSH 02/12/17 17:14 4 mg ONCE ONE Administration <Wild Ellis - Last Filed: 02/12/17 22:17> - LABORATORY CBC & Chemistry Diagram: 02/12/17 17:30 02/12/17 18:35 - ADDITIONAL ORDERS Additional order review: Laboratory Results 02/12/17 17:30 INR 1.11 02/12/17 17:30 RBC 3.32 L D MCV 95.8 MCHC 31.5 L RDW 20.0 H MPV 8.0 Neutrophils % Y Lymphocytes % Y - Medications Given in the ED: ED Medications Discontinued Medications Generic Name Dose Route Start Last Admin Trade Name Freq PRN Reason Stop Dose Admin Morphine Sulfate 4 mg 02/12/17 17:13 02/12/17 17:26 Morphine Injection - IVPUSH 02/12/17 17:14 4 mg ONCE ONE Administration <Juan J Campbell - Last Filed: 02/13/17 01:55> Medical Decision Making - Medical Decision Making 02/12/17 22:[address] Bairon shine. Dr. Armijo is forensic identification specialist. Awaiting call back. <Wild Ellis - Last Filed: 02/12/17 22:17> *DC/Admit/Observation/Transfer - Attestations Scribe Attestion: 02/12/17 22:17 Documentation prepared by Wild Ellis, acting as medical records coder for Juan J Campbell MD. <Wild Ellis - Last Filed: 02/12/17 22:17> <Juan J Campbell - Last Filed: 02/13/17 01:55> Diagnosis at time of Disposition: Lupus (systemic lupus erythematosus), Sarcoidosis, Morbid obesity, Back pain
[2017-02-12 18:29] LABS: TROPONIN I 0.03 ng/ml (0.00-0.05)
[2017-02-12 18:48] LABS: URINE APPEARANCE CLEAR; URINE BILIRUBIN NEGATIVE (NEGATIVE); URINE BLOOD NEGATIVE (NEGATIVE); URINE COLOR AMBER; URINE GLUCOSE (UA) 1+ (NEGATIVE); URINE KETONE NEGATIVE (NEGATIVE); URINE LEUK ESTERASE NEGATIVE (NEGATIVE); URINE NITRITE POSITIVE (NEGATIVE); URINE PROTEIN NEGATIVE (NEGATIVE); URINE UROBILINOGEN 4.0 E.U/dl mg/dL (0.2-1.0)
[2017-02-12] MEDS ORDERED: diazePAM 5 MG TABLET PO ONE (18:50)
[2017-02-12 18:55] LABS: ALBUMIN 2.8 g/dl (3.4-5.0); ANION GAP 5 (8-16); CALCIUM 9.6 mg/dL (8.5-10.1); CO2 36 mmol/L (21-32); GLUCOSE,RANDOM 195 mg/dL (74-106); SGPT/ALT 29 U/L (12-78)
[2017-02-12 18:58] LABS: ALK PHOS 131 U/L (45-117); BILIRUBIN,TOTAL 0.3 mg/dL (0.2-1.0); CREATININE 0.7 mg/dL (0.55-1.02); SGOT/AST 18 U/L (15-37); TOT PROT 5.7 g/dl (6.4-8.2)
[2017-02-12] MEDS ORDERED: diazePAM 5 MG TABLET ONE (19:00)
[2017-02-12 19:16] LABS: URINE MUCUS RARE; URINE RBC <1 /hpf (0-3); URINE WBC 1 /hpf (3-5)
[2017-02-12 19:41] LABS: ANISOCYTOSIS 1+; PLATELET ESTIMATE ADEQUATE (NORMAL); POLYCHROMASIA 1+
--- NOTE | 2017-02-12 21:10 | PDOC ---
*Physical Exam - Vital Signs Last Vital Signs Temp Pulse Resp BP Pulse Ox 97.8 F 105 H 20 170/110 98 02/12/17 15:45 02/12/17 15:45 02/12/17 15:45 02/12/17 15:45 02/12/17 15:45 - Physical Exam Comments: 02/12/17 21:09 Sign out received from outgoing ER provider Deidre. Patient interviewed and examined. Ancillary studies reviewed. Awaiting lumbar MRI. Patient does not fit in MRI machine, will send for lumbar spine CT. CT results: in comparison to an abdomen/pelvis CT study of 12/16/16, interval development of T10, T12, L2, L3, and L5 vertebral body compression fractures are seen. No body retropulsion is noted. These fractures appear acute/ subacute. Interval development of a subacute vertical fracture is noted within the left sacral ala. The visualized ossesous structures appear diffusely demineralized. Marked b/l L4-L5 and moderate b/l L5-S2 degenerative facet arthopathy is seen. no gross disc herniation is noted. L4-L5 central canal stenosis is seen which is probably mild to moderate allowing for partially obscuring artifact. Moderate b/l L5-S1 foraminal stenoses. 02/13/17 12:52 Discussed case with [employer] Alicia covering for patient's PCP Eliana. Will admit for obs for neurosurgery consult in am. Discussed case with neurology attending on-call Justin. At this time intervention appears unlikely as patient is already on high dose steroids, will consult with neurosurgery in am. ED Treatment Course - LABORATORY CBC & Chemistry Diagram: 02/12/17 17:30 02/12/17 18:35 - ADDITIONAL ORDERS Additional order review: Laboratory Results 02/12/17 02/12/17 02/12/17 18:35 17:30 17:30 INR 1.11 Sodium 140 Potassium 4.6 Chloride 99 Carbon Dioxide 36 H D Anion Gap 5 L BUN 14 D Creatinine 0.7 D Creat Clearance w eGFR > 60 Random Glucose 195 H D Calcium 9.6 Total Bilirubin 0.3 D AST 18 ALT 29 Alkaline Phosphatase 131 H D Creatine Kinase 33 Troponin I 0.03 Total Protein 5.7 L Albumin 2.8 L Urine Color Urine Appearance Urine pH Urine Protein Urine Glucose (UA) Urine Ketones Urine Blood Urine Nitrite Urine Bilirubin Urine Urobilinogen Ur Leukocyte Esterase Urine RBC Urine WBC Urine Mucus 02/12/17 16:20 INR Sodium Potassium Chloride Carbon Dioxide Anion Gap BUN Creatinine Creat Clearance w eGFR Random Glucose Calcium Total Bilirubin AST ALT Alkaline Phosphatase Creatine Kinase Troponin I Total Protein Albumin Urine Color Natalia Urine Appearance Clear Urine pH 7.0 D Urine Protein Negative Urine Glucose (UA) 1+ H Urine Ketones Negative Urine Blood Negative Urine Nitrite Positive Urine Bilirubin Negative Urine Urobilinogen 4.0 e.u/dl H Ur Leukocyte Esterase Negative Urine RBC <1 Urine WBC 1 Urine Mucus Rare 02/12/17 17:30 RBC 3.32 L D MCV 95.8 MCHC 31.5 L RDW 20.0 H MPV 8.0 Neutrophils % 82.0 Lymphocytes % 9.0 D Monocytes % 3.0 L - RADIOLOGY Radiology Studies Ordered: Category Date Time Status LUMBAR SPINE CT W/O CONTRAST [CT] Stat CT Scan 02/12/17 19:53 Taken - Medications Given in the ED: ED Medications Discontinued Medications Generic Name Dose Route Start Last Admin Trade Name Freq PRN Reason Stop Dose Admin Diazepam 10 mg 02/12/17 18:50 02/12/17 19:22 Valium - PO 02/12/17 18:51 10 mg ONCE ONE Administration Morphine Sulfate 4 mg 02/12/17 17:13 02/12/17 17:26 Morphine Injection - IVPUSH 02/12/17 17:14 4 mg ONCE ONE Administration *DC/Admit/Observation/Transfer Diagnosis at time of Disposition: Sarcoidosis, Morbid obesity Lupus (systemic lupus erythematosus) Qualifiers: Qualified Code(s): M32.9 - Systemic lupus erythematosus, unspecified Back pain Qualifiers: Qualified Code(s): M54.42 - Lumbago with sciatica, left side
[2017-02-12] MEDS ORDERED: predniSONE 20 MG TABLET (UD) ONE (23:22)
[2017-02-12] MEDS: predniSONE 20 MG TABLET (UD) PO SCH (23:27)
[2017-02-12] MEDS: morphine CARPU-JECT 4 MG/1 ML DISP.SYRIN IVPUSH PRN (23:38)
[2017-02-13 02:30] VITALS: BMI 48.8
[2017-02-13] MEDS: SIMETHICONE 80 MG TAB.CHEW (FP) PO SCH ×3 (06:28→22:09)
--- NOTE | 2017-02-13 08:52 | CON.NEURO ---
Consult - History of Present Illness History of Present Illness: 52-year-old female with past medical history of lupus (sees Dr Roro Neal/ [facility] ), pulmonary sarcoidosis on high-dose steroids, hypertension, back pain, who presents to the emergency department 02/12/17 complaining of low back pain. Patient states that approximately 2 days ago she was moving in bed at the [facility] when she felt a large pop in her low back. She said it was the worst pain she ever experienced in her life. She states that now she can't move her leg well and she has numbness and tingling in her pelvic girdle and down her left leg. Her pain a 10 out of 10. states feels sx started midmay when she was unable to get hospital bed in [place], then was unable to gte propr toliet seat, last;y a fall in later DECEMBER. no numbness of her legs, though feels weaker L >R legs. using diapers bc unable to make it to bathroom though denies incontinence per say. unable to get MRI ; CT [facility] as below IMPRESSION: in comparison to a abdomen/pelvis CT study of 12/16/2016 interval development of T10, T12, L2, L3 and L5 vertebral body compression fractures are seen as discussed. No bony retropulsion is noted. These fractures appear acute/ subacute. Interval development of a subacute vertical fracture is noted within the left sacral ala. The visualized osseous structures appear diffusely demineralized. Marked bilateral L4-L5 and moderate bilateral L5-S1 degenerative facet arthropathy is seen. No gross disc herniation is noted. L4-L5 central canal stenosis is seen which is probably mild to moderate allowing for partially obscuring artifact. Moderate bilateral L5-S1 foraminal stenoses. As also visualized on abdomen/pelvis CT studies of 12/16/2016 and 10/08/2016 a 9 x 5 mm right ureteropelvic junction calculus is seen with minimal to mild hydronephrosis. Urology consultation is suggested. A 2 mm nonobstructing right renal calculus is also visualized. Interstitial thickening is seen within the partially imaged lower chest bilaterally. - Past Medical History Cardio/Vascular: Yes: HTN Pulmonary: Yes: COPD, O2 Dependent, Pulmonary Fibrosis Gastrointestinal: Yes: Constipation, GERD Renal/: Yes: Renal Calculi ...: No Rheumatology: Yes: Lupus - Past Surgical History Past Surgical History: Yes: Cholecystectomy, Hysterectomy - Alcohol/Substance Use Hx Alcohol Use: No - Smoking History Smoking history: Former smoker Have you smoked in the past 12 months: No Home Medications - Allergies Allergies/Adverse Reactions: Allergies Allergy/AdvReac Type Severity Reaction Status Date / Time No Known Allergies Allergy Verified 12/15/16 21:49 - Home Medications Home Medications: Ambulatory Orders Fluconazole 200 mg PO DAILY 12/16/16 Hydroxychloroquine So4 [Plaquenil -] 400 mg PO DAILY 12/16/16 Pantoprazole Sodium [Protonix] 40 mg PO DAILY 12/16/16 Potassium Chloride [K-Dur -] 60 meq PO DAILY 12/16/16 Torsemide [Demadex -] 100 mg PO DAILY 12/16/16 Tramadol HCl [Ultram] 100 mg PO DAILY PRN 12/16/16 Methotrexate [Mexate -] 7.5 mg PO Q7D@1000 tablet 12/19/16 Prednisone [Deltasone -] 40 mg PO BID tablet 12/19/16 Simethicone [Mylicon -] 80 mg PO TID tab.chew 12/19/16 Valsartan [Diovan] 240 mg PO DAILY 02/12/17 Physical Exam-Neuro Vital Signs: Vital Signs Temperature 97.9 F 02/13/17 02:18 Pulse Rate 84 02/13/17 02:18 Respiratory Rate 22 02/13/17 02:18 Blood Pressure 122/94 02/13/17 02:18 O2 Sat by Pulse Oximetry (%) 98 02/12/17 15:45 Constitutional: Yes: Well Nourished Labs: INR, PTT INR 1.11 (0.82-1.09) 02/12/17 17:30 - Neuro Exam Level Of Consciousness: Yes: Alert, Oriented to Person (EOMi, NO facial, VFF, motor limited UE prox strength--deltoids 4/5, BI 4/5, TR ( effort /pain 4+/5) and LE, IP 2/5, qauds 4/5, TA 3/5 L and 4/5 R--pain limits her exam, 2+ TR, 1+ BI, BR, absent patellar and achilles, no sesnory level, giat unable to test) NIH Stroke Scale - Total Score NIH Stroke Scale Score: 0 Imaging - Results Cat Scan: Report Reviewed, Image Reviewed Problem List - Problems (1) Lupus (systemic lupus erythematosus) Code(s): M32.9 - SYSTEMIC LUPUS ERYTHEMATOSUS, UNSPECIFIED Qualifiers: Systemic lupus erythematosus type: unspecified Systemic lupus erythematosus organ involvement: unspecified Qualified Code(s): M32.9 - Systemic lupus erythematosus, unspecified (2) Morbid obesity Code(s): E66.01 - MORBID (SEVERE) OBESITY DUE TO EXCESS CALORIES (3) Pulmonary fibrosis Code(s): J84.10 - PULMONARY FIBROSIS, UNSPECIFIED (4) Sarcoidosis Code(s): D86.9 - SARCOIDOSIS, UNSPECIFIED (5) Lumbar compression fracture Code(s): S32.000A - WEDGE COMPRESSION FRACTURE OF UNSP LUMBAR VERTEBRA, INIT (6) Lumbar radicular syndrome Code(s): M54.16 - RADICULOPATHY, LUMBAR REGION Assessment/Plan 52-year-old female with past medical history of lupus (sees Dr Roro Neal/ [facility] ), pulmonary sarcoidosis on high-dose steroids, hypertension, back pain, who presents to the emergency department 02/12/17 complaining of low back pain. 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 suspect lumbosacral spinal disease as a factor --+ superimposed compression FX for her pain cauda equina a possibility though she has no clear sensory C.O. call Neurosurgery-Dr HERRING, may need vertebroplasty, +/- myleogram as she wont qualify for MRI given weight call PM --Dr EMERY weakness proximally may also be due to steroid myopathy vs sarcoid myopathy vs inflam myopathy ESR--not sig elevataed check CPK, aldolase [facility] will have to sort out how long can she be on intermediate manager steroids ([facility]HE[facility]) Dr Anderson [phone]
[2017-02-13] MEDS ORDERED: PT OWN MED DRAWER 7, Y5N ONE ×2 (09:29→13:24)
[2017-02-13] MEDS: predniSONE 20 MG TABLET (UD) PO SCH ×2 (09:31→22:09)
[2017-02-13] MEDS: morphine CARPU-JECT 4 MG/1 ML DISP.SYRIN IVPUSH PRN ×2 (09:33→17:34)
[2017-02-13] MEDS: PANTOPRAZOLE 40 MG TABLET (FP) PO SCH (09:33)
[2017-02-13] MEDS: CALCITONIN - SALMON SYNTHETIC 3.7 ML SPRAY.PUMP NS SCH (09:34)
[2017-02-13] MEDS ORDERED: POTASSIUM CHLORIDE TABS 20 MEQ TABLET.ER (FP) PO SCH (10:00)
[2017-02-13] MEDS ORDERED: VALSARTAN 80 MG TABLET (UD) PO SCH (10:00)
[2017-02-13] MEDS ORDERED: ERGOCALCIFEROL (VITAMIN D2) 50,000 UNIT CAPSULE (FP) PO SCH (10:00)
--- NOTE | 2017-02-13 11:04 | CONSULT ---
Consultation: REQUESTING PROVIDER: CONSULT REQUEST: We have been asked to medically evaluate this patient for Chronic Sarcoid ILD. HISTORY OF PRESENT ILLNESS: Pt is 52 yo woman with pmh of sarcoid ILD, lupus, and HTN who is currently admitted for vertebral fracture, now evaluated by our service for chronic ILD. Pt was diagnosed with sarcoid lung a few years prior to admission and is being followed by Dr. Richard Hopkins as an outpatient. At baseline, pt has very limited exercise capacity and chronic productive cough, endorsing SOB on very minimal exertion and states that her "O2 drops" if she gets up and walks. She requires home O2 PRN and is currently on high dose steroids for her chronic sarcoid lung , but endorses many side effects, including easy bruising and fractures. Pt has been hospitalized several times a year for the past few year, often for PNAs. Most recent hospitalized was in 12/2016 for acute on chronic respiratory failure , during which she treated with steroids and abx with symptom resolution and discharged to [facility]. At this time, she endorses a productive cough, inability to ambulate due to respiratory status, BL LE edema and back pain. She denies any fever, chills, chest pain, palpitations, hemotypsis, N/V, addominal pain, dysuria, nasal congestion, diarrhea, dizziness or neurological symptoms. Pt is morbidly obese lives at home and ambulates with a walker. She is currently awaiting transplant but is not currently being considered given her morbid obesity. PMHx Sarcoidosis SLE Pulm HTN secondary to ILD HTN Multiple PNAs w/ hospital admissions Diverticulitis Nerve pain in L arm secondary to NF1? vs. Schwanoma Fibula Fx PSHx Cholescystectomy Allergies Penicillin - Unspecified reaction. 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 Unemployed/disability for over 10 yrs. No alcohol or drug use. Smoker from age [age], 12 ppys. Family Hx Grandaughter with NF1 REVIEW OF SYSTEMS: CONSTITUTIONAL: Generalized weakness, increasing weight. Absent: fever, chills, generalized weakness HEENT: Absent: rhinorrhea, nasal congestion, throat pain, throat swelling ear pain, eye pain, visual changes CARDIOVASCULAR: palpitations, LE edema Absent: chest pain, syncope, lightheadedness RESPIRATORY: productive cough, Absent: dyspnea with exertion, orthopnea, hemoptysis GASTROINTESTINAL: Absent: abdominal pain, nausea, vomiting, diarrhea, constipation, hematochezia GENITOURINARY: Absent: dysuria, frequency, urgency, hesitancy, hematuria, MUSCULOSKELETAL: back pain Absent: myalgia, arthralgia, SKIN: Absent: rash HEMATOLOGIC/IMMUNOLOGIC: Easy bruising Absent: easy bleeding NEUROLOGIC: Absent: headache, focal weakness or paresthesias, dizziness,seizure, mental status changes, PHYSICAL EXAMINATION Vital Signs - 24 hr 02/13/17 02:18 Temperature 97.9 F Pulse Rate 84 Respiratory 22 Rate Blood Pressure 122/94 GENERAL: Awake, alert, and fully oriented, in no acute distress. Morbidly obese on NC HEAD: Normal with no signs of trauma. EYES: Pupils equal, round and reactive to light, extraocular movements intact, sclera anicteric, conjunctiva clear. No lid lag. EARS, NOSE, THROAT: Ears normal, nares patent, oropharynx clear without exudates. Moist mucous membranes. NECK: Normal range of motion, supple without lymphadenopathy, JVD, or masses. Possible thyromegaly LUNGS: Diffuse crackles throughout BL mid and lower lung johnson. Exam limited by pt effort/position. No wheezes. No accessory muscle use. HEART: Regular rate and rhythm, normal S1 and S2 without murmur, rub or gallop. ABDOMEN: Soft, nontender, globular, normoactive bowel sounds, no guarding, no rebound, no masses. No hepatomegaly or splenomegaly. MUSCULOSKELETAL: Normal range of motion at all joints. UPPER EXTREMITIES: 2+ pulses, warm, well-perfused. No cyanosis. No clubbing. Cap refill <2 seconds. No peripheral edema. LOWER EXTREMITIES: 1+ pulses, warm, well-perfused. No calf tenderness. 2+ pitting edema with peripheral scaling. NEUROLOGICAL: Cranial nerves II-XII intact. Normal speech. Gait not evaluated. PSYCHIATRIC: Cooperative. Good eye contact. Appropriate mood and affect. SKIN: Warm, dry. Ecchymosis on L plantar surface of foot. Active Medications Generic Name Dose Route Start Last Admin Trade Name Freq PRN Reason Stop Dose Admin Calcitonin 200 units 02/13/17 10:00 02/13/17 09:34 Miacalcin [place] - NS 200 units DAILY IKER Administration Ergocalciferol 50,000 unit 02/13/17 10:00 02/13/17 09:32 Drisdol - PO 50,000 unit Q7D@1000 IKER Administration Hydroxychloroquine Sulfate 400 mg 02/13/17 10:00 Plaquenil - PO DAILY IKER Methotrexate 7.5 mg 02/14/17 10:00 Mexate - PO Fr@10 IKER Morphine Sulfate 4 mg 02/12/17 22:34 02/13/17 09:33 Morphine Injection - IVPUSH 4 mg Q6H PRN Administration PAIN Pantoprazole Sodium 40 mg 02/13/17 10:00 02/13/17 09:33 Protonix - PO 40 mg DAILY IKER Administration Potassium Chloride 60 meq 02/13/17 10:00 02/13/17 09:33 K-Dur - PO 60 meq DAILY IKER Administration Prednisone 40 mg 02/12/17 22:45 02/13/17 09:31 Deltasone - PO 40 mg BID IKER Administration Simethicone 80 mg 02/13/17 06:00 02/13/17 06:28 Mylicon - PO Not Given TID IKER Torsemide 100 mg 02/13/17 10:00 Demadex - PO DAILY IKER Tramadol HCl 100 mg 02/12/17 22:32 Ultram - PO DAILY PRN PAIN Valsartan 240 mg 02/13/17 10:00 02/13/17 09:32 Diovan - PO 240 mg DAILY IKER Administration ASSESSMENT/PLAN: Assessment: Pt is 52 yo woman with pmh of sarcoid ILD, lupus, and HTN who is currently admitted for vertebral fracture, now evaluated by our service for chronic ILD. Pt currently with multiple vertebral fractures. Respiratory status largely unchanged from baseline w/ chronic non-productive cough and very limited exercise tolerance due to chronic ILD secondary to pulmonary sarcoidosis. Pt well known to service, being managed on high-dose steroids. Currently awaiting transplant, but will require significant weight reduction to qualify. Plan: #ILD - Reduce prednisone to 30mg BID - O2 PRN - Monitor for any change in respiratory status - Incentive spirometry - Pain control as needed - DVT PPX - Smoking abstinence counseling given by attending - Weight reduction program in out-pt setting Sumanth Arrieta MD, PGY1 Will discuss plan with attending, Dr. Gunn Dispo: We will continue to follow the patient. Thank you for this consultative opportunity. Visit type - Emergency Visit Emergency Visit: No - New Patient This patient is new to me today: Yes Date on this admission: 02/13/17 - Critical Care Critical Care patient: No
[2017-02-13] MEDS: TORSEMIDE 100 MG TABLET PO SCH (11:49)
[2017-02-13] MEDS: traMADol HCL 50 MG TABLET PO PRN (12:08)
--- NOTE | 2017-02-13 12:26 | PN ---
Teaching Attending Note Name of Resident: Sumanth Arrieta ATTENDING PHYSICIAN STATEMENT I saw and evaluated the patient. I reviewed the resident's note and discussed the case with the resident. I agree with the resident's findings and plan as documented. SUBJECTIVE: 52 F, with listed medical history. Well known to our service from multiple admissions. Known advanced Pulmonary Sarcoidosis on high dose Prednisone. Patient often resistance to comply with steroid taper as an outpatient. Admitted due to severe back pain and the inability to move her LE. Breathing has been relatively stable. No increase in SOB, cough, etc. No hemoptysis. Imaging revealed multiple vertebral fractures. Intake & Output 02/10/17 02/11/17 02/12/17 02/13/17 23:59 23:59 23:59 23:59 Output Total 1000 Balance -1000 Weight 310 lb 302 lb 6.4 oz Last Vital Signs Temp Pulse Resp BP Pulse Ox 98.6 F 98 H 20 120/90 98 02/13/17 09:20 02/13/17 09:20 02/13/17 09:20 02/13/17 09:20 02/12/17 15:45 Active Medications Calcitonin (Miacalcin [place] -) 200 units NS DAILY [facility] Last Admin: 02/13/17 09:34 Dose: 200 units Ergocalciferol (Drisdol -) 50,000 unit PO Q7D@1000 [facility] Last Admin: 02/13/17 09:32 Dose: 50,000 unit Hydroxychloroquine Sulfate (Plaquenil -) 400 mg PO DAILY [facility] Methotrexate (Mexate -) 7.5 mg PO Fr@10 [facility] Morphine Sulfate (Morphine Injection -) 4 mg IVPUSH Q6H PRN PRN Reason: PAIN Last Admin: 02/13/17 09:33 Dose: 4 mg Pantoprazole Sodium (Protonix -) 40 mg PO DAILY [facility] Last Admin: 02/13/17 09:33 Dose: 40 mg Potassium Chloride (K-Dur -) 60 meq PO DAILY [facility] Last Admin: 02/13/17 09:33 Dose: 60 meq Prednisone (Deltasone -) 40 mg PO BID [facility] Last Admin: 02/13/17 09:31 Dose: 40 mg Simethicone (Mylicon -) 80 mg PO TID [facility] Last Admin: 02/13/17 06:28 Dose: Not Given Torsemide (Demadex -) 100 mg PO DAILY [facility] Last Admin: 02/13/17 11:49 Dose: 100 mg Tramadol HCl (Ultram -) 100 mg PO DAILY PRN PRN Reason: PAIN Last Admin: 02/13/17 12:08 Dose: 100 mg Valsartan (Diovan -) 240 mg PO DAILY [facility] Last Admin: 02/13/17 09:32 Dose: 240 mg GENERAL: Awake, alert, and fully oriented, NAD on NC O2, morbidly obese HEAD: Normal with no signs of trauma. EYES: sclera anicteric, conjunctiva clear EARS, NOSE, THROAT: Ears normal, nares patent, oropharynx clear without exudates. Moist mucous membranes. NECK: (+) thyromegaly LUNGS: Diffuse basilar crackles, No wheezes. HEART: Regular rate and rhythm, normal S1 and S2 without murmur, rub or gallop. ABDOMEN: Soft, nontender, globular, normoactive bowel sounds, no guarding, no rebound, no masses. No hepatomegaly or splenomegaly. MUSCULOSKELETAL: Normal range of motion at all joints. UPPER EXTREMITIES: 2+ pulses, warm, well-perfused. No cyanosis. No clubbing. Cap refill <2 seconds. No peripheral edema. LOWER EXTREMITIES: 1+ pulses, warm, well-perfused. No calf tenderness. 2+ pitting edema with peripheral scaling. NEUROLOGICAL: Non-focal PSYCHIATRIC: Cooperative. Good eye contact. Appropriate mood and affect. SKIN: Warm, dry. Ecchymosis on L plantar surface of foot. Laboratory Results - last 24 hr 02/12/17 02/12/17 02/12/17 16:20 17:30 17:30 WBC 9.5 D RBC 3.32 L D Hgb 10.0 L D Hct 31.8 L D MCV 95.8 MCH 30.2 MCHC 31.5 L RDW 20.0 H Plt Count 176 MPV 8.0 Neutrophils % 82.0 Lymphocytes % 9.0 D Monocytes % 3.0 L Band Neutrophils 2.0 Myelocytes 4 H Nucleated RBCs 1 H Differential Comment Manual diff done Platelet Estimate Adequate Platelet Comment Few giant plts Polychromasia 1+ Basophilic Stippling 1+ Anisocytosis 1+ Macrocytosis 1+ Morphology Comment Slide scanned ESR INR 1.11 Sodium Potassium Chloride Carbon Dioxide Anion Gap BUN Creatinine Creat Clearance w eGFR Random Glucose Hemoglobin A1c % Calcium Ferritin Total Bilirubin AST ALT Alkaline Phosphatase Creatine Kinase Troponin I Total Protein Albumin Urine Color Natalia Urine Appearance Clear Urine pH 7.0 D Ur Specific Stone 1.015 Urine Protein Negative Urine Glucose (UA) 1+ H Urine Ketones Negative Urine Blood Negative Urine Nitrite Positive Urine Bilirubin Negative Urine Urobilinogen 4.0 e.u/dl H Ur Leukocyte Esterase Negative Urine RBC <1 Urine WBC 1 Urine Mucus Rare 02/12/17 02/12/17 02/12/17 17:30 17:30 18:35 WBC RBC Hgb Hct MCV MCH MCHC RDW Plt Count MPV Neutrophils % Lymphocytes % Monocytes % Band Neutrophils Myelocytes Nucleated RBCs Differential Comment Platelet Estimate Platelet Comment Polychromasia Basophilic Stippling Anisocytosis Macrocytosis Morphology Comment ESR 27 INR Sodium 140 Potassium 4.6 Chloride 99 Carbon Dioxide 36 H D Anion Gap 5 L BUN 14 D Creatinine 0.7 D Creat Clearance w eGFR > 60 Random Glucose 195 H D Hemoglobin A1c % Calcium 9.6 Ferritin Total Bilirubin 0.3 D AST 18 ALT 29 Alkaline Phosphatase 131 H D Creatine Kinase 33 Troponin I 0.03 Total Protein 5.7 L Albumin 2.8 L Urine Color Urine Appearance Urine pH Ur Specific Stone Urine Protein Urine Glucose (UA) Urine Ketones Urine Blood Urine Nitrite Urine Bilirubin Urine Urobilinogen Ur Leukocyte Esterase Urine RBC Urine WBC Urine Mucus 02/12/17 02/12/17 18:35 18:35 WBC RBC Hgb Hct MCV MCH MCHC RDW Plt Count MPV Neutrophils % Lymphocytes % Monocytes % Band Neutrophils Myelocytes Nucleated RBCs Differential Comment Platelet Estimate Platelet Comment Polychromasia Basophilic Stippling Anisocytosis Macrocytosis Morphology Comment ESR INR Sodium Potassium Chloride Carbon Dioxide Anion Gap BUN Creatinine Creat Clearance w eGFR Random Glucose Hemoglobin A1c % 8.1 H D Calcium Ferritin 126.586 Total Bilirubin AST ALT Alkaline Phosphatase Creatine Kinase Troponin I Total Protein Albumin Urine Color Urine Appearance Urine pH Ur Specific Stone Urine Protein Urine Glucose (UA) Urine Ketones Urine Blood Urine Nitrite Urine Bilirubin Urine Urobilinogen Ur Leukocyte Esterase Urine RBC Urine WBC Urine Mucus PLAN: D/W patient -> will reduce Prednisone to 30 BID BD TX O2 as needed Pain control Incentive Spirometry VTE prophylaxis No smoking counseled Will follow Thank you. Dr Gunn Problem List - Problems (1) Back pain Code(s): M54.9 - DORSALGIA, UNSPECIFIED Qualifiers: Back pain location: low back pain Chronicity: chronic Back pain laterality: left Sciatica presence: with sciatica Sciatica laterality: sciatica of left side Qualified Code(s): M54.42 - Lumbago with sciatica, left side (2) Hypertension Code(s): I10 - ESSENTIAL (PRIMARY) HYPERTENSION Qualifiers: Hypertension type: essential hypertension Qualified Code(s): I10 - Essential (primary) hypertension (3) Lupus (systemic lupus erythematosus) Code(s): M32.9 - SYSTEMIC LUPUS ERYTHEMATOSUS, UNSPECIFIED Qualifiers: Systemic lupus erythematosus type: unspecified Systemic lupus erythematosus organ involvement: unspecified Qualified Code(s): M32.9 - Systemic lupus erythematosus, unspecified (4) Morbid obesity Code(s): E66.01 - MORBID (SEVERE) OBESITY DUE TO EXCESS CALORIES (5) Pulmonary fibrosis Code(s): J84.10 - PULMONARY FIBROSIS, UNSPECIFIED (6) Sarcoidosis Code(s): D86.9 - SARCOIDOSIS, UNSPECIFIED (7) ILD (interstitial lung disease) Code(s): J84.9 - INTERSTITIAL PULMONARY DISEASE, UNSPECIFIED
--- NOTE | 2017-02-13 13:16 | EKG ---
Test Reason : Blood Pressure : / mmHG Vent. Rate : 095 BPM Atrial Rate : 095 BPM P-R Int : 148 ms QRS Dur : 090 ms QT Int : 328 ms P-R-T Axes : 055 029 068 degrees QTc Int : 412 ms NORMAL SINUS RHYTHM POSSIBLE LEFT ATRIAL ENLARGEMENT BORDERLINE ECG WHEN COMPARED WITH ECG OF 15-DEC-2016 22:37, NONSPECIFIC T WAVE ABNORMALITY NO LONGER EVIDENT IN INFERIOR LEADS Confirmed by KELIN DUMONT, ROBERTO CARLOS ([id number]) on 02/13/2017 1:15:37 PM Referred By: Confirmed By:ROBERTO CARLOS NEVILLE MD
[2017-02-13] MEDS: HYDROXYCHLOROQUINE SO4 200 MG TABLET (FP) PO SCH (15:24)
--- NOTE | 2017-02-13 16:00 | CONSULT ---
Consult - text type - Consultation Consultation Note: S: 52-year-old female with past medical history of lupus, pulmonary sarcoidosis on high-dose steroids, hypertension, back pain admitted for evaluation of back pain. Patient states that after her hospitalization in December 2016 she was discharged to a short term rehab facility. She states that while at the facility she did not have the right size bed. She states she bed was too small for her. One day she was sitting down onto the bed and felt pain in the low back. About a week later after sitting up from the toilet she had increased pain to the low back. She states about 3 weeks ago she was trying to stand up from bed with assistance at the rehab facility and again felt worsened pain to the low back. Since these episodes has been having low back pain, radiating to the lower extremities, left worse than right. Has some LLE paresthesias as well. Denies bladder/bowel dysfunction or saddle anesthesia. Denies trauma/ falls. No previous back issues. O: Vital Signs Temperature 98.2 F 02/13/17 14:58 Pulse Rate 88 02/13/17 14:58 Respiratory Rate 16 02/13/17 14:58 Blood Pressure 115/78 02/13/17 14:58 O2 Sat by Pulse Oximetry (%) 98 02/12/17 15:45 NAD. VSS. Afebrile. Laying comfortably in bed. Thoracolumbar spine exam: Tender T10-12. Tender centrally over lumbar vertebrae. No paraspinal muscle tenderness. Negative straight leg test bilaterally. 5/5 EHL/FHL right leg 4/5 EHL/FHL left leg NVID. Lumbar spine CT scan images and report reviewed by myself and Dr. Ku demonstrating T10, T12, L2, L3 and L5 compression fractures. Moderate L4/5 canal stenosis. A/P: 52-year-old female with past medical history of lupus, pulmonary sarcoidosis on high-dose steroids, hypertension, back pain admitted with multiple compression fractures -Order TLSO brace -Start PT -Pain management consult -Follow up with Dr. Ku out-patient in 1-2 weeks -Case discussed with Dr. Ku who agreed with the above clinical treatment plan
--- NOTE | 2017-02-13 16:32 | CON.CARD ---
Cardiology Consult (text) - Consultation Consultation Note: CC: back pain/htn 52 yo with h/o diast CHF, ILD, COPD, O2 dependent, pulm HTN, morbid obesity, HTN, MGUS, Lupus, venous insufficiency, GERD, PE's on eliquis (stopped one month ago), non-obstructing kidney stones, here with sudden onset back pain, found to have compression fractures and spinal stenosis. On arrival to the ER was in 05/13 pain and hypertensive with sys 170. Since then bp/pain better controlled. States her eliquis was stopped one month ago, had completed tx for PE LE edema stabe. juan orthopnea, pnd, cp, worsened sob, palps, dizziness, bleeding , transient neurologic symptoms. Recently unable to ambulate due to back pain. no f/c/s, n/v/d, cough, congestion, visual disturbance, rashes, pmh: per hpi psh: varicose vein ablation social: ex tob fam: mother PCIs, CVAs, CHF; brother heart problems ros: per hpi; Ambulatory Orders Fluconazole 200 mg PO DAILY 12/16/16 Hydroxychloroquine So4 [Plaquenil -] 400 mg PO DAILY 12/16/16 Pantoprazole Sodium [Protonix] 40 mg PO DAILY 12/16/16 Potassium Chloride [K-Dur -] 60 meq PO DAILY 12/16/16 Torsemide [Demadex -] 100 mg PO DAILY 12/16/16 Tramadol HCl [Ultram] 100 mg PO DAILY [facility] 12/16/16 Methotrexate [Mexate -] 7.5 mg PO Q7D@1000 tablet 12/19/16 Prednisone [Deltasone -] 40 mg PO BID tablet 12/19/16 Simethicone [Mylicon -] 80 mg PO TID tab.chew 12/19/16 Valsartan [Diovan] 240 mg PO DAILY 02/12/17 Current Medications Calcitonin (Miacalcin [place] -) 200 units NS DAILY [facility] Last Admin: 02/13/17 09:34 Dose: 200 units Ergocalciferol (Drisdol -) 50,000 unit PO Q7D@1000 [facility] Last Admin: 02/13/17 09:32 Dose: 50,000 unit Hydroxychloroquine Sulfate (Plaquenil -) 400 mg PO DAILY [facility] Last Admin: 02/13/17 15:24 Dose: 400 mg Methotrexate (Mexate -) 7.5 mg PO Fr@10 [facility] Morphine Sulfate (Morphine Injection -) 4 mg IVPUSH Q6H PRN PRN Reason: PAIN Last Admin: 02/13/17 09:33 Dose: 4 mg Pantoprazole Sodium (Protonix -) 40 mg PO DAILY [facility] Last Admin: 02/13/17 09:33 Dose: 40 mg Potassium Chloride (K-Dur -) 60 meq PO DAILY [facility] Last Admin: 02/13/17 09:33 Dose: 60 meq Prednisone (Deltasone -) 40 mg PO BID [facility] Last Admin: 02/13/17 09:31 Dose: 40 mg Simethicone (Mylicon -) 80 mg PO TID [facility] Last Admin: 02/13/17 13:28 Dose: 80 mg Torsemide (Demadex -) 100 mg PO DAILY [facility] Last Admin: 02/13/17 11:49 Dose: 100 mg Tramadol HCl (Ultram -) 100 mg PO DAILY PRN PRN Reason: PAIN Last Admin: 02/13/17 12:08 Dose: 100 mg Valsartan (Diovan -) 240 mg PO DAILY [facility] Last Admin: 02/13/17 09:32 Dose: 240 mg Vital Signs - 24 hr 02/13/17 02/13/17 02/13/17 02:18 09:20 14:58 Temperature 97.9 F 98.6 F 98.2 F Pulse Rate 84 98 H 88 Respiratory 22 20 16 Rate Blood Pressure 122/94 120/90 115/78 Intake & Output 02/11/17 02/12/17 02/13/17 02/14/17 07:59 07:59 07:59 07:59 Intake Total 800 Output Total 1000 2000 Balance -1000 -1200 Weight 302 lb 6.4 oz Constitutional: Yes: No Distress, Obese Eyes: No: Sclera Icterus HENT: No: Nasal Congestion Neck: No: Decreased ROM Respiratory: Yes: Rales (fine rales ). No: Accessory Muscle Use, Wheezes Gastrointestinal: Yes: Normal Bowel Sounds. No: Distention, Hepatomegaly, Palpable Mass (tds habitus), Tenderness Cardiovascular: Yes: Regular Rate and Rhythm JVD: No Carotid Bruit: No PMI: Non-Displaced Heart Sounds: Yes: S1, S2. No: Gallop Murmur: No: Systolic Murmur, Diastolic Murmur Musculoskeletal: Yes: Other (No kyphosis) Extremities: No: Cold, Cyanosis Edema: trace Peripheral Pulses: 2+ Left Carotid, 2+ Right Carotid, 2+ Left Doralis Pedis, 2+ Right Dorsalis Pedis Integumentary: No: Jaundice Neurological: Yes: Alert, Oriented (x3) Psychiatric: No: Agitated CBC, BMP 02/12/17 17:30 02/12/17 18:35 Laboratory Tests 02/12/17 02/12/17 02/12/17 17:30 17:30 18:35 Band Neutrophils 2.0 Myelocytes 4 H Nucleated RBCs 1 H Hemoglobin A1c % Total Bilirubin 0.3 D AST 18 ALT 29 Alkaline Phosphatase 131 H D Troponin I 0.03 Albumin 2.8 L 02/12/17 18:35 Band Neutrophils Myelocytes Nucleated RBCs Hemoglobin A1c % 8.1 H D Total Bilirubin AST ALT Alkaline Phosphatase Troponin I Albumin EKG : SR, 95 bpm. wnl L/RHC 07/18: wedge 20-->down to 10 with nitroprusside; PA 48/22-->34/8; CI 2.1; normal cors echo 06/2015: tds, nl lvef, mild/mod dec rv fcn, mild/mod dilated rv, no sig valve path, mild phtn echo 10/2015: nl lv/rv, mild tr, rvsp 50-60 ecg 10/04/15: sr, nl intervals, no ischemic changes CXR: no effusion seen, chronic interstitial lung dz findings 52 yo with h/o diast CHF, ILD, COPD, O2 dependent, pulm HTN, morbid obesity, HTN, MGUS, Lupus, venous insufficiency, GERD, PE's on eliquis, non-obstructing kidney stones, here with sudden onset back pain, found to have compression fractures and spinal stenosis. HTN - likely initial episode of hypertension was due to 10 out of 10 pain at the time. Since then has been well controlled. - con't home valsartan , diuretic. Patient requesting her nitro patch be resumed. BP running low, will lower dose valsartan and split up into bid dosing to make bp room ILD, copd, pulm HTN: - stable. ongoing mgm't per pmd h/o PEs: -dx'd in outside hosp ([facility]) 06/19--on Eliquis since. States she completed treatment one month ago diastolic CHF - no acute exacerbation. con't outpatient po torsemide. monitor K on standing repletion. compression fx/spinal stenosis - no plan for surgery. ongoing mgm't per pmd/nsurg/neur
[2017-02-13] MEDS ORDERED: ARTIFICIAL TEARS (POLYVINYL ALCOHOL 1.4%) OPTH DROPS OU PRN (17:07)
--- NOTE | 2017-02-13 19:04 | HP ---
Admitting History and Physical - Primary Care Physician PCP: Malcom Waddell - Admission Chief Complaint: BACK PAIN SEVERE ACUTE COMPRESSION FRACTURE OF VERTEBRAE, HTN, WEAKNESS, UNABLE TO AMBULATE History of Present Illness: 52 Y/O FEMALE SENT FROM [facility] FOR ACUTE VERTEBRAL COMPRESSION FRACTURE, MALIGNANT HTN, RESP DISTRESS, HISTORY OF LUPUS, SARCOIDOSIS, DM, HTN, OBESITY, FORMER HISTORY OF SUBSTANCE ABUSE 02 DEPENDENT. History Source: Patient, Medical Record - Past Medical History Cardiovascular: Yes: HTN Pulmonary: Yes: COPD, O2 Dependent, Pulmonary Fibrosis Gastrointestinal: Yes: Constipation, GERD Renal/: Yes: Renal Calculi ...: No Rheumatology: Yes: Lupus - Past Surgical History Past Surgical History: Yes: Cholecystectomy, Hysterectomy - Smoking History Smoking history: Former smoker Have you smoked in the past 12 months: No - Alcohol/Substance Use Hx Alcohol Use: No Home Medications - Allergies Allergies/Adverse Reactions: Allergies Allergy/AdvReac Type Severity Reaction Status Date / Time No Known Allergies Allergy Verified 12/15/16 21:49 - Home Medications Home Medications: Ambulatory Orders Fluconazole 200 mg PO DAILY 12/16/16 Hydroxychloroquine So4 [Plaquenil -] 400 mg PO DAILY 12/16/16 Pantoprazole Sodium [Protonix] 40 mg PO DAILY 12/16/16 Potassium Chloride [K-Dur -] 60 meq PO DAILY 12/16/16 Torsemide [Demadex -] 100 mg PO DAILY 12/16/16 Tramadol HCl [Ultram] 100 mg PO DAILY PRN 12/16/16 Methotrexate [Mexate -] 7.5 mg PO Q7D@1000 tablet 12/19/16 Prednisone [Deltasone -] 40 mg PO BID tablet 12/19/16 Simethicone [Mylicon -] 80 mg PO TID tab.chew 12/19/16 Valsartan [Diovan] 240 mg PO DAILY 02/12/17 Review of Systems - Review of Systems Constitutional: reports: Weakness Eyes: reports: No Symptoms HENT: reports: No Symptoms Neck: reports: No Symptoms Cardiovascular: reports: Shortness of Breath Respiratory: reports: Exercise Intolerance, SOB Gastrointestinal: reports: No Symptoms Genitourinary: reports: Incontinence Musculoskeletal: reports: Back Pain, Extremity Pain, Joint Pain, Muscle Cramps, Muscle Weakness Integumentary: reports: No Symptoms Neurological: reports: Unsteady Gait, Weakness Physical Examination Vital Signs: Vital Signs Temperature 98.2 F 02/13/17 14:58 Pulse Rate 88 02/13/17 14:58 Respiratory Rate 16 02/13/17 14:58 Blood Pressure 115/78 02/13/17 14:58 O2 Sat by Pulse Oximetry (%) 98 02/12/17 15:45 Constitutional: Yes: Moderate Distress Eyes: Yes: WNL HENT: Yes: WNL Neck: Yes: WNL Cardiovascular: Yes: WNL Respiratory: Yes: On Nasal O2, Poor Air Entry, SOB Gastrointestinal: Yes: WNL Renal/: Yes: Incontinence Musculoskeletal: Yes: Back Pain, Joint Stiffness, Joint Swelling, Muscle Pain, Muscle Weakness Extremities: Yes: Other Edema: Yes Peripheral Pulses WNL: Yes Integumentary: Yes: WNL Wound/Incision: Yes: Clean/Dry Neurological: Yes: Pre-Existing Deficit ...Motor Strength: LLE, RLE Psychiatric: Yes: Other Imaging - Results Cat Scan: Report Reviewed Problem List - Problems (1) Back pain Code(s): M54.9 - DORSALGIA, UNSPECIFIED Qualifiers: Back pain location: low back pain Chronicity: chronic Back pain laterality: left Sciatica presence: with sciatica Sciatica laterality: sciatica of left side Qualified Code(s): M54.42 - Lumbago with sciatica, left side (2) Dyspnea Code(s): R06.00 - DYSPNEA, UNSPECIFIED Qualifiers: Dyspnea type: shortness of breath Qualified Code(s): R06.02 - Shortness of breath (3) Hypertension Code(s): I10 - ESSENTIAL (PRIMARY) HYPERTENSION Qualifiers: Hypertension type: essential hypertension Qualified Code(s): I10 - Essential (primary) hypertension (4) Lumbar compression fracture Code(s): S32.000A - WEDGE COMPRESSION FRACTURE OF UNSP LUMBAR VERTEBRA, INIT (5) Lumbar radicular syndrome Code(s): M54.16 - RADICULOPATHY, LUMBAR REGION (6) Lupus (systemic lupus erythematosus) Code(s): M32.9 - SYSTEMIC LUPUS ERYTHEMATOSUS, UNSPECIFIED Qualifiers: Systemic lupus erythematosus type: unspecified Systemic lupus erythematosus organ involvement: unspecified Qualified Code(s): M32.9 - Systemic lupus erythematosus, unspecified (7) Morbid obesity Code(s): E66.01 - MORBID (SEVERE) OBESITY DUE TO EXCESS CALORIES (8) Pulmonary fibrosis Code(s): J84.10 - PULMONARY FIBROSIS, UNSPECIFIED (9) Sarcoidosis Code(s): D86.9 - SARCOIDOSIS, UNSPECIFIED (10) Abdominal pain Code(s): R10.9 - UNSPECIFIED ABDOMINAL PAIN Qualifiers: Abdominal location: left lower quadrant Qualified Code(s): R10.32 - Left lower quadrant pain (11) Acute and chronic respiratory failure with hypoxia Code(s): J96.21 - ACUTE AND CHRONIC RESPIRATORY FAILURE WITH HYPOXIA (12) Acute renal failure Code(s): N17.9 - ACUTE KIDNEY FAILURE, UNSPECIFIED Qualifiers: Acute renal failure type: unspecified Qualified Code(s): N17.9 - Acute kidney failure, unspecified (13) Flank pain Code(s): R10.9 - UNSPECIFIED ABDOMINAL PAIN (14) Osteoporosis Code(s): M81.0 - AGE-RELATED OSTEOPOROSIS W/O CURRENT PATHOLOGICAL FRACTURE Qualifiers: Osteoporosis type: other Presence of current pathological fracture: with current pathological fracture Encounter type: initial encounter Qualified Code(s): M80.80XA - Other osteoporosis with current pathological fracture, unspecified site, initial encounter for fracture Assessment/Plan CALCITONIN INTRANASAL ADD RECLAST IV OTHOPEDICS DR MORFIN FOR VERTEBROPLASTY MEDICATIONS RESTARTED PT PAIN CONTROL DVT PROPHYLAXIS
[2017-02-13] MEDS: ALBUTEROL SO4 2.5/IPRATROPIUM 0.5 INH SOL 3 ML VIAL.NEB. NEB PRN (20:14)
[2017-02-13] MEDS: DOCUSATE SODIUM 100 MG CAPSULE (FP) PO SCH (22:09)
[2017-02-13] MEDS: LACTOBACILLUS ACIDOPHILUS 1 EACH TAB (FP) PO SCH (22:09)
[2017-02-13] MEDS: diazePAM 5 MG TABLET PO PRN (22:09)
[2017-02-13] MEDS: guaiFENesin 600 MG TABLET.ER (FP) PO SCH (22:09)
[2017-02-14 06:06] LABS: SERUM IRON 54 ug/dL (27-159); TOTAL IRON BINDING CAPACITY 217 ug/dL (250-450); UIBC 163 ug/dL (131-425)
[2017-02-14] MEDS: DOCUSATE SODIUM 100 MG CAPSULE (FP) PO SCH ×3 (06:50→21:46)
[2017-02-14] MEDS: SIMETHICONE 80 MG TAB.CHEW (FP) PO SCH ×3 (06:50→21:47)
[2017-02-14] MEDS: morphine CARPU-JECT 4 MG/1 ML DISP.SYRIN IVPUSH PRN (06:54)
[2017-02-14] MEDS ORDERED: PANTOPRAZOLE 40 MG TABLET (FP) PO ONE (07:00)
[2017-02-14] MEDS: PANTOPRAZOLE 40 MG TABLET (FP) PO SCH (07:12)
[2017-02-14 07:33] LABS: MCH 30.6 pg (25.7-33.7); MCHC 32.2 g/dl (32.0-36.0); MEAN CELL VOLUME 94.8 fl (80-96); MEAN PLT VOLUME 8.1 fl (7.5-11.1); PLATELET COUNT 192 K/MM3 (134-434); RDW 19.5 % (11.6-15.6)
[2017-02-14 07:54] LABS: ANION GAP 4 (8-16); CALCIUM 9.5 mg/dL (8.5-10.1); CO2 41 mmol/L (21-32); GLUCOSE,RANDOM 232 mg/dL (74-106)
[2017-02-14 07:58] LABS: CREATININE 0.8 mg/dL (0.55-1.02)
[2017-02-14] MEDS ORDERED: SODIUM CHLORIDE NASAL SPRAY 44 ML BOTTLE NS PRN (09:11)
[2017-02-14] MEDS ORDERED: PT OWN MED DRAWER 7, Y5N ONE ×3 (09:12→17:17)
[2017-02-14] MEDS ORDERED: METHOTREXATE 2.5 MG TABLET PO SCH (10:00)
[2017-02-14] MEDS ORDERED: PHENYLEPH/MINERAL OIL/PETROLAT 28 GM OINTMENT RC PRN (10:00)
[2017-02-14] MEDS: LACTOBACILLUS ACIDOPHILUS 1 EACH TAB (FP) PO SCH ×2 (10:19→21:46)
[2017-02-14] MEDS: predniSONE 20 MG TABLET (UD) PO SCH ×2 (10:19→21:46)
[2017-02-14] MEDS: LORATADINE 10 MG TABLET PO SCH (10:19)
[2017-02-14] MEDS: guaiFENesin 600 MG TABLET.ER (FP) PO SCH ×2 (10:20→21:47)
[2017-02-14] MEDS: TORSEMIDE 100 MG TABLET PO SCH (10:20)
[2017-02-14] MEDS: VALSARTAN 80 MG TABLET (UD) PO SCH ×2 (10:20→21:47)
[2017-02-14] MEDS: PSYLLIUM 5.85 GM PACKET PO SCH (10:21)
[2017-02-14] MEDS: NITROGLYCERIN 0.3 MG/HOUR TD PATCH TD SCH (10:21)
[2017-02-14] MEDS: CALCITONIN - SALMON SYNTHETIC 3.7 ML SPRAY.PUMP NS SCH (10:22)
[2017-02-14] MEDS: POTASSIUM CHLORIDE TABS 20 MEQ TABLET.ER (FP) PO SCH (10:22)
[2017-02-14] MEDS: SENNOSIDES 8.6MG TABLET (FP) PO SCH (10:23)
[2017-02-14] MEDS: BACITRACIN 15 GM TUBE TOPICAL OINTMENT TP PRN (10:23)
[2017-02-14] MEDS: HYDROXYCHLOROQUINE SO4 200 MG TABLET (FP) PO SCH (10:23)
[2017-02-14] MEDS: ALBUTEROL SO4 2.5/IPRATROPIUM 0.5 INH SOL 3 ML VIAL.NEB. NEB PRN ×3 (11:33→23:30)
[2017-02-14] MEDS: diazePAM 5 MG TABLET PO PRN ×2 (13:02→21:48)
[2017-02-14] MEDS: ONDANSETRON *ODT* 4 MG TABLET SL PRN ×2 (15:21→23:12)
--- NOTE | 2017-02-14 17:03 | PN ---
Progress Note, Physician Chief Complaint: IN BED, FEELING BETTER, REPORTS VALIUM HAS HELPED HER - Current Medication List Current Medications: Active Medications Albuterol/Ipratropium (Duoneb -) 1 amp NEB QIDR PRN Last Admin: 02/14/17 11:33 Dose: 1 amp Artificial Tears (Artificial Tears) 2 drop OU HS PRN PRN Reason: DRY EYES Bacitracin (Bacitracin -) 1 applic TP DAILY PRN PRN Reason: FOR ITCHING Last Admin: 02/14/17 10:23 Dose: 1 applic Calcitonin (Miacalcin [place] -) 200 units NS DAILY [facility] Last Admin: 02/14/17 10:22 Dose: 200 units Diazepam (Valium -) 5 mg PO BID PRN Last Admin: 02/14/17 13:02 Dose: 5 mg Docusate Sodium (Colace -) 100 mg PO TID [facility] Last Admin: 02/14/17 15:25 Dose: 100 mg Ergocalciferol (Drisdol -) 50,000 unit PO Q7D@1000 [facility] Last Admin: 02/13/17 09:32 Dose: 50,000 unit Guaifenesin (Mucinex -) 600 mg PO BID [facility] Last Admin: 02/14/17 10:20 Dose: 600 mg Hydrocortisone (Anusol 2.5% Hc Cream -) 1 applic [place] DAILY [facility] Hydroxychloroquine Sulfate (Plaquenil -) 400 mg PO DAILY [facility] Last Admin: 02/14/17 10:23 Dose: 400 mg Lactobacillus Acidophilus (Bacid -) 2 tab PO BID [facility] Last Admin: 02/14/17 10:19 Dose: 2 tab Loratadine (Claritin -) 10 mg PO DAILY [facility] Last Admin: 02/14/17 10:19 Dose: 10 mg Methotrexate (Mexate -) 7.5 mg PO Fr@10 [facility] Last Admin: 02/14/17 10:22 Dose: 7.5 mg Morphine Sulfate (Morphine Injection -) 4 mg IVPUSH Q6H PRN PRN Reason: PAIN Last Admin: 02/14/17 06:54 Dose: 4 mg Nitroglycerin (Nitro-Dur Patch -) 0.3 mg TD DAILY [facility] Last Admin: 02/14/17 10:21 Dose: 0.3 mg Ondansetron HCl (Zofran Odt -) 8 mg SL Q6H PRN PRN Reason: NAUSEA AND/OR VOMITING Last Admin: 02/14/17 15:21 Dose: 8 mg Pantoprazole Sodium (Protonix -) 40 mg PO ACBK [facility] Potassium Chloride (K-Dur -) 20 meq PO DAILY [facility] Last Admin: 02/14/17 10:22 Dose: 20 meq Prednisone (Deltasone -) 40 mg PO BID [facility] Last Admin: 02/14/17 10:19 Dose: 40 mg Psyllium Hydrophilic Mucilloid (Metamucil (Sugar-Free) -) 5.85 gm PO DAILY [facility] Last Admin: 02/14/17 10:21 Dose: 5.85 gm Senna (Senna -) 2 tab PO DAILY [facility] Last Admin: 02/14/17 10:23 Dose: 2 tab Simethicone (Mylicon -) 80 mg PO TID [facility] Last Admin: 02/14/17 15:25 Dose: 80 mg Sodium Chloride ([place] Nasal [place] -) 2 spray NS TID PRN PRN Reason: NASAL CONGESTION Last Admin: 02/14/17 10:24 Dose: 2 sprays Torsemide (Demadex -) 100 mg PO DAILY [facility] Last Admin: 02/14/17 10:20 Dose: 100 mg Tramadol HCl (Ultram -) 100 mg PO DAILY PRN PRN Reason: PAIN Last Admin: 02/13/17 12:08 Dose: 100 mg Valsartan (Diovan -) 80 mg PO BID [facility] Last Admin: 02/14/17 10:20 Dose: 80 mg - Objective Vital Signs: Vital Signs Temperature 98.4 F 02/14/17 15:26 Pulse Rate 78 02/14/17 15:26 Respiratory Rate 16 02/14/17 15:26 Blood Pressure 146/82 02/14/17 15:26 O2 Sat by Pulse Oximetry (%) 98 02/14/17 11:31 Constitutional: Yes: Mild Distress Eyes: Yes: WNL HENT: Yes: WNL Neck: Yes: WNL Cardiovascular: Yes: WNL Respiratory: Yes: On Nasal O2, SOB Gastrointestinal: Yes: WNL Genitourinary: Yes: Incontinence Musculoskeletal: Yes: Back Pain, Muscle Weakness Peripheral Pulses WNL: Yes Integumentary: Yes: WNL Wound/Incision: Yes: Clean/Dry Neurological: Yes: Pre-Existing Deficit Psychiatric: Yes: Other Labs: CBC, BMP 02/14/17 06:30 02/14/17 06:30 INR, PTT INR 1.11 (0.82-1.09) 02/12/17 17:30 Problem List - Problems (1) Back pain Code(s): M54.9 - DORSALGIA, UNSPECIFIED Qualifiers: Back pain location: low back pain Chronicity: chronic Back pain laterality: left Sciatica presence: with sciatica Sciatica laterality: sciatica of left side Qualified Code(s): M54.42 - Lumbago with sciatica, left side (2) Dyspnea Code(s): R06.00 - DYSPNEA, UNSPECIFIED Qualifiers: Dyspnea type: shortness of breath Qualified Code(s): R06.02 - Shortness of breath (3) Hypertension Code(s): I10 - ESSENTIAL (PRIMARY) HYPERTENSION Qualifiers: Hypertension type: essential hypertension Qualified Code(s): I10 - Essential (primary) hypertension (4) Lumbar compression fracture Code(s): S32.000A - WEDGE COMPRESSION FRACTURE OF UNSP LUMBAR VERTEBRA, INIT (5) Lumbar radicular syndrome Code(s): M54.16 - RADICULOPATHY, LUMBAR REGION (6) Lupus (systemic lupus erythematosus) Code(s): M32.9 - SYSTEMIC LUPUS ERYTHEMATOSUS, UNSPECIFIED Qualifiers: Systemic lupus erythematosus type: unspecified Systemic lupus erythematosus organ involvement: unspecified Qualified Code(s): M32.9 - Systemic lupus erythematosus, unspecified (7) Morbid obesity Code(s): E66.01 - MORBID (SEVERE) OBESITY DUE TO EXCESS CALORIES (8) Pulmonary fibrosis Code(s): J84.10 - PULMONARY FIBROSIS, UNSPECIFIED (9) Sarcoidosis Code(s): D86.9 - SARCOIDOSIS, UNSPECIFIED (10) Abdominal pain Code(s): R10.9 - UNSPECIFIED ABDOMINAL PAIN Qualifiers: Abdominal location: left lower quadrant Qualified Code(s): R10.32 - Left lower quadrant pain (11) Acute and chronic respiratory failure with hypoxia Code(s): J96.21 - ACUTE AND CHRONIC RESPIRATORY FAILURE WITH HYPOXIA (12) Acute renal failure Code(s): N17.9 - ACUTE KIDNEY FAILURE, UNSPECIFIED Qualifiers: Acute renal failure type: unspecified Qualified Code(s): N17.9 - Acute kidney failure, unspecified (13) Flank pain Code(s): R10.9 - UNSPECIFIED ABDOMINAL PAIN (14) Osteoporosis Code(s): M81.0 - AGE-RELATED OSTEOPOROSIS W/O CURRENT PATHOLOGICAL FRACTURE Qualifiers: Osteoporosis type: other Presence of current pathological fracture: with current pathological fracture Encounter type: initial encounter Qualified Code(s): M80.80XA - Other osteoporosis with current pathological fracture, unspecified site, initial encounter for fracture Assessment/Plan PAIN CONTROL ORTHOPEDIC F/U LABS REVIEWED CALCITONIN AND VITAMIN D PT 02 SUPPORT
[2017-02-14] MEDS: HYDROCORTISONE 2.5% TOPICAL CREAM 30 GM TUBE PR SCH (18:01)
--- NOTE | 2017-02-14 22:02 | PN ---
Progress Note, Physician Chief Complaint: Back pain and difficulty moving legs History of Present Illness: 52-year-old female with past medical history of lupus (sees Dr Roro Neal/ [facility] ), pulmonary sarcoidosis on high-dose steroids, hypertension, back pain, who presents to the emergency department 02/12/17 complaining of low back pain. Patient states that approximately 2 days ago she was [facility] when she felt a large pop in her low back. She said it was the worst pain she ever experienced in her life. She states that now she can't move her leg well and she has numbness and tingling in her pelvic girdle and down her left leg. Her pain a 10 out of 10. states feels sx started midmay when she was unable to get hospital bed in [place], then was unable to gte propr toliet seat, last;y a fall in later DECEMBER. no numbness of her legs, though feels weaker L >R legs. using diapers bc unable to make it to bathroom though denies incontinence per say. unable to get MRI ; CT [facility] [place] as below IMPRESSION: in comparison to a abdomen/pelvis CT study of 12/16/2016 interval development of T10, T12, L2, L3 and L5 vertebral body compression fractures are seen as discussed. No bony retropulsion is noted. These fractures appear acute/ subacute. Interval development of a subacute vertical fracture is noted within the left sacral ala. The visualized osseous structures appear diffusely demineralized. Marked bilateral L4-L5 and moderate bilateral L5-S1 degenerative facet arthropathy is seen. No gross disc herniation is noted. L4-L5 central canal stenosis is seen which is probably mild to moderate allowing for partially obscuring artifact. Moderate bilateral L5-S1 foraminal stenoses. As also visualized on abdomen/pelvis CT studies of 12/16/2016 and 10/08/2016 a 9 x 5 mm right ureteropelvic junction calculus is seen with minimal to mild hydronephrosis. Urology consultation is suggested. A 2 mm nonobstructing right renal calculus is also visualized. Interstitial thickening is seen within the partially imaged lower chest bilaterally. - Current Medication List Current Medications: Active Medications Albuterol/Ipratropium (Duoneb -) 1 amp NEB QIDR PRN Last Admin: 02/14/17 17:26 Dose: 1 amp Artificial Tears (Artificial Tears) 2 drop OU HS PRN PRN Reason: DRY EYES Bacitracin (Bacitracin -) 1 applic TP DAILY PRN PRN Reason: FOR ITCHING Last Admin: 02/14/17 10:23 Dose: 1 applic Calcitonin (Miacalcin [place] -) 200 units NS DAILY [facility] Last Admin: 02/14/17 10:22 Dose: 200 units Diazepam (Valium -) 5 mg PO BID PRN Last Admin: 02/14/17 21:48 Dose: 5 mg Docusate Sodium (Colace -) 100 mg PO TID [facility] Last Admin: 02/14/17 21:46 Dose: 100 mg Ergocalciferol (Drisdol -) 50,000 unit PO Q7D@1000 [facility] Last Admin: 02/13/17 09:32 Dose: 50,000 unit Guaifenesin (Mucinex -) 600 mg PO BID [facility] Last Admin: 02/14/17 21:47 Dose: 600 mg Hydrocortisone (Anusol 2.5% Hc Cream -) 1 applic [place] DAILY [facility] Last Admin: 02/14/17 18:01 Dose: 1 applic Hydroxychloroquine Sulfate (Plaquenil -) 400 mg PO DAILY [facility] Last Admin: 02/14/17 10:23 Dose: 400 mg Lactobacillus Acidophilus (Bacid -) 2 tab PO BID [facility] Last Admin: 02/14/17 21:46 Dose: 2 tab Loratadine (Claritin -) 10 mg PO DAILY [facility] Last Admin: 02/14/17 10:19 Dose: 10 mg Methotrexate (Mexate -) 7.5 mg PO Fr@10 [facility] Last Admin: 02/14/17 10:22 Dose: 7.5 mg Morphine Sulfate (Morphine Injection -) 4 mg IVPUSH Q6H PRN PRN Reason: PAIN Last Admin: 02/14/17 06:54 Dose: 4 mg Nitroglycerin (Nitro-Dur Patch -) 0.3 mg TD DAILY [facility] Last Admin: 02/14/17 10:21 Dose: 0.3 mg Ondansetron HCl (Zofran Odt -) 8 mg SL Q6H PRN PRN Reason: NAUSEA AND/OR VOMITING Last Admin: 02/14/17 15:21 Dose: 8 mg Pantoprazole Sodium (Protonix -) 40 mg PO ACBK [facility] Potassium Chloride (K-Dur -) 20 meq PO DAILY [facility] Last Admin: 02/14/17 10:22 Dose: 20 meq Prednisone (Deltasone -) 40 mg PO BID [facility] Last Admin: 02/14/17 21:46 Dose: 40 mg Psyllium Hydrophilic Mucilloid (Metamucil (Sugar-Free) -) 5.85 gm PO DAILY [facility] Last Admin: 02/14/17 10:21 Dose: 5.85 gm Senna (Senna -) 2 tab PO DAILY [facility] Last Admin: 02/14/17 10:23 Dose: 2 tab Simethicone (Mylicon -) 80 mg PO TID [facility] Last Admin: 02/14/17 21:47 Dose: 80 mg Sodium Chloride ([place] Nasal [place] -) 2 spray NS TID PRN PRN Reason: NASAL CONGESTION Last Admin: 02/14/17 10:24 Dose: 2 sprays Torsemide (Demadex -) 100 mg PO DAILY [facility] Last Admin: 02/14/17 10:20 Dose: 100 mg Tramadol HCl (Ultram -) 100 mg PO DAILY PRN PRN Reason: PAIN Last Admin: 02/13/17 12:08 Dose: 100 mg Valsartan (Diovan -) 80 mg PO BID [facility] Last Admin: 02/14/17 21:47 Dose: 80 mg - Objective Vital Signs: Vital Signs Temperature 98.2 F 02/14/17 20:00 Pulse Rate 86 02/14/17 20:00 Respiratory Rate 18 02/14/17 20:00 Blood Pressure 124/58 02/14/17 20:00 O2 Sat by Pulse Oximetry (%) 98 02/14/17 20:00 Neurological: Yes: Other (Awake, alert and oriented. CN intact. motor 5/5 ue' s 4/5 prox legs, 3/5 distal no sensory level. plantars flexor. Gait not tested.) Labs: CBC, BMP 02/14/17 06:30 02/14/17 06:30 INR, PTT INR 1.11 (0.82-1.09) 02/12/17 17:30 - ....Imaging Cat Scan: Report Reviewed (multiple compression fractures) Problem List - Problems (1) Lumbar compression fracture Assessment/Plan: For vertebroplasty, pain control. Justin covering Friday. Thanks Code(s): S32.000A - WEDGE COMPRESSION FRACTURE OF UNSP LUMBAR VERTEBRA, INIT
[2017-02-15] MEDS: SIMETHICONE 80 MG TAB.CHEW (FP) PO SCH ×3 (06:41→21:49)
[2017-02-15] MEDS: DOCUSATE SODIUM 100 MG CAPSULE (FP) PO SCH ×3 (06:41→21:49)
[2017-02-15] MEDS: PANTOPRAZOLE 40 MG TABLET (FP) PO SCH (06:42)
[2017-02-15] MEDS: morphine CARPU-JECT 4 MG/1 ML DISP.SYRIN IVPUSH PRN ×2 (06:52→17:58)
[2017-02-15] MEDS: ALBUTEROL SO4 2.5/IPRATROPIUM 0.5 INH SOL 3 ML VIAL.NEB. NEB PRN ×2 (06:58→20:11)
[2017-02-15] MEDS: guaiFENesin 600 MG TABLET.ER (FP) PO SCH ×2 (10:00→21:49)
[2017-02-15] MEDS: predniSONE 20 MG TABLET (UD) PO SCH ×2 (10:54→21:48)
[2017-02-15] MEDS: VALSARTAN 80 MG TABLET (UD) PO SCH ×2 (10:54→21:49)
[2017-02-15] MEDS: LORATADINE 10 MG TABLET PO SCH (10:54)
[2017-02-15] MEDS: LACTOBACILLUS ACIDOPHILUS 1 EACH TAB (FP) PO SCH ×2 (10:54→21:49)
[2017-02-15] MEDS: SENNOSIDES 8.6MG TABLET (FP) PO SCH (10:54)
[2017-02-15] MEDS: POTASSIUM CHLORIDE TABS 20 MEQ TABLET.ER (FP) PO SCH (10:55)
[2017-02-15] MEDS: HYDROXYCHLOROQUINE SO4 200 MG TABLET (FP) PO SCH (10:56)
[2017-02-15] MEDS: CALCITONIN - SALMON SYNTHETIC 3.7 ML SPRAY.PUMP NS SCH (10:57)
[2017-02-15] MEDS: PSYLLIUM 5.85 GM PACKET PO SCH (10:57)
[2017-02-15] MEDS: TORSEMIDE 100 MG TABLET PO SCH (10:58)
[2017-02-15] MEDS: BACITRACIN 15 GM TUBE TOPICAL OINTMENT TP PRN (11:19)
[2017-02-15] MEDS: traMADol HCL 50 MG TABLET PO PRN (11:20)
--- NOTE | 2017-02-15 11:53 | PN ---
Progress Note, Physician History of Present Illness: pulmonary alert,nad,-cp,-sob - Current Medication List Current Medications: Active Medications Albuterol/Ipratropium (Duoneb -) 1 amp NEB QIDR PRN Last Admin: 02/15/17 06:58 Dose: 1 amp Artificial Tears (Artificial Tears) 2 drop OU HS PRN PRN Reason: DRY EYES Bacitracin (Bacitracin -) 1 applic TP DAILY PRN PRN Reason: FOR ITCHING Last Admin: 02/15/17 11:19 Dose: 1 applic Calcitonin (Miacalcin [place] -) 200 units NS DAILY [facility] Last Admin: 02/15/17 10:57 Dose: 200 units Diazepam (Valium -) 5 mg PO BID PRN Last Admin: 02/14/17 21:48 Dose: 5 mg Docusate Sodium (Colace -) 100 mg PO TID [facility] Last Admin: 02/15/17 06:41 Dose: 100 mg Ergocalciferol (Drisdol -) 50,000 unit PO Q7D@1000 [facility] Last Admin: 02/13/17 09:32 Dose: 50,000 unit Guaifenesin (Mucinex -) 600 mg PO BID [facility] Last Admin: 02/14/17 21:47 Dose: 600 mg Hydrocortisone (Anusol 2.5% Hc Cream -) 1 applic [place] DAILY [facility] Last Admin: 02/14/17 18:01 Dose: 1 applic Hydroxychloroquine Sulfate (Plaquenil -) 400 mg PO DAILY [facility] Last Admin: 02/15/17 10:56 Dose: 400 mg Lactobacillus Acidophilus (Bacid -) 2 tab PO BID [facility] Last Admin: 02/15/17 10:54 Dose: 2 tab Loratadine (Claritin -) 10 mg PO DAILY [facility] Last Admin: 02/15/17 10:54 Dose: 10 mg Methotrexate (Mexate -) 7.5 mg PO Fr@10 [facility] Last Admin: 02/14/17 10:22 Dose: 7.5 mg Morphine Sulfate (Morphine Injection -) 4 mg IVPUSH Q6H PRN PRN Reason: PAIN Last Admin: 02/15/17 06:52 Dose: 4 mg Nitroglycerin (Nitro-Dur Patch -) 0.3 mg TD DAILY [facility] Last Admin: 02/14/17 10:21 Dose: 0.3 mg Ondansetron HCl (Zofran Odt -) 8 mg SL Q6H PRN PRN Reason: NAUSEA AND/OR VOMITING Last Admin: 02/14/17 23:12 Dose: 8 mg Pantoprazole Sodium (Protonix -) 40 mg PO ACBK [facility] Last Admin: 02/15/17 06:42 Dose: 40 mg Potassium Chloride (K-Dur -) 20 meq PO DAILY [facility] Last Admin: 02/15/17 10:55 Dose: 20 meq Prednisone (Deltasone -) 40 mg PO BID [facility] Last Admin: 02/15/17 10:54 Dose: 40 mg Psyllium Hydrophilic Mucilloid (Metamucil (Sugar-Free) -) 5.85 gm PO DAILY [facility] Last Admin: 02/15/17 10:57 Dose: 5.85 gm Senna (Senna -) 2 tab PO DAILY [facility] Last Admin: 02/15/17 10:54 Dose: 2 tab Simethicone (Mylicon -) 80 mg PO TID [facility] Last Admin: 02/15/17 06:41 Dose: 80 mg Sodium Chloride ([place] Nasal [place] -) 2 spray NS TID PRN PRN Reason: NASAL CONGESTION Last Admin: 02/14/17 10:24 Dose: 2 sprays Torsemide (Demadex -) 100 mg PO DAILY [facility] Last Admin: 02/15/17 10:58 Dose: 100 mg Tramadol HCl (Ultram -) 100 mg PO DAILY PRN PRN Reason: PAIN Last Admin: 02/15/17 11:20 Dose: 100 mg Valsartan (Diovan -) 80 mg PO BID [facility] Last Admin: 02/15/17 10:54 Dose: 80 mg - Objective Vital Signs: Vital Signs Temperature 98.2 F 02/15/17 04:00 Pulse Rate 78 02/15/17 04:00 Respiratory Rate 18 02/15/17 04:00 Blood Pressure 118/57 02/15/17 04:00 O2 Sat by Pulse Oximetry (%) 98 02/14/17 20:00 Constitutional: Yes: Well Nourished, Calm Eyes: Yes: WNL HENT: Yes: Hoarseness Neck: Yes: WNL Cardiovascular: Yes: Regular Rate and Rhythm, S1, S2 Respiratory: Yes: Diminished Gastrointestinal: Yes: Normal Bowel Sounds, Soft Extremities: Yes: WNL Edema: No Labs: CBC, BMP 02/14/17 06:30 Assessment/Plan PLAN: Prednisone to 30 BID BD TX O2 as needed Pain control Incentive Spirometry VTE prophylaxis No smoking counseled DR MEDINA Problem List - Problems (1) Back pain Code(s): M54.9 - DORSALGIA, UNSPECIFIED Qualifiers: Back pain location: low back pain Chronicity: chronic Back pain laterality: left Sciatica presence: with sciatica Sciatica laterality: sciatica of left side Qualified Code(s): M54.42 - Lumbago with sciatica, left side (2) Hypertension Code(s): I10 - ESSENTIAL (PRIMARY) HYPERTENSION Qualifiers: Hypertension type: essential hypertension Qualified Code(s): I10 - Essential (primary) hypertension (3) Lupus (systemic lupus erythematosus) Code(s): M32.9 - SYSTEMIC LUPUS ERYTHEMATOSUS, UNSPECIFIED Qualifiers: Systemic lupus erythematosus type: unspecified Systemic lupus erythematosus organ involvement: unspecified Qualified Code(s): M32.9 - Systemic lupus erythematosus, unspecified (4) Morbid obesity Code(s): E66.01 - MORBID (SEVERE) OBESITY DUE TO EXCESS CALORIES (5) Pulmonary fibrosis Code(s): J84.10 - PULMONARY FIBROSIS, UNSPECIFIED (6) Sarcoidosis Code(s): D86.9 - SARCOIDOSIS, UNSPECIFIED (7) ILD (interstitial lung disease) Code(s): J84.9 - INTERSTITIAL PULMONARY DISEASE, UNSPECIFIED
[2017-02-15] MEDS: ONDANSETRON *ODT* 4 MG TABLET SL PRN ×2 (11:54→22:41)
[2017-02-15] MEDS: NITROGLYCERIN 0.3 MG/HOUR TD PATCH TD SCH (11:54)
[2017-02-15] MEDS: HYDROCORTISONE 2.5% TOPICAL CREAM 30 GM TUBE PR SCH (11:55)
--- NOTE | 2017-02-15 13:00 | PN ---
Progress Note (short form) - Note Progress Note: 52-year-old female with past medical history of lupus (sees Dr Roro Neal/ [facility] ), pulmonary sarcoidosis on high-dose steroids, hypertension, back pain, who presents to the emergency department 02/12/17 complaining of low back pain. Patient states that approximately 2 days ago she was moving in bed at the alf when she felt a large pop in her low back. She said it was the worst pain she ever experienced in her life. She states that now she can't move her leg well and she has numbness and tingling in her pelvic girdle and down her left leg. Her pain a 10 out of 10. states feels sx started midmay when she was unable to get hospital bed in [place], then was unable to gte propr toliet seat, last;y a fall in later DECEMBER. no numbness of her legs, though feels weaker L >R legs. using diapers bc unable to make it to bathroom though denies incontinence per say. FU : pain feels better with morphine and valium though weakness in legs continue (subacute) seen by ORTHO (?) planning for vertbroplasty EMg reviewed-- suggests severe acute denervation L5/S1 musculature , no clear evidence of a myopathy given prox msucle appaered NL on EMG unable to get MRI ; CT LS PINE as below IMPRESSION: in comparison to a abdomen/pelvis CT study of 12/16/2016 interval development of T10, T12, L2, L3 and L5 vertebral body compression fractures are seen as discussed. No bony retropulsion is noted. These fractures appear acute/ subacute. Interval development of a subacute vertical fracture is noted within the left sacral ala. The visualized osseous structures appear diffusely demineralized. Marked bilateral L4-L5 and moderate bilateral L5-S1 degenerative facet arthropathy is seen. No gross disc herniation is noted. L4-L5 central canal stenosis is seen which is probably mild to moderate allowing for partially obscuring artifact. Moderate bilateral L5-S1 foraminal stenoses. As also visualized on abdomen/pelvis CT studies of 12/16/2016 and 10/08/2016 a 9 x 5 mm right ureteropelvic junction calculus is seen with minimal to mild hydronephrosis. Urology consultation is suggested. A 2 mm nonobstructing right renal calculus is also visualized. Interstitial thickening is seen within the partially imaged lower chest bilaterally. - Past Medical History Cardio/Vascular: Yes: HTN Pulmonary: Yes: COPD, O2 Dependent, Pulmonary Fibrosis Gastrointestinal: Yes: Constipation, GERD Renal/: Yes: Renal Calculi ...: No Rheumatology: Yes: Lupus - Past Surgical History Past Surgical History: Yes: Cholecystectomy, Hysterectomy - Alcohol/Substance Use Hx Alcohol Use: No - Smoking History Smoking history: Former smoker Have you smoked in the past 12 months: No Home Medications - Allergies Allergies/Adverse Reactions: Allergies Allergy/AdvReac Type Severity Reaction Status Date / Time No Known Allergies Allergy Verified 12/15/16 21:49 - Home Medications Home Medications: Ambulatory Orders Fluconazole 200 mg PO DAILY 12/16/16 Hydroxychloroquine So4 [Plaquenil -] 400 mg PO DAILY 12/16/16 Pantoprazole Sodium [Protonix] 40 mg PO DAILY 12/16/16 Potassium Chloride [K-Dur -] 60 meq PO DAILY 12/16/16 Torsemide [Demadex -] 100 mg PO DAILY 12/16/16 Tramadol HCl [Ultram] 100 mg PO DAILY PRN 12/16/16 Methotrexate [Mexate -] 7.5 mg PO Q7D@1000 tablet 12/19/16 Prednisone [Deltasone -] 40 mg PO BID tablet 12/19/16 Simethicone [Mylicon -] 80 mg PO TID tab.chew 12/19/16 Valsartan [Diovan] 240 mg PO DAILY 02/12/17 Physical Exam-Neuro Vital Signs: Vital Signs Temperature 98.1 F 02/15/17 09:00 Pulse Rate 74 02/15/17 09:00 Respiratory Rate 18 02/15/17 09:00 Blood Pressure 110/82 02/15/17 09:00 O2 Sat by Pulse Oximetry (%) 98 02/14/17 20:00 Constitutional: Yes: Well Nourished Labs: CBCD WBC 13.0 K/mm3 (4.0-10.0) H D 02/14/17 06:30 RBC 3.78 M/mm3 (3.60-5.2) 02/14/17 06:30 Hgb 11.6 GM/dL (10.7-15.3) D 02/14/17 06:30 Hct 35.9 % (32.4-45.2) 02/14/17 06:30 MCV 94.8 fl (80-96) 02/14/17 06:30 MCHC 32.2 g/dl (32.0-36.0) 02/14/17 06:30 RDW 19.5 % (11.6-15.6) H 02/14/17 06:30 Plt Count 192 K/MM3 (134-434) 02/14/17 06:30 MPV 8.1 fl (7.5-11.1) 02/14/17 06:30 CMP Sodium 138 mmol/L (136-145) 02/14/17 06:30 Potassium 4.2 mmol/L (3.5-5.1) 02/14/17 06:30 Chloride 93 mmol/L (98-107) L 02/14/17 06:30 Carbon Dioxide 41 mmol/L (21-32) H 02/14/17 06:30 Anion Gap 4 (8-16) L 02/14/17 06:30 BUN 23 mg/dL (7-18) H D 02/14/17 06:30 Creatinine 0.8 mg/dL (0.55-1.02) 02/14/17 06:30 Creat Clearance w eGFR > 60 (>60) 02/12/17 18:35 Calcium 9.5 mg/dL (8.5-10.1) 02/14/17 06:30 Total Bilirubin 0.3 mg/dL (0.2-1.0) D 02/12/17 18:35 AST 18 U/L (15-37) 02/12/17 18:35 ALT 29 U/L (12-78) 02/12/17 18:35 Alkaline Phosphatase 131 U/L (45-117) H D 02/12/17 18:35 Total Protein 5.7 g/dl (6.4-8.2) L 02/12/17 18:35 Albumin 2.8 g/dl (3.4-5.0) L 02/12/17 18:35 - Neuro Exam Level Of Consciousness: Yes: Alert, Oriented to Person (EOMi, NO facial, VFF, motor limited UE prox strength--deltoids 4/5, BI 4/5, TR ( effort /pain 4+/5) and LE, IP 2/5, qauds 4/5, TA 3/5 L and 4/5 R--pain limits her exam, 2+ TR, 1+ BI, BR, absent patellar and achilles, no sesnory level, giat unable to test) NIH Stroke Scale - Total Score NIH Stroke Scale Score: 0 Imaging - Results Cat Scan: Report Reviewed, Image Reviewed Problem List - Problems (1) Lupus (systemic lupus erythematosus) Code(s): M32.9 - SYSTEMIC LUPUS ERYTHEMATOSUS, UNSPECIFIED Qualifiers: Systemic lupus erythematosus type: unspecified Systemic lupus erythematosus organ involvement: unspecified Qualified Code(s): M32.9 - Systemic lupus erythematosus, unspecified (2) Morbid obesity Code(s): E66.01 - MORBID (SEVERE) OBESITY DUE TO EXCESS CALORIES (3) Pulmonary fibrosis Code(s): J84.10 - PULMONARY FIBROSIS, UNSPECIFIED (4) Sarcoidosis Code(s): D86.9 - SARCOIDOSIS, UNSPECIFIED (5) Lumbar compression fracture Code(s): S32.000A - WEDGE COMPRESSION FRACTURE OF UNSP LUMBAR VERTEBRA, INIT (6) Lumbar radicular syndrome Code(s): M54.16 - RADICULOPATHY, LUMBAR REGION Assessment/Plan 52-year-old female with past medical history of lupus (sees Dr Roro Neal/ [facility] ), pulmonary sarcoidosis on high-dose steroids, hypertension, back pain, who presents to the emergency department 02/12/17 complaining of low back pain. 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 suspect lumbosacral spinal disease as a factor --+ superimposed compression FX for her pain cauda equina a possibility though she has no clear sensory C.O. ORTHO FU may need vertebroplasty, +/- myleogram as she wont qualify for MRI given weight call PM --Dr EMERY weakness proximally may also be due to steroid myopathy vs sarcoid myopathy vs inflam myopathy- EMG did not show any prox spont activity arguing against an overt inflam / sarcoid myopathy, though a steroid myopathy may still be possible ESR--not sig elevataed , CPK NL prednisone taper as tolerated Dr Anderson [phone] Problem List - Problems (1) Lupus (systemic lupus erythematosus) Code(s): M32.9 - SYSTEMIC LUPUS ERYTHEMATOSUS, UNSPECIFIED Qualifiers: Systemic lupus erythematosus type: unspecified Systemic lupus erythematosus organ involvement: unspecified Qualified Code(s): M32.9 - Systemic lupus erythematosus, unspecified (2) Morbid obesity Code(s): E66.01 - MORBID (SEVERE) OBESITY DUE TO EXCESS CALORIES (3) Pulmonary fibrosis Code(s): J84.10 - PULMONARY FIBROSIS, UNSPECIFIED (4) Sarcoidosis Code(s): D86.9 - SARCOIDOSIS, UNSPECIFIED (5) Lumbar compression fracture Code(s): S32.000A - WEDGE COMPRESSION FRACTURE OF UNSP LUMBAR VERTEBRA, INIT (6) Lumbar radicular syndrome Code(s): M54.16 - RADICULOPATHY, LUMBAR REGION
[2017-02-15] MEDS ORDERED: PT OWN MED DRAWER 7, Y5N ONE ×2 (15:14→18:43)
[2017-02-15] MEDS: diazePAM 5 MG TABLET PO PRN (21:49)
[2017-02-15] MEDS: POLYETHYLENE GLYCOL 3350 119 GM BTL PO PRN (22:33)
[2017-02-16] MEDS: SIMETHICONE 80 MG TAB.CHEW (FP) PO SCH ×3 (06:07→22:21)
[2017-02-16] MEDS: PANTOPRAZOLE 40 MG TABLET (FP) PO SCH (06:07)
[2017-02-16] MEDS: DOCUSATE SODIUM 100 MG CAPSULE (FP) PO SCH ×3 (06:07→22:20)
[2017-02-16] MEDS: ONDANSETRON *ODT* 4 MG TABLET SL PRN ×2 (06:07→15:01)
[2017-02-16] MEDS: morphine CARPU-JECT 4 MG/1 ML DISP.SYRIN IVPUSH PRN ×2 (06:08→13:26)
[2017-02-16] MEDS: ALBUTEROL SO4 2.5/IPRATROPIUM 0.5 INH SOL 3 ML VIAL.NEB. NEB PRN ×2 (07:18→13:55)
[2017-02-16] MEDS: diazePAM 5 MG TABLET PO PRN ×2 (10:24→22:21)
[2017-02-16] MEDS: guaiFENesin 600 MG TABLET.ER (FP) PO SCH ×2 (10:24→22:21)
[2017-02-16] MEDS: predniSONE 20 MG TABLET (UD) PO SCH ×2 (10:24→22:21)
[2017-02-16] MEDS: VALSARTAN 80 MG TABLET (UD) PO SCH ×2 (10:24→22:21)
[2017-02-16] MEDS: LORATADINE 10 MG TABLET PO SCH (10:24)
[2017-02-16] MEDS: CALCITONIN - SALMON SYNTHETIC 3.7 ML SPRAY.PUMP NS SCH (10:25)
[2017-02-16] MEDS: LACTOBACILLUS ACIDOPHILUS 1 EACH TAB (FP) PO SCH ×2 (10:25→22:20)
[2017-02-16] MEDS: POTASSIUM CHLORIDE TABS 20 MEQ TABLET.ER (FP) PO SCH (10:25)
[2017-02-16] MEDS: TORSEMIDE 100 MG TABLET PO SCH (10:26)
[2017-02-16] MEDS: PSYLLIUM 5.85 GM PACKET PO SCH (10:26)
[2017-02-16] MEDS: HYDROXYCHLOROQUINE SO4 200 MG TABLET (FP) PO SCH (10:26)
[2017-02-16] MEDS: HYDROCORTISONE 2.5% TOPICAL CREAM 30 GM TUBE PR SCH (10:26)
[2017-02-16] MEDS: NITROGLYCERIN 0.3 MG/HOUR TD PATCH TD SCH (10:27)
[2017-02-16] MEDS: SENNOSIDES 8.6MG TABLET (FP) PO SCH (10:40)
[2017-02-16] MEDS ORDERED: PT OWN MED DRAWER 7, Y5N ONE (11:54)
--- NOTE | 2017-02-16 16:10 | PN ---
Progress Note (short form) - Note Progress Note: Ongoing pain in back, weakness in legs, left more than right, proximal greater than distal. Unable to tolerate MRI, so myelogram may be necessary. For vertebroplasty next week. Pain control. Problem List - Problems (1) Lumbar compression fracture Code(s): S32.000A - WEDGE COMPRESSION FRACTURE OF UNSP LUMBAR VERTEBRA, INIT
[2017-02-16] MEDS: traMADol HCL 50 MG TABLET PO PRN (18:26)
[2017-02-16] MEDS: POLYETHYLENE GLYCOL 3350 119 GM BTL PO PRN (18:29)
--- NOTE | 2017-02-16 23:09 | CONS ---
PHYSICAL MEDICINE REHABILITATION CONSULTATION DATE OF ADMISSION: 02/12/2017 DATE OF CONSULTATION AND ELECTRODIAGNOSTIC STUDIES: 02/14/2017 REFERRING PHYSICIAN: Johan Anderson DO HISTORY OF PRESENT ILLNESS: The patient is a 52-year-old woman with an extensive past medical history which includes COPD, emphysema, without osteoporosis, sarcoidosis, diabetes, and substance abuse, who was admitted from [facility] with back pain. Per the patient, she had been transferred to [facility] in the middle of December after hospitalization at [facility] and developed back pain. Her mobility over the last 2 months has declined to the point where she is dependent and not able to stand or ambulate. On admission, patient underwent a lumbar spine CAT scan due to the degree of back pain, which showed interval development of [id number] T10 superior endplate, mild T12 inferior endplate, mild L2 superior endplate, cutk-[id number] L3 superior endplate, and mild L5 vertebral body biconcave compression fractures, which are all new compared to prior CAT scan of the abdomen and pelvis on December 16, 2016. Also, patient was noted to have L4-5 central canal stenosis, most likely [id number] degree allowing for artifact. She has multilevel degenerative facet arthropathy as well as moderate bilateral foraminal stenosis at L5-S1. Patient also states she has prior history of schwannomas affecting the left more than right lower extremity, but does not note what degree of nerve impingement or nerve damage she had. Patient was seen in neurologic consultation and is pending neurosurgical evaluation with Dr. Monroe and was referred for electrodiagnostic evaluation. She notes increasing weakness in the left more than right lower extremity but no numbness or tingling, and most of the pain is in the back, although she has sensitivity and pain in her lower extremities along with swelling that may be chronic. PAST MEDICAL AND SURGICAL HISTORY: Pulmonary sarcoidosis, lupus, COPD as mentioned, emphysema as mentioned, hypertension, obesity, history of kidney stones, cholecystectomy, hysterectomy. SOCIAL HISTORY: Per the patient, premorbidly, she was ambulatory but has had severe decline in function over the last few months to the point where she is not able to stand or ambulate and was unable to even come down in a wheelchair sitting due to her back pain. REVIEW OF SYSTEMS: No lightheadedness or dizziness. No headache. No blurry vision, double vision. No chest pain. She does get short of breath if she is not on oxygen and with exertion. No numbness, tingling, or weakness in the upper extremities. Severe swelling and sensitivity of the left more than right lower extremity, as well as weakness in the lower extremities. Severe low back pain with any movement. No inder bowel or bladder incontinence or change. PHYSICAL EXAMINATION: General: Overweight woman seen lying in bed. She is awake and cooperative and in no acute distress at rest. HEENT: She is normocephalic and atraumatic. Her extraocular muscles appear intact. Musculoskeletal: She has no obvious facial weakness, fairly good strength in the upper extremities of at least 4 to 4+/5 in the upper limbs. The lower extremities are harder to examine. She is very sensitive throughout her left more than right lower extremity, and there is pitting edema +2 to +3 in the left compared to the right, which is mainly on the foot. The left goes up into the ankle area, and she is weaker in the left lower extremity which is only 1-2/5 compared to the right lower extremity which she has some proximal weakness only 2/5 in the hip flexors, but the quadriceps are at least 3+ to 4/5, in dorsiflexion at least 4/5. Normal sensation to cold temperature and pinprick. Reflexes are difficult to elicit in both the knee jerk and ankle jerk, partly due to positioning, but also poor relaxation. RESULTS OF EMG NERVE CONDUCTION STUDIES: Please refer to report for details. OVERALL IMPRESSION: 1. Limited study due to edema in the lower extremities, as well as inability to tolerate certain positions. 2. Denervation in the left more than right lower limb, probably due to bilateral L5 and left S1 radiculopathy with underlying canal stenosis at L4-5, but unable to confirm lumbosacral paraspinal denervation as she could not tolerate turning. I cannot entirely rule out peripheral neuropathies, although normal right superficial peroneal sensory study and at least a partial-amplitude left superficial peroneal study probably go against any peroneal neuropathy and difficult to fully eliminate tibial neuropathy, but no sensory level. 3. No polyneuropathy with normal right sural and superficial peroneal sensory where she has less edema. 4. Underlying lumbar canal stenosis. 5. Multiple compression fractures which are new as described above. 6. Deficits in mobility and activities of daily living. 7. History of steroid-dependent pulmonary sarcoidosis, emphysema. 8. History of systemic lupus erythematosus. 9. Morbid obesity. 10. History of substance abuse. 11. History of diabetes. 12. History of hypertension. 13. History of kidney stones. 14. History of anemia. PLAN/SUGGESTION: 1. Neurologic followup. 2. Neurosurgical evaluation. 3. Patient probably is not a candidate for MRI, but this would be helpful in defining the level of lumbar stenosis if she is able to undergo an MRI. 4. Pain management. 5. Will need extensive physical therapy. 6. Dietary consultation. 7. DVT prophylaxis. Suggest subcutaneous heparin until patient is more mobile. 8. Bowel regimen. Monitor for constipation. 9. Wean steroids as able. Thank you for this consultation. TIANA NERI M.D. [id number]
[2017-02-17] MEDS ORDERED: diphenhydrAMINE HCL 25 MG CAPSULE (FP) PO ONE (03:00)
[2017-02-17] MEDS: PANTOPRAZOLE 40 MG TABLET (FP) PO SCH (06:37)
[2017-02-17] MEDS: ONDANSETRON *ODT* 4 MG TABLET SL PRN (06:37)
[2017-02-17] MEDS: DOCUSATE SODIUM 100 MG CAPSULE (FP) PO SCH ×3 (06:37→21:40)
[2017-02-17] MEDS: SIMETHICONE 80 MG TAB.CHEW (FP) PO SCH ×3 (06:37→21:41)
[2017-02-17] MEDS: morphine CARPU-JECT 4 MG/1 ML DISP.SYRIN IVPUSH PRN ×3 (06:46→21:52)
[2017-02-17] MEDS ORDERED: PT OWN MED DRAWER 7, Y5N ONE (09:12)
[2017-02-17] MEDS: LORATADINE 10 MG TABLET PO SCH (09:30)
[2017-02-17] MEDS: predniSONE 20 MG TABLET (UD) PO SCH ×2 (09:30→21:40)
[2017-02-17] MEDS: LACTOBACILLUS ACIDOPHILUS 1 EACH TAB (FP) PO SCH ×2 (09:30→21:40)
[2017-02-17] MEDS: TORSEMIDE 100 MG TABLET PO SCH (09:31)
[2017-02-17] MEDS: VALSARTAN 80 MG TABLET (UD) PO SCH ×2 (09:32→21:41)
[2017-02-17] MEDS: PSYLLIUM 5.85 GM PACKET PO SCH (09:32)
[2017-02-17] MEDS: POTASSIUM CHLORIDE TABS 20 MEQ TABLET.ER (FP) PO SCH (09:32)
[2017-02-17] MEDS: CALCITONIN - SALMON SYNTHETIC 3.7 ML SPRAY.PUMP NS SCH (09:33)
[2017-02-17] MEDS: guaiFENesin 600 MG TABLET.ER (FP) PO SCH ×2 (09:33→21:41)
[2017-02-17] MEDS: SENNOSIDES 8.6MG TABLET (FP) PO SCH (09:34)
[2017-02-17] MEDS: NITROGLYCERIN 0.3 MG/HOUR TD PATCH TD SCH (09:34)
[2017-02-17] MEDS: HYDROXYCHLOROQUINE SO4 200 MG TABLET (FP) PO SCH (09:35)
[2017-02-17] MEDS: HYDROCORTISONE 2.5% TOPICAL CREAM 30 GM TUBE PR SCH (09:36)
[2017-02-17] MEDS: ALBUTEROL SO4 2.5/IPRATROPIUM 0.5 INH SOL 3 ML VIAL.NEB. NEB PRN ×3 (09:45→23:02)
[2017-02-17] MEDS: diazePAM 5 MG TABLET PO PRN (11:13)
--- NOTE | 2017-02-17 11:26 | PN ---
Progress Note (short form) - Note Progress Note: PULMONARY AWAKE/ALERT NO SOB/CP VSS/AFEBRILE ANICTERIC CLEAR S1S2 BS+ OBESE B/L SCD'S LABS/MEDS/NOTES/IMAGING REVIEWED PLAN: Continue prednisone BD TX O2 as needed Pain control Incentive Spirometry VTE prophylaxis No smoking counseled DVT prophylaxsis - Problems (1) Back pain Code(s): M54.9 - DORSALGIA, UNSPECIFIED Qualifiers: Back pain location: low back pain Chronicity: chronic Back pain laterality: left Sciatica presence: with sciatica Sciatica laterality: sciatica of left side Qualified Code(s): M54.42 - Lumbago with sciatica, left side (2) Hypertension Code(s): I10 - ESSENTIAL (PRIMARY) HYPERTENSION Qualifiers: Hypertension type: essential hypertension Qualified Code(s): I10 - Essential (primary) hypertension (3) Lupus (systemic lupus erythematosus) Code(s): M32.9 - SYSTEMIC LUPUS ERYTHEMATOSUS, UNSPECIFIED Qualifiers: Systemic lupus erythematosus type: unspecified Systemic lupus erythematosus organ involvement: unspecified Qualified Code(s): M32.9 - Systemic lupus erythematosus, unspecified (4) Morbid obesity Code(s): E66.01 - MORBID (SEVERE) OBESITY DUE TO EXCESS CALORIES (5) Pulmonary fibrosis Code(s): J84.10 - PULMONARY FIBROSIS, UNSPECIFIED (6) Sarcoidosis Code(s): D86.9 - SARCOIDOSIS, UNSPECIFIED (7) ILD (interstitial lung disease) Code(s): J84.9 - INTERSTITIAL PULMONARY DISEASE, UNSPECIFIED Jamarcus HER MD
[2017-02-17] MEDS ORDERED: SODIUM PHOSPHATE/NA BIPHOS 133 ML ENEMA PR PRN (12:56)
--- NOTE | 2017-02-17 14:31 | PN ---
Progress Note, Physician Chief Complaint: DEYANIRA MANN ORDERED STILL IN PAIN - Current Medication List Current Medications: Active Medications Albuterol/Ipratropium (Duoneb -) 1 amp NEB QIDR PRN Last Admin: 02/17/17 09:45 Dose: 1 amp Artificial Tears (Artificial Tears) 2 drop OU HS PRN PRN Reason: DRY EYES Bacitracin (Bacitracin -) 1 applic TP DAILY PRN PRN Reason: FOR ITCHING Last Admin: 02/15/17 11:19 Dose: 1 applic Calcitonin (Miacalcin [place] -) 200 units NS DAILY [facility] Last Admin: 02/17/17 09:33 Dose: 200 units Diazepam (Valium -) 5 mg PO BID PRN Last Admin: 02/17/17 11:13 Dose: 5 mg Docusate Sodium (Colace -) 100 mg PO TID [facility] Last Admin: 02/17/17 13:47 Dose: 100 mg Ergocalciferol (Drisdol -) 50,000 unit PO Q7D@1000 [facility] Last Admin: 02/13/17 09:32 Dose: 50,000 unit Guaifenesin (Mucinex -) 600 mg PO BID [facility] Last Admin: 02/17/17 09:33 Dose: 600 mg Hydrocortisone (Anusol 2.5% Hc Cream -) 1 applic WI DAILY [facility] Last Admin: 02/17/17 09:36 Dose: 1 applic Hydroxychloroquine Sulfate (Plaquenil -) 400 mg PO DAILY [facility] Last Admin: 02/17/17 09:35 Dose: 400 mg Lactobacillus Acidophilus (Bacid -) 2 tab PO BID [facility] Last Admin: 02/17/17 09:30 Dose: 2 tab Loratadine (Claritin -) 10 mg PO DAILY [facility] Last Admin: 02/17/17 09:30 Dose: 10 mg Methotrexate (Mexate -) 7.5 mg PO Fr@10 [facility] Last Admin: 02/14/17 10:22 Dose: 7.5 mg Morphine Sulfate (Morphine Injection -) 4 mg IVPUSH Q6H PRN PRN Reason: PAIN Last Admin: 02/17/17 06:46 Dose: 4 mg Nitroglycerin (Nitro-Dur Patch -) 0.3 mg TD DAILY [facility] Last Admin: 02/17/17 09:34 Dose: 0.3 mg Ondansetron HCl (Zofran Odt -) 8 mg SL Q6H PRN PRN Reason: NAUSEA AND/OR VOMITING Last Admin: 02/17/17 06:37 Dose: 8 mg Pantoprazole Sodium (Protonix -) 40 mg PO ACBK [facility] Last Admin: 02/17/17 06:37 Dose: 40 mg Polyethylene Glycol (Miralax (For Daily Use) -) 17 gm PO DAILY PRN Last Admin: 02/16/17 18:29 Dose: 17 gm Potassium Chloride (K-Dur -) 20 meq PO DAILY [facility] Last Admin: 02/17/17 09:32 Dose: 20 meq Prednisone (Deltasone -) 30 mg PO BID [facility] Last Admin: 02/17/17 09:30 Dose: 30 mg Psyllium Hydrophilic Mucilloid (Metamucil (Sugar-Free) -) 5.85 gm PO DAILY [facility] Last Admin: 02/17/17 09:32 Dose: Not Given Senna (Senna -) 2 tab PO DAILY [facility] Last Admin: 02/17/17 09:34 Dose: 2 tab Simethicone (Mylicon -) 80 mg PO TID [facility] Last Admin: 02/17/17 13:47 Dose: 80 mg Sodium Chloride ([place] Nasal [place] -) 2 spray NS TID PRN PRN Reason: NASAL CONGESTION Last Admin: 02/14/17 10:24 Dose: 2 sprays Sodium Phosphate (Fleet Adult Rectal Enema -) 133 ml WI DAILY PRN PRN Reason: CONSTIPATION Torsemide (Demadex -) 100 mg PO DAILY [facility] Last Admin: 02/17/17 09:31 Dose: 100 mg Tramadol HCl (Ultram -) 100 mg PO DAILY PRN PRN Reason: PAIN Last Admin: 02/16/17 18:26 Dose: 100 mg Valsartan (Diovan -) 80 mg PO BID [facility] Last Admin: 02/17/17 09:32 Dose: 80 mg - Objective Vital Signs: Vital Signs Temperature 98.4 F 02/17/17 09:39 Pulse Rate 103 H 02/17/17 10:34 Respiratory Rate 20 02/17/17 09:39 Blood Pressure 120/80 02/17/17 09:39 O2 Sat by Pulse Oximetry (%) 95 02/17/17 10:34 Constitutional: Yes: Mild Distress Eyes: Yes: WNL HENT: Yes: WNL Neck: Yes: WNL Cardiovascular: Yes: WNL Respiratory: Yes: On Nasal O2, Poor Air Entry Gastrointestinal: Yes: Other Genitourinary: Yes: Incontinence Musculoskeletal: Yes: Back Pain, Muscle Weakness Extremities: Yes: WNL Edema: Yes Edema: LLE: 1+, RLE: 1+ Peripheral Pulses WNL: Yes Integumentary: Yes: WNL Wound/Incision: Yes: Other Neurological: Yes: Pre-Existing Deficit, Weakness ...Motor Strength: LLE, RLE Psychiatric: Yes: Other Labs: CBC, BMP 02/14/17 06:30 02/14/17 06:30 INR, PTT INR 1.11 (0.82-1.09) 02/12/17 17:30 Problem List - Problems (1) Back pain Code(s): M54.9 - DORSALGIA, UNSPECIFIED Qualifiers: Back pain location: low back pain Chronicity: chronic Back pain laterality: left Sciatica presence: with sciatica Sciatica laterality: sciatica of left side Qualified Code(s): M54.42 - Lumbago with sciatica, left side (2) Dyspnea Code(s): R06.00 - DYSPNEA, UNSPECIFIED Qualifiers: Dyspnea type: shortness of breath Qualified Code(s): R06.02 - Shortness of breath (3) Hypertension Code(s): I10 - ESSENTIAL (PRIMARY) HYPERTENSION Qualifiers: Hypertension type: essential hypertension Qualified Code(s): I10 - Essential (primary) hypertension (4) Lumbar compression fracture Code(s): S32.000A - WEDGE COMPRESSION FRACTURE OF UNSP LUMBAR VERTEBRA, INIT (5) Lumbar radicular syndrome Code(s): M54.16 - RADICULOPATHY, LUMBAR REGION (6) Lupus (systemic lupus erythematosus) Code(s): M32.9 - SYSTEMIC LUPUS ERYTHEMATOSUS, UNSPECIFIED Qualifiers: Systemic lupus erythematosus type: unspecified Systemic lupus erythematosus organ involvement: unspecified Qualified Code(s): M32.9 - Systemic lupus erythematosus, unspecified (7) Morbid obesity Code(s): E66.01 - MORBID (SEVERE) OBESITY DUE TO EXCESS CALORIES (8) Pulmonary fibrosis Code(s): J84.10 - PULMONARY FIBROSIS, UNSPECIFIED (9) Sarcoidosis Code(s): D86.9 - SARCOIDOSIS, UNSPECIFIED (10) Abdominal pain Code(s): R10.9 - UNSPECIFIED ABDOMINAL PAIN Qualifiers: Abdominal location: left lower quadrant Qualified Code(s): R10.32 - Left lower quadrant pain (11) Acute and chronic respiratory failure with hypoxia Code(s): J96.21 - ACUTE AND CHRONIC RESPIRATORY FAILURE WITH HYPOXIA (12) Acute renal failure Code(s): N17.9 - ACUTE KIDNEY FAILURE, UNSPECIFIED Qualifiers: Acute renal failure type: unspecified Qualified Code(s): N17.9 - Acute kidney failure, unspecified (13) Flank pain Code(s): R10.9 - UNSPECIFIED ABDOMINAL PAIN (14) Osteoporosis Code(s): M81.0 - AGE-RELATED OSTEOPOROSIS W/O CURRENT PATHOLOGICAL FRACTURE Qualifiers: Osteoporosis type: other Presence of current pathological fracture: with current pathological fracture Encounter type: initial encounter Qualified Code(s): M80.80XA - Other osteoporosis with current pathological fracture, unspecified site, initial encounter for fracture Assessment/Plan TLSO BRACE ORDERED LABS REVIEWED ORDERED FOR TOMORROW CHECK [facility] FOR F/U PT LAUREN BARLOW DC PLANNING FOR TOMORROW
--- NOTE | 2017-02-17 15:27 | PN ---
Progress Note (short form) - Note Progress Note: s: no cp sob palps dizzy Current Medications Generic Name Dose Route Start Last Admin Trade Name Freq PRN Reason Stop Dose Admin Albuterol/Ipratropium 1 amp 02/13/17 17:13 02/17/17 09:45 Duoneb - NEB 1 amp QIDR PRN Administration Artificial Tears 2 drop 02/13/17 17:07 Artificial Tears OU HS PRN DRY EYES Bacitracin 1 applic 02/13/17 17:08 02/15/17 11:19 Bacitracin - TP 1 applic DAILY PRN Administration FOR ITCHING Calcitonin 200 units 02/13/17 10:00 02/17/17 09:33 Miacalcin [place] - NS 200 units DAILY IKER Administration Diazepam 5 mg 02/13/17 21:46 02/17/17 11:13 Valium - PO 5 mg BID PRN Administration Docusate Sodium 100 mg 02/13/17 22:00 02/17/17 13:47 Colace - PO 100 mg TID IKER Administration Ergocalciferol 50,000 unit 02/13/17 10:00 02/13/17 09:32 Drisdol - PO 50,000 unit Q7D@1000 IKER Administration Guaifenesin 600 mg 02/13/17 22:00 02/17/17 09:33 Mucinex - PO 600 mg BID IKER Administration Hydrocortisone 1 applic 02/14/17 15:15 02/17/17 09:36 Anusol 2.5% Hc Cream - [place] 1 applic DAILY IKER Administration Hydroxychloroquine Sulfate 400 mg 02/13/17 10:00 02/17/17 09:35 Plaquenil - PO 400 mg DAILY IKER Administration Lactobacillus Acidophilus 2 tab 02/13/17 22:00 02/17/17 09:30 Bacid - PO 2 tab BID IKER Administration Loratadine 10 mg 02/14/17 10:00 02/17/17 09:30 Claritin - PO 10 mg DAILY IKER Administration Methotrexate 7.5 mg 02/14/17 10:00 02/14/17 10:22 Mexate - PO 7.5 mg Fr@10 IKER Administration Morphine Sulfate 4 mg 02/12/17 22:34 02/17/17 15:14 Morphine Injection - IVPUSH 4 mg Q6H PRN Administration PAIN Nitroglycerin 0.3 mg 02/14/17 10:00 02/17/17 09:34 Nitro-Dur Patch - TD 0.3 mg DAILY IKER Administration Ondansetron HCl 8 mg 02/14/17 15:08 02/17/17 06:37 Zofran Odt - SL 8 mg Q6H PRN Administration NAUSEA AND/OR VOMITING Pantoprazole Sodium 40 mg 02/15/17 07:00 02/17/17 06:37 Protonix - PO 40 mg ACBK IKER Administration Polyethylene Glycol 17 gm 02/15/17 22:08 02/16/17 18:29 Miralax (For Daily Use) - PO 17 gm DAILY PRN Administration Potassium Chloride 20 meq 02/14/17 10:00 02/17/17 09:32 K-Dur - PO 20 meq DAILY IKER Administration Prednisone 30 mg 02/15/17 11:54 02/17/17 09:30 Deltasone - PO 30 mg BID IKER Administration Psyllium Hydrophilic Mucilloid 5.85 gm 02/14/17 10:00 02/17/17 09:32 Metamucil (Sugar-Free) - PO Not Given DAILY IKER Senna 2 tab 02/14/17 10:00 02/17/17 09:34 Senna - PO 2 tab DAILY IK[facility] Administration Simethicone 80 mg 02/13/17 06:00 02/17/17 13:47 Mylicon - PO 80 mg TID IKER Administration Sodium Chloride 2 spray 02/14/17 09:11 02/14/17 10:24 [place] Nasal [place] - NS 2 sprays TID PRN Administration NASAL CONGESTION Sodium Phosphate 133 ml 02/17/17 12:56 02/17/17 15:16 [place] Adult Rectal Enema - [place] 133 ml DAILY PRN Administration CONSTIPATION Torsemide 100 mg 02/13/17 10:00 02/17/17 09:31 Demadex - PO 100 mg DAILY IKER Administration Tramadol HCl 100 mg 02/12/17 22:32 02/16/17 18:26 Ultram - PO 100 mg DAILY PRN Administration PAIN Valsartan 80 mg 02/14/17 10:00 02/17/17 09:32 Diovan - PO 80 mg BID IKER Administration Vital Signs Period Temp Pulse Resp BP Sys/Steen Pulse Ox Last 24 Hr 98.4 F-98.4 F 88-103 18-20 115-125/70-80 95-97 Constitutional: Yes: No Distress, Obese Eyes: No: Sclera Icterus Respiratory: Yes: cta bl nl eff No: Accessory Muscle Use, Wheezes Gastrointestinal: Yes: Normal Bowel Sounds. No: Distention, Hepatomegaly, Palpable Mass (tds habitus), Tenderness Cardiovascular: Yes: Regular Rate and Rhythm JVD: No Heart Sounds: Yes: S1, S2. No: Gallop Murmur: No: Systolic Murmur, Diastolic Murmur Extremities: No: Cold, Cyanosis Edema: trace Integumentary: No: Jaundice diaphoresis Neurological: Yes: Alert, Oriented (x3) Psychiatric: No: Agitated CBC, BMP 02/14/17 06:30 02/14/17 06:30 EKG : SR, 95 bpm. wnl L/RHC 07/18: wedge 20-->down to 10 with nitroprusside; PA 48/22-->34/8; CI 2.1; normal cors echo 06/2015: tds, nl lvef, mild/mod dec rv fcn, mild/mod dilated rv, no sig valve path, mild phtn echo 10/2015: nl lv/rv, mild tr, rvsp 50-60 ecg 10/04/15: sr, nl intervals, no ischemic changes CXR: no effusion seen, chronic interstitial lung dz findings 52 yo with h/o diast CHF, ILD, COPD, O2 dependent, pulm HTN, morbid obesity, HTN, MGUS, Lupus, venous insufficiency, GERD, PE's on eliquis, non-obstructing kidney stones, here with sudden onset back pain, found to have compression fractures and spinal stenosis. HTN - likely initial episode of hypertension was due to 10 out of 10 pain at the time. Since then has been well controlled. - con't valsartan, diuretic, nitro patch ILD, copd, pulm HTN: - stable. ongoing mgm't per pmd h/o PEs: -dx'd in outside hosp ([facility]) 06/19--on Eliquis since. States she completed treatment one month ago diastolic CHF - no acute exacerbation. con't outpatient po torsemide. compression fx/spinal stenosis - ongoing mgm't per pmd/nsurg/neuro
[2017-02-18] MEDS: traMADol HCL 50 MG TABLET PO PRN ×2 (00:35→14:11)
[2017-02-18] MEDS: ONDANSETRON *ODT* 4 MG TABLET SL PRN ×2 (00:56→10:45)
[2017-02-18] MEDS: SIMETHICONE 80 MG TAB.CHEW (FP) PO SCH ×3 (05:53→21:27)
[2017-02-18] MEDS: DOCUSATE SODIUM 100 MG CAPSULE (FP) PO SCH ×3 (05:53→21:27)
[2017-02-18] MEDS: PANTOPRAZOLE 40 MG TABLET (FP) PO SCH (06:03)
[2017-02-18] MEDS: ALBUTEROL SO4 2.5/IPRATROPIUM 0.5 INH SOL 3 ML VIAL.NEB. NEB PRN ×2 (06:47→23:28)
[2017-02-18 08:13] LABS: BASOPHIL 0.3 % (0-2.0); MCH 30.6 pg (25.7-33.7); MCHC 31.9 g/dl (32.0-36.0); MEAN PLT VOLUME 8.7 fl (7.5-11.1); NEUTROPHILS 84.8 % (42.8-82.8); PLATELET COUNT 175 K/MM3 (134-434); RDW 19.3 % (11.6-15.6); WHITE BLOOD COUNT 11.8 K/mm3 (4.0-10.0)
[2017-02-18 08:17] LABS: ALBUMIN 2.8 g/dl (3.4-5.0); ALK PHOS 132 U/L (45-117); ANION GAP 6 (8-16); BILIRUBIN,TOTAL 0.4 mg/dL (0.2-1.0); CALCIUM 9.7 mg/dL (8.5-10.1); CO2 38 mmol/L (21-32); CREATININE 1.3 mg/dL (0.55-1.02); SGOT/AST 13 U/L (15-37); SGPT/ALT 31 U/L (12-78)
--- NOTE | 2017-02-18 08:18 | PN ---
Progress Note (short form) - Note Progress Note: NEUROSURGERY CONSULT DICTATED 52 [address] [facility] for LBP. H/O Htn, pulmonary fibrosis on O2, SLE, Sarcoidosis, DM, PE (no longer on AC), pneumonia, morbid obesity and substance dependence c/o severe LBP. PE: In bed HEENT- NC/AT; Neck -supple; Cor- RR; Lungs- distant BS; Abd- obese; Ext- no sign of DVT CN- intact II- XII; Motor- UE 4+ B; L IP/Quad 1; L TA/EHL/inv/ev 2-3; R LE 3 proximally 4- distally; Sensation- decreased vibration; DTR- hyporeflexic LS spine CT- osteopenia, compression deformity T10, T12, L2, L3, L4, L5, not significantly changed from December [address] CT. L4-5 mild-moderate stenosis, inf L2 hyperdense bone rest EMG- B L5 and L S1 radiculopathy Multilevel osteoporotic compression fx Multiple pulmonary co-morbidities and DM/Htn/morbid obesity TLSO brace at bedside (has not tried it yet) Open surgical tx is not recommended Already seen by Dr Ku previously and contemplating vertebroplasty (though multilevel fx and may need nuc bone scan to delineate acuity of the fx pattern) F/u with Dr Ku
[2017-02-18] MEDS: morphine CARPU-JECT 4 MG/1 ML DISP.SYRIN IVPUSH PRN ×2 (08:41→17:02)
[2017-02-18 09:10] LABS: GLUCOSE,RANDOM 351 mg/dL (74-106)
--- NOTE | 2017-02-18 09:53 | PN ---
Progress Note (short form) - Note Progress Note: PULMONARY Denies shortness of breath, cough or wheezing. Last Vital Signs Temp Pulse Resp BP Pulse Ox 98.5 F 98 H 18 116/55 96 02/18/17 06:00 02/18/17 06:00 02/18/17 06:00 02/18/17 06:00 02/17/17 21:00 Gen: NAD at rest Heart: RRR Lung: decreased breath sounds at the bases Abd: soft, nontender, obese Ext: no edema CBC, BMP 02/18/17 06:55 02/18/17 06:55 Active Medications Albuterol/Ipratropium (Duoneb -) 1 amp NEB QIDR PRN Last Admin: 02/18/17 06:47 Dose: 1 amp Artificial Tears (Artificial Tears) 2 drop OU HS PRN PRN Reason: DRY EYES Bacitracin (Bacitracin -) 1 applic TP DAILY PRN PRN Reason: FOR ITCHING Last Admin: 02/15/17 11:19 Dose: 1 applic Calcitonin (Miacalcin [place] -) 200 units NS DAILY [facility] Last Admin: 02/17/17 09:33 Dose: 200 units Diazepam (Valium -) 5 mg PO BID PRN Last Admin: 02/17/17 11:13 Dose: 5 mg Docusate Sodium (Colace -) 100 mg PO TID [facility] Last Admin: 02/18/17 05:53 Dose: 100 mg Ergocalciferol (Drisdol -) 50,000 unit PO Q7D@1000 [facility] Last Admin: 02/13/17 09:32 Dose: 50,000 unit Guaifenesin (Mucinex -) 600 mg PO BID [facility] Last Admin: 02/17/17 21:41 Dose: 600 mg Hydrocortisone (Anusol 2.5% Hc Cream -) 1 applic RI DAILY [facility] Last Admin: 02/17/17 09:36 Dose: 1 applic Hydroxychloroquine Sulfate (Plaquenil -) 400 mg PO DAILY [facility] Last Admin: 02/17/17 09:35 Dose: 400 mg Lactobacillus Acidophilus (Bacid -) 2 tab PO BID [facility] Last Admin: 02/17/17 21:40 Dose: 2 tab Loratadine (Claritin -) 10 mg PO DAILY [facility] Last Admin: 02/17/17 09:30 Dose: 10 mg Methotrexate (Mexate -) 7.5 mg PO Fr@10 [facility] Last Admin: 02/14/17 10:22 Dose: 7.5 mg Morphine Sulfate (Morphine Injection -) 4 mg IVPUSH Q6H PRN PRN Reason: PAIN Last Admin: 02/18/17 08:41 Dose: 4 mg Nitroglycerin (Nitro-Dur Patch -) 0.3 mg TD DAILY [facility] Last Admin: 02/17/17 09:34 Dose: 0.3 mg Ondansetron HCl (Zofran Odt -) 8 mg SL Q6H PRN PRN Reason: NAUSEA AND/OR VOMITING Last Admin: 02/18/17 00:56 Dose: 8 mg Pantoprazole Sodium (Protonix -) 40 mg PO ACBK [facility] Last Admin: 02/18/17 06:03 Dose: 40 mg Polyethylene Glycol (Miralax (For Daily Use) -) 17 gm PO DAILY PRN Last Admin: 02/16/17 18:29 Dose: 17 gm Potassium Chloride (K-Dur -) 20 meq PO DAILY [facility] Last Admin: 02/17/17 09:32 Dose: 20 meq Prednisone (Deltasone -) 30 mg PO BID [facility] Last Admin: 02/17/17 21:40 Dose: 30 mg Psyllium Hydrophilic Mucilloid (Metamucil (Sugar-Free) -) 5.85 gm PO DAILY [facility] Last Admin: 02/17/17 09:32 Dose: Not Given Senna (Senna -) 2 tab PO DAILY [facility] Last Admin: 02/17/17 09:34 Dose: 2 tab Simethicone (Mylicon -) 80 mg PO TID [facility] Last Admin: 02/18/17 05:53 Dose: 80 mg Sodium Chloride ([place] Keldron Nasal Keldron -) 2 spray NS TID PRN PRN Reason: NASAL CONGESTION Last Admin: 02/14/17 10:24 Dose: 2 sprays Sodium Phosphate ([place]leet Adult Rectal Enema -) 133 ml RI DAILY PRN PRN Reason: CONSTIPATION Last Admin: 02/17/17 15:16 Dose: 133 ml Torsemide (Demadex -) 100 mg PO DAILY [facility] Last Admin: 02/17/17 09:31 Dose: 100 mg Tramadol HCl (Ultram -) 100 mg PO DAILY PRN PRN Reason: PAIN Last Admin: 02/18/17 00:35 Dose: 100 mg Valsartan (Diovan -) 80 mg PO BID [facility] Last Admin: 02/17/17 21:41 Dose: 80 mg A/P Sarcoidosis Lupus HTN Chronic Hypoxic Respiratory Failure Vertebral Fractures h/o DVT - continue prednisone at current dose - methotrexate weekly - inhaled bronchodilators as needed - O2 to keep SpO2 >90% - physical therapy - DVT prophylaxis
[2017-02-18] MEDS: predniSONE 20 MG TABLET (UD) PO SCH ×2 (10:38→21:28)
[2017-02-18] MEDS: LORATADINE 10 MG TABLET PO SCH (10:38)
[2017-02-18] MEDS: VALSARTAN 80 MG TABLET (UD) PO SCH ×2 (10:38→21:27)
[2017-02-18] MEDS: guaiFENesin 600 MG TABLET.ER (FP) PO SCH ×2 (10:38→21:28)
[2017-02-18] MEDS: LACTOBACILLUS ACIDOPHILUS 1 EACH TAB (FP) PO SCH ×2 (10:40→21:27)
[2017-02-18] MEDS: SENNOSIDES 8.6MG TABLET (FP) PO SCH (10:40)
[2017-02-18] MEDS: PSYLLIUM 5.85 GM PACKET PO SCH (10:41)
[2017-02-18] MEDS: TORSEMIDE 100 MG TABLET PO SCH (10:41)
[2017-02-18] MEDS: POTASSIUM CHLORIDE TABS 20 MEQ TABLET.ER (FP) PO SCH (10:41)
[2017-02-18] MEDS: CALCITONIN - SALMON SYNTHETIC 3.7 ML SPRAY.PUMP NS SCH (10:42)
[2017-02-18] MEDS: HYDROXYCHLOROQUINE SO4 200 MG TABLET (FP) PO SCH (10:43)
[2017-02-18] MEDS: NITROGLYCERIN 0.3 MG/HOUR TD PATCH TD SCH (10:43)
[2017-02-18] MEDS: HYDROCORTISONE 2.5% TOPICAL CREAM 30 GM TUBE PR SCH (10:44)
[2017-02-18] MEDS: INSULIN SLIDING SCALE (NOVOLOG) 1 VIAL SQ SCH ×3 (12:06→21:32)
[2017-02-18] MEDS ORDERED: INSULIN (NOVOLOG) ASPART 100 UNITS/ML 10ML VIAL ONE ×3 (12:09→17:42)
--- NOTE | 2017-02-18 15:02 | PN ---
Progress Note, Physician Chief Complaint: EVENTS AND NOTES REVIEWED BGM ELEVATED WITH PREDNISONE THERAPY - Current Medication List Current Medications: Active Medications Albuterol/Ipratropium (Duoneb -) 1 amp NEB QIDR PRN Last Admin: 02/18/17 06:47 Dose: 1 amp Artificial Tears (Artificial Tears) 2 drop OU HS PRN PRN Reason: DRY EYES Bacitracin (Bacitracin -) 1 applic TP DAILY PRN PRN Reason: FOR ITCHING Last Admin: 02/15/17 11:19 Dose: 1 applic Calcitonin (Miacalcin [place] -) 200 units NS DAILY [facility] Last Admin: 02/18/17 10:42 Dose: 200 units Diazepam (Valium -) 5 mg PO BID PRN Last Admin: 02/17/17 11:13 Dose: 5 mg Docusate Sodium (Colace -) 100 mg PO TID [facility] Last Admin: 02/18/17 14:13 Dose: 100 mg Ergocalciferol (Drisdol -) 50,000 unit PO Q7D@1000 [facility] Last Admin: 02/13/17 09:32 Dose: 50,000 unit Guaifenesin (Mucinex -) 600 mg PO BID [facility] Last Admin: 02/18/17 10:38 Dose: 600 mg Hydrocortisone (Anusol 2.5% Hc Cream -) 1 applic MT DAILY [facility] Last Admin: 02/18/17 10:44 Dose: Not Given Hydroxychloroquine Sulfate (Plaquenil -) 400 mg PO DAILY [facility] Last Admin: 02/18/17 10:43 Dose: 400 mg Insulin Aspart (Novolog Vial Sliding Scale -) 1 vial SQ ACHS [facility] PRN Reason: Protocol Last Admin: 02/18/17 12:06 Dose: Not Given Lactobacillus Acidophilus (Bacid -) 2 tab PO BID [facility] Last Admin: 02/18/17 10:40 Dose: 2 tab Loratadine (Claritin -) 10 mg PO DAILY [facility] Last Admin: 02/18/17 10:38 Dose: 10 mg Methotrexate (Mexate -) 7.5 mg PO Fr@10 [facility] Last Admin: 02/14/17 10:22 Dose: 7.5 mg Morphine Sulfate (Morphine Injection -) 4 mg IVPUSH Q6H PRN PRN Reason: PAIN Last Admin: 02/18/17 08:41 Dose: 4 mg Nitroglycerin (Nitro-Dur Patch -) 0.3 mg TD DAILY [facility] Last Admin: 02/18/17 10:43 Dose: 0.3 mg Ondansetron HCl (Zofran Odt -) 8 mg SL Q6H PRN PRN Reason: NAUSEA AND/OR VOMITING Last Admin: 02/18/17 10:45 Dose: 8 mg Pantoprazole Sodium (Protonix -) 40 mg PO ACBK [facility] Last Admin: 02/18/17 06:03 Dose: 40 mg Polyethylene Glycol (Miralax (For Daily Use) -) 17 gm PO DAILY PRN Last Admin: 02/16/17 18:29 Dose: 17 gm Potassium Chloride (K-Dur -) 20 meq PO DAILY [facility] Last Admin: 02/18/17 10:41 Dose: 20 meq Prednisone (Deltasone -) 30 mg PO BID [facility] Last Admin: 02/18/17 10:38 Dose: 30 mg Psyllium Hydrophilic Mucilloid (Metamucil (Sugar-Free) -) 5.85 gm PO DAILY [facility] Last Admin: 02/18/17 10:41 Dose: 5.85 gm Senna (Senna -) 2 tab PO DAILY [facility] Last Admin: 02/18/17 10:40 Dose: 2 tab Simethicone (Mylicon -) 80 mg PO TID [facility] Last Admin: 02/18/17 14:13 Dose: 80 mg Sodium Chloride ([place] Nasal [place] -) 2 spray NS TID PRN PRN Reason: NASAL CONGESTION Last Admin: 02/14/17 10:24 Dose: 2 sprays Sodium Phosphate (Fleet Adult Rectal Enema -) 133 ml MT DAILY PRN PRN Reason: CONSTIPATION Last Admin: 02/17/17 15:16 Dose: 133 ml Torsemide (Demadex -) 100 mg PO DAILY [facility] Last Admin: 02/18/17 10:41 Dose: 100 mg Tramadol HCl (Ultram -) 100 mg PO DAILY PRN PRN Reason: PAIN Last Admin: 02/18/17 14:11 Dose: 100 mg Valsartan (Diovan -) 80 mg PO BID [facility] Last Admin: 02/18/17 10:38 Dose: 80 mg - Objective Vital Signs: Vital Signs Temperature 98.6 F 02/18/17 10:00 Pulse Rate 104 H 02/18/17 11:15 Respiratory Rate 20 02/18/17 10:00 Blood Pressure 104/70 02/18/17 10:00 O2 Sat by Pulse Oximetry (%) 98 02/18/17 11:15 Constitutional: Yes: Mild Distress Eyes: Yes: WNL HENT: Yes: WNL Neck: Yes: WNL Cardiovascular: Yes: WNL Respiratory: Yes: WNL Gastrointestinal: Yes: WNL Genitourinary: Yes: Garcia Present Musculoskeletal: Yes: Back Pain, Muscle Weakness Extremities: Yes: WNL Edema: Yes Peripheral Pulses WNL: Yes Integumentary: Yes: WNL Wound/Incision: Yes: Clean/Dry, Dressing Dry and Intact Neurological: Yes: Pre-Existing Deficit, Weakness ...Motor Strength: LLE, RLE Psychiatric: Yes: Other Labs: CBC, BMP 02/18/17 06:55 02/18/17 06:55 INR, PTT INR 1.11 (0.82-1.09) 02/12/17 17:30 Problem List - Problems (1) Back pain Code(s): M54.9 - DORSALGIA, UNSPECIFIED Qualifiers: Back pain location: low back pain Chronicity: chronic Back pain laterality: left Sciatica presence: with sciatica Sciatica laterality: sciatica of left side Qualified Code(s): M54.42 - Lumbago with sciatica, left side (2) Dyspnea Code(s): R06.00 - DYSPNEA, UNSPECIFIED Qualifiers: Dyspnea type: shortness of breath Qualified Code(s): R06.02 - Shortness of breath (3) Hypertension Code(s): I10 - ESSENTIAL (PRIMARY) HYPERTENSION Qualifiers: Hypertension type: essential hypertension Qualified Code(s): I10 - Essential (primary) hypertension (4) Lumbar compression fracture Code(s): S32.000A - WEDGE COMPRESSION FRACTURE OF UNSP LUMBAR VERTEBRA, INIT (5) Lumbar radicular syndrome Code(s): M54.16 - RADICULOPATHY, LUMBAR REGION (6) Lupus (systemic lupus erythematosus) Code(s): M32.9 - SYSTEMIC LUPUS ERYTHEMATOSUS, UNSPECIFIED Qualifiers: Systemic lupus erythematosus type: unspecified Systemic lupus erythematosus organ involvement: unspecified Qualified Code(s): M32.9 - Systemic lupus erythematosus, unspecified (7) Morbid obesity Code(s): E66.01 - MORBID (SEVERE) OBESITY DUE TO EXCESS CALORIES (8) Pulmonary fibrosis Code(s): J84.10 - PULMONARY FIBROSIS, UNSPECIFIED (9) Sarcoidosis Code(s): D86.9 - SARCOIDOSIS, UNSPECIFIED (10) Abdominal pain Code(s): R10.9 - UNSPECIFIED ABDOMINAL PAIN Qualifiers: Abdominal location: left lower quadrant Qualified Code(s): R10.32 - Left lower quadrant pain (11) Acute and chronic respiratory failure with hypoxia Code(s): J96.21 - ACUTE AND CHRONIC RESPIRATORY FAILURE WITH HYPOXIA (12) Acute renal failure Code(s): N17.9 - ACUTE KIDNEY FAILURE, UNSPECIFIED Qualifiers: Acute renal failure type: unspecified Qualified Code(s): N17.9 - Acute kidney failure, unspecified (13) Flank pain Code(s): R10.9 - UNSPECIFIED ABDOMINAL PAIN (14) Osteoporosis Code(s): M81.0 - AGE-RELATED OSTEOPOROSIS W/O CURRENT PATHOLOGICAL FRACTURE Qualifiers: Osteoporosis type: other Presence of current pathological fracture: with current pathological fracture Encounter type: initial encounter Qualified Code(s): M80.80XA - Other osteoporosis with current pathological fracture, unspecified site, initial encounter for fracture Assessment/Plan SSI STARTED FOR HYPERGLYCEMIA BGM AC/HS OOB TO CHAIR JOHN GARCIA DC PLANNING FOR TOMORROW TLSO BRACE ORDERED LABS REVIEWED ORDERED FOR TOMORROW CHECK [facility] FOR F/U PT EVAL FLEET ENEMA PRN
--- NOTE | 2017-02-18 17:32 | PN ---
Progress Note (short form) - Note Progress Note: 52-year-old female with past medical history of lupus (sees Dr Roro Neal/ [facility] ), pulmonary sarcoidosis on high-dose steroids, hypertension, back pain, who presents to the emergency department 02/12/17 complaining of low back pain. Patient states that approximately 2 days ago [facility] when she felt a large pop in her low back. She said it was the worst pain she ever experienced in her life. She states that now she can't move her leg well and she has numbness and tingling in her pelvic girdle and down her left leg. Her pain a 10 out of 10. states feels sx started midmay when she was unable to get hospital bed in [place], then was unable to gte propr toliet seat, last;y a fall in later DECEMBER. no numbness of her legs, though feels weaker L >R legs. using diapers bc unable to make it to bathroom though denies incontinence per say. FU : pain feels better with morphine and valium, though unable to ambulate L >R weakness in legs continue (subacute) seen by ORTHO -- ? vertbroplasty (oupt), neurosurgery called EMg reviewed-- suggests severe acute denervation L5/S1 musculature , no clear evidence of a myopathy given prox msucle appaered NL on EMG unable to get MRI ; CT LS PINE as below IMPRESSION: in comparison to a abdomen/pelvis CT study of 12/16/2016 interval development of T10, T12, L2, L3 and L5 vertebral body compression fractures are seen as discussed. No bony retropulsion is noted. These fractures appear acute/ subacute. Interval development of a subacute vertical fracture is noted within the left sacral ala. The visualized osseous structures appear diffusely demineralized. Marked bilateral L4-L5 and moderate bilateral L5-S1 degenerative facet arthropathy is seen. No gross disc herniation is noted. L4-L5 central canal stenosis is seen which is probably mild to moderate allowing for partially obscuring artifact. Moderate bilateral L5-S1 foraminal stenoses. As also visualized on abdomen/pelvis CT studies of 12/16/2016 and 10/08/2016 a 9 x 5 mm right ureteropelvic junction calculus is seen with minimal to mild hydronephrosis. Urology consultation is suggested. A 2 mm nonobstructing right renal calculus is also visualized. Interstitial thickening is seen within the partially imaged lower chest bilaterally. - Past Medical History Cardio/Vascular: Yes: HTN Pulmonary: Yes: COPD, O2 Dependent, Pulmonary Fibrosis Gastrointestinal: Yes: Constipation, GERD Renal/: Yes: Renal Calculi ...: No Rheumatology: Yes: Lupus - Past Surgical History Past Surgical History: Yes: Cholecystectomy, Hysterectomy - Alcohol/Substance Use Hx Alcohol Use: No - Smoking History Smoking history: Former smoker Have you smoked in the past 12 months: No Home Medications - Allergies Allergies/Adverse Reactions: Allergies Allergy/AdvReac Type Severity Reaction Status Date / Time No Known Allergies Allergy Verified 12/15/16 21:49 - Home Medications Home Medications: Ambulatory Orders Fluconazole 200 mg PO DAILY 12/16/16 Hydroxychloroquine So4 [Plaquenil -] 400 mg PO DAILY 12/16/16 Pantoprazole Sodium [Protonix] 40 mg PO DAILY 12/16/16 Potassium Chloride [K-Dur -] 60 meq PO DAILY 12/16/16 Torsemide [Demadex -] 100 mg PO DAILY 12/16/16 Tramadol HCl [Ultram] 100 mg PO DAILY PRN 12/16/16 Methotrexate [Mexate -] 7.5 mg PO Q7D@1000 tablet 12/19/16 Prednisone [Deltasone -] 40 mg PO BID tablet 12/19/16 Simethicone [Mylicon -] 80 mg PO TID tab.chew 12/19/16 Valsartan [Diovan] 240 mg PO DAILY 02/12/17 Physical Exam-Neuro Vital Signs: Vital Signs Temperature 98.6 F 02/18/17 15:05 Pulse Rate 83 02/18/17 15:05 Respiratory Rate 18 02/18/17 15:05 Blood Pressure 104/70 02/18/17 10:00 O2 Sat by Pulse Oximetry (%) 98 02/18/17 11:15 Constitutional: Yes: Well Nourished Labs: CBCD WBC 11.8 K/mm3 (4.0-10.0) H 02/18/17 06:55 RBC 3.79 M/mm3 (3.60-5.2) 02/18/17 06:55 Hgb 11.6 GM/dL (10.7-15.3) 02/18/17 06:55 Hct 36.4 % (32.4-45.2) 02/18/17 06:55 MCV 96.0 fl (80-96) 02/18/17 06:55 MCHC 31.9 g/dl (32.0-36.0) L 02/18/17 06:55 RDW 19.3 % (11.6-15.6) H 02/18/17 06:55 Plt Count 175 K/MM3 (134-434) 02/18/17 06:55 MPV 8.7 fl (7.5-11.1) 02/18/17 06:55 CMP Sodium 136 mmol/L (136-145) 02/18/17 06:55 Potassium 4.4 mmol/L (3.5-5.1) 02/18/17 06:55 Chloride 92 mmol/L (98-107) L 02/18/17 06:55 Carbon Dioxide 38 mmol/L (21-32) H 02/18/17 06:55 Anion Gap 6 (8-16) L 02/18/17 06:55 BUN 43 mg/dL (7-18) H D 02/18/17 06:55 Creatinine 1.3 mg/dL (0.55-1.02) H D 02/18/17 06:55 Creat Clearance w eGFR 43.01 (>60) 02/18/17 06:55 Calcium 9.7 mg/dL (8.5-10.1) 02/18/17 06:55 Total Bilirubin 0.4 mg/dL (0.2-1.0) D 02/18/17 06:55 AST 13 U/L (15-37) L D 02/18/17 06:55 ALT 31 U/L (12-78) 02/18/17 06:55 Alkaline Phosphatase 132 U/L (45-117) H 02/18/17 06:55 Total Protein 6.0 g/dl (6.4-8.2) L 02/18/17 06:55 Albumin 2.8 g/dl (3.4-5.0) L 02/18/17 06:55 - Neuro Exam Level Of Consciousness: Yes: Alert, Oriented to Person (EOMi, NO facial, VFF, motor limited UE prox strength--deltoids 4/5, BI 4/5, TR ( effort /pain 4+/5) and LE, IP 2/5, qauds 4/5, TA 3/5 L and 4/5 R--pain limits her exam, 2+ TR, 1+ BI, BR, absent patellar and achilles, no sesnory level, giat unable to test) NIH Stroke Scale - Total Score NIH Stroke Scale Score: 0 Imaging - Results Cat Scan: Report Reviewed, Image Reviewed Problem List - Problems (1) Lupus (systemic lupus erythematosus) Code(s): M32.9 - SYSTEMIC LUPUS ERYTHEMATOSUS, UNSPECIFIED Qualifiers: Systemic lupus erythematosus type: unspecified Systemic lupus erythematosus organ involvement: unspecified Qualified Code(s): M32.9 - Systemic lupus erythematosus, unspecified (2) Morbid obesity Code(s): E66.01 - MORBID (SEVERE) OBESITY DUE TO EXCESS CALORIES (3) Pulmonary fibrosis Code(s): J84.10 - PULMONARY FIBROSIS, UNSPECIFIED (4) Sarcoidosis Code(s): D86.9 - SARCOIDOSIS, UNSPECIFIED (5) Lumbar compression fracture Code(s): S32.000A - WEDGE COMPRESSION FRACTURE OF UNSP LUMBAR VERTEBRA, INIT (6) Lumbar radicular syndrome Code(s): M54.16 - RADICULOPATHY, LUMBAR REGION Assessment/Plan 52-year-old female with past medical history of lupus (sees Dr Roro Neal/ [facility] ), pulmonary sarcoidosis on high-dose steroids, hypertension, back pain, who presents to the emergency department 02/12/17 complaining of low back pain. 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 suspect lumbosacral spinal disease as a factor --+ superimposed compression FX , seeting of chronic steroids ORTHO /NEUROSURG FU may need vertebroplasty oupt, calcium treatments, aggressive rehab weakness proximally may also be due to steroid myopathy vs sarcoid myopathy vs inflam myopathy- EMG did not show any prox spont activity arguing against an overt inflam / sarcoid myopathy, though a steroid myopathy may still be possible ESR--not sig elevataed , CPK NL prednisone taper as tolerated Dr Anderson [phone] Problem List - Problems (1) Lupus (systemic lupus erythematosus) Code(s): M32.9 - SYSTEMIC LUPUS ERYTHEMATOSUS, UNSPECIFIED Qualifiers: Systemic lupus erythematosus type: unspecified Systemic lupus erythematosus organ involvement: unspecified Qualified Code(s): M32.9 - Systemic lupus erythematosus, unspecified (2) Morbid obesity Code(s): E66.01 - MORBID (SEVERE) OBESITY DUE TO EXCESS CALORIES (3) Pulmonary fibrosis Code(s): J84.10 - PULMONARY FIBROSIS, UNSPECIFIED (4) Sarcoidosis Code(s): D86.9 - SARCOIDOSIS, UNSPECIFIED (5) Lumbar compression fracture Code(s): S32.000A - WEDGE COMPRESSION FRACTURE OF UNSP LUMBAR VERTEBRA, INIT (6) Lumbar radicular syndrome Code(s): M54.16 - RADICULOPATHY, LUMBAR REGION
[2017-02-18 18:51] VITALS: PULSE 105
[2017-02-19] MEDS: DOCUSATE SODIUM 100 MG CAPSULE (FP) PO SCH ×2 (05:45→13:47)
[2017-02-19] MEDS: SIMETHICONE 80 MG TAB.CHEW (FP) PO SCH ×2 (05:45→13:47)
[2017-02-19] MEDS: PANTOPRAZOLE 40 MG TABLET (FP) PO SCH (05:59)
[2017-02-19] MEDS: INSULIN SLIDING SCALE (NOVOLOG) 1 VIAL SQ SCH ×2 (05:59→11:27)
--- NOTE | 2017-02-19 07:44 | CONS ---
DATE OF CONSULTATION: DATE OF DICTATION: 02/18/2017 REQUESTING PHYSICIAN: Malcom Waddell MD CONSULTING PHYSICIAN: Elroy Herring MD, Neurosurgery. CHIEF COMPLAINT: Increasing lower back pain. HISTORY OF PRESENT ILLNESS: The patient is a 52-year-old, right-handed female with history of sarcoidosis; pulmonary fibrosis; a history of PE, no longer on anticoagulation; pneumonia; morbid obesity; hypertension; and substance dependence, who complains of chronic, intermittent lower back pain. Her pain has been worse since December when she felt a pop in her lower back. She also has subsequently felt 2 other pops over the past 2 months. She was initially seen at [facility] and sent to [facility] for rehabilitation. She had been mostly on bedrest because of her pain and previously was not highly mobile because of her pulmonary condition and morbid obesity anyway. She would require a wheel walking device. Her pain occasionally radiated down to her left greater than right lower extremity. She has been weak in her legs. She has no bowel or bladder incontinence by report. She had seen Dr. Ku and was recommended to undergo vertebroplasty by report. She was also ordered a TLSO brace by Dr. Ku. She had a recent EMG, demonstrating bilateral L5 and left S1 radiculopathy. There may also be an element of peripheral neuropathy. PAST MEDICAL HISTORY: Significant for morbid obesity, diabetes, hypertension, osteoporosis, sarcoidosis, pulmonary fibrosis, pneumonia, pulmonary embolism, substance dependence. CURRENT MEDICATIONS: Include Zofran, Anusol, Deltasone, Diovan, bacitracin, acidophilus, Mylicon, Plaquenil, methotrexate, valium, DuoNeb, Colace, senna, Metamucil, MiraLAX, Fleet enema, saline nasal spray, guaifenesin, nitroglycerin patch, morphine, Ultram, calcitonin, Claritin, potassium chloride, Protonix, and vitamin D. ALLERGIES: There is no known drug allergy. FAMILY HISTORY: Noncontributory. SOCIAL HISTORY: She does not smoke or drink. She is mostly mobile and most recently had been in a nursing facility. REVIEW OF SYSTEMS: Otherwise negative for other major cardiovascular, pulmonary , gastrointestinal, genitourinary, endocrinological, neurological, psychological problems except for the above. She does have a history of diverticulitis status post surgery. PHYSICAL EXAMINATION: Vital Signs: Temperature is 98.5, blood pressure is 116/55 with pulse rate 98, O2 saturation is 96% on 4 L. HEENT: Examination shows her to be normocephalic, atraumatic, anicteric. Neck: Supple with no nuchal rigidity. Coronary: Examination demonstrated a regular rhythm. Lungs: Distant breath sounds bilaterally. Abdomen: Obese but benign. Extremities: Examination shows no obvious signs of DVT. Neurologic: Cranial nerve examination is intact 2-12. Motor examination shows 4/5 strength in bilateral upper extremities. Proximal left lower extremity is 1/5 and distally is 2-3/5. Proximal right lower extremity is 3/5 and distally is 4-/5. Sensory exam shows decreased vibratory sensation. Deep tendon reflexes are hyporeflexic throughout. It is difficult to roll her to her side to examine her back fully because of her weight. LABORATORY: Examination shows white blood cell count 11,800, hemoglobin is 11.6 , and platelet count is 175,000. INR is 1.11. Serum sodium is 138, and potassium is 4.2. BUN is 23 and creatinine 0.8. Random glucose is 232. Hemoglobin A1c is 8.1. Urinalysis shows 1+ glucose, and it is positive for urobilirubin. There is less than 1 RBC and [address] scan of the lumbar spine demonstrated multi-level mild compression deformities of T10, T12, L2, L3, L4, and L5. There is moderate L4-5 stenosis. There is moderate L5 stenosis. There is also hypertrophy at L4-5 and L5-S1. This results in lateral recess narrowing. While compared to a CT scan from December, most of the above fractures are noted. There is generalized osteopenia. IMPRESSION: 1. Multi-level lumbar and lower thoracic osteoporotic compression fractures without retropulsion or canal compromise as a result. 2. Moderate degenerative L4-5 stenosis with lumbar radiculopathy. 3. Pulmonary fibrosis, sarcoidosis, and respiratory insufficiency with history of pneumonia. 4. History of pulmonary embolism. 5. Morbid obesity. 6. Diabetes. 7. Hypertension. RECOMMENDATIONS: The patient presents with lower back pain, worse since this past December. She had multi-level osteoporotic compression fractures as noted by CT scan. There has been no significant compression since December, however. The patient has been seen previously by Dr. Ku and was fitted for a TLSO brace. She is also scheduled to undergo planned vertebroplasty. Because of the multilevel compression fractures , locating the most symptomatic level may be difficult. A nuclear bone scan may be needed to better locate the level(s) of acute fractures which are causing her pain in order to aid in the surgical decision making. That is left to the professional discretion of , who had evaluated the patient recently. Because of the patient's multiple medical comorbidities including morbid obesity and pulmonary fibrosis, open surgical intervention for her lumbar condition is not recommended, despite her existing L4-5 spinal stenosis. I discussed the above with the patient at bedside. She also has not tried a TLSO brace and will try it later on today. Followup with Dr. Ku is recommended. ELROY HERRING M.D. [id number] MTDD
[2017-02-19] MEDS: morphine CARPU-JECT 4 MG/1 ML DISP.SYRIN IVPUSH PRN (07:47)
[2017-02-19 08:31] LABS: ANION GAP 9 (8-16); CO2 40 mmol/L (21-32); CREATININE 1.1 mg/dL (0.55-1.02); GLUCOSE,RANDOM 231 mg/dL (74-106)
[2017-02-19] MEDS ORDERED: PT OWN MED DRAWER 7, Y5N ONE (09:11)
[2017-02-19] MEDS: LACTOBACILLUS ACIDOPHILUS 1 EACH TAB (FP) PO SCH (09:33)
[2017-02-19] MEDS: LORATADINE 10 MG TABLET PO SCH (09:34)
[2017-02-19] MEDS: predniSONE 20 MG TABLET (UD) PO SCH (09:34)
[2017-02-19] MEDS: VALSARTAN 80 MG TABLET (UD) PO SCH (09:36)
[2017-02-19] MEDS: TORSEMIDE 100 MG TABLET PO SCH (09:36)
[2017-02-19] MEDS: PSYLLIUM 5.85 GM PACKET PO SCH (09:37)
[2017-02-19] MEDS: POTASSIUM CHLORIDE TABS 20 MEQ TABLET.ER (FP) PO SCH (09:37)
[2017-02-19] MEDS: SENNOSIDES 8.6MG TABLET (FP) PO SCH (09:38)
[2017-02-19] MEDS: HYDROXYCHLOROQUINE SO4 200 MG TABLET (FP) PO SCH (09:38)
[2017-02-19] MEDS: guaiFENesin 600 MG TABLET.ER (FP) PO SCH (09:38)
[2017-02-19] MEDS: CALCITONIN - SALMON SYNTHETIC 3.7 ML SPRAY.PUMP NS SCH (09:39)
[2017-02-19] MEDS: NITROGLYCERIN 0.3 MG/HOUR TD PATCH TD SCH (09:44)
[2017-02-19] MEDS: HYDROCORTISONE 2.5% TOPICAL CREAM 30 GM TUBE PR SCH (09:45)
[2017-02-19] MEDS: ALBUTEROL SO4 2.5/IPRATROPIUM 0.5 INH SOL 3 ML VIAL.NEB. NEB PRN (09:45)
--- NOTE | 2017-02-19 09:56 | PN ---
Progress Note (short form) - Note Progress Note: NEUROSURGERY LBP PE: In bed HEENT- [place]/AT; Neck -supple; Cor- RR; Lungs- distant BS; Abd- obese; Ext- no sign of DVT CN- intact II- XII; Motor- UE 4+ B; L IP/Quad 1; L TA/EHL/inv/ev 2-3; R LE 3 proximally 4- distally LS spine CT- osteopenia, compression deformity T10, T12, L2, L3, L4, L5, not significantly changed from December 2016 CT. 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
[2017-02-19] MEDS: ONDANSETRON *ODT* 4 MG TABLET SL PRN (10:51)
--- NOTE | 2017-02-19 10:57 | DS ---
Physical Examination Vital Signs: Vital Signs Temperature 98 F 02/19/17 06:00 Pulse Rate 105 H 02/19/17 08:45 Respiratory Rate 20 02/19/17 06:00 Blood Pressure 110/62 02/18/17 17:21 O2 Sat by Pulse Oximetry (%) 98 02/19/17 08:45 Constitutional: Yes: Mild Distress Eyes: Yes: WNL HENT: Yes: WNL Neck: Yes: WNL Cardiovascular: Yes: WNL Respiratory: Yes: WNL Gastrointestinal: Yes: WNL Renal/: Yes: WNL Musculoskeletal: Yes: Muscle Weakness Extremities: Yes: Other Edema: Yes Peripheral Pulses WNL: Yes Integumentary: Yes: Pressure Ulcer, Venous Stasis Changes Wound/Incision: Yes: Dressing Dry and Intact Neurological: Yes: Pre-Existing Deficit, Weakness, Other ...Motor Strength: LLE, RLE Psychiatric: Yes: Other Labs: CBC, BMP 02/18/17 06:55 02/19/17 06:30 Discharge Summary Reason For Visit: MORBID OBESITY/BACK PAIN/SARCADOSIS Current Active Problems Back pain (Acute) Chest pain (Acute) Dyspnea (Acute) Hypertension (Acute) Lumbar compression fracture (Acute) Lumbar radicular syndrome (Acute) Lupus (systemic lupus erythematosus) (Acute) Morbid obesity (Acute) Osteoporosis (Acute) Pulmonary fibrosis (Acute) Sarcoidosis (Acute) Procedures: Principal: ct scan Other Procedures: labs Hospital Course: acute compression fractures, pain sarcoid, dyspnea, treated with pain control, iv meds, calcitonin ns, physical therapy Condition: Fair - Instructions Diet, Activity, Other Instructions: low fat/ada/low sodium aggressive physical therapy Dr Ku for orthopedic follow up Referrals: Malcom Waddell MD [Primary Care Provider] - Disposition: RESIDENTIAL FACILITY - Home Medications Comprehensive Discharge Medication List: Ambulatory Orders Fluconazole 200 mg PO DAILY 12/16/16 Hydroxychloroquine So4 [Plaquenil -] 400 mg PO DAILY 12/16/16 Pantoprazole Sodium [Protonix] 40 mg PO DAILY 12/16/16 Potassium Chloride [K-Dur -] 60 meq PO DAILY 12/16/16 Torsemide [Demadex -] 100 mg PO DAILY 12/16/16 Tramadol HCl [Ultram] 100 mg PO DAILY PRN 12/16/16 Methotrexate [Mexate -] 7.5 mg PO Q7D@1000 tablet 12/19/16 Prednisone [Deltasone -] 40 mg PO BID tablet 12/19/16 Simethicone [Mylicon -] 80 mg PO TID tab.chew 12/19/16 Valsartan [Diovan] 240 mg PO DAILY 02/12/17 Albuterol 2.5/Ipratropium 0.5 [Duoneb -] 1 amp NEB QIDR PRN #0 amp MDD 3 Bacitracin - [Bacitracin Topical Ointment -] 1 applic TP DAILY PRN #0 tube 02/19 Calcitonin-[place] [Miacalcin Fertile -] 200 units NS DAILY #1 spray MDD 1 Diazepam [Valium] 5 mg PO BID PRN #0 tablet MDD 2 02/19/17 Ergocalciferol [Drisdol -] 50,000 unit PO Q7D@1000 #4 cap MDD 1 02/19/17 Guaifenesin [Mucinex -] 600 mg PO BID #60 cap.sr 02/19/17 Hydrocortisone 2.5% Topical Cr [Anusol-Hc -] 1 applic DC DAILY tube 02/19/17 Insulin Sliding Scale [Novolog Vial Sliding Scale -] 1 vial SQ ACHS units 02/19 Lactobacillus Acidophilus [Bacid -] 2 tab PO BID tab 02/19/17 Loratadine [Claritin -] 10 mg PO DAILY tablet 02/19/17 Nitroglycerin Patch [Nitro-Dur Patch -] 0.3 mg TD DAILY #30 patch MDD 1 Phenyleph/Mineral Oil/Petrolat [Preparation H Ointment] 1 applic RC DAILY PRN # 1 tube 02/19/17 Polyethylene Glycol 3350 [Miralax 119 gm Btl -] 17 gm PO DAILY PRN #1 bottle Polyvinyl Alcohol [Artificial Tears] 2 drop OU HS PRN #10 bot 02/19/17 Psyllium [Metamucil (Sugar-Free) -] 5.85 gm PO DAILY #28 packet 02/19/17 Sennosides [Senna -] 2 tab PO DAILY tablet 02/19/17 Sodium Chloride Nasal Fertile [[place] Fertile Nasal Fertile -] 2 spray NS TID PRN #0 spray 02/19/17 Sodium Phosphate/Na Biphos [Fleet Adult Rectal Enema -] 133 ml DC DAILY PRN #0 tube 02/19/17
--- NOTE | 2017-02-19 11:19 | PN ---
Progress Note (short form) - Note Progress Note: PULMONARY AWAKE/ALERT NO SOB/CP VSS/AFEBRILE ANICTERIC CLEAR S1S2 BS+ OBESE B/L SCD'S LABS/MEDS/NOTES/IMAGING REVIEWED PLAN: Continue prednisone /taper as outpatient BD TX O2 as needed Pain control Incentive Spirometry VTE prophylaxis No smoking counseled DVT prophylaxsis no objection to continuing treatment as an outpatient - Problems (1) Back pain Code(s): M54.9 - DORSALGIA, UNSPECIFIED Qualifiers: Back pain location: low back pain Chronicity: chronic Back pain laterality: left Sciatica presence: with sciatica Sciatica laterality: sciatica of left side Qualified Code(s): M54.42 - Lumbago with sciatica, left side (2) Hypertension Code(s): I10 - ESSENTIAL (PRIMARY) HYPERTENSION Qualifiers: Hypertension type: essential hypertension Qualified Code(s): I10 - Essential (primary) hypertension (3) Lupus (systemic lupus erythematosus) Code(s): M32.9 - SYSTEMIC LUPUS ERYTHEMATOSUS, UNSPECIFIED Qualifiers: Systemic lupus erythematosus type: unspecified Systemic lupus erythematosus organ involvement: unspecified Qualified Code(s): M32.9 - Systemic lupus erythematosus, unspecified (4) Morbid obesity Code(s): E66.01 - MORBID (SEVERE) OBESITY DUE TO EXCESS CALORIES (5) Pulmonary fibrosis Code(s): J84.10 - PULMONARY FIBROSIS, UNSPECIFIED (6) Sarcoidosis Code(s): D86.9 - SARCOIDOSIS, UNSPECIFIED (7) ILD (interstitial lung disease) Code(s): J84.9 - INTERSTITIAL PULMONARY DISEASE, UNSPECIFIED Jamarcus HER MD
--- NOTE | 2017-02-19 11:24 | PN ---
Progress Note, Physician History of Present Illness: pain feels better with morphine and valium, though unable to ambulate L >R weakness in legs continue (subacute) seen by ORTHO -- ? vertbroplasty (oupt), neurosurgery called EMg reviewed-- suggests severe acute denervation L5/S1 musculature , no clear evidence of a myopathy given prox msucle appaered NL on EMG unable to get MRI ; CT LS PINE as below IMPRESSION: in comparison to a abdomen/pelvis CT study of 12/16/2016 interval development of T10, T12, L2, L3 and L5 vertebral body compression fractures are seen as discussed. No bony retropulsion is noted. These fractures appear acute/ subacute. Interval development of a subacute vertical fracture is noted within the left sacral ala. The visualized osseous structures appear diffusely demineralized. Marked bilateral L4-L5 and moderate bilateral L5-S1 degenerative facet arthropathy is seen. No gross disc herniation is noted. L4-L5 central canal stenosis is seen which is probably mild to moderate allowing for partially obscuring artifact. Moderate bilateral L5-S1 foraminal stenoses. As also visualized on abdomen/pelvis CT studies of 12/16/2016 and 10/08/2016 a 9 x 5 mm right ureteropelvic junction calculus is seen with minimal to mild hydronephrosis. Urology consultation is suggested. A 2 mm nonobstructing right renal calculus is also visualized. Interstitial thickening is seen within the partially imaged lower chest bilaterally. Pt. reports her pain is improved with current pain manag. regimen., her exam remains unchanged, bilat UEs 5/5, LLE weakness(she says has been there x years, unclear as to why but there is an element of her not exerting enough effort) more than RLE weakness. Plan: Would cont. current pain meds, Rehab/Dr. Monroe's recommendations. ) - Current Medication List Current Medications: Active Medications Albuterol/Ipratropium (Duoneb -) 1 amp NEB QIDR PRN Last Admin: 02/19/17 09:45 Dose: 1 amp Artificial Tears (Artificial Tears) 2 drop OU HS PRN PRN Reason: DRY EYES Bacitracin (Bacitracin -) 1 applic TP DAILY PRN PRN Reason: FOR ITCHING Last Admin: 02/15/17 11:19 Dose: 1 applic Calcitonin (Miacalcin [place] -) 200 units NS DAILY [facility] Last Admin: 02/19/17 09:39 Dose: 200 units Diazepam (Valium -) 5 mg PO BID PRN Last Admin: 02/17/17 11:13 Dose: 5 mg Docusate Sodium (Colace -) 100 mg PO TID [facility] Last Admin: 02/19/17 05:45 Dose: 100 mg Ergocalciferol (Drisdol -) 50,000 unit PO Q7D@1000 [facility] Last Admin: 02/13/17 09:32 Dose: 50,000 unit Guaifenesin (Mucinex -) 600 mg PO BID [facility] Last Admin: 02/19/17 09:38 Dose: 600 mg Hydrocortisone (Anusol 2.5% Hc Cream -) 1 applic ME DAILY [facility] Last Admin: 02/19/17 09:45 Dose: 1 applic Hydroxychloroquine Sulfate (Plaquenil -) 400 mg PO DAILY [facility] Last Admin: 02/19/17 09:38 Dose: 400 mg Insulin Aspart (Novolog Vial Sliding Scale -) 1 vial SQ ACHS [facility] PRN Reason: Protocol Last Admin: 02/19/17 05:59 Dose: 8 units Lactobacillus Acidophilus (Bacid -) 2 tab PO BID [facility] Last Admin: 02/19/17 09:33 Dose: 2 tab Loratadine (Claritin -) 10 mg PO DAILY [facility] Last Admin: 02/19/17 09:34 Dose: 10 mg Methotrexate (Mexate -) 7.5 mg PO Fr@10 [facility] Last Admin: 02/14/17 10:22 Dose: 7.5 mg Morphine Sulfate (Morphine Injection -) 4 mg IVPUSH Q6H PRN PRN Reason: PAIN Last Admin: 02/19/17 07:47 Dose: 4 mg Nitroglycerin (Nitro-Dur Patch -) 0.3 mg TD DAILY [facility] Last Admin: 02/19/17 09:44 Dose: 0.3 mg Ondansetron HCl (Zofran Odt -) 8 mg SL Q6H PRN PRN Reason: NAUSEA AND/OR VOMITING Last Admin: 02/19/17 10:51 Dose: 8 mg Pantoprazole Sodium (Protonix -) 40 mg PO ACBK [facility] Last Admin: 02/19/17 05:59 Dose: 40 mg Polyethylene Glycol (Miralax (For Daily Use) -) 17 gm PO DAILY PRN Last Admin: 02/16/17 18:29 Dose: 17 gm Potassium Chloride (K-Dur -) 20 meq PO DAILY [facility] Last Admin: 02/19/17 09:37 Dose: 20 meq Prednisone (Deltasone -) 30 mg PO BID [facility] Last Admin: 02/19/17 09:34 Dose: 30 mg Psyllium Hydrophilic Mucilloid (Metamucil (Sugar-Free) -) 5.85 gm PO DAILY [facility] Last Admin: 02/19/17 09:37 Dose: 5.85 gm Senna (Senna -) 2 tab PO DAILY [facility] Last Admin: 02/19/17 09:38 Dose: 2 tab Simethicone (Mylicon -) 80 mg PO TID [facility] Last Admin: 02/19/17 05:45 Dose: 80 mg Sodium Chloride ([place] Nasal [place] -) 2 spray NS TID PRN PRN Reason: NASAL CONGESTION Last Admin: 02/14/17 10:24 Dose: 2 sprays Sodium Phosphate (Fleet Adult Rectal Enema -) 133 ml ME DAILY PRN PRN Reason: CONSTIPATION Last Admin: 02/17/17 15:16 Dose: 133 ml Torsemide (Demadex -) 100 mg PO DAILY [facility] Last Admin: 02/19/17 09:36 Dose: 100 mg Tramadol HCl (Ultram -) 100 mg PO DAILY PRN PRN Reason: PAIN Last Admin: 02/18/17 14:11 Dose: 100 mg Valsartan (Diovan -) 80 mg PO BID [facility] Last Admin: 02/19/17 09:36 Dose: 80 mg - Objective Vital Signs: Vital Signs Temperature 98 F 02/19/17 06:00 Pulse Rate 105 H 02/19/17 08:45 Respiratory Rate 20 02/19/17 06:00 Blood Pressure 110/62 02/18/17 17:21 O2 Sat by Pulse Oximetry (%) 98 02/19/17 08:45 Labs: CBC, BMP 02/18/17 06:55 02/19/17 06:30 INR, PTT INR 1.11 (0.82-1.09) 02/12/17 17:30
[2017-02-19 13:04] VITALS: BP 130/90; TEMP 98.6
[2017-02-19] MEDS: traMADol HCL 50 MG TABLET PO PRN (13:46)
--- NOTE | 2017-02-19 14:49 | EKG ---
Test Reason : Blood Pressure : / mmHG Vent. Rate : 112 BPM Atrial Rate : 112 BPM P-R Int : 134 ms QRS Dur : 104 ms QT Int : 320 ms P-R-T Axes : 059 021 127 degrees QTc Int : 436 ms SINUS TACHYCARDIA RIGHT ATRIAL ENLARGEMENT LEFT VENTRICULAR HYPERTROPHY WITH REPOLARIZATION ABNORMALITY ABNORMAL ECG WHEN COMPARED WITH ECG OF 12-FEB-2017 16:55, NON-SPECIFIC CHANGE IN ST SEGMENT IN LATERAL LEADS INVERTED T WAVES HAVE REPLACED NONSPECIFIC T WAVE ABNORMALITY IN LATERAL LEADS Confirmed by KELLIE DUMONT, JOHN PAUL ([id number]) on 02/19/2017 2:48:52 PM Referred By: SONAM HER Confirmed By:JOHN PAUL HOPKINS MD
== END 2017-02-19 15:08 | DRG 552 ==
LOC: JER 15:41 → JERBED 22:26 → J8W 02-13 01:39
PROVIDERS: ADMIT Family Medicine; ATTEND Family Medicine
DX: S32.000A Wedge compression fracture of unspecified lumbar vertebra, initial encounter for closed fracture (principal); J96.11 Chronic respiratory failure with hypoxia; J84.9 Interstitial pulmonary disease, unspecified; I50.30 Unspecified diastolic (congestive) heart failure; Z68.42 Body mass index [BMI] 45.0-49.9, adult; X58.XXXA Exposure to other specified factors, initial encounter; Y93.9 Activity, unspecified; Y92.89 Other specified places as the place of occurrence of the external cause; Y99.9 Unspecified external cause status; D86.9 Sarcoidosis, unspecified; I27.2 Other secondary pulmonary hypertension; I11.0 Hypertensive heart disease with heart failure; E66.01 Morbid (severe) obesity due to excess calories; M81.0 Age-related osteoporosis without current pathological fracture; M48.06 Spinal stenosis, lumbar region
CPT/HCPCS: 36415; 72131-TC; 80048; 80053; 81003; 81015; 82085; 82550; 82728; 83036; 83540; 83550; 84484; 85025; 85027; 85610; 85651; 93005; 93010; 94640; 95860-TC; 97116-GP; 97161-GP; 99283-25; J8610

== ENCOUNTER 2017-06-21 13:06 | Inpatient (IN) | payer OTHER ==
--- NOTE | 2017-06-21 13:17 | PDOC ---
Attending Attestation - Resident Resident Name: Jaye Duron - HPI HPI: 06/21/17 13:58 52 y/o female sent in from [facility] for evaluation of inc sob, pt has a history of pulmonary fibrosis, and says she needs a lung transplant. Pt was on prednisone but was recently tapered off and is now on methotrexate. Pt thinks she was taken off the prednisone too soon. Pt not c/o chest pain, but is tachypnic with speaking. - Physicial Exam PE: 06/21/17 14:02 06/21/17 14:02 + bs maria guadalupe with rales, crackles throughout lung johnson abd: soft non tender Neuro: Pt is alert and oriented x3, able to provide entire history - Medical Decision Making 06/21/17 14:04 a/p 52 y/o female with h/o pulmonary fibrosis and inc sob Plan: cbc,cmp, trop, cxr, bnp, combivent treatment, solumedrol ivp push and reevaluate 06/21/17 18:33 Pt's labs noted along with abg results, pt with negative troponin, pt with PC02 of 84.4,pt is able to speak in full sentences, not in acute distress at present. PT refused BIpap in ED. and is not having any mental status changes. Resident discussed case with Jorje Mack associate pathologist and as pt is mentaing well and not in distress was ok with admitting pt to ICU for further monitoring, Pt had less crackles and wheezing noted and was less tachypnic after breathing treatment and steroid, PT agreed to ICU admission. Pt condition remains guarded. Pt's magnesium was also slightly low and 1 gram of magnesium ivpb was ordered but pt had already left the ED for the ICU , the Icu staff was notified of the magnesium order Nathanael Barahona. 06/21/17 18:38 06/21/17 18:52 06/21/17 18:54 06/21/17 18:55 Heart Score/ECG Review - History History: Slightly suspicious - Electrocardiogram EKG: Non specific repolarization disturbance - Age Age: 45-65 - Risk Factors Risk Factors Heart Score: Yes Hx Hypercholesterolemia, Yes Hx Hypertension - Troponin Troponin: </= normal limit (st at 116 lvh, non specific changes) - ECG Impressions Normal ECG: No Non-specific ST Elevation: No Ischemic Changes: No Tachycardia: Sinus
--- NOTE | 2017-06-21 13:46 | PDOC ---
History of Present Illness <Purnima Garcias - Last Filed: 06/21/17 15:31> - General History Source: Patient, EMS Exam Limitations: No Limitations - History of Present Illness Initial Comments: This is a 52 YOF with complicated medical history of pulmonary fibrosis, pulmonary HTN, pulmonary embolism x3 in 2016, COPD, CHF, DM, HTN, SLE, and anxiety. She is BIBA from her SNF for progressive worsening respiratory distress for the past few weeks since starting a taper off of her baseline 40 mg bid Prednisone. She explains that her wage analyst (Dr. Parks) started her on three new medications (methotrexate, imuran, and one other medication) and started tapering her prednisone because she needs to lose about 100 lbs in order to have a lung transplant. She notes increasing productive cough with phlegm, wheezing, shortness of breath, and desaturations in pulse oxygenation to the mid-60s at her SNF even while on her baseline 6-9 LPM O2 which she is on 24/02. Her SNF has needed to increase her O2 from 6 to 9 LPM in the past few weeks. The patient additionally notes that over the past few weeks she has had episodes of chest pain and palpitations. She also notes current chills, nausea, headache, leg swelling (right is always worse than left for her). She denies measured fever or vomiting. <Jaye Duron - Last Filed: 06/21/17 17:03> - General Stated Complaint: S.O.B Time Seen by Provider: 06/21/17 13:17 Past History <Purnima Garcias - Last Filed: 06/21/17 15:31> - Past Medical History Anemia: No Asthma: No (PULMONARY FIBROSIS/SARCODOSIS) Cancer: No Cardiac Disorders: Yes (PULMONARY HYPERTENSION pulmonary fibrosis scarcodisos) CVA: No COPD: No (PULMONARY FIBROSIS/sarcoidosis) CHF: Yes Dementia: No Diabetes: No GI Disorders: No Disorders: No HTN: Yes Hypercholesterolemia: No Liver Disease: No Seizures: No Thyroid Disease: No - Surgical History Abdominal Surgery: No Appendectomy: No Cardiac Surgery: No Cholecystectomy: Yes Lung Surgery: No Neurologic Surgery: No Orthopedic Surgery: No - Reproductive History Cervical CA: No Dysfunctional Uterine Bleeding: No Ectopic : No Endometrial CA: No Polycystic Ovaries: No - Suicide/Smoking/Psychosocial Hx Smoking History: Former smoker Have you smoked in the past 12 months: No Hx Alcohol Use: No Drug/Substance Use Hx: No Substance Use Type: None Hx Substance Use Treatment: No <Jaye Duron - Last Filed: 06/21/17 17:03> - Past Medical History Allergies/Adverse Reactions: Allergies Allergy/AdvReac Type Severity Reaction Status Date / Time No Known Allergies Allergy Verified 06/21/17 13:46 Home Medications: Ambulatory Orders Amlodipine Besylate [Norvasc -] 5 mg PO DAILY 06/21/17 Calcitonin-[place] [Miacalcin] 0 ml NS DAILY 06/21/17 Diazepam [Valium] 5 mg PO ASDIR 06/21/17 Ergocalciferol [Drisdol Oral Solution -] 16,000 units PO DAILY 06/21/17 Hydroxychloroquine Sulfate 200 mg PO ASDIR 06/21/17 Insulin (LOG) Aspart [NovoLOG -] 0 units SQ [facility] 06/21/17 Loratadine [Claritin] 10 mg PO DAILY 06/21/17 Methotrexate Sodium [Methotrexate] 2.5 mg PO DAILY 06/21/17 Metoprolol Succinate [Toprol Xl] 50 mg PO DAILY 06/21/17 Mineral Oil/Pet Hy-Phl [Aquaphor] 1 applic TP [facility] 06/21/17 Nitroglycerin Patch [Nitro-Dur] 0.4 mg TD [facility] 06/21/17 Pantoprazole Sodium [Protonix] 40 mg PO DAILY 06/21/17 Prednisone [Deltasone -] 20 mg PO DAILY 06/21/17 Sennosides [Senna] 8.6 mg PO DAILY 06/21/17 Torsemide 100 mg PO DAILY 06/21/17 Tramadol HCl 50 mg PO DAILY 06/21/17 Valsartan [Diovan] 160 mg PO DAILY 06/21/17 Review of Systems - Review of Systems Constitutional: Yes: Chills. No: Fever, Unexplained wgt Loss HEENTM: No: Nose Congestion, Throat Pain Respiratory: Yes: Cough, Shortness of Breath, Wheezing, Productive cough. No: Hemoptysis Cardiac (ROS): Yes: Chest Pain (resolved), Edema (BLE chronic), Palpitations ( resolved) ABD/GI: Yes: Nausea. No: Constipated, Diarrhea, Vomiting : No: Burning, Dysuria Musculoskeletal: Yes: Back Pain (chronic). No: Neck Pain Integumentary: No: Bruising, Rash Neurological: Yes: Headache (mild). No: Numbness, Tingling, Weakness, Dizziness Endocrine: No: Unexplained Weight Gain, Unexplained Weight Loss <Jaye Duron - Last Filed: 06/21/17 17:03> *Physical Exam - Vital Signs Last Vital Signs Temp Pulse Resp BP Pulse Ox 98.7 F 111 H 26 H 138/84 98 06/21/17 13:47 06/21/17 13:47 06/21/17 13:47 06/21/17 13:47 06/21/17 13:47 <Purnima Garcias - Last Filed: 06/21/17 15:31> - Physical Exam General Appearance: Yes: Nourished, Moderate Distress, Obese, Other (mildly chronically ill-appearing, speaking in full sentences but frequently has to stop talking altogether to catch her breath, answering questions appropriately) HEENT: positive: EOMI, VICENTE, Normal Voice, Hearing Grossly Normal. negative: Scleral Icterus (R), Scleral Icterus (L), Nasal Congestion Neck: positive: Trachea midline, Supple. negative: Tender, Rigid Respiratory/Chest: positive: Lungs Clear, Normal Breath Sounds, Decreased Breath Sounds, Crackles (diffuse fine crackles with coarser crackles at bilateral bases), Other (shallow breathing, frequent productive cough and patient coughs into a tissue). negative: Respiratory Distress, Rhonchi, Stridor , Wheezing Cardiovascular: positive: Regular Rhythm, Edema (1+ pitting edema BLE), Tachycardia. negative: Murmur Gastrointestinal/Abdominal: positive: Normal Bowel Sounds, Soft. negative: Tender, Organomegaly, Pulsatile Mass, Guarding Musculoskeletal: positive: Normal Inspection. negative: Decreased Range of Motion, Vertebral Tenderness Extremity: positive: Normal Capillary Refill, Normal Inspection, Normal Range of Motion, Swelling (mild BLE). negative: Tender, Cyanosis Integumentary: positive: Normal Color, Dry, Warm. 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 NML intact (grossly), Fully Oriented, Alert, Normal Mood/Affect, Normal Response, Motor Strength 5/5 <Jaye Duron - Last Filed: 06/21/17 17:03> ED Treatment Course - LABORATORY CBC & Chemistry Diagram: 06/21/17 15:00 06/21/17 15:00 - ADDITIONAL ORDERS Additional order review: Laboratory Results 06/21/17 14:10 Puncture Site Right radial ABG pH 7.38 ABG pCO2 at Pt Temp 84.4 H* D ABG pO2 at Pt Temp 97.7 D ABG HCO3 48.9 H* ABG O2 Sat (Measured) 97.8 ABG O2 Content 13.1 L ABG Base Excess 20.6 H* Zay Test Positive Carboxyhemoglobin 1.6 Methemoglobin 1.2 O2 Delivery Device Y Oxygen Flow Rate 7 liters <Purnima Garcias - Last Filed: 06/21/17 15:31> - LABORATORY CBC & Chemistry Diagram: 06/21/17 15:00 06/21/17 15:00 <Jaye Duron - Last Filed: 06/21/17 17:03> Medical Decision Making - Medical Decision Making 06/21/17 15:31 Dr. Parks was paged and notified via phone service. <Purnima Garcias - Last Filed: 06/21/17 15:31> - Medical Decision Making This is a 52 YOF with complex cardiopulmonary history on baseline 40 mg/day Prednisone with recent failed taper. The notes taper since 3 weeks ago with simultaneous decline in respiratory status. BIBA from SNF with wheezing, SOB, productive cough. On exam she is tachypneic and must stop talking to catch breath. Satting well but requiring 8 LPM via NC. Also tachycardic to 110s. Poor air movement bilaterally with bilateral crackles worse at bases. DDX likely multifactorial IBNLT CHF exacerbation, COPD exacerbation, worsening pulmonary fibrosis, PE, ACS, PNA/bronchitis. Ordered is CXR, CBCD, CMP, Mg, Phos, cardiac panel, BNP, EKG, DuoNebx2, 125 IV SoluMedrol. 06/21/17 16:[address] Parks who will kindly consult while the patient is inpatient on the floor. Discussed results of ABG and noted PCO2>80 and PO2 97.7, no mental status changes. 06/21/17 16:09 Hgb noted to be 9.6 which is lower than patient's baseline per our [facility] EMR. BNP noted to be >1.1k which is highest value recorded in [facility] EMR. <Jaye Druon - Last Filed: 06/21/17 17:03> *DC/Admit/Observation/Transfer <Purnima Garcias - Last Filed: 06/21/17 15:31> - Discharge Dispostion Admit: Yes <Jaye Duron - Last Filed: 06/21/17 17:03> Diagnosis at time of Disposition: Pulmonary fibrosis, Hypercarbia CHF exacerbation Qualifiers: Congestive heart failure type: unspecified congestive heart failure type Qualified Code(s): I50.9 - Heart failure, unspecified Anemia Qualifiers: Anemia type: unspecified type Qualified Code(s): D64.9 - Anemia, unspecified COPD (chronic obstructive pulmonary disease) Qualifiers: COPD type: unspecified COPD Qualified Code(s): J44.9 - Chronic obstructive pulmonary disease, unspecified - Discharge Dispostion Condition at time of disposition: Guarded - Referrals Referrals: Malcom Waddell MD [Primary Care Provider] -
[2017-06-21] MEDS ORDERED: methylPREDNISolone NA SUCC 125 MG/2 ML VIAL IVPB ONE (14:06)
[2017-06-21] MEDS ORDERED: ALBUTEROL SO4 2.5/IPRATROPIUM 0.5 INH SOL 3 ML VIAL.NEB. NEB ONE ×2 (14:07→15:26)
[2017-06-21 14:42] LABS: ARTERIAL BLD GAS O2 SATURATION 97.8 % (90-98.9); ARTERIAL BLOOD GAS BASE EXCESS 20.6 meq/l (-2-2); ARTERIAL BLOOD GAS HCO3 48.9 meq/L (22-26); ARTERIAL BLOOD GAS PO2 97.7 mmHg (80-100); ARTERIAL BLOOD GAS pH 7.38 (7.35-7.45)
[2017-06-21 14:46] LABS: ALLENS TEST POSITIVE; METHEMOGLOBIN 1.2 % (0.4-1.5)
[2017-06-21 14:47] LABS: ART PUNCT SITE RIGHT RADIAL; LPM/O2% 7 LITERS; PT. ON O2? YES; TYPE OF O2 Y
[2017-06-21 15:21] LABS: BASOPHIL 0.4 % (0-2.0); EOSINOPHIL 0.2 % (0-4.5); MCH 29.8 pg (25.7-33.7); MCHC 30.8 g/dl (32.0-36.0); MEAN CELL VOLUME 96.5 fl (80-96); MEAN PLT VOLUME 10.7 fl (7.5-11.1); NEUTROPHILS 93.4 % (42.8-82.8); PLATELET COUNT 146 K/MM3 (134-434); RDW 16.3 % (11.6-15.6)
[2017-06-21 15:46] LABS: ALBUMIN 2.3 g/dl (3.4-5.0); ANION GAP 8 (8-16); BILIRUBIN,TOTAL 0.6 mg/dL (0.2-1.0); CALCIUM 10.6 mg/dL (8.5-10.1); CO2 43 mmol/L (21-32); CREATININE 0.3 mg/dL (0.55-1.02); GLUCOSE,RANDOM 80 mg/dL (74-106); PHOSPHOROUS 1.8 mg/dL (2.5-4.9); SGPT/ALT 26 U/L (12-78)
[2017-06-21 15:50] LABS: ALK PHOS 80 U/L (45-117); CPK 38 IU/L (26-192); TOT PROT 5.7 g/dl (6.4-8.2); TROPONIN I < 0.02 ng/ml (0.00-0.05)
[2017-06-21 15:52] LABS: MAGNESIUM 1.5 mg/dL (1.8-2.4); SGOT/AST 35 U/L (15-37)
[2017-06-21 16:25] LABS: URINE APPEARANCE SLCLOUDY; URINE BILIRUBIN NEGATIVE (NEGATIVE); URINE BLOOD 2+ (NEGATIVE); URINE COLOR YELLOW; URINE GLUCOSE (UA) NEGATIVE (NEGATIVE); URINE KETONE TRACE (NEGATIVE); URINE NITRITE POSITIVE (NEGATIVE); URINE PROTEIN 1+ (NEGATIVE); URINE UROBILINOGEN NEGATIVE mg/dL (0.2-1.0)
[2017-06-21 16:30] LABS: URINE BACTERIA RARE /hpf (NONE SEEN); URINE HYALINE CAST 3 /lpf; URINE MUCUS FEW; URINE RBC 6; URINE WBC 19
[2017-06-21] MEDS ORDERED: MAGNESIUM SULF 50% (8.12 MEQ/2 ML-1 GM VIAL) IVPB ONE (18:36)
[2017-06-21] MEDS ORDERED: ACETAMINOPHEN 325 MG TABLET (FP) PO PRN (19:20)
[2017-06-21] MEDS ORDERED: SENNOSIDES 8.6MG TABLET (FP) PO PRN (19:20)
[2017-06-21] MEDS ORDERED: traMADol HCL 50 MG TABLET PO PRN (19:20)
[2017-06-21] MEDS ORDERED: diazePAM 2 MG TABLET PO PRN (19:30)
[2017-06-21 20:09] VITALS: BMI 41.3
[2017-06-21 20:17] LABS: URINE LEUK ESTERASE TRACE (NEGATIVE)
--- NOTE | 2017-06-21 20:26 | CONSULT ---
Consult Consult Specialty:: Pulm/CCM Reason for Consultation:: SOB with increasing O2 requirement - History of Present Illness Chief Complaint: SOB History of Present Illness: 52 YOF with PMHx s/f pulmonary fibrosis, pulmonary HTN, pulmonary embolism x3 in 2016, COPD, CHF, DM, HTN, SLE, and anxiety. She is BIBA from her SNF with c/ o increasing SOB and GOMEZ since starting a prednisone taper from 40 mg bid to 27.5 mg. 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 Parks) planned to start her on three new medications (methotrexate, imuran, and one other medication) in attempt to acheive weight loss to be a lung transplant candidate. She notes increasing productive cough with phlegm, wheezing, shortness of breath, and desaturations in pulse oxygenation to the mid-60s at her SNF even while on her baseline 6 L which was increased from 6 to 9 LPM. The patient additionally notes that over the past few weeks she has had episodes of . She reported chills , nausea, headache, chest pain and palpitations, leg swelling (right is always worse than left for her). In the ED afebrile HR 110's BP , RR 20's with wheeze and productive cough. Labs notable for WBC 9, ABG PCO2 80's, Po2 97.7 on 8L NC, BNP 1100, Hgb 9.6. CXR s/f chronic fibrotic changes with possible BLL infiltrate with possible mediastinal shift to right. She was given duonebs, Methyl pred 125mg. She was seen by Dr Parks and transferred to ICU for further management. In ICU rec'd A+O x3 BP 145/85, HR 108, O2 sat 99% on 6L NC. She stated that she had a sick contact in her room mate who had a cough. Blood cultures and viral swabs sent. Started Azithro and ceftriaxone empirically. - History Source History Provided By: Patient, Medical Record - Past Medical History Cardio/Vascular: Yes: HTN Pulmonary: Yes: COPD, O2 Dependent, Pulmonary Fibrosis Gastrointestinal: Yes: Constipation, GERD Renal/: Yes: Renal Calculi ...: No Rheumatology: Yes: Lupus - Past Surgical History Past Surgical History: Yes: Cholecystectomy, Hysterectomy - Alcohol/Substance Use Hx Alcohol Use: No - Smoking History Smoking history: Former smoker Have you smoked in the past 12 months: No Home Medications - Allergies Allergies/Adverse Reactions: Allergies Allergy/AdvReac Type Severity Reaction Status Date / Time No Known Allergies Allergy Verified 06/21/17 13:46 - Home Medications Home Medications: Ambulatory Orders Amlodipine Besylate [Norvasc -] 5 mg PO DAILY 06/21/17 Calcitonin-[place] [Miacalcin] 0 ml NS DAILY 06/21/17 Diazepam [Valium] 5 mg PO ASDIR 06/21/17 Ergocalciferol [Drisdol Oral Solution -] 16,000 units PO DAILY 06/21/17 Hydroxychloroquine Sulfate 200 mg PO ASDIR 06/21/17 Insulin (LOG) Aspart [NovoLOG -] 0 units SQ ASDIR 06/21/17 Loratadine [Claritin] 10 mg PO DAILY 06/21/17 Methotrexate Sodium [Methotrexate] 2.5 mg PO DAILY 06/21/17 Metoprolol Succinate [Toprol Xl] 50 mg PO DAILY 06/21/17 Mineral Oil/Pet Hy-Phl [Aquaphor] 1 applic TP ASDIR 06/21/17 Nitroglycerin Patch [Nitro-Dur] 0.4 mg TD ASDIR 06/21/17 Pantoprazole Sodium [Protonix] 40 mg PO DAILY 06/21/17 Prednisone [Deltasone -] 20 mg PO DAILY 06/21/17 Sennosides [Senna] 8.6 mg PO DAILY 06/21/17 Torsemide 100 mg PO DAILY 06/21/17 Tramadol HCl 50 mg PO DAILY 06/21/17 Valsartan [Diovan] 160 mg PO DAILY 06/21/17 Review of Systems - Review of Systems Constitutional: reports: Chills Eyes: reports: No Symptoms Neck: reports: No Symptoms Cardiovascular: reports: Palpitations Respiratory: reports: Cough, SOB Gastrointestinal: reports: Nausea, Other (retching) Genitourinary: reports: No Symptoms Musculoskeletal: reports: No Symptoms Neurological: reports: No Symptoms Endocrine: reports: No Symptoms Hematology/Lymphatic: reports: No Symptoms Psychiatric: reports: No Symptoms Physical Exam Vital Signs: Vital Signs Temperature 99.5 F 06/21/17 19:42 Pulse Rate 106 H 06/21/17 19:42 Respiratory Rate 20 06/21/17 20:17 Blood Pressure 156/90 06/21/17 19:42 O2 Sat by Pulse Oximetry (%) 100 06/21/17 20:17 Constitutional: Yes: No Distress, Obese Eyes: Yes: WNL HENT: Yes: Atraumatic, Normocephalic Neck: Yes: Supple Cardiovascular: Yes: Regular Rate and Rhythm Respiratory: Yes: Diminished (bases), On Nasal O2, Rales (bilat R>L) Gastrointestinal: Yes: Soft, Abdomen, Obese (non tender; + BS) Renal/: Yes: Do Present Musculoskeletal: Yes: Back Pain Extremities: Yes: WNL Edema: No Peripheral Pulses WNL: Yes Integumentary: Yes: WNL Neurological: Yes: Alert, Oriented Psychiatric: Yes: Alert, Oriented Labs: CBC, BMP 06/21/17 15:00 06/21/17 15:00 CBC,CMP WBC 9.0 K/mm3 (4.0-10.0) 06/21/17 15:00 RBC 3.31 M/mm3 (3.60-5.2) L 06/21/17 15:00 Hgb 9.8 GM/dL (10.7-15.3) L D 06/21/17 15:00 Hct 31.9 % (32.4-45.2) L 06/21/17 15:00 MCV 96.5 fl (80-96) H 06/21/17 15:00 MCH 29.8 pg (25.7-33.7) 06/21/17 15:00 MCHC 30.8 g/dl (32.0-36.0) L 06/21/17 15:00 RDW 16.3 % (11.6-15.6) H D 06/21/17 15:00 Plt Count 146 K/MM3 (134-434) 06/21/17 15:00 MPV 10.7 fl (7.5-11.1) D 06/21/17 15:00 Neutrophils % 93.4 % (42.8-82.8) H 06/21/17 15:00 Lymphocytes % 4.1 % (8-40) L D 06/21/17 15:00 Monocytes % 1.9 % (3.8-10.2) L 06/21/17 15:00 Eosinophils % 0.2 % (0-4.5) D 06/21/17 15:00 Basophils % 0.4 % (0-2.0) 06/21/17 15:00 Sodium 141 mmol/L (136-145) 06/21/17 15:00 Potassium 3.6 mmol/L (3.5-5.1) 06/21/17 15:00 Chloride 90 mmol/L (98-107) L 06/21/17 15:00 Carbon Dioxide 43 mmol/L (21-32) H 06/21/17 15:00 Anion Gap 8 (8-16) 06/21/17 15:00 BUN 10 mg/dL (7-18) D 06/21/17 15:00 Creatinine 0.3 mg/dL (0.55-1.02) L D 06/21/17 15:00 Creat Clearance w eGFR > 60 (>60) 06/21/17 15:00 Random Glucose 80 mg/dL (74-106) D 06/21/17 15:00 Calcium 10.6 mg/dL (8.5-10.1) H 06/21/17 15:00 Phosphorus 1.8 mg/dL (2.5-4.9) L 06/21/17 15:00 Magnesium 1.5 mg/dL (1.8-2.4) L D 06/21/17 15:00 Total Bilirubin 0.6 mg/dL (0.2-1.0) D 06/21/17 15:00 AST 35 U/L (15-37) D 06/21/17 15:00 ALT 26 U/L (12-78) 06/21/17 15:00 Alkaline Phosphatase 80 U/L (45-117) D 06/21/17 15:00 Creatine Kinase 38 IU/L (26-192) 06/21/17 15:00 Troponin I < 0.02 ng/ml (0.00-0.05) 06/21/17 15:00 B-Natriuretic Peptide 1157.40 pg/ml (5-125) H 06/21/17 15:00 Total Protein 5.7 g/dl (6.4-8.2) L 06/21/17 15:00 Albumin 2.3 g/dl (3.4-5.0) L 06/21/17 15:00 ABG Results ABG pH 7.38 (7.35-7.45) 06/21/17 14:10 ABG pCO2 at Pt Temp 84.4 mmHg (35-45) H* D 06/21/17 14:10 ABG pO2 at Pt Temp 97.7 mmHg (80-100) D 06/21/17 14:10 ABG HCO3 48.9 meq/L (22-26) H* 06/21/17 14:10 ABG O2 Sat (Measured) 97.8 % (90-98.9) 06/21/17 14:10 ABG O2 Content 13.1 % vol (15-22) L 06/21/17 14:10 ABG Base Excess 20.6 meq/l (-2-2) H* 06/21/17 14:10 Active Medications Acetaminophen (Tylenol -) 650 mg PO Q6H PRN PRN Reason: FEVER OR PAIN Albuterol/Ipratropium (Duoneb -) 1 amp NEB QIDR [facility] Amlodipine Besylate (Norvasc -) 5 mg PO DAILY [facility] Cholecalciferol (Vitamin D3 -) 1,000 unit PO DAILY [facility] Diazepam (Valium -) 2 mg PO Q8H PRN Emollient Ointment (Aquaphor -) 1 applic TP DAILY [facility] Furosemide (Lasix Injection -) 40 mg IVPUSH BIDLASIX [facility] Last Admin: 06/21/17 20:53 Dose: 40 mg Hydroxychloroquine Sulfate (Plaquenil -) 200 mg PO DAILY [facility] Azithromycin 500 mg/ Dextrose 250 mls @ 250 mls/hr IVPB ONCE ONE Stop: 06/21/17 21:27 CEFTRIAXONE 1 G/50 ML PREMIX (Ceftriaxone 1 Gm-D5w Bag) 50 mls @ 100 mls/hr IVPB DAILY [facility] Last Admin: 06/21/17 20:53 Dose: 100 mls/hr Insulin Aspart (Novolog Vial Sliding Scale -) 1 vial SQ ACHS [facility] PRN Reason: Protocol Last Admin: 06/21/17 21:20 Dose: Not Given Loratadine (Claritin -) 10 mg PO DAILY [facility] Metoprolol Succinate (Toprol Xl -) 50 mg PO DAILY [facility] Morphine Sulfate (Morphine Injection -) 4 mg IVPUSH Q6H PRN PRN Reason: PAIN Last Admin: 06/21/17 21:13 Dose: 4 mg Nitroglycerin (Nitro-Dur Patch -) 0.1 mg TD DAILY [facility] Pantoprazole Sodium (Protonix -) 40 mg PO DAILY [facility] Prednisone (Deltasone -) 40 mg PO DAILY [facility] Senna (Senna -) 2 tab PO HS PRN PRN Reason: CONSTIPATION Valsartan (Diovan -) 160 mg PO DAILY [facility] Vital Signs Period Temp Pulse Resp BP Sys/Steen Pulse Ox Last 24 Hr 98.6 F-99.8 F 106-116 18-26 137-156/84-90 95-100 Imaging - Results Chest X-ray: Report Reviewed Problem List - Problems (1) CHF exacerbation Code(s): I50.9 - HEART FAILURE, UNSPECIFIED Qualifiers: Congestive heart failure type: unspecified congestive heart failure type Qualified Code(s): I50.9 - Heart failure, unspecified (2) COPD (chronic obstructive pulmonary disease) Code(s): J44.9 - CHRONIC OBSTRUCTIVE PULMONARY DISEASE, UNSPECIFIED Qualifiers: COPD type: unspecified COPD Qualified Code(s): J44.9 - Chronic obstructive pulmonary disease, unspecified (3) Hypercarbia Code(s): R06.89 - OTHER ABNORMALITIES OF BREATHING (4) Pulmonary fibrosis Code(s): J84.10 - PULMONARY FIBROSIS, UNSPECIFIED (5) Acute and chronic respiratory failure with hypoxia Code(s): J96.21 - ACUTE AND CHRONIC RESPIRATORY FAILURE WITH HYPOXIA Assessment/Plan 52 YOF with PMHx s/f pulmonary fibrosis, pulmonary HTN, pulmonary embolism x3 in 2016, COPD, CHF, DM, HTN, SLE, and anxiety. She is BIBA from her SNF with c/ o increasing SOB and GOMEZ and increasing O2 requirements in the setting of her prednisone taper and possible sick contact now admitted to ICU with acute on chronic hypercarbic/hypoxic respiratory failure 2/2 to worsening chronic disease +/_ COPD exacerbation +/- CHF exacerbation +/- HCAP Plan: -NC O2 support for O2 sat>95% - Duonebs q6 -Prednisone 40mg qd -Lasix diuresis -Do cath for strict I&O -Empiric antibiotic coverage with Azithro and Ceftriaxone -F/u cxls, urine antigens and viral swabs -TTE -CXR -Consider CT chest if worsening SOB -Cont antihypertensives -Cont SLE treatment -Fingersticks and ISS -DVT prophylaxis VIJI Davidson CC time 35mins
[2017-06-21] MEDS ORDERED: AZITHROMYCIN IVPB 500 MG in DEXTROSE 5%-WATER - 250 ML IVPB ONE (20:28)
[2017-06-21] MEDS: FUROSEMIDE 40 MG/4 ML INJECTABLE VIAL IVPUSH SCH (20:53)
[2017-06-21] MEDS: CEFTRIAXONE 1 G/50 ML PREMIX 50 ML IVPB SCH (20:53)
[2017-06-21] MEDS ORDERED: morphine CARPU-JECT 2 MG/1 ML DISP.SYRIN ONE (21:04)
[2017-06-21] MEDS: morphine CARPU-JECT 4 MG/1 ML DISP.SYRIN IVPUSH PRN (21:13)
[2017-06-21] MEDS: INSULIN SLIDING SCALE (NOVOLOG) 1 VIAL SQ SCH (21:20)
[2017-06-22] MEDS: FUROSEMIDE 40 MG/4 ML INJECTABLE VIAL IVPUSH SCH ×2 (05:03→14:48)
[2017-06-22] MEDS ORDERED: morphine CARPU-JECT 2 MG/1 ML DISP.SYRIN ONE (05:48)
[2017-06-22] MEDS: morphine CARPU-JECT 4 MG/1 ML DISP.SYRIN IVPUSH PRN ×2 (05:52→17:10)
[2017-06-22 06:13] LABS: MCH 29.5 pg (25.7-33.7); MCHC 30.9 g/dl (32.0-36.0); MEAN CELL VOLUME 95.7 fl (80-96); MEAN PLT VOLUME 9.2 fl (7.5-11.1); PLATELET COUNT 125 K/MM3 (134-434); RDW 16.5 % (11.6-15.6); WHITE BLOOD COUNT 8.2 K/mm3 (4.0-10.0)
[2017-06-22] MEDS: INSULIN SLIDING SCALE (NOVOLOG) 1 VIAL SQ SCH ×4 (06:23→23:28)
[2017-06-22 06:33] LABS: ALBUMIN 2.3 g/dl (3.4-5.0); ALK PHOS 83 U/L (45-117); BILIRUBIN,TOTAL 0.4 mg/dL (0.2-1.0); CALCIUM 10.1 mg/dL (8.5-10.1); CREATININE 0.3 mg/dL (0.55-1.02); GLUCOSE,RANDOM 139 mg/dL (74-106); SGOT/AST 30 U/L (15-37); SGPT/ALT 26 U/L (12-78); TOT PROT 5.6 g/dl (6.4-8.2)
[2017-06-22 06:43] LABS: ANION GAP 5 (8-16); CO2 54 mmol/L (21-32)
[2017-06-22] MEDS: ALBUTEROL SO4 2.5/IPRATROPIUM 0.5 INH SOL 3 ML VIAL.NEB. NEB SCH ×4 (06:59→17:33)
--- NOTE | 2017-06-22 08:53 | PN ---
Progress Note (short form) - Note Progress Note: PULM/CCM Pt seen and examined in the ICU 24HR: -admitted -abg with chronic resp failure -started on high dose steroids, nebs, diuresis, and CAP coverage Vital Signs Temp 99 F 06/22/17 06:00 Pulse 108 H 06/22/17 06:00 Resp 25 H 06/22/17 06:00 BP 160/97 06/22/17 06:00 Pulse Ox 99 06/21/17 21:18 Intake & Output 06/21/17 06/21/17 06/22/17 11:59 23:59 11:59 Intake Total 830 Output Total 1200 1700 Balance -1200 -870 Weight 119.748 kg 116.755 kg Intake: IVPB 350 Oral 480 Output: Urine 1200 1700 Do 1200 1700 Other: Voiding Method Indwelling Catheter Indwelling Catheter Bowel Movement No Height 5 ft 7 in Body Mass Index (BMI) 41.3 Weight Measurement Method [facility] Method Standing Scale CBCD WBC 8.2 K/mm3 (4.0-10.0) 06/22/17 05:50 RBC 3.48 M/mm3 (3.60-5.2) L 06/22/17 05:50 Hgb 10.3 GM/dL (10.7-15.3) L 06/22/17 05:50 Hct 33.3 % (32.4-45.2) 06/22/17 05:50 MCV 95.7 fl (80-96) 06/22/17 05:50 MCHC 30.9 g/dl (32.0-36.0) L 06/22/17 05:50 RDW 16.5 % (11.6-15.6) H 06/22/17 05:50 Plt Count 125 K/MM3 (134-434) L 06/22/17 05:50 MPV 9.2 fl (7.5-11.1) D 06/22/17 05:50 CMP Sodium 143 mmol/L (136-145) 06/22/17 05:50 Potassium 3.1 mmol/L (3.5-5.1) L 06/22/17 05:50 Chloride 84 mmol/L (98-107) L 06/22/17 05:50 Carbon Dioxide 54 mmol/L (21-32) H D 06/22/17 05:50 Anion Gap 5 (8-16) L 06/22/17 05:50 BUN 8 mg/dL (7-18) 06/22/17 05:50 Creatinine 0.3 mg/dL (0.55-1.02) L 06/22/17 05:50 Creat Clearance w eGFR > 60 (>60) 06/22/17 05:50 Calcium 10.1 mg/dL (8.5-10.1) 06/22/17 05:50 Total Bilirubin 0.4 mg/dL (0.2-1.0) D 06/22/17 05:50 AST 30 U/L (15-37) 06/22/17 05:50 ALT 26 U/L (12-78) 06/22/17 05:50 Alkaline Phosphatase 83 U/L (45-117) 06/22/17 05:50 Total Protein 5.6 g/dl (6.4-8.2) L 06/22/17 05:50 Albumin 2.3 g/dl (3.4-5.0) L 06/22/17 05:50 ABG Results ABG pH 7.38 (7.35-7.45) 06/21/17 14:10 ABG pCO2 at Pt Temp 84.4 mmHg (35-45) H* D 06/21/17 14:10 ABG pO2 at Pt Temp 97.7 mmHg (80-100) D 06/21/17 14:10 ABG HCO3 48.9 meq/L (22-26) H* 06/21/17 14:10 ABG O2 Sat (Measured) 97.8 % (90-98.9) 06/21/17 14:10 ABG O2 Content 13.1 % vol (15-22) L 06/21/17 14:10 ABG Base Excess 20.6 meq/l (-2-2) H* 06/21/17 14:10 Active Medications Acetaminophen (Tylenol -) 650 mg PO Q6H PRN PRN Reason: FEVER OR PAIN Albuterol/Ipratropium (Duoneb -) 1 amp NEB QIDR [facility] Last Admin: 06/22/17 06:59 Dose: 1 amp Amlodipine Besylate (Norvasc -) 5 mg PO DAILY [facility] Cholecalciferol (Vitamin D3 -) 1,000 unit PO DAILY [facility] Diazepam (Valium -) 2 mg PO Q8H PRN Emollient Ointment (Aquaphor -) 1 applic TP DAILY [facility] Furosemide (Lasix Injection -) 40 mg IVPUSH BIDLASIX [facility] Last Admin: 06/22/17 05:03 Dose: 40 mg Hydroxychloroquine Sulfate (Plaquenil -) 200 mg PO DAILY [facility] CEFTRIAXONE 1 G/50 ML PREMIX (Ceftriaxone 1 Gm-D5w Bag) 50 mls @ 100 mls/hr IVPB DAILY [facility] Last Admin: 06/21/17 20:53 Dose: 100 mls/hr Potassium Chloride (Potassium Chloride 10 Meq Premix Ivpb -) 10 meq in 100 mls @ 100 mls/hr IVPB Q60M [facility] Stop: 06/22/17 10:29 Insulin Aspart (Novolog Vial Sliding Scale -) 1 vial SQ ACHS [facility] PRN Reason: Protocol Last Admin: 06/22/17 06:23 Dose: Not Given Loratadine (Claritin -) 10 mg PO DAILY [facility] Metoprolol Succinate (Toprol Xl -) 50 mg PO DAILY [facility] Morphine Sulfate (Morphine Injection -) 4 mg IVPUSH Q6H PRN PRN Reason: PAIN Last Admin: 06/22/17 05:52 Dose: 4 mg Nitroglycerin (Nitro-Dur Patch -) 0.1 mg TD DAILY [facility] Pantoprazole Sodium (Protonix -) 40 mg PO DAILY [facility] Prednisone (Deltasone -) 40 mg PO DAILY [facility] Senna (Senna -) 2 tab PO HS PRN PRN Reason: CONSTIPATION Valsartan (Diovan -) 160 mg PO DAILY [facility] Microbiology 06/21/17 21:45 Nasopharyngeal Swab Influenza Types A,B Antigen (STAR) - Final NEGATIVE 06/21/17 21:45 Nasopharyngeal Swab - Final Urine and Blood pending no sputum PE: Gen;awake,alert, no acute distress PULM: diminished bases, few crackles CV: RRR, no m/r/g appreciated, slightly displaced PMI ABD: obese, soft, NT EXT: dependent edema NEURO: non focal A/52 YOF with PMHx s/f pulmonary fibrosis, pulmonary HTN, pulmonary embolism x3 in 2016, COPD, CHF, DM, HTN, SLE, and anxiety. She is BIBA from her SNF with c/ o increasing SOB and GOMEZ and increasing O2 requirements in the setting of her prednisone taper and possible sick contact now admitted to ICU with acute on chronic hypercarbic/hypoxic respiratory failure 2/2 to worsening chronic disease +/_ COPD exacerbation +/- CHF exacerbation +/- CAP Plan: -NC O2 support for O2 sat>95% - Duonebs q6 -Medrol 125--> Prednisone 40mg qd -Lasix diuresis O>I -Do cath for strict I&O -Empiric antibiotic coverage with Azithro and Ceftriaxone, she is immuno- incompetent on chronic steroids and imuran. Low threshold to broaden abx -F/u cxls, urine antigens and viral swabs -TTE -Consider CT chest if worsening SOB -Cont antihypertensives -Cont SLE treatment -Fingersticks and ISS -DVT prophylaxis DISPO/GOC: This morning had opportunity to discuss GOC with Ms Mason. She had good understanding of her medical condition, knows that a lung transplant is only intermediate accountant treatment for her advanced lung disease and pHTN, and that it is unlikley that she will be a candidate given her obesity and deconditioning. She also understands that intubation/mechanical ventilation are highly unlikely to be beneficial or prolong her life in a meaningful way. 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 All questions were answered.
[2017-06-22] MEDS: KCL 10 MEQ IVPB 10 MEQ/100 ML INFUS.BAG IVPB SCH ×2 (09:30→09:44)
[2017-06-22] MEDS: CEFTRIAXONE 1 G/50 ML PREMIX 50 ML IVPB SCH (09:45)
[2017-06-22] MEDS: HYDROXYCHLOROQUINE SO4 200 MG TABLET (FP) PO SCH (09:47)
[2017-06-22] MEDS: predniSONE 20 MG TABLET (UD) PO SCH (09:57)
[2017-06-22] MEDS: VALSARTAN 160 MG TABLET (UD) PO SCH (09:58)
[2017-06-22] MEDS: amLODIPine BESYLATE 5 MG TABLET (FP) PO SCH (09:58)
[2017-06-22] MEDS: PANTOPRAZOLE 40 MG TABLET (FP) PO SCH (09:58)
[2017-06-22] MEDS: METOPROLOL SUCCINATE 50 MG TAB.SR.24H (FP) PO SCH (09:58)
[2017-06-22] MEDS: CHOLECALCIFEROL (VITAMIN D3) 1,000 UNIT TABLET (FP) PO SCH (09:58)
[2017-06-22] MEDS: LORATADINE 10 MG TABLET PO SCH (09:59)
[2017-06-22] MEDS: NITROGLYCERIN 0.1 MG/HOUR TD PATCH TD SCH (09:59)
[2017-06-22] MEDS: MINERAL OIL/PET HY-PHL TOPICAL OINTMENT 454 GM JAR TP SCH (10:01)
--- NOTE | 2017-06-22 11:32 | CONSULT ---
Consult Consult Specialty:: Cardiology Referred by:: ICU Reason for Consultation:: CHF - History of Present Illness Chief Complaint: Dyspena History of Present Illness: 52 yo with h/o diast CHF, ILD followed by pulmonary, COPD, O2 dependent, pulm HTN, morbid obesity, HTN, MGUS, Lupus, venous insufficiency, GERD, PE's on eliquis (stopped), non-obstructing kidney stones. HTN and prior multiple PEs x 3 in 2016 Reported h/o "CHF" SNF resident Now admitted with increased dyspena with hypoxia on supplemental O2 in the setting of recent sick contact at SNF and sudden decrease in PO steroid taper. The patient additionally notes that over the past few weeks she has had episodes of chills, nausea, headache, chest pain and palpitations and leg swelling (baseline R>L). In the ED afebrile HR 110's BP , RR 20's with wheeze and productive cough. Labs notable for WBC 9, ABG PCO2 80's, Po2 97.7 on 8L NC, BNP 1100, Hgb 9.6. CXR s/f chronic fibrotic changes with possible BLL infiltrate with possible mediastinal shift to right. She was given nebs, Methyl pred 125mg. She was seen by Dr Parks and transferred to ICU for further management. L/RHC 07/18: wedge 20-->down to 10 with nitroprusside; PA 48/22-->34/8; CI 2.1; normal cors Echo 06/2015: tds, nl lvef, mild/mod dec rv fcn, mild/mod dilated rv, no sig valve path, mild phtn) - Past Medical History Cardio/Vascular: Yes: HTN Pulmonary: Yes: COPD, O2 Dependent, Pulmonary Fibrosis Gastrointestinal: Yes: Constipation, GERD Renal/: Yes: Renal Calculi ...: No Rheumatology: Yes: Lupus - Past Surgical History Past Surgical History: Yes: Cholecystectomy, Hysterectomy - Alcohol/Substance Use Hx Alcohol Use: No - Smoking History Smoking history: Former smoker Have you smoked in the past 12 months: No Home Medications - Allergies Allergies/Adverse Reactions: Allergies Allergy/AdvReac Type Severity Reaction Status Date / Time No Known Allergies Allergy Verified 06/21/17 13:46 - Home Medications Home Medications: Ambulatory Orders Amlodipine Besylate [Norvasc -] 5 mg PO DAILY 06/21/17 Calcitonin-[place] [Miacalcin] 0 ml NS DAILY 06/21/17 Diazepam [Valium] 5 mg PO ASDIR 06/21/17 Ergocalciferol [Drisdol Oral Solution -] 16,000 units PO DAILY 06/21/17 Hydroxychloroquine Sulfate 200 mg PO ASDIR 06/21/17 Insulin (LOG) Aspart [NovoLOG -] 0 units SQ [facility] 06/21/17 Loratadine [Claritin] 10 mg PO DAILY 06/21/17 Methotrexate Sodium [Methotrexate] 2.5 mg PO DAILY 06/21/17 Metoprolol Succinate [Toprol Xl] 50 mg PO DAILY 06/21/17 Mineral Oil/Pet Hy-Phl [Aquaphor] 1 applic TP [facility] 06/21/17 Nitroglycerin Patch [Nitro-Dur] 0.4 mg TD ASDIR 06/21/17 Pantoprazole Sodium [Protonix] 40 mg PO DAILY 06/21/17 Prednisone [Deltasone -] 20 mg PO DAILY 06/21/17 Sennosides [Senna] 8.6 mg PO DAILY 06/21/17 Torsemide 100 mg PO DAILY 06/21/17 Tramadol HCl 50 mg PO DAILY 06/21/17 Valsartan [Diovan] 160 mg PO DAILY 06/21/17 Review of Systems - Review of Systems Constitutional: reports: No Symptoms Eyes: reports: No Symptoms HENT: reports: No Symptoms Neck: reports: No Symptoms Cardiovascular: reports: No Symptoms Respiratory: reports: SOB Gastrointestinal: reports: No Symptoms Genitourinary: reports: No Symptoms Physical Exam Vital Signs: Vital Signs Temperature 99 F 06/22/17 06:00 Pulse Rate 109 H 06/22/17 10:21 Respiratory Rate 18 06/22/17 10:00 Blood Pressure 137/83 06/22/17 10:00 O2 Sat by Pulse Oximetry (%) 100 06/22/17 10:21 Constitutional: Yes: Well Nourished, No Distress Eyes: Yes: WNL HENT: Yes: WNL Neck: Yes: WNL Cardiovascular: Yes: Regular Rate and Rhythm Respiratory: Yes: CTA Bilaterally Gastrointestinal: Yes: WNL Extremities: Yes: WNL Edema: LLE: 1+, RLE: 1+ Labs: CBC, BMP 06/22/17 05:50 06/22/17 05:50 Imaging - Results Chest X-ray: Image Reviewed (Severe interstital lung disease. Mediastinal shift.) X-ray: Image Reviewed (Interstitial pattern with low lung volumes. Medistainal shift.) EKG: Image Reviewed (ECG on 06/21/2017 at 18:10 with sinus tachycardia with biatrial enlargement and VH.) Other: Other (L/RHC 07/18: wedge 20-->down to 10 with nitroprusside; PA 48/22--> 34/8; CI 2.1; normal cors Echo 06/2015: tds, nl lvef, mild/mod dec rv fcn, mild/mod dilated rv, no sig valve path, mild phtn) Assessment/Plan 52 yo fmeale with severe lung disease (ILD) on supplemental O2, HTN, multile PEs on AC now [facility]. 1) Dyspnea -Likely related to ILD - pulmonary following -Challenging physical exam to assess volume, but May be component of HFpEF and reasonable to given empiric diuresis with lasix 40mg BID 2) HTN - Previous admissin for very labile BP, now seems well controlled. - con't valsartan, diuretic, nitro patch h/o PEs: -dx'd in outside hosp ([facility]) 06/19--previously on Eliquis. -Prior notes states she completed treatment (??)
--- NOTE | 2017-06-22 12:14 | HP ---
Admitting History and Physical - Primary Care Physician PCP: Malcom Waddell - Admission Chief Complaint: RESP DISTRESS SENT FROM [place] History of Present Illness: 52 YOF with PMHx s/f pulmonary fibrosis, pulmonary HTN, pulmonary embolism x3 in 2016, COPD, CHF, DM, HTN, SLE, and anxiety. She is BIBA from her SNF with c/ o increasing SOB and GOMEZ since starting a prednisone taper from 40 mg bid to 27.5 mg. She explains that her entry level accountant (Dr. Parks) planned to start her on three new medications (methotrexate, imuran, and one other medication) in attempt to acheive weight loss to be a lung transplant candidate. She notes increasing productive cough with phlegm, wheezing, shortness of breath, and desaturations in pulse oxygenation to the mid-60s at her SNF even while on her baseline 6 L which was increased from 6 to 9 LPM. The patient additionally notes that over the past few weeks she has had episodes of . She reported chills , nausea, headache, chest pain and palpitations, leg swelling (right is always worse than left for her). In the ED afebrile HR 110's BP , RR 20's with wheeze and productive cough. Labs notable for WBC 9, ABG PCO2 80's, Po2 97.7 on 8L NC, BNP 1100, Hgb 9.6. CXR s/f chronic fibrotic changes with possible BLL infiltrate with possible mediastinal shift to right. She was given duonebs, Methyl pred 125mg. She was seen by Dr Parks and transferred to ICU for further management. History Source: Patient, Medical Record Limitations to Obtaining History: Clinical Condition, Poor Historian - Past Medical History Cardiovascular: Yes: HTN Pulmonary: Yes: COPD, O2 Dependent, Pulmonary Fibrosis Gastrointestinal: Yes: Constipation, GERD Renal/: Yes: Renal Calculi ...: No Rheumatology: Yes: Lupus - Past Surgical History Past Surgical History: Yes: Cholecystectomy, Hysterectomy - Smoking History Smoking history: Former smoker Have you smoked in the past 12 months: No - Alcohol/Substance Use Hx Alcohol Use: No Home Medications - Allergies Allergies/Adverse Reactions: Allergies Allergy/AdvReac Type Severity Reaction Status Date / Time No Known Allergies Allergy Verified 06/21/17 13:46 - Home Medications Home Medications: Ambulatory Orders Amlodipine Besylate [Norvasc -] 5 mg PO DAILY 06/21/17 Calcitonin-G[place]t [Miacalcin] 0 ml NS DAILY 06/21/17 Diazepam [Valium] 5 mg PO ASDIR 06/21/17 Ergocalciferol [Drisdol Oral Solution -] 16,000 units PO DAILY 06/21/17 Hydroxychloroquine Sulfate 200 mg PO ASDIR 06/21/17 Insulin (LOG) Aspart [NovoLOG -] 0 units SQ ASDIR 06/21/17 Loratadine [Claritin] 10 mg PO DAILY 06/21/17 Methotrexate Sodium [Methotrexate] 2.5 mg PO DAILY 06/21/17 Metoprolol Succinate [Toprol Xl] 50 mg PO DAILY 06/21/17 Mineral Oil/Pet Hy-Phl [Aquaphor] 1 applic TP ASDIR 06/21/17 Nitroglycerin Patch [Nitro-Dur] 0.4 mg TD ASDIR 06/21/17 Pantoprazole Sodium [Protonix] 40 mg PO DAILY 06/21/17 Prednisone [Deltasone -] 20 mg PO DAILY 06/21/17 Sennosides [Senna] 8.6 mg PO DAILY 06/21/17 Torsemide 100 mg PO DAILY 06/21/17 Tramadol HCl 50 mg PO DAILY 06/21/17 Valsartan [Diovan] 160 mg PO DAILY 06/21/17 Review of Systems - Review of Systems Constitutional: reports: Weakness Eyes: reports: No Symptoms HENT: reports: No Symptoms Neck: reports: No Symptoms Cardiovascular: reports: Shortness of Breath Respiratory: reports: Cough, SOB, SOB on Exertion, Wheezing Gastrointestinal: reports: No Symptoms Genitourinary: reports: Incontinence Musculoskeletal: reports: Joint Pain, Muscle Weakness Integumentary: reports: Pruritis, Rash Neurological: reports: Pre-Existing Deficit Endocrine: reports: No Symptoms Hematology/Lymphatic: reports: No Symptoms Psychiatric: reports: Anxiety, Depression Physical Examination Vital Signs: Vital Signs Temperature 99 F 06/22/17 06:00 Pulse Rate 106 H 06/22/17 11:00 Respiratory Rate 18 06/22/17 11:00 Blood Pressure 137/83 06/22/17 11:00 O2 Sat by Pulse Oximetry (%) 98 06/22/17 11:44 Findings/Remarks: ASLEEP,COMFORTABLE Constitutional: Yes: Moderate Distress Eyes: Yes: WNL HENT: Yes: WNL Neck: Yes: WNL Cardiovascular: Yes: WNL Respiratory: Yes: On Venti-Mask, Poor Air Entry, SOB Gastrointestinal: Yes: WNL Musculoskeletal: Yes: WNL Edema: Yes Peripheral Pulses WNL: Yes Integumentary: Yes: WNL Wound/Incision: Yes: Clean/Dry Neurological: Yes: Pre-Existing Deficit ...Motor Strength: LLE, RLE Psychiatric: Yes: Other Labs: CBC, BMP 06/22/17 05:50 06/22/17 05:50 Imaging - Results Chest X-ray: Report Reviewed Problem List - Problems (1) Anemia Code(s): D64.9 - ANEMIA, UNSPECIFIED Qualifiers: Anemia type: unspecified type Qualified Code(s): D64.9 - Anemia, unspecified (2) CHF exacerbation Code(s): I50.9 - HEART FAILURE, UNSPECIFIED Qualifiers: Congestive heart failure type: unspecified congestive heart failure type Qualified Code(s): I50.9 - Heart failure, unspecified (3) COPD (chronic obstructive pulmonary disease) Code(s): J44.9 - CHRONIC OBSTRUCTIVE PULMONARY DISEASE, UNSPECIFIED Qualifiers: COPD type: unspecified COPD Qualified Code(s): J44.9 - Chronic obstructive pulmonary disease, unspecified (4) Hypercarbia Code(s): R06.89 - OTHER ABNORMALITIES OF BREATHING (5) Pulmonary fibrosis Code(s): J84.10 - PULMONARY FIBROSIS, UNSPECIFIED (6) Acute and chronic respiratory failure with hypoxia Code(s): J96.21 - ACUTE AND CHRONIC RESPIRATORY FAILURE WITH HYPOXIA (7) Lumbar compression fracture Code(s): S32.000A - WEDGE COMPRESSION FRACTURE OF UNSP LUMBAR VERTEBRA, INIT (8) Lupus (systemic lupus erythematosus) Code(s): M32.9 - SYSTEMIC LUPUS ERYTHEMATOSUS, UNSPECIFIED Qualifiers: Systemic lupus erythematosus type: unspecified Systemic lupus erythematosus organ involvement: unspecified Qualified Code(s): M32.9 - Systemic lupus erythematosus, unspecified (9) Morbid obesity Code(s): E66.01 - MORBID (SEVERE) OBESITY DUE TO EXCESS CALORIES (10) Sarcoidosis Code(s): D86.9 - SARCOIDOSIS, UNSPECIFIED Assessment/Plan ICU ADMISSION LABS REVIEWED CHECK PULMONARY STATUS TRANSPLANT PATIENT? PULMONARY CONSULT CARDIOLOGY F/U ANXIETY CONTROL
[2017-06-22] MEDS ORDERED: morphine SULFATE 4 MG/ML VIAL ONE (17:08)
[2017-06-22] MEDS ORDERED: OXYMETAZOLINE 0.05% NASAL SOLUTION 15 ML BOTTLE NS PRN ×2 (18:25→19:02)
[2017-06-23] MEDS: ALBUTEROL SO4 2.5/IPRATROPIUM 0.5 INH SOL 3 ML VIAL.NEB. NEB SCH ×4 (00:03→17:10)
[2017-06-23] MEDS: FUROSEMIDE 40 MG/4 ML INJECTABLE VIAL IVPUSH SCH (05:33)
[2017-06-23 06:22] LABS: MCH 29.8 pg (25.7-33.7); MCHC 30.9 g/dl (32.0-36.0); MEAN CELL VOLUME 96.7 fl (80-96); MEAN PLT VOLUME 10.1 fl (7.5-11.1); PLATELET COUNT 126 K/MM3 (134-434); RDW 16.1 % (11.6-15.6); WHITE BLOOD COUNT 10.4 K/mm3 (4.0-10.0)
[2017-06-23] MEDS: INSULIN SLIDING SCALE (NOVOLOG) 1 VIAL SQ SCH ×3 (06:36→22:12)
[2017-06-23 07:02] LABS: ALBUMIN 2.3 g/dl (3.4-5.0); CALCIUM 10.4 mg/dL (8.5-10.1); GLUCOSE,RANDOM 70 mg/dL (74-106)
[2017-06-23 07:07] LABS: ALK PHOS 89 U/L (45-117); BILIRUBIN,TOTAL 0.3 mg/dL (0.2-1.0); CREATININE 0.4 mg/dL (0.55-1.02); SGOT/AST 29 U/L (15-37); SGPT/ALT 26 U/L (12-78); TOT PROT 5.4 g/dl (6.4-8.2)
[2017-06-23 08:15] LABS: ANION GAP -5 (8-16); CO2 66 mmol/L (21-32)
[2017-06-23 09:10] LABS: MAGNESIUM 1.3 mg/dL (1.8-2.4)
[2017-06-23 09:10] LABS: ARTERIAL BLD GAS O2 SATURATION 97.4 % (90-98.9); ARTERIAL BLOOD GAS HCO3 68.9 meq/L (22-26); ARTERIAL BLOOD GAS PO2 90.3 mmHg (80-100); ARTERIAL BLOOD GAS pH 7.43 (7.35-7.45)
[2017-06-23] MEDS ORDERED: PT OWN MED DRAWER 7, Y5N ONE (09:12)
[2017-06-23 09:16] LABS: ALLENS TEST POSITIVE
[2017-06-23 09:18] LABS: PT. ON O2? YES
[2017-06-23 09:20] LABS: TYPE OF O2 NASAL
[2017-06-23 09:21] LABS: ART PUNCT SITE RIGHT RADIAL; LPM/O2% 5
[2017-06-23] MEDS: POTASSIUM CHLORIDE TABS 20 MEQ TABLET.ER (FP) PO ONE ×2 (09:30→09:45)
[2017-06-23] MEDS ORDERED: MAGNESIUM OXIDE 400 MG TABLET (FP) PO ONE (09:30)
[2017-06-23] MEDS: CEFTRIAXONE 1 G/50 ML PREMIX 50 ML IVPB SCH (09:45)
[2017-06-23] MEDS: MINERAL OIL/PET HY-PHL TOPICAL OINTMENT 454 GM JAR TP SCH (09:45)
[2017-06-23] MEDS: predniSONE 20 MG TABLET (UD) PO SCH (09:46)
[2017-06-23] MEDS: NITROGLYCERIN 0.1 MG/HOUR TD PATCH TD SCH (09:46)
[2017-06-23] MEDS: LORATADINE 10 MG TABLET PO SCH (09:46)
[2017-06-23] MEDS: VALSARTAN 160 MG TABLET (UD) PO SCH (09:46)
[2017-06-23] MEDS: METOPROLOL SUCCINATE 50 MG TAB.SR.24H (FP) PO SCH (09:47)
[2017-06-23] MEDS: HYDROXYCHLOROQUINE SO4 200 MG TABLET (FP) PO SCH (09:47)
[2017-06-23] MEDS: CHOLECALCIFEROL (VITAMIN D3) 1,000 UNIT TABLET (FP) PO SCH (09:47)
[2017-06-23] MEDS: PANTOPRAZOLE 40 MG TABLET (FP) PO SCH (09:47)
[2017-06-23] MEDS: amLODIPine BESYLATE 5 MG TABLET (FP) PO SCH (09:47)
[2017-06-23] MEDS ORDERED: morphine SULFATE 4 MG/ML VIAL ONE ×2 (09:52→19:31)
--- NOTE | 2017-06-23 09:52 | EKG ---
Test Reason : Blood Pressure : / mmHG Vent. Rate : 116 BPM Atrial Rate : 116 BPM P-R Int : 150 ms QRS Dur : 116 ms QT Int : 346 ms P-R-T Axes : 045 005 115 degrees QTc Int : 480 ms SINUS TACHYCARDIA BIATRIAL ENLARGEMENT LEFT VENTRICULAR HYPERTROPHY WITH QRS WIDENING AND REPOLARIZATION ABNORMALITY ABNORMAL ECG WHEN COMPARED WITH ECG OF 19-FEB-2017 11:28, NONSPECIFIC T WAVE ABNORMALITY, WORSE IN ANTERIOR LEADS Confirmed by KELLIE DUMONT, JOHN PAUL ([id number]) on 06/23/2017 9:51:55 AM Referred By: Confirmed By:JOHN PAUL HOPKINS MD
--- NOTE | 2017-06-23 09:52 | PN ---
Progress Note, Physician Chief Complaint: acute resp failure History of Present Illness: sob is a little better today than yet; sharp, localized, fleeting sticking pains sporadically sometimes; o/w no cp no leg swelling, palpit - Current Medication List Current Medications: Active Medications Acetaminophen (Tylenol -) 650 mg PO Q6H PRN PRN Reason: FEVER OR PAIN Albuterol/Ipratropium (Duoneb -) 1 amp NEB QIDR [facility] Last Admin: 06/23/17 07:02 Dose: Not Given Amlodipine Besylate (Norvasc -) 5 mg PO DAILY [facility] Last Admin: 06/22/17 09:58 Dose: 5 mg Cholecalciferol (Vitamin D3 -) 1,000 unit PO DAILY [facility] Last Admin: 06/22/17 09:58 Dose: 1,000 unit Diazepam (Valium -) 2 mg PO Q8H PRN Emollient Ointment (Aquaphor -) 1 applic TP DAILY [facility] Last Admin: 06/22/17 10:01 Dose: 1 applic Furosemide (Lasix Injection -) 40 mg IVPUSH BIDLASIX [facility] Last Admin: 06/23/17 05:33 Dose: 40 mg Hydroxychloroquine Sulfate (Plaquenil -) 200 mg PO DAILY [facility] Last Admin: 06/22/17 09:47 Dose: 200 mg CEFTRIAXONE 1 G/50 ML PREMIX (Ceftriaxone 1 Gm-D5w Bag) 50 mls @ 100 mls/hr IVPB DAILY [facility] Last Admin: 06/22/17 09:45 Dose: 100 mls/hr Insulin Aspart (Novolog Vial Sliding Scale -) 1 vial SQ ACHS [facility] PRN Reason: Protocol Last Admin: 06/23/17 06:36 Dose: Not Given Loratadine (Claritin -) 10 mg PO DAILY [facility] Last Admin: 06/22/17 09:59 Dose: 10 mg Metoprolol Succinate (Toprol Xl -) 50 mg PO DAILY [facility] Last Admin: 06/22/17 09:58 Dose: 50 mg Morphine Sulfate (Morphine Injection -) 4 mg IVPUSH Q6H PRN PRN Reason: PAIN Last Admin: 06/22/17 17:10 Dose: 4 mg Nitroglycerin (Nitro-Dur Patch -) 0.1 mg TD DAILY [facility] Last Admin: 06/22/17 09:59 Dose: 0.1 mg Oxymetazoline HCl (Afrin -) 2 spray NS Q12H PRN PRN Reason: NASAL CONGESTION Last Admin: 06/23/17 05:56 Dose: 2 spray Pantoprazole Sodium (Protonix -) 40 mg PO DAILY [facility] Last Admin: 06/22/17 09:58 Dose: 40 mg Prednisone (Deltasone -) 40 mg PO DAILY [facility] Last Admin: 06/22/17 09:57 Dose: 40 mg Senna (Senna -) 2 tab PO HS PRN PRN Reason: CONSTIPATION Valsartan (Diovan -) 160 mg PO DAILY [facility] Last Admin: 06/22/17 09:58 Dose: 160 mg - Objective Vital Signs: Vital Signs Temperature 99.2 F 06/23/17 06:00 Pulse Rate 102 H 06/23/17 09:40 Respiratory Rate 18 06/23/17 08:55 Blood Pressure 132/84 06/23/17 08:00 O2 Sat by Pulse Oximetry (%) 99 06/23/17 09:40 Constitutional: Yes: No Distress, Calm, Obese Cardiovascular: Yes: Regular Rate and Rhythm, S1, S2. No: JVD, Gallop, Murmur Respiratory: Yes: Regular, Rales (diffusely), Wheezes. No: Accessory Muscle Use Extremities: No: Cold Edema: No Neurological: Yes: Alert, Oriented Psychiatric: No: Agitated Labs: CBC, BMP 06/23/17 05:25 06/23/17 05:25 - ....Imaging EKG: Other (tele: sinus with sinus tach) Assessment/Plan L/RHC 07/18: wedge 20-->down to 10 with nitroprusside; PA 48/22-->34/8; CI 2.1; normal cors Echo 06/2015: tds, nl lvef, mild/mod dec rv fcn, mild/mod dilated rv, no sig valve path, mild phtn CXR 06/23, image reviewed: severe interstitial prominence diffusely; can't exclude component of vascular redistribution (no change vs 12/18 prior); no effusions 52 yo fmeale with severe lung disease (ILD) on supplemental O2, HTN, multile PEs on AC now [facility]. Dyspnea, likely a.e. ILDz +/- a.e. copd +/- PNA, with component of acute on chronic diast chf: -pulm/crit care following--treating with steroids, nebs, and covering with abx -BNP 1100, vs 70s prior; CXR ILD pattern, no definite congestion -trial of lasix 40 iv bid started. 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 -? if provoked or not -Prior notes states she completed treatment -per pmd +/- heme as indicated
[2017-06-23] MEDS: morphine CARPU-JECT 4 MG/1 ML DISP.SYRIN IVPUSH PRN ×2 (09:57→19:38)
--- NOTE | 2017-06-23 12:18 | PN ---
Teaching Attending Note Name of Resident: Karen Green ATTENDING PHYSICIAN STATEMENT I saw and evaluated the patient. I reviewed the resident's note and discussed the case with the resident. I agree with the resident's findings and plan as documented. SUBJECTIVE: Pt seen and examined in the ICU. Breathing slightly better today. Reports sputum still thick. No fevers recorded. OBJECTIVE: Last Vital Signs Temp Pulse Resp BP Pulse Ox 99.2 F 102 H 18 132/84 99 06/23/17 06:00 06/23/17 09:40 06/23/17 08:55 06/23/17 08:00 06/23/17 09:40 Intake & Output 06/20/17 06/21/17 06/22/17 06/23/17 23:59 23:59 23:59 23:59 Intake Total 1730 480 Output Total 1200 4000 300 Balance -1200 -2270 180 Weight 264 lb 257 lb 6.4 oz 259 lb 8 oz Gen: lethargic but arousable Heart: tachycardic, regular Lung: basilar rales, rhonchi Abd: soft, obese, nontender Ext: + edema CBC, BMP 06/23/17 05:25 06/23/17 05:25 Active Medications Acetaminophen (Tylenol -) 650 mg PO Q6H PRN PRN Reason: FEVER OR PAIN Albuterol/Ipratropium (Duoneb -) 1 amp NEB QIDR [facility] Last Admin: 06/23/17 11:07 Dose: 1 amp Amlodipine Besylate (Norvasc -) 5 mg PO DAILY [facility] Last Admin: 06/23/17 09:47 Dose: 5 mg Cholecalciferol (Vitamin D3 -) 1,000 unit PO DAILY [facility] Last Admin: 06/23/17 09:47 Dose: 1,000 unit Diazepam (Valium -) 2 mg PO Q8H PRN Emollient Ointment (Aquaphor -) 1 applic TP DAILY [facility] Last Admin: 06/23/17 09:45 Dose: 1 applic Heparin Sodium (Porcine) (Heparin -) 5,000 unit SQ BID [facility] Hydroxychloroquine Sulfate (Plaquenil -) 200 mg PO DAILY [facility] Last Admin: 06/23/17 09:47 Dose: 200 mg CEFTRIAXONE 1 G/50 ML PREMIX (Ceftriaxone 1 Gm-D5w Bag) 50 mls @ 100 mls/hr IVPB DAILY [facility] Last Admin: 06/23/17 09:45 Dose: 100 mls/hr Insulin Aspart (Novolog Vial Sliding Scale -) 1 vial SQ ACHS [facility] PRN Reason: Protocol Last Admin: 06/23/17 06:36 Dose: Not Given Loratadine (Claritin -) 10 mg PO DAILY [facility] Last Admin: 06/23/17 09:46 Dose: 10 mg Metoprolol Succinate (Toprol Xl -) 50 mg PO DAILY [facility] Last Admin: 06/23/17 09:47 Dose: 50 mg Morphine Sulfate (Morphine Injection -) 4 mg IVPUSH Q6H PRN PRN Reason: PAIN Last Admin: 06/23/17 09:57 Dose: 4 mg Nitroglycerin (Nitro-Dur Patch -) 0.1 mg TD DAILY [facility] Last Admin: 06/23/17 09:46 Dose: 0.1 mg Oxymetazoline HCl (Afrin -) 2 spray NS Q12H PRN PRN Reason: NASAL CONGESTION Last Admin: 06/23/17 05:56 Dose: 2 spray Pantoprazole Sodium (Protonix -) 40 mg PO DAILY [facility] Last Admin: 06/23/17 09:47 Dose: 40 mg Prednisone (Deltasone -) 40 mg PO DAILY [facility] Last Admin: 06/23/17 09:46 Dose: 40 mg Senna (Senna -) 2 tab PO HS PRN PRN Reason: CONSTIPATION Valsartan (Diovan -) 160 mg PO DAILY [facility] Last Admin: 06/23/17 09:46 Dose: 160 mg ASSESSMENT AND PLAN: Acute on Chronic Hypoxic and Hypercapneic Respiratory Failure Sarcoidosis COPD Pulmonary Fibrosis Pulmonary HTN h/o PE HTN DM Lupus - continue prednisone - inhaled bronchodilators - empiric antibiotics - f/u cultures - O2 to keep Spo2 >90% - BiPAP as needed to assist in work of breathing - hold lasix today as pt with rising bicarb - replete lytes - DVT/GI prophylaxis - discussed with pt advanced directives, she confirms DNR/DNI, will have her sign papers critical care time spent in reviewing chart, evaluating patient and formulating plan 35 min
[2017-06-23] MEDS: HEPARIN NA (PORCINE) 5,000 UNITS/ML 1ML VIAL SQ SCH ×2 (12:49→22:12)
--- NOTE | 2017-06-23 14:45 | PN ---
Physical Exam: SUBJECTIVE: Patient seen and examined at bedside. 24 hr events -Afebrile -On 6L NC 02 overnight, sat well -no respiratory distress Today -no acute events -Pt on venti mask, sat well 99% -without complaints, states SOB has improved OBJECTIVE: -Peripheral lines -1600 ml out: Via Do Vital Signs Period Temp Pulse Resp BP Sys/Steen Pulse Ox Last 24 Hr 99 F-99.6 F 85-107 14-25 102-152/78-97 97-100 GENERAL: The patient is awake, alert, and fully oriented, in no acute distress. On Venti mask, sat well HEAD: Normal with no signs of trauma. EYES: PERRL, extraocular movements intact, sclera anicteric, conjunctiva clear. NECK: Trachea midline, supple. LUNGS: decreased breath sounds at apices b/l, no crackles or rhonchi appreciated HEART: Regular rate and rhythm, S1, S2 without murmur, rub or gallop. ABDOMEN: Soft, obese, nontender, nondistended, normoactive bowel sounds EXTREMITIES: 2+ posterior tibial pulses, 1+ pitting edema noted b/l (R>L) NEUROLOGICAL: Cranial nerves II through XII grossly intact. Laboratory Results - last 24 hr 06/21/17 06/22/17 06/22/17 21:07 05:34 17:01 WBC RBC Hgb Hct MCV MCH MCHC RDW Plt Count MPV Puncture Site ABG pH ABG pCO2 at Pt Temp ABG pO2 at Pt Temp ABG HCO3 ABG O2 Sat (Measured) ABG O2 Content ABG Base Excess Zay Test O2 Delivery Device Oxygen Flow Rate Sodium Potassium Chloride Carbon Dioxide Anion Gap BUN Creatinine Creat Clearance w eGFR POC Glucometer 145.82795 143.22657 155.95953 Random Glucose Calcium Magnesium Total Bilirubin AST ALT Alkaline Phosphatase Total Protein Albumin 06/22/17 06/23/17 06/23/17 23:19 05:25 05:25 WBC 10.4 H RBC 3.40 L Hgb 10.1 L Hct 32.8 MCV 96.7 H MCH 29.8 MCHC 30.9 L RDW 16.1 H Plt Count 126 L MPV 10.1 Puncture Site ABG pH ABG pCO2 at Pt Temp ABG pO2 at Pt Temp ABG HCO3 ABG O2 Sat (Measured) ABG O2 Content ABG Base Excess Zay Test O2 Delivery Device Oxygen Flow Rate Sodium 142 Potassium 3.0 L Chloride 81 L Carbon Dioxide 66 H D Anion Gap -5 L BUN 10 D Creatinine 0.4 L D Creat Clearance w eGFR > 60 POC Glucometer 154.89623 Random Glucose 70 L D Calcium 10.4 H Magnesium 1.3 L Total Bilirubin 0.3 D AST 29 ALT 26 Alkaline Phosphatase 89 Total Protein 5.4 L Albumin 2.3 L 06/23/17 06/23/17 08:44 08:58 WBC RBC Hgb Hct MCV MCH MCHC RDW Plt Count MPV Puncture Site Right radial ABG pH 7.43 ABG pCO2 at Pt Temp 107.0 H* D ABG pO2 at Pt Temp 90.3 ABG HCO3 68.9 H* ABG O2 Sat (Measured) 97.4 ABG O2 Content 13.6 L ABG Base Excess 38.0 H* Zay Test Positive O2 Delivery Device Nasal Oxygen Flow Rate 5 Sodium Potassium Chloride Carbon Dioxide Anion Gap BUN Creatinine Creat Clearance w eGFR POC Glucometer Random Glucose Calcium Magnesium Cancelled Total Bilirubin AST ALT Alkaline Phosphatase Total Protein Albumin Active Medications Generic Name Dose Route Start Last Admin Trade Name Freq PRN Reason Stop Dose Admin Acetaminophen 650 mg 06/21/17 19:20 Tylenol - PO Q6H PRN FEVER OR PAIN Albuterol/Ipratropium 1 amp 06/21/17 20:45 06/23/17 11:07 Duoneb - NEB 1 amp QIDR [facility] Administration Amlodipine Besylate 5 mg 06/22/17 10:00 06/23/17 09:47 Norvasc - PO 5 mg DAILY [facility] Administration Cholecalciferol 1,000 unit 06/22/17 10:00 06/23/17 09:47 Vitamin D3 - PO 1,000 unit DAILY [facility] Administration Diazepam 2 mg 06/21/17 19:30 Valium - PO Q8H PRN Emollient Ointment 1 applic 06/22/17 10:00 06/23/17 09:45 Aquaphor - TP 1 applic DAILY [facility] Administration Heparin Sodium (Porcine) 5,000 unit 06/23/17 11:30 06/23/17 12:49 Heparin - SQ 5,000 unit BID [facility] Administration Hydroxychloroquine Sulfate 200 mg 06/22/17 10:00 06/23/17 09:47 Plaquenil - PO 200 mg DAILY [facility] Administration CEFTRIAXONE 1 G/50 ML PREMIX 50 mls @ 100 mls/hr 06/21/17 20:30 06/23/17 09: 45 Ceftriaxone 1 Gm-D5w Bag IVPB 100 mls/hr DAILY [facility] Administration Insulin Aspart 1 vial 06/21/17 19:30 06/23/17 12:25 Novolog Vial Sliding Scale - SQ Not Given ACHS [facility] Protocol Loratadine 10 mg 06/22/17 10:00 06/23/17 09:46 Claritin - PO 10 mg DAILY [facility] Administration Metoprolol Succinate 50 mg 06/22/17 10:00 06/23/17 09:47 Toprol Xl - PO 50 mg DAILY [facility] Administration Morphine Sulfate 4 mg 06/21/17 19:31 06/23/17 09:57 Morphine Injection - IVPUSH 4 mg Q6H PRN Administration PAIN Nitroglycerin 0.1 mg 06/22/17 10:00 06/23/17 09:46 Nitro-Dur Patch - TD 0.1 mg DAILY [facility] Administration Oxymetazoline HCl 2 spray 06/22/17 19:02 06/23/17 05:56 Afrin - NS 2 spray Q12H PRN Administration NASAL CONGESTION Pantoprazole Sodium 40 mg 06/22/17 10:00 06/23/17 09:47 Protonix - PO 40 mg DAILY [facility] Administration Prednisone 40 mg 06/22/17 10:00 06/23/17 09:46 Deltasone - PO 40 mg DAILY [facility] Administration Senna 2 tab 06/21/17 19:20 Senna - PO HS PRN CONSTIPATION Valsartan 160 mg 06/22/17 10:00 06/23/17 09:46 Diovan - PO 160 mg DAILY [facility] Administration ASSESSMENT/PLAN: 52 y/o F with PMH pulmonary fibrosis, sarcoid, pulm HTN, PE x 3 (2016), COPD, CHF, DM, HTN, SLE, Anxiety, BIB SNF for progressive respiratory distress over past few weeks since Prednisone taper 40mg BID. Pt admitted to ICU for continued monitoring, d/t hypercarbic/hypoxic resp failure 2/2 chronic disease and/or COPD exacerbation. #PULM Hypercarbic/hypoxic respiratory failure 2/2 pulmonary fibrosis, and/or COPD, CHF exacerbation -Continue duonebs 1 amp QIDR -Prednisone 40mg PO daily -Continue ceftriaxone - empirically -Last abg: mixed picture: compensated respiratory acidosis + met alkalosis -Holding lasix d/t rising bicarb -F/u ABG -F/u CXR -BiPAP PRN -F/u Urine Cx #CARDIO HTN- controlled -Last reading 141/86 -Continue nitroglycerin, diovan, toprol, norvasc #RHEUM SLE -Continue hydroxychloroquine 200 mg PO qd #ENDOCRINE DM -ISS -BGM #RENAL Hypokalemia -Repleted with 40 mEq KCl -Continue to follow BMP #GOC -Pt will clarify DNR/DNI status with daughter -Once ready, will fill out paperwork #Prophylaxis DVT: heparin 5000 SQ BID GI: Protonix 40 mg PO qd #F/E/N -Monitor electrolytes -Diabetic/sodium diet #Dispo Continued monitoring in ICU Visit type - Emergency Visit Emergency Visit: No - New Patient This patient is new to me today: Yes Date on this admission: 06/23/17 - Critical Care Critical Care patient: Yes Total Critical Care Time (in minutes): 42 Critical Care Statement: The care of this patient involved high complexity decision making to prevent further life threatening deterioration of the patient 's condition and/or to evaluate & treat vital organ system(s) failure or risk of failure.
[2017-06-23 14:50] LABS: URINE APPEARANCE SLCLOUDY; URINE BILIRUBIN NEGATIVE (NEGATIVE); URINE BLOOD 2+ (NEGATIVE); URINE COLOR YELLOW; URINE GLUCOSE (UA) NEGATIVE (NEGATIVE); URINE KETONE NEGATIVE (NEGATIVE); URINE NITRITE NEGATIVE (NEGATIVE); URINE UROBILINOGEN NEGATIVE mg/dL (0.2-1.0)
[2017-06-23 14:57] LABS: URINE PROTEIN 1+ (NEGATIVE)
--- NOTE | 2017-06-23 15:22 | HP ---
Admitting History and Physical - Past Medical History Cardiovascular: Yes: HTN Pulmonary: Yes: COPD, O2 Dependent, Pulmonary Fibrosis Gastrointestinal: Yes: Constipation, GERD Renal/: Yes: Renal Calculi ...: No Rheumatology: Yes: Lupus - Past Surgical History Past Surgical History: Yes: Cholecystectomy, Hysterectomy - Smoking History Smoking history: Former smoker Have you smoked in the past 12 months: No - Alcohol/Substance Use Hx Alcohol Use: No Home Medications - Allergies Allergies/Adverse Reactions: Allergies Allergy/AdvReac Type Severity Reaction Status Date / Time No Known Allergies Allergy Verified 06/21/17 13:46 - Home Medications Home Medications: Ambulatory Orders Amlodipine Besylate [Norvasc -] 5 mg PO DAILY 06/21/17 Calcitonin-[place] [Miacalcin] 0 ml NS DAILY 06/21/17 Diazepam [Valium] 5 mg PO ASDIR 06/21/17 Ergocalciferol [Drisdol Oral Solution -] 16,000 units PO DAILY 06/21/17 Hydroxychloroquine Sulfate 200 mg PO ASDIR 06/21/17 Insulin (LOG) Aspart [NovoLOG -] 0 units SQ ASDIR 06/21/17 Loratadine [Claritin] 10 mg PO DAILY 06/21/17 Methotrexate Sodium [Methotrexate] 2.5 mg PO DAILY 06/21/17 Metoprolol Succinate [Toprol Xl] 50 mg PO DAILY 06/21/17 Mineral Oil/Pet Hy-Phl [Aquaphor] 1 applic TP ASDIR 06/21/17 Nitroglycerin Patch [Nitro-Dur] 0.4 mg TD ASDIR 06/21/17 Pantoprazole Sodium [Protonix] 40 mg PO DAILY 06/21/17 Prednisone [Deltasone -] 20 mg PO DAILY 06/21/17 Sennosides [Senna] 8.6 mg PO DAILY 06/21/17 Torsemide 100 mg PO DAILY 06/21/17 Tramadol HCl 50 mg PO DAILY 06/21/17 Valsartan [Diovan] 160 mg PO DAILY 06/21/17 Physical Examination Vital Signs: Vital Signs Temperature 99 F 06/23/17 10:00 Pulse Rate 101 H 06/23/17 14:00 Respiratory Rate 19 06/23/17 14:00 Blood Pressure 94/64 06/23/17 14:00 O2 Sat by Pulse Oximetry (%) 99 06/23/17 09:40 Labs: CBC, BMP 06/23/17 05:25 06/23/17 05:25 Problem List - Problems (1) Anemia Code(s): D64.9 - ANEMIA, UNSPECIFIED Qualifiers: Anemia type: unspecified type Qualified Code(s): D64.9 - Anemia, unspecified (2) CHF exacerbation Code(s): I50.9 - HEART FAILURE, UNSPECIFIED Qualifiers: Congestive heart failure type: unspecified congestive heart failure type Qualified Code(s): I50.9 - Heart failure, unspecified (3) COPD (chronic obstructive pulmonary disease) Code(s): J44.9 - CHRONIC OBSTRUCTIVE PULMONARY DISEASE, UNSPECIFIED Qualifiers: COPD type: unspecified COPD Qualified Code(s): J44.9 - Chronic obstructive pulmonary disease, unspecified (4) Hypercarbia Code(s): R06.89 - OTHER ABNORMALITIES OF BREATHING (5) Pulmonary fibrosis Code(s): J84.10 - PULMONARY FIBROSIS, UNSPECIFIED (6) Acute and chronic respiratory failure with hypoxia Code(s): J96.21 - ACUTE AND CHRONIC RESPIRATORY FAILURE WITH HYPOXIA (7) Lumbar compression fracture Code(s): S32.000A - WEDGE COMPRESSION FRACTURE OF UNSP LUMBAR VERTEBRA, INIT (8) Lupus (systemic lupus erythematosus) Code(s): M32.9 - SYSTEMIC LUPUS ERYTHEMATOSUS, UNSPECIFIED Qualifiers: Systemic lupus erythematosus type: unspecified Systemic lupus erythematosus organ involvement: unspecified Qualified Code(s): M32.9 - Systemic lupus erythematosus, unspecified (9) Morbid obesity Code(s): E66.01 - MORBID (SEVERE) OBESITY DUE TO EXCESS CALORIES (10) Sarcoidosis Code(s): D86.9 - SARCOIDOSIS, UNSPECIFIED
[2017-06-23 15:24] LABS: URINE HYALINE CAST 8 /lpf; URINE MUCUS FEW; URINE RBC 31 /hpf (0-3); URINE WBC 84 /hpf (3-5); YEAST RARE
--- NOTE | 2017-06-23 17:19 | PN ---
Progress Note, Physician Chief Complaint: AWAKE ALERT WEAK AND TIRED SHE SAYS HER LUNGS ARE NOT WORKING WELL AND THAT SHE REALIZES ALL THE ABUE SHE HAS GIVEN HER LUNGS AND BODY HAVE CAUGHT UP TO HER. I EXPLAINED WE WOULD TRY TO MEDICALLY OPTIMIZE HER AND LOOK AT ALL OPTIONS TO HELP HER. - Current Medication List Current Medications: Active Medications Acetaminophen (Tylenol -) 650 mg PO Q6H PRN PRN Reason: FEVER OR PAIN Albuterol/Ipratropium (Duoneb -) 1 amp NEB QIDR [facility] Last Admin: 06/23/17 17:10 Dose: 1 amp Amlodipine Besylate (Norvasc -) 5 mg PO DAILY [facility] Last Admin: 06/23/17 09:47 Dose: 5 mg Cholecalciferol (Vitamin D3 -) 1,000 unit PO DAILY [facility] Last Admin: 06/23/17 09:47 Dose: 1,000 unit Diazepam (Valium -) 2 mg PO Q8H PRN Emollient Ointment (Aquaphor -) 1 applic TP DAILY [facility] Last Admin: 06/23/17 09:45 Dose: 1 applic Heparin Sodium (Porcine) (Heparin -) 5,000 unit SQ BID [facility] Last Admin: 06/23/17 12:49 Dose: 5,000 unit Hydroxychloroquine Sulfate (Plaquenil -) 200 mg PO DAILY [facility] Last Admin: 06/23/17 09:47 Dose: 200 mg CEFTRIAXONE 1 G/50 ML PREMIX (Ceftriaxone 1 Gm-D5w Bag) 50 mls @ 100 mls/hr IVPB DAILY [facility] Last Admin: 06/23/17 09:45 Dose: 100 mls/hr Insulin Aspart (Novolog Vial Sliding Scale -) 1 vial SQ ACHS [facility] PRN Reason: Protocol Last Admin: 06/23/17 12:25 Dose: Not Given Loratadine (Claritin -) 10 mg PO DAILY [facility] Last Admin: 06/23/17 09:46 Dose: 10 mg Metoprolol Succinate (Toprol Xl -) 50 mg PO DAILY [facility] Last Admin: 06/23/17 09:47 Dose: 50 mg Morphine Sulfate (Morphine Injection -) 4 mg IVPUSH Q6H PRN PRN Reason: PAIN Last Admin: 06/23/17 09:57 Dose: 4 mg Nitroglycerin (Nitro-Dur Patch -) 0.1 mg TD DAILY [facility] Last Admin: 06/23/17 09:46 Dose: 0.1 mg Oxymetazoline HCl (Afrin -) 2 spray NS Q12H PRN PRN Reason: NASAL CONGESTION Last Admin: 06/23/17 05:56 Dose: 2 spray Pantoprazole Sodium (Protonix -) 40 mg PO DAILY [facility] Last Admin: 06/23/17 09:47 Dose: 40 mg Prednisone (Deltasone -) 40 mg PO DAILY [facility] Last Admin: 06/23/17 09:46 Dose: 40 mg Senna (Senna -) 2 tab PO HS PRN PRN Reason: CONSTIPATION Valsartan (Diovan -) 160 mg PO DAILY [facility] Last Admin: 06/23/17 09:46 Dose: 160 mg - Objective Vital Signs: Vital Signs Temperature 99 F 06/23/17 10:00 Pulse Rate 101 H 06/23/17 14:00 Respiratory Rate 19 06/23/17 14:00 Blood Pressure 94/64 06/23/17 14:00 O2 Sat by Pulse Oximetry (%) 99 06/23/17 09:40 Constitutional: Yes: Moderate Distress Eyes: Yes: WNL HENT: Yes: WNL Neck: Yes: WNL Cardiovascular: Yes: WNL Respiratory: Yes: On Nasal O2, Poor Air Entry, SOB Gastrointestinal: Yes: WNL Genitourinary: Yes: WNL Musculoskeletal: Yes: Back Pain, Muscle Weakness Extremities: Yes: WNL Edema: Yes Peripheral Pulses WNL: Yes Integumentary: Yes: WNL Wound/Incision: Yes: Clean/Dry Neurological: Yes: Paresthesia, Pre-Existing Deficit ...Motor Strength: LLE, RLE Psychiatric: Yes: WNL Labs: CBC, BMP 06/23/17 05:25 06/23/17 05:25 Problem List - Problems (1) Anemia Code(s): D64.9 - ANEMIA, UNSPECIFIED Qualifiers: Anemia type: unspecified type Qualified Code(s): D64.9 - Anemia, unspecified (2) CHF exacerbation Code(s): I50.9 - HEART FAILURE, UNSPECIFIED Qualifiers: Congestive heart failure type: unspecified congestive heart failure type Qualified Code(s): I50.9 - Heart failure, unspecified (3) COPD (chronic obstructive pulmonary disease) Code(s): J44.9 - CHRONIC OBSTRUCTIVE PULMONARY DISEASE, UNSPECIFIED Qualifiers: COPD type: unspecified COPD Qualified Code(s): J44.9 - Chronic obstructive pulmonary disease, unspecified (4) Hypercarbia Code(s): R06.89 - OTHER ABNORMALITIES OF BREATHING (5) Pulmonary fibrosis Code(s): J84.10 - PULMONARY FIBROSIS, UNSPECIFIED (6) Acute and chronic respiratory failure with hypoxia Code(s): J96.21 - ACUTE AND CHRONIC RESPIRATORY FAILURE WITH HYPOXIA (7) Lumbar compression fracture Code(s): S32.000A - WEDGE COMPRESSION FRACTURE OF UNSP LUMBAR VERTEBRA, INIT (8) Lupus (systemic lupus erythematosus) Code(s): M32.9 - SYSTEMIC LUPUS ERYTHEMATOSUS, UNSPECIFIED Qualifiers: Systemic lupus erythematosus type: unspecified Systemic lupus erythematosus organ involvement: unspecified Qualified Code(s): M32.9 - Systemic lupus erythematosus, unspecified (9) Morbid obesity Code(s): E66.01 - MORBID (SEVERE) OBESITY DUE TO EXCESS CALORIES (10) Sarcoidosis Code(s): D86.9 - SARCOIDOSIS, UNSPECIFIED Assessment/Plan ICU ADMISSION CONTINUED LABS REVIEWED AND ADDRESSED CHECK PULMONARY STATUS TRANSPLANT PATIENT? CHECK WITH PULMONARY PALLIATIVE CARE FOR ADVANCED DIRECTIVE DNR? DNI? PULMONARY CONSULT APPRECIATED CARDIOLOGY F/U ANXIETY CONTROL
[2017-06-23 18:38] LABS: URINE LEUK ESTERASE 1+ (NEGATIVE)
[2017-06-23] MEDS: BACITRACIN 15 GM TUBE TOPICAL OINTMENT TP SCH (22:12)
[2017-06-24] MEDS: ALBUTEROL SO4 2.5/IPRATROPIUM 0.5 INH SOL 3 ML VIAL.NEB. NEB SCH ×5 (00:10→23:30)
[2017-06-24 06:29] LABS: BASOPHIL 0.2 % (0-2.0); MCH 29.4 pg (25.7-33.7); MCHC 30.1 g/dl (32.0-36.0); MEAN CELL VOLUME 97.5 fl (80-96); MEAN PLT VOLUME 10.2 fl (7.5-11.1); NEUTROPHILS 86.7 % (42.8-82.8); PLATELET COUNT 125 K/MM3 (134-434); RDW 16.9 % (11.6-15.6); WHITE BLOOD COUNT 9.8 K/mm3 (4.0-10.0)
[2017-06-24] MEDS ORDERED: PT OWN MED DRAWER 7, Y5N ONE ×4 (07:22→22:07)
[2017-06-24] MEDS ORDERED: morphine CARPU-JECT 2 MG/1 ML DISP.SYRIN ONE (07:24)
[2017-06-24] MEDS: morphine CARPU-JECT 4 MG/1 ML DISP.SYRIN IVPUSH PRN (07:29)
[2017-06-24 07:34] LABS: ARTERIAL BLD GAS O2 SATURATION 94.9 % (90-98.9); ARTERIAL BLOOD GAS HCO3 63.9 meq/L (22-26); ARTERIAL BLOOD GAS PO2 75.6 mmHg (80-100); ARTERIAL BLOOD GAS pH 7.39 (7.35-7.45)
[2017-06-24 07:36] LABS: CREATININE 0.6 mg/dL (0.55-1.02); GLUCOSE,RANDOM 69 mg/dL (74-106); MAGNESIUM 1.6 mg/dL (1.8-2.4); PHOSPHOROUS 2.8 mg/dL (2.5-4.9)
[2017-06-24 07:36] LABS: ARTERIAL BLOOD GAS BASE EXCESS 33.6 meq/l (-2-2)
[2017-06-24 07:37] LABS: PT. ON O2? YES
[2017-06-24 08:19] LABS: ANION GAP -1 (8-16); CO2 64 mmol/L (21-32)
[2017-06-24] MEDS ORDERED: MAGNESIUM OXIDE 400 MG TABLET (FP) PO ONE (09:00)
[2017-06-24] MEDS: CEFTRIAXONE 1 G/50 ML PREMIX 50 ML IVPB SCH (09:24)
[2017-06-24] MEDS: predniSONE 20 MG TABLET (UD) PO SCH (09:24)
[2017-06-24] MEDS: HEPARIN NA (PORCINE) 5,000 UNITS/ML 1ML VIAL SQ SCH ×2 (09:25→22:18)
[2017-06-24] MEDS: VALSARTAN 160 MG TABLET (UD) PO SCH (09:25)
[2017-06-24] MEDS: PANTOPRAZOLE 40 MG TABLET (FP) PO SCH (09:26)
[2017-06-24] MEDS: CHOLECALCIFEROL (VITAMIN D3) 1,000 UNIT TABLET (FP) PO SCH (09:26)
[2017-06-24] MEDS: METOPROLOL SUCCINATE 50 MG TAB.SR.24H (FP) PO SCH (09:26)
[2017-06-24] MEDS: amLODIPine BESYLATE 5 MG TABLET (FP) PO SCH (09:26)
[2017-06-24] MEDS: BACITRACIN 15 GM TUBE TOPICAL OINTMENT TP SCH ×2 (09:30→22:23)
[2017-06-24] MEDS: MINERAL OIL/PET HY-PHL TOPICAL OINTMENT 454 GM JAR TP SCH (09:30)
[2017-06-24] MEDS: LORATADINE 10 MG TABLET PO SCH (09:46)
[2017-06-24] MEDS: NITROGLYCERIN 0.1 MG/HOUR TD PATCH TD SCH (09:46)
[2017-06-24] MEDS: HYDROXYCHLOROQUINE SO4 200 MG TABLET (FP) PO SCH (09:47)
[2017-06-24] MEDS: INSULIN SLIDING SCALE (NOVOLOG) 1 VIAL SQ SCH ×5 (10:45→22:52)
--- NOTE | 2017-06-24 11:29 | PN ---
Progress Note (short form) - Note Progress Note: Chief Complaint: acute resp failure History of Present Illness: IV lasix stopped yesterday. last dose yesterday am. sob is a little better today but + fatigue (O2 sat mid 80's --> increased O2 to 5L with improvement in sat and energy). attempting to wean oxygen today. currently on nasal cannula. no leg swelling, palpit, cp, dizziness. Current Medications Acetaminophen (Tylenol -) 650 mg PO Q6H PRN PRN Reason: FEVER OR PAIN Albuterol/Ipratropium (Duoneb -) 1 amp NEB QIDR [facility] Last Admin: 06/24/17 06:15 Dose: Not Given Amlodipine Besylate (Norvasc -) 5 mg PO DAILY [facility] Last Admin: 06/24/17 09:26 Dose: 5 mg Bacitracin (Bacitracin -) 1 applic TP BID [facility] Last Admin: 06/24/17 09:30 Dose: 1 applic Cholecalciferol (Vitamin D3 -) 1,000 unit PO DAILY [facility] Last Admin: 06/24/17 09:26 Dose: 1,000 unit Diazepam (Valium -) 2 mg PO Q8H PRN Emollient Ointment (Aquaphor -) 1 applic TP DAILY [facility] Last Admin: 06/24/17 09:30 Dose: 1 applic Heparin Sodium (Porcine) (Heparin -) 5,000 unit SQ BID [facility] Last Admin: 06/24/17 09:25 Dose: 5,000 unit Hydroxychloroquine Sulfate (Plaquenil -) 200 mg PO DAILY [facility] Last Admin: 06/24/17 09:47 Dose: 200 mg CEFTRIAXONE 1 G/50 ML PREMIX (Ceftriaxone 1 Gm-D5w Bag) 50 mls @ 100 mls/hr IVPB DAILY [facility] Last Admin: 06/24/17 09:24 Dose: 100 mls/hr Insulin Aspart (Novolog Vial Sliding Scale -) 1 vial SQ ACHS [facility] PRN Reason: Protocol Last Admin: 06/24/17 10:45 Dose: Not Given Loratadine (Claritin -) 10 mg PO DAILY [facility] Last Admin: 06/24/17 09:46 Dose: 10 mg Magnesium Sulfate (Magnesium Sulfate) 2 gm IVPB ONCE ONE Stop: 06/24/17 11:26 Metoprolol Succinate (Toprol Xl -) 50 mg PO DAILY [facility] Last Admin: 06/24/17 09:26 Dose: 50 mg Morphine Sulfate (Morphine Injection -) 4 mg IVPUSH Q6H PRN PRN Reason: PAIN Last Admin: 06/24/17 07:29 Dose: 4 mg Nitroglycerin (Nitro-Dur Patch -) 0.1 mg TD DAILY [facility] Last Admin: 06/24/17 09:46 Dose: 0.1 mg Oxymetazoline HCl (Afrin -) 2 spray NS Q12H PRN PRN Reason: NASAL CONGESTION Last Admin: 06/23/17 05:56 Dose: 2 spray Pantoprazole Sodium (Protonix -) 40 mg PO DAILY [facility] Last Admin: 06/24/17 09:26 Dose: 40 mg Potassium Chloride (K-Dur -) 40 meq PO ONCE ONE Stop: 06/24/17 11:26 Prednisone (Deltasone -) 40 mg PO DAILY [facility] Last Admin: 06/24/17 09:24 Dose: 40 mg Senna (Senna -) 2 tab PO HS PRN PRN Reason: CONSTIPATION Valsartan (Diovan -) 160 mg PO DAILY [facility] Last Admin: 06/24/17 09:25 Dose: 160 mg - Objective Vital Signs: Vital Signs - 24 hr 06/23/17 06/23/17 06/23/17 12:00 14:00 16:00 Temperature Pulse Rate 104 H 101 H 95 H Respiratory 19 19 16 Rate Blood Pressure 94/70 94/64 95/70 O2 Sat by Pulse Oximetry (%) 06/23/17 06/23/17 06/23/17 19:30 19:54 19:55 Temperature Pulse Rate 98 H Respiratory 20 20 Rate Blood Pressure 123/81 O2 Sat by Pulse 100 100 Oximetry (%) 06/23/17 06/24/17 06/24/17 22:00 00:00 02:00 Temperature Pulse Rate 95 H 100 H 107 H Respiratory 20 20 20 Rate Blood Pressure 130/93 119/80 O2 Sat by Pulse Oximetry (%) 06/24/17 06/24/17 06/24/17 04:00 06:00 07:42 Temperature 98.6 F Pulse Rate 111 H 99 H 100 H Respiratory 19 Rate Blood Pressure 125/87 123/77 121/79 O2 Sat by Pulse Oximetry (%) 06/24/17 06/24/17 06/24/17 07:44 07:47 08:00 Temperature Pulse Rate Respiratory Rate Blood Pressure 106/74 O2 Sat by Pulse 98 98 Oximetry (%) 06/24/17 10:44 Temperature Pulse Rate 102 H Respiratory 20 Rate Blood Pressure 125/70 O2 Sat by Pulse Oximetry (%) Intake & Output 06/22/17 06/23/17 06/24/17 06/25/17 07:59 07:59 07:59 07:59 Intake Total 830 1380 410 Output Total 2900 2600 1300 Balance -2070 -1220 -890 Weight 257 lb 6.4 oz 259 lb 8 oz 255 lb 14.4 oz Constitutional: Yes: No Distress, Calm, Obese jvd flat Cardiovascular: Yes: tachy, Regular Rate and Rhythm, S1, S2. No: JVD, Gallop, Murmur Respiratory: Yes: Regular, Rales (diffusely), Wheezes. No: Accessory Muscle Use Extremities: No: Cold Edema: No Neurological: Yes: Alert, Oriented Psychiatric: No: Agitated gi + bs soft nt nd, obese + dp/pt Labs: CBC, BMP 06/24/17 05:10 06/24/17 05:10 Laboratory Tests 06/24/17 06/24/17 05:10 06:00 ABG pH 7.39 ABG pCO2 at Pt Temp 108.0 H* ABG pO2 at Pt Temp 75.6 L ABG HCO3 63.9 H* ABG O2 Sat (Measured) 94.9 Magnesium 1.6 L D - ....Imaging EKG: Other (tele: sinus with sinus tach) Assessment/Plan L/RHC 07/18: wedge 20-->down to 10 with nitroprusside; PA -->34/8; CI 2.1; normal cors Echo 06/2015: tds, nl lvef, mild/mod dec rv fcn, mild/mod dilated rv, no sig valve path, mild phtn CXR 06/23, image reviewed: severe interstitial prominence diffusely; can't exclude component of vascular redistribution (no change vs 12/18 prior); no effusions CXR 06/24 unchanged. 52 yo with severe lung disease (ILD) on supplemental O2, HTN, multile PEs on AC now admitted with dyspnea and hypoxia in the setting of rapid steroid taper and sick contact. Dyspnea, likely a.e. ILDz +/- a.e. copd +/- PNA, with component of acute on chronic diast chf: -pulm/crit care following--treating with steroids, nebs, and covering with abx -BNP 1100, vs 70s prior; CXR ILD pattern, no definite congestion -trial of lasix 40 iv bid started 06/21 pm. lytes/renal fxn stable. s/p 4 doses. stopped 06/23 am per pulm b/c of rising bicarb. Aggressive K repletion in setting of elevated bicarb. Resume home po torsemide when bicarb stabilizes per pulm/pmd. -wt was 300 lbs in office 08/20, was well-compensated then from chf standpoint; currently 250's on bedscale HTN - Previous admissin for very labile BP, harry with high dose steroids - currently well controlled/running low on valsartan, toprol, amlodipine, nitro patch (also for prior left sided pressures very responsive to nitrates in slab off mill tender) - 06/24 will downtitrate toprol dose. tachycardia is sinus and likely related to underlying intermittent sob/hypoxia. h/o PEs: -dx'd in outside hosp ([facility]) 06/19--previously on Eliquis. -? if provoked or not -Prior notes states she completed treatment -per pmd +/- heme as indicated
[2017-06-24] MEDS ORDERED: POTASSIUM CHLORIDE TABS 20 MEQ TABLET.ER (FP) PO ONE (12:00)
[2017-06-24] MEDS ORDERED: MAGNESIUM SULF 50% (8.12 MEQ/2 ML-1 GM VIAL) IVPB ONE (12:00)
--- NOTE | 2017-06-24 12:30 | PN ---
Teaching Attending Note Name of Resident: Karen Green ATTENDING PHYSICIAN STATEMENT I saw and evaluated the patient. I reviewed the resident's note and discussed the case with the resident. I agree with the resident's findings and plan as documented. SUBJECTIVE: Pt seen and examined in the ICU. Breathing about the same. Still with cough productive of thick white sputum. No fevers or chills. OBJECTIVE: Last Vital Signs Temp Pulse Resp BP Pulse Ox 98.6 F 98 H 20 95/81 98 06/24/17 06:00 06/24/17 12:02 06/24/17 12:02 06/24/17 12:02 06/24/17 07:47 Intake & Output 06/21/17 06/22/17 06/23/17 06/24/17 23:59 23:59 23:59 23:59 Intake Total 1730 755 135 Output Total 1200 4000 1500 100 Balance -1200 -2270 -745 35 Weight 264 lb 257 lb 6.4 oz 259 lb 8 oz 255 lb 14.4 oz Gen: less tachypneic, chronically ill appearing Heart: RRR Lung: scattered rhonchi, rales Abd: soft, nontender Ext: no edema CBC, BMP 06/24/17 05:10 06/24/17 05:10 Active Medications Acetaminophen (Tylenol -) 650 mg PO Q6H PRN PRN Reason: FEVER OR PAIN Acetazolamide (Diamox -) 250 mg PO BID [facility] Stop: 06/25/17 23:59 Albuterol/Ipratropium (Duoneb -) 1 amp NEB QIDR [facility] Last Admin: 06/24/17 12:23 Dose: 1 amp Amlodipine Besylate (Norvasc -) 5 mg PO DAILY [facility] Last Admin: 06/24/17 09:26 Dose: 5 mg Bacitracin (Bacitracin -) 1 applic TP BID [facility] Last Admin: 06/24/17 09:30 Dose: 1 applic Cholecalciferol (Vitamin D3 -) 1,000 unit PO DAILY [facility] Last Admin: 06/24/17 09:26 Dose: 1,000 unit Diazepam (Valium -) 2 mg PO Q8H PRN Emollient Ointment (Aquaphor -) 1 applic TP DAILY [facility] Last Admin: 06/24/17 09:30 Dose: 1 applic Heparin Sodium (Porcine) (Heparin -) 5,000 unit SQ BID [facility] Last Admin: 06/24/17 09:25 Dose: 5,000 unit Hydroxychloroquine Sulfate (Plaquenil -) 200 mg PO DAILY [facility] Last Admin: 06/24/17 09:47 Dose: 200 mg CEFTRIAXONE 1 G/50 ML PREMIX (Ceftriaxone 1 Gm-D5w Bag) 50 mls @ 100 mls/hr IVPB DAILY [facility] Last Admin: 06/24/17 09:24 Dose: 100 mls/hr Insulin Aspart (Novolog Vial Sliding Scale -) 1 vial SQ ACHS [facility] PRN Reason: Protocol Last Admin: 06/24/17 12:03 Dose: Not Given Loratadine (Claritin -) 10 mg PO DAILY [facility] Last Admin: 06/24/17 09:46 Dose: 10 mg Metoprolol Succinate (Toprol Xl -) 25 mg PO DAILY [facility] Morphine Sulfate (Morphine Injection -) 4 mg IVPUSH Q6H PRN PRN Reason: PAIN Last Admin: 06/24/17 07:29 Dose: 4 mg Nitroglycerin (Nitro-Dur Patch -) 0.1 mg TD DAILY [facility] Last Admin: 06/24/17 09:46 Dose: 0.1 mg Oxymetazoline HCl (Afrin -) 2 spray NS Q12H PRN PRN Reason: NASAL CONGESTION Last Admin: 06/23/17 05:56 Dose: 2 spray Pantoprazole Sodium (Protonix -) 40 mg PO DAILY [facility] Last Admin: 06/24/17 09:26 Dose: 40 mg Prednisone (Deltasone -) 40 mg PO DAILY [facility] Last Admin: 06/24/17 09:24 Dose: 40 mg Senna (Senna -) 2 tab PO HS PRN PRN Reason: CONSTIPATION Valsartan (Diovan -) 160 mg PO DAILY [facility] Last Admin: 06/24/17 09:25 Dose: 160 mg ASSESSMENT AND PLAN: Acute on Chronic Hypoxic and Hypercapneic Respiratory Failure Sarcoidosis COPD Pulmonary Fibrosis Pulmonary HTN h/o PE HTN DM Lupus - continue prednisone - inhaled bronchodilators - empiric antibiotics - f/u cultures - O2 to keep Spo2 >90% - BiPAP as needed to assist in work of breathing - will give diamox today - replete lytes - DVT/GI prophylaxis - discussed with pt advanced directives, she confirms DNR/DNI, will have her sign papers - can monitor on telemetry critical care time spent in reviewing chart, evaluating patient and formulating plan 35 min
[2017-06-24] MEDS ORDERED: diazePAM 2 MG TABLET PO PRN (13:28)
[2017-06-24] MEDS ORDERED: morphine CARPU-JECT 4 MG/1 ML DISP.SYRIN IVPUSH PRN (13:28)
[2017-06-24] MEDS ORDERED: ACETAMINOPHEN 325 MG TABLET (FP) PO PRN (13:28)
[2017-06-24] MEDS ORDERED: OXYMETAZOLINE 0.05% NASAL SOLUTION 15 ML BOTTLE NS PRN (13:28)
[2017-06-24] MEDS ORDERED: SENNOSIDES 8.6MG TABLET (FP) PO PRN (13:28)
--- NOTE | 2017-06-24 14:18 | PN ---
Physical Exam: SUBJECTIVE: Patient seen and examined at bedside. 24 hr events -afebrile -c/o thick white mucus, congestion. Today -no acute events -pt still c/o thick white mucus, congestion. Endorsed mild chills and SOB as well -Pt transferred to [facility] OBJECTIVE: Vital Signs Period Temp Pulse Resp BP Sys/Steen Pulse Ox Last 24 Hr 98.6 F 95-111 16-20 95-130/70-93 98-100 GENERAL: The patient is awake, alert, on 5L NC 02, sat well. Mild SOB HEAD: Normal with no signs of trauma. EYES: PERRL, extraocular movements intact, sclera anicteric, conjunctiva clear. NECK: Trachea midline, supple. LUNGS: decreased breath sounds b/l HEART: Regular rate and rhythm, S1, S2 without murmur, rub or gallop. ABDOMEN: Soft, obese, nontender, nondistended, normoactive bowel sounds EXTREMITIES: 2+ posterior tibial pulses, 1+ pitting edema b/l (R>L) NEUROLOGICAL: Cranial nerves II through XII grossly intact Laboratory Results - last 24 hr 06/23/17 06/24/17 06/24/17 14:40 05:10 05:10 WBC 9.8 RBC 3.44 L Hgb 10.1 L Hct 33.6 MCV 97.5 H MCH 29.4 MCHC 30.1 L RDW 16.9 H Plt Count 125 L MPV 10.2 Neutrophils % 86.7 H Lymphocytes % 9.3 D Monocytes % 3.8 D Eosinophils % 0.0 D Basophils % 0.2 ABG pH ABG pCO2 at Pt Temp ABG pO2 at Pt Temp ABG HCO3 ABG O2 Sat (Measured) ABG O2 Content ABG Base Excess Zay Test Oxygen Flow Rate Sodium 140 Potassium 3.7 D Chloride 77 L Carbon Dioxide 64 H Anion Gap -1 L BUN 16 D Creatinine 0.6 D Random Glucose 69 L Calcium 10.0 Phosphorus 2.8 D Magnesium 1.6 L D Urine Color Yellow Urine Appearance Slcloudy Urine pH 5.0 Ur Specific [place] 1.012 Urine Protein 1+ H Urine Glucose (UA) Negative Urine Ketones Negative Urine Blood 2+ H Urine Nitrite Negative Urine Bilirubin Negative Urine Urobilinogen Negative Ur Leukocyte Esterase 1+ H Urine RBC No Result Required. Ur Epithelial Cells Rare Hyaline Casts 8 Urine Mucus Few Urine Yeast Rare 06/24/17 06:00 WBC RBC Hgb Hct MCV MCH MCHC RDW Plt Count MPV Neutrophils % Lymphocytes % Monocytes % Eosinophils % Basophils % ABG pH 7.39 ABG pCO2 at Pt Temp 108.0 H* ABG pO2 at Pt Temp 75.6 L ABG HCO3 63.9 H* ABG O2 Sat (Measured) 94.9 ABG O2 Content 12.8 L ABG Base Excess 33.6 H* Zay Test Y Oxygen Flow Rate Yes Sodium Potassium Chloride Carbon Dioxide Anion Gap BUN Creatinine Random Glucose Calcium Phosphorus Magnesium Urine Color Urine Appearance Urine pH Ur Specific [place] Urine Protein Urine Glucose (UA) Urine Ketones Urine Blood Urine Nitrite Urine Bilirubin Urine Urobilinogen Ur Leukocyte Esterase Urine RBC Ur Epithelial Cells Hyaline Casts Urine Mucus Urine Yeast Active Medications Generic Name Dose Route Start Last Admin Trade Name Freq PRN Reason Stop Dose Admin Acetaminophen 650 mg 06/24/17 13:28 Tylenol - PO Q6H PRN FEVER OR PAIN Acetazolamide 250 mg 06/24/17 12:00 Diamox - PO 06/25/17 23:59 BID [facility] Albuterol/Ipratropium 1 amp 06/24/17 18:00 Duoneb - NEB QIDR [facility] Amlodipine Besylate 5 mg 06/25/17 10:00 Norvasc - PO DAILY [facility] Bacitracin 1 applic 06/24/17 22:00 Bacitracin - TP BID [facility] Cholecalciferol 1,000 unit 06/25/17 10:00 Vitamin D3 - PO DAILY [facility] Diazepam 2 mg 06/24/17 13:28 Valium - PO Q8H PRN Emollient Ointment 1 applic 06/25/17 10:00 Aquaphor - TP DAILY [facility] Heparin Sodium (Porcine) 5,000 unit 06/24/17 22:00 Heparin - SQ BID [facility] Hydroxychloroquine Sulfate 200 mg 06/25/17 10:00 Plaquenil - PO DAILY [facility] CEFTRIAXONE 1 G/50 ML PREMIX 50 mls @ 100 mls/hr 06/25/17 10:00 Ceftriaxone 1 Gm-D5w Bag IVPB DAILY [facility] Insulin Aspart 1 vial 06/24/17 16:30 Novolog Vial Sliding Scale - SQ ACHS [facility] Protocol Loratadine 10 mg 06/25/17 10:00 Claritin - PO DAILY [facility] Metoprolol Succinate 25 mg 06/25/17 10:00 Toprol Xl - PO DAILY [facility] Morphine Sulfate 4 mg 06/24/17 13:28 Morphine Injection - IVPUSH Q6H PRN PAIN Nitroglycerin 0.1 mg 06/25/17 10:00 Nitro-Dur Patch - TD DAILY [facility] Oxymetazoline HCl 2 spray 06/24/17 13:28 Afrin - NS Q12H PRN NASAL CONGESTION Pantoprazole Sodium 40 mg 06/25/17 10:00 Protonix - PO DAILY [facility] Prednisone 40 mg 06/25/17 10:00 Deltasone - PO DAILY [facility] Senna 2 tab 06/24/17 13:28 Senna - PO HS PRN CONSTIPATION Valsartan 160 mg 06/25/17 10:00 Diovan - PO DAILY [facility] ASSESSMENT/PLAN: 52 y/o F with PMH pulmonary fibrosis, sarcoid, pulm HTN, PE x 3 (2015), COPD, CHF, DM, HTN, SLE, Anxiety, BIB SNF for progressive respiratory distress over past few weeks since Prednisone taper 40mg BID. Pt admitted to ICU for continued monitoring, d/t hypercarbic/hypoxic resp failure 2/2 chronic disease and/or COPD exacerbation. #PULM Hypercarbic/hypoxic respiratory failure 2/2 pulmonary fibrosis, and/or COPD, CHF exacerbation -Continue duonebs 1 amp QIDR -Prednisone 40mg PO daily -Continue ceftriaxone - empirically -Last abg: mixed picture: compensated respiratory acidosis + met alkalosis -Holding lasix d/t rising bicarb - receiving acetazolamide 250mg BID. -Assess continued use of acetazolamide qdaily by checking bicarb, ABGs -BiPAP PRN -F/u urine cx #CARDIO HTN- controlled -Last reading 121/ -Continue nitroglycerin, diovan, toprol, norvasc #RHEUM SLE -Continue hydroxychloroquine 200 mg PO qd #ENDOCRINE DM -ISS -BGM #RENAL Hypokalemia-resolved Hypomagnesemia -Repleted with MgOx 400mg PO, MgSulfate 2g #GOC -Pt will clarify DNR/DNI status with daughter -Once ready, will fill out paperwork #Prophylaxis DVT: heparin 5000 SQ BID GI: Protonix 40 mg PO qd #F/E/N -Monitor electrolytes -Diabetic/sodium diet #Dispo transferred to tele Visit type - Emergency Visit Emergency Visit: No - New Patient This patient is new to me today: No - Critical Care Critical Care patient: Yes Total Critical Care Time (in minutes): 42 Critical Care Statement: The care of this patient involved high complexity decision making to prevent further life threatening deterioration of the patient 's condition and/or to evaluate & treat vital organ system(s) failure or risk of failure.
--- NOTE | 2017-06-24 14:28 | PN ---
Progress Note, Physician Chief Complaint: IN BED AWAKE ON 02 SUPPORT STILL SOB - Current Medication List Current Medications: Active Medications Acetaminophen (Tylenol -) 650 mg PO Q6H PRN PRN Reason: FEVER OR PAIN Acetazolamide (Diamox -) 250 mg PO BID [facility] Stop: 06/25/17 23:59 Albuterol/Ipratropium (Duoneb -) 1 amp NEB QIDR [facility] Amlodipine Besylate (Norvasc -) 5 mg PO DAILY [facility] Bacitracin (Bacitracin -) 1 applic TP BID [facility] Cholecalciferol (Vitamin D3 -) 1,000 unit PO DAILY [facility] Diazepam (Valium -) 2 mg PO Q8H PRN Emollient Ointment (Aquaphor -) 1 applic TP DAILY [facility] Heparin Sodium (Porcine) (Heparin -) 5,000 unit SQ BID [facility] Hydroxychloroquine Sulfate (Plaquenil -) 200 mg PO DAILY [facility] CEFTRIAXONE 1 G/50 ML PREMIX (Ceftriaxone 1 Gm-D5w Bag) 50 mls @ 100 mls/hr IVPB DAILY [facility] Insulin Aspart (Novolog Vial Sliding Scale -) 1 vial SQ ACHS [facility] PRN Reason: Protocol Loratadine (Claritin -) 10 mg PO DAILY [facility] Metoprolol Succinate (Toprol Xl -) 25 mg PO DAILY [facility] Morphine Sulfate (Morphine Injection -) 4 mg IVPUSH Q6H PRN PRN Reason: PAIN Nitroglycerin (Nitro-Dur Patch -) 0.1 mg TD DAILY [facility] Oxymetazoline HCl (Afrin -) 2 spray NS Q12H PRN PRN Reason: NASAL CONGESTION Pantoprazole Sodium (Protonix -) 40 mg PO DAILY [facility] Prednisone (Deltasone -) 40 mg PO DAILY [facility] Senna (Senna -) 2 tab PO HS PRN PRN Reason: CONSTIPATION Valsartan (Diovan -) 160 mg PO DAILY [facility] - Objective Vital Signs: Vital Signs Temperature 98.6 F 06/24/17 06:00 Pulse Rate 98 H 06/24/17 12:02 Respiratory Rate 20 06/24/17 12:02 Blood Pressure 95/81 06/24/17 12:02 O2 Sat by Pulse Oximetry (%) 98 06/24/17 07:47 Constitutional: Yes: Mild Distress Eyes: Yes: WNL HENT: Yes: WNL Neck: Yes: WNL Cardiovascular: Yes: WNL Respiratory: Yes: On Nasal O2, Poor Air Entry Gastrointestinal: Yes: WNL Genitourinary: Yes: Incontinence Musculoskeletal: Yes: Back Pain, Muscle Weakness Extremities: Yes: WNL Edema: Yes Peripheral Pulses WNL: Yes Integumentary: Yes: Rash, Venous Stasis Changes Wound/Incision: Yes: Dressing Dry and Intact Neurological: Yes: Pre-Existing Deficit, Unsteady Gait, Weakness ...Motor Strength: LLE, RLE Psychiatric: Yes: Other Labs: CBC, BMP 06/24/17 05:10 06/24/17 05:10 Problem List - Problems (1) Anemia Code(s): D64.9 - ANEMIA, UNSPECIFIED Qualifiers: Anemia type: unspecified type Qualified Code(s): D64.9 - Anemia, unspecified (2) CHF exacerbation Code(s): I50.9 - HEART FAILURE, UNSPECIFIED Qualifiers: Congestive heart failure type: unspecified congestive heart failure type Qualified Code(s): I50.9 - Heart failure, unspecified (3) COPD (chronic obstructive pulmonary disease) Code(s): J44.9 - CHRONIC OBSTRUCTIVE PULMONARY DISEASE, UNSPECIFIED Qualifiers: COPD type: unspecified COPD Qualified Code(s): J44.9 - Chronic obstructive pulmonary disease, unspecified (4) Hypercarbia Code(s): R06.89 - OTHER ABNORMALITIES OF BREATHING (5) Pulmonary fibrosis Code(s): J84.10 - PULMONARY FIBROSIS, UNSPECIFIED (6) Acute and chronic respiratory failure with hypoxia Code(s): J96.21 - ACUTE AND CHRONIC RESPIRATORY FAILURE WITH HYPOXIA (7) Lumbar compression fracture Code(s): S32.000A - WEDGE COMPRESSION FRACTURE OF UNSP LUMBAR VERTEBRA, INIT (8) Lupus (systemic lupus erythematosus) Code(s): M32.9 - SYSTEMIC LUPUS ERYTHEMATOSUS, UNSPECIFIED Qualifiers: Systemic lupus erythematosus type: unspecified Systemic lupus erythematosus organ involvement: unspecified Qualified Code(s): M32.9 - Systemic lupus erythematosus, unspecified (9) Morbid obesity Code(s): E66.01 - MORBID (SEVERE) OBESITY DUE TO EXCESS CALORIES (10) Sarcoidosis Code(s): D86.9 - SARCOIDOSIS, UNSPECIFIED Assessment/Plan 02 SUPPORT PT EVAL OOB TO CHAIR DC PLANNING
[2017-06-24] MEDS: acetaZOLAMIDE 250 MG TABLET PO SCH ×2 (17:04→22:18)
[2017-06-25] MEDS: INSULIN SLIDING SCALE (NOVOLOG) 1 VIAL SQ SCH ×2 (06:31→11:43)
[2017-06-25] MEDS: ALBUTEROL SO4 2.5/IPRATROPIUM 0.5 INH SOL 3 ML VIAL.NEB. NEB SCH ×2 (07:05→12:33)
[2017-06-25 08:46] LABS: CALCIUM 10.7 mg/dL (8.5-10.1); CREATININE 0.5 mg/dL (0.55-1.02); GLUCOSE,RANDOM 79 mg/dL (74-106); MAGNESIUM 2.2 mg/dL (1.8-2.4)
[2017-06-25 09:25] LABS: ANION GAP -4 (8-16); CO2 63 mmol/L (21-32)
[2017-06-25] MEDS ORDERED: predniSONE 20 MG TABLET (UD) PO SCH (10:00)
[2017-06-25] MEDS ORDERED: MINERAL OIL/PET HY-PHL TOPICAL OINTMENT 454 GM JAR TP SCH (10:00)
[2017-06-25] MEDS ORDERED: CEFTRIAXONE 1 G/50 ML PREMIX 50 ML IVPB SCH (10:00)
[2017-06-25] MEDS ORDERED: HYDROXYCHLOROQUINE SO4 200 MG TABLET (FP) PO SCH (10:00)
[2017-06-25] MEDS ORDERED: LORATADINE 10 MG TABLET PO SCH (10:00)
[2017-06-25] MEDS ORDERED: PANTOPRAZOLE 40 MG TABLET (FP) PO SCH (10:00)
[2017-06-25] MEDS ORDERED: CHOLECALCIFEROL (VITAMIN D3) 1,000 UNIT TABLET (FP) PO SCH (10:00)
[2017-06-25] MEDS ORDERED: METOPROLOL SUCCINATE 25 MG TAB.SR.24H (FP) PO SCH (10:00)
[2017-06-25] MEDS ORDERED: NITROGLYCERIN 0.1 MG/HOUR TD PATCH TD SCH (10:00)
--- NOTE | 2017-06-25 11:09 | PN ---
Progress Note (short form) - Note Progress Note: s: no leg swelling, palpit, cp, dizziness. Current Medications Generic Name Dose Route Start Last Admin Trade Name Freq PRN Reason Stop Dose Admin Acetaminophen 650 mg 06/24/17 13:28 Tylenol - PO Q6H PRN FEVER OR PAIN Acetazolamide 250 mg 06/24/17 12:00 06/24/17 22:18 Diamox - PO 06/25/17 23:59 250 mg BID [facility] Administration Albuterol/Ipratropium 1 amp 06/24/17 18:00 06/25/17 07:05 Duoneb - NEB 1 amp QIDR [facility] Administration Amlodipine Besylate 5 mg 06/25/17 10:00 Norvasc - PO DAILY [facility] Bacitracin 1 applic 06/24/17 22:00 06/24/17 22:23 Bacitracin - TP 1 applic BID [facility] Administration Cholecalciferol 1,000 unit 06/25/17 10:00 Vitamin D3 - PO DAILY [facility] Diazepam 2 mg 06/24/17 13:28 Valium - PO Q8H PRN Emollient Ointment 1 applic 06/25/17 10:00 Aquaphor - TP DAILY [facility] Heparin Sodium (Porcine) 5,000 unit 06/24/17 22:00 06/24/17 22:18 Heparin - SQ 5,000 unit BID [facility] Administration Hydroxychloroquine Sulfate 200 mg 06/25/17 10:00 Plaquenil - PO DAILY [facility] CEFTRIAXONE 1 G/50 ML PREMIX 50 mls @ 100 mls/hr 06/25/17 10:00 Ceftriaxone 1 Gm-D5w Bag IVPB DAILY [facility] Insulin Aspart 1 vial 06/24/17 16:30 06/25/17 06:31 Novolog Vial Sliding Scale - SQ Not Given ACHS [facility] Protocol Lactobacillus Acidophilus 1 tab 06/25/17 11:15 Bacid - PO DAILY [facility] Loratadine 10 mg 06/25/17 10:00 Claritin - PO DAILY [facility] Metoprolol Succinate 25 mg 06/25/17 10:00 Toprol Xl - PO DAILY [facility] Morphine Sulfate 4 mg 06/24/17 13:28 06/24/17 22:14 Morphine Injection - IVPUSH 4 mg Q6H PRN Administration PAIN Nitroglycerin 0.1 mg 06/25/17 10:00 Nitro-Dur Patch - TD DAILY [facility] Nystatin 500,000 units 06/25/17 11:15 Nystatin Oral Suspension - PO Q6HPO [facility] Oxymetazoline HCl 2 spray 06/24/17 13:28 Afrin - NS Q12H PRN NASAL CONGESTION Pantoprazole Sodium 40 mg 06/25/17 10:00 Protonix - PO DAILY [facility] Potassium Chloride 40 meq 06/25/17 11:03 K-Dur - PO 06/25/17 11:04 ONCE ONE Prednisone 40 mg 06/25/17 10:00 Deltasone - PO DAILY [facility] Senna 2 tab 06/24/17 13:28 Senna - PO HS PRN CONSTIPATION Valsartan 160 mg 06/25/17 10:00 Diovan - PO DAILY [facility] - Objective Vital Signs: Vital Signs Period Temp Pulse Resp BP Sys/Steen Pulse Ox Last 24 Hr 98 F-98.8 F 98-101 19-20 95-126/69-81 100 Constitutional: Yes: No Distress, Calm, Obese jvd flat Cardiovascular: Yes: tachy, Regular Rate and Rhythm, S1, S2. No: JVD, Gallop, Murmur Respiratory: Yes: Regular, mild Wheezes. No: Accessory Muscle Use Extremities: No: Cold Edema: No Neurological: Yes: Alert, Oriented Psychiatric: No: Agitated gi + bs soft nt nd, obese Labs: CBC, BMP 06/24/17 05:10 06/25/17 07:45 EKG: Other (tele: sr) L/RHC 07/18: wedge 20-->down to 10 with nitroprusside; PA 48/22-->34/8; CI 2.1; normal cors Echo 06/2015: tds, nl lvef, mild/mod dec rv fcn, mild/mod dilated rv, no sig valve path, mild phtn CXR 06/23, image reviewed: severe interstitial prominence diffusely; can't exclude component of vascular redistribution (no change vs 12/18 prior); no effusions CXR 06/24 unchanged. a/p: 52 yo with severe lung disease (ILD) on supplemental O2, HTN, multile PEs on AC now admitted with dyspnea and hypoxia in the setting of rapid steroid taper and sick contact. Dyspnea, likely a.e. ILDz +/- a.e. copd +/- PNA, with component of acute on chronic diast chf: -pulm/crit care following--treating with steroids, nebs, and covering with abx -BNP 1100, vs 70s prior; CXR ILD pattern, no definite congestion -trial of lasix 40 iv bid started 06/21 pm. lytes/renal fxn stable. s/p 4 doses. stopped 06/23 am per pulm b/c of rising bicarb. Resume home po torsemide when bicarb stabilizes. 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 -? if provoked or not -Prior notes states she completed treatment -per pmd +/- heme as indicated
--- NOTE | 2017-06-25 11:11 | DS ---
Physical Examination Vital Signs: Vital Signs Temperature 98.6 F 06/25/17 05:44 Pulse Rate 100 H 06/25/17 05:44 Respiratory Rate 20 06/25/17 05:44 Blood Pressure 115/69 06/25/17 05:44 O2 Sat by Pulse Oximetry (%) 100 06/24/17 21:00 Findings/Remarks: STABLE, FEELS GOOD EATING BREAKFAST, STILL WEAK Constitutional: Yes: No Distress Eyes: Yes: WNL HENT: Yes: WNL Neck: Yes: WNL Cardiovascular: Yes: WNL Respiratory: Yes: On Nasal O2, Poor Air Entry Gastrointestinal: Yes: WNL Renal/: Yes: WNL Musculoskeletal: Yes: Muscle Weakness Extremities: Yes: WNL Edema: Yes Edema: LLE: 1+, RLE: 1+ Peripheral Pulses WNL: Yes Integumentary: Yes: Other Wound/Incision: Yes: Dressing Dry and Intact Neurological: Yes: Pre-Existing Deficit, Unsteady Gait, Weakness ...Motor Strength: LLE, RLE Psychiatric: Yes: Other Labs: CBC, BMP 06/24/17 05:10 06/25/17 07:45 Discharge Summary Reason For Visit: FIBROSIS OF LUNG,ANEMIA Current Active Problems Anemia (Acute) CHF exacerbation (Acute) COPD (chronic obstructive pulmonary disease) (Acute) Hypercarbia (Acute) Pulmonary fibrosis (Acute) Procedures: Principal: CT SCAN Hospital Course: ADMITTED FOR RESP DISTRESS, HYPERCAPNEA WITH TOXIC METABOLIC ENCEPHALOPATHY, TREATED WITH IV ABX, IV STEROIDS, NEBS, PULMONARY SUPPORT. 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 WILL HAVE ANOTHER PSYCHIATRY EVAL OUTPATIENT AND ADDRESS ADVANCED DIRECTIVES ONCE MORE IN A STABLE SETTING. PATIENT WILL NEED LUNG TRANSPLANT, SHE IS CURRENTLY BEING TREATED OPTIMALLY BY PULMONARY AND CARDIOLOGY. POOR OVERALL PROGNOSIS. Condition: Guarded - Instructions Diet, Activity, Other Instructions: PSYCHIATRY EVAL FOR ADVANCED DIRECTIVE. PATIENT IS CURRENTLY DNR/DNI LOW SODIUM DIET PREDNISONE TAPER SLOWLY PULMONARY FOLLOW UP FOR LUNG TRANSPLANT Referrals: Malcom Waddell MD [Primary Care Provider] - Disposition: CUSTODIAL FACILITY - Home Medications Comprehensive Discharge Medication List: Ambulatory Orders Amlodipine Besylate [Norvasc -] 5 mg PO DAILY 06/21/17 Calcitonin-[place] [Miacalcin] 0 ml NS DAILY 06/21/17 Diazepam [Valium] 5 mg PO ASDIR 06/21/17 Ergocalciferol [Drisdol Oral Solution -] 16,000 units PO DAILY 06/21/17 Hydroxychloroquine Sulfate 200 mg PO ASDIR 06/21/17 Insulin (LOG) Aspart [NovoLOG -] 0 units SQ [facility]IR 06/21/17 Loratadine [Claritin] 10 mg PO DAILY 06/21/17 Methotrexate Sodium [Methotrexate] 2.5 mg PO DAILY 06/21/17 Metoprolol Succinate [Toprol Xl] 50 mg PO DAILY 06/21/17 Mineral Oil/Pet Hy-Phl [Aquaphor] 1 applic TP [facility]IR 06/21/17 Nitroglycerin Patch [Nitro-Dur] 0.4 mg TD ASDIR 06/21/17 Pantoprazole Sodium [Protonix] 40 mg PO DAILY 06/21/17 Prednisone [Deltasone -] 20 mg PO DAILY 06/21/17 Sennosides [Senna] 8.6 mg PO DAILY 06/21/17 Torsemide 100 mg PO DAILY 06/21/17 Tramadol HCl 50 mg PO DAILY 06/21/17 Valsartan [Diovan] 160 mg PO DAILY 06/21/17
[2017-06-25] MEDS ORDERED: POTASSIUM CHLORIDE TABS 20 MEQ TABLET.ER (FP) PO ONE (11:15)
[2017-06-25] MEDS ORDERED: LACTOBACILLUS ACIDOPHILUS 1 EACH TAB (FP) PO SCH (11:15)
[2017-06-25] MEDS: BACITRACIN 15 GM TUBE TOPICAL OINTMENT TP SCH (11:20)
[2017-06-25] MEDS: acetaZOLAMIDE 250 MG TABLET PO SCH (11:21)
[2017-06-25] MEDS: VALSARTAN 160 MG TABLET (UD) PO SCH ×2 (11:21→11:47)
[2017-06-25] MEDS: HEPARIN NA (PORCINE) 5,000 UNITS/ML 1ML VIAL SQ SCH (11:21)
[2017-06-25] MEDS: amLODIPine BESYLATE 5 MG TABLET (FP) PO SCH ×2 (11:23→11:48)
[2017-06-25] MEDS ORDERED: NYSTATIN 500,000 UNITS/5 ML SUSPENSION PO SCH (12:00)
[2017-06-25 13:00] VITALS: BP 95/63; PULSE 73; TEMP 98.5
== END 2017-06-25 13:40 | DRG 189 ==
LOC: JER 13:06 → JERBED 16:46 → JICU 18:26 → J4S 06-24 14:13
PROVIDERS: ADMIT Family Medicine; ATTEND Family Medicine
DX: J96.21 Acute and chronic respiratory failure with hypoxia (principal); I50.33 Acute on chronic diastolic (congestive) heart failure; J18.9 Pneumonia, unspecified organism; G92 Toxic encephalopathy; Z68.41 Body mass index [BMI] 40.0-44.9, adult; E87.2 Acidosis; E87.3 Alkalosis; J84.10 Pulmonary fibrosis, unspecified; D64.9 Anemia, unspecified; I50.9 Heart failure, unspecified; J44.9 Chronic obstructive pulmonary disease, unspecified; E66.01 Morbid (severe) obesity due to excess calories; D86.9 Sarcoidosis, unspecified; I11.0 Hypertensive heart disease with heart failure; M32.9 Systemic lupus erythematosus, unspecified; E87.6 Hypokalemia; E83.42 Hypomagnesemia; K21.9 Gastro-esophageal reflux disease without esophagitis
CPT/HCPCS: 36415; 36600; 71010-TC; 80048; 80053; 81003; 81015; 82375; 82550; 82803; 83050; 83735; 83880; 84100; 84484; 85025; 85027; 87040; 87081; 87086; 87633; 87804; 87899; 93005; 93010; 94640; 94660; 99282-25; J1644